=== PATIENT | male | born 1930 | race Caucasian/White ===

== ENCOUNTER 2016-03-31 08:23 | Day surgery (SDC) | payer MEDICARE ==
[2016-03-29 11:30] VITALS: BMI 28.2
[~2016-03-31 08:23] MED LIST: ACETAMINOPHEN TAB 500 MG TAB PO ONE; DEXAMETHASONE SOD PHOSPHATE 4 MG/ML 1 ML VIAL IV ONE; FAMOTIDINE 20 MG/2 ML VIAL IV ONE; HYDROmorphone 1 MG/ML 1 ML SYRINGE IVP PRN; LACTATED RINGERS 1,000 ML IV SCH; LIDOCAINE 1% 20 ML VIAL (10MG/ML) FOR IV START INTRADERMA PRN; ONDANSETRON 4 MG/2 ML VIAL IVP ONE; ONDANSETRON 4 MG/2 ML VIAL IVP PRN; ceFAZolin 2 GM in SODIUM CHLORIDE 0.9% 100 ML IVPB ONE; metroNIDAZOLE-NS PMX 500 MG in SALINE 1 100ML.BAG IVPB ONE
[2016-03-31 09:50] VITALS: RESP 16; TEMP 97.8
[2016-03-31] MEDS ORDERED: DEXAMETHASONE SOD PHOS (MDV) 100 MG/10 ML VIAL IV ONE (10:01)
[2016-03-31] MEDS ORDERED: diphenhydrAMINE 50 MG/ML 1 ML VIAL ONE (10:53)
[2016-03-31] MEDS ORDERED: fentaNYL (PF) 50 MCG/ML 2 ML AMP ONE (10:53)
[2016-03-31] MEDS ORDERED: MIDAZOLAM 2 MG/2 ML VIAL ONE (10:53)
[2016-03-31] MEDS ORDERED: DEXAMETHASONE SOD PHOS (MDV) 100 MG/10 ML VIAL ONE (10:53)
[2016-03-31] MEDS ORDERED: LIDOCAINE 1%-EPI 1:100,000 20 ML VIAL SQ ONE ×2 (11:27)
--- NOTE | 2016-03-31 12:47 | P.OP ---
Date of Procedure: 03/31/16 Preoperative Diagnosis: Right vocal cord paralysis Postoperative Diagnosis: Same Procedure(s) Performed: Flexible laryngoscopy with a right medialization thyroplasty with a #11 Hickman implant Anesthesia: ANJEL Surgeon: Kvng Calabrese Estimated Blood Loss (ml): 5 Pathology: none sent Condition: stable Disposition: PACU Indications for Procedure: This patient suffers from severe hoarseness and has a right vocal cord paralysis. His voice has not progressed and he would like to proceed forward with rehabilitative surgery with medialization of the paralyzed vocal cord. All risks, benefits, and alternative therapies were discussed in detail. Consent was obtained and all questions were answered. Operative Findings: Patient had a right vocal cord paralysis patient has significant calcification of the laryngeal framework Description of Procedure: This patient was taken to the operative room and placed in the supine position. IV sedation was administered to the patient through a functioning IV line and monitored throughout the entire case by the department of anesthesia. A direct microscopic laryngoscopy was performed with use of a Zeiss microscope. Direct visualization was performed. We found a-RIGHT VOCAL CORD PARALYSIS IN THE PARAMEDIAN POSITION. The neck was sterilely prepped and draped in usual fashion and the incision was marked. With use of lidocaine 1% with epinephrine 12 1000, the skin and deeper strap muscles were anesthetized. An incision was made over the lower portion of the thyroid cartilage horizontally in the neck. Hemostasis was obtained with use of electrocoagulation realizing a #12 setting without the flow of oxygen to prevent any fire risk. We dissected through the platysmas muscle to the strap muscles. We the strap muscles in the midline. We then exposed the thyroid cartilage the appropriate side of surgery. We then made a window into the lower portion of the thyroid cartilage in the usual fashion for Hickman implant to be inserted. We then used with the sizer several different implants resistant to the voice and checked for stridor utilizing implants from #7-12. WE UTILIZED A #11 MALE HICKMAN IMPLANT ON THE RIGHT SIDE. This was secured into position in the usual fashion. We then irrigated and then closed the strap muscles with 4-0 Vicryl in an interrupted type fashion. The close the platysmas layer of 4-0 Vicryl in an interrupted type fashion. We then closed the deep subcutaneous tissue with 4 -0 Monocryl in an interrupted type fashion. We then closed the skin with a 5-0 Prolene in a running nonlocking fashion. Bacitracin ointment and Telfa were applied along with a Medpor tape. The patient tolerated this well and the patient is to follow up with me in the office in 1 week. One week voice rest restrictions were given that her absolute area and no heavy lifting or bending. She was also advised that if any stridor should occur she should come to the emergency room. They have been given my cell phone number and contact information.
[2016-03-31 14:01] VITALS: BP 136/74; PULSE 89
== END 2016-03-31 14:14 | disposition home or self-care (01) ==
LOC: OR 08:23
PROVIDERS: ATTEND Otolaryngology
DX: J38.01 Paralysis of vocal cords and larynx, unilateral (principal); I25.10 Atherosclerotic heart disease of native coronary artery without angina pectoris; I10 Essential (primary) hypertension; E78.5 Hyperlipidemia, unspecified; J44.9 Chronic obstructive pulmonary disease, unspecified; J45.909 Unspecified asthma, uncomplicated; K21.9 Gastro-esophageal reflux disease without esophagitis; Z87.891 Personal history of nicotine dependence; Z95.5 Presence of coronary angioplasty implant and graft; Z79.82 Long term (current) use of aspirin; Z79.899 Other long term (current) drug therapy
CPT/HCPCS: 31591; L8509; J2250; J1200; J0690; J2405; J3010; J1100; 99152; 99153

== ENCOUNTER 2016-04-10 16:07 | Inpatient (IN) | payer MEDICARE ==
[2016-04-10] MEDS ORDERED: ONDANSETRON 4 MG/2 ML VIAL IVP STA (16:28)
[2016-04-10] MEDS ORDERED: SODIUM CHLORIDE 0.9% 500 ML IV STA (16:28)
--- NOTE | 2016-04-10 16:39 | ED ---
Abdominal Pain HPI <KieranYoav - Last Filed: 04/10/16 18:19> - General Source: patient, EMS, RN notes reviewed Mode of arrival: EMS Limitations: no limitations <Nura Harrison - Last Filed: 04/10/16 18:25> - General Chief Complaint: Abdominal Pain Stated Complaint: abd pain Time Seen by Provider: 04/10/16 16:14 - History of Present Illness Initial Comments: 85-year-old male presents emergency Department with chief complaint of abdominal pain. Patient comes from [facility] on the leg. Patient states that he was given laxatives, enemas over the last few days for possible constipation. Patient states that he did have large bowel movement on Monday and Monday morning but states he has not had anything since. Patient went of increased abdominal pain primarily on the left with abdominal bloating. Patient had a prior bleeding ulcer, hernia repair by Dr. tilley. Patient states he had recent surgery on his vocal cords by Dr. Calabrese. Patient denies any increased shortness breath or any chest pain. Patient states his vocal cords are doing much better at this time. Patient states she does feel very weak and he is at [facility] for rehab. Patient denies fever, chills. Patient offers no complaints. (Nura Harrison) - Related Data Home Medications Medication Instructions Recorded Confirmed Finasteride 5 mg PO DAILY 07/13/13 04/10/16 Lisinopril [Zestril] 10 mg PO DAILY 07/13/13 04/10/16 DULoxetine HCL [Cymbalta] 60 mg PO HS 05/16/14 04/10/16 ALPRAZolam [Xanax] 1 mg PO Q8H PRN 09/09/15 04/10/16 Allopurinol 100 mg PO DAILY 09/09/15 04/10/16 Docusate [Colace] 100 mg PO BID 03/03/16 04/10/16 Famotidine [Pepcid] 20 mg PO BID 03/03/16 04/10/16 QUEtiapine FUMARATE [SEROquel] 25 mg PO HS 03/03/16 04/10/16 Aspirin [Adult Low Dose Aspirin EC] 81 mg PO DAILY 03/29/16 04/10/16 Atorvastatin [Lipitor] 20 mg PO HS 03/29/16 04/10/16 Ipratropium-Albuterol Nebulize 3 ml INHALATION RT-QID 03/29/16 04/10/16 [Duoneb 0.5 mg-3 mg/3 ml Soln] Acetaminophen-Codeine 300-30mg 1 tab PO Q6H PRN 04/10/16 04/10/16 [Tylenol #3] Acetaminophen-Codeine 300-30mg 2 tab PO Q6H PRN 04/10/16 04/10/16 [Tylenol #3] Amoxicillin/Potassium Clav 1 tab PO Q12HR 04/10/16 04/10/16 [Augmentin 875-125 Tablet] Ferrous Sulfate Oral Elixir 330 mg PO DAILY 04/10/16 04/10/16 [Feosol Liquid] Magnesium Hydroxide [Milk of 2,400 mg PO DAILY PRN 04/10/16 04/10/16 Magnesia] Metoprolol Tartrate [Lopressor] 50 mg PO HS 04/10/16 04/10/16 amLODIPine [Norvasc] 10 mg PO HS 04/10/16 04/10/16 Previous Rx's Medication Instructions Recorded Budesonide [Pulmicort] 0.5 mg INHALATION RT-BID PRN #60 02/19/16 nebu Allergies Allergy/AdvReac Type Severity Reaction Status Date / Time No Known Allergies Allergy Verified 04/10/16 17:03 Review of Systems ROS Other: All systems not noted in ROS Statement are negative. <Yoav Alcaraz - Last Filed: 04/10/16 18:19> ROS Other: All systems not noted in ROS Statement are negative. <Nura Harrison - Last Filed: 04/10/16 18:25> ROS Statement: Those systems with pertinent positive or pertinent negative responses have been documented in the HPI. Past Medical History Past Medical History: COPD, GERD/Reflux, Hyperlipidemia, Hypertension, Osteoarthritis (OA) Additional Past Medical History / Comment(s): MACULAR DEGENERATION History of Any Multi-Drug Resistant Organisms: None Reported Past Surgical History: Heart Catheterization With Stent, Joint Replacement, Orthopedic Surgery Additional Past Surgical History / Comment(s): carpal tunnel release, ulcer surgery, RIGHT TOTAL KNEEX2 Past Anesthesia/Blood Transfusion Reactions: No Reported Reaction Date of Last Stent Placement:: 2010 Past Psychological History: Anxiety, Depression Smoking Status: Former smoker Past Alcohol Use History: None Reported Additional Past Alcohol Use History / Comment(s): STARTED SMOKING AT AGE 19, QUIT FEB 2016 SMOKED 1/2PPD Past Drug Use History: None Reported - Past Family History Mother Family Medical History: Cancer Additional Family Medical History / Comment(s): COLON CANCER <HunterNura Willis - Last Filed: 04/10/16 18:25> General Exam Limitations: no limitations General appearance: alert, in no apparent distress Head exam: Present: atraumatic, normocephalic, normal inspection Neck exam: Present: full ROM, other (Anterior incision covered noted). Absent: normal inspection, tenderness, meningismus, lymphadenopathy Respiratory exam: Present: normal lung sounds bilaterally. Absent: respiratory distress, wheezes, rales, rhonchi, stridor Cardiovascular Exam: Present: normal rhythm, tachycardia, normal heart sounds. Absent: systolic murmur, diastolic murmur, rubs, gallop, clicks GI/Abdominal exam: Present: soft, distended, tenderness (Moderate tenderness of the left), normal bowel sounds. Absent: guarding, rebound, rigid Back exam: Absent: CVA tenderness (R), CVA tenderness (L) Skin exam: Present: warm, dry, intact, normal color. Absent: rash <HunterNura Alba - Last Filed: 04/10/16 18:25> Medical Decision Making - Lab Data Result diagrams: 04/10/16 16:34 04/10/16 16:34 <Yoav Alcaraz - Last Filed: 04/10/16 18:19> - Lab Data Result diagrams: 04/10/16 16:34 04/10/16 16:34 <Nura Harrison - Last Filed: 04/10/16 18:25> - Medical Decision Making Medical decision-making. The patient had stomach surgery 2 years ago for ulcer disease. Subsequent to that he reportedly had ventral hernia repair. 10 days ago he had vocal cord surgery . Not currently taking any pain medications. 2 days ago the patient had 2 loose stools but no bowel movement since yesterday morning. Today he was given an enema with no results. He presents today with a bloated abdomen, very tympanitic. X-ray of the abdomen shows what appears to be gastric outlet obstruction. CAT scan performed suggests gastroparesis versus gastric obstruction. The examination finds tympanitic abdomen, tenderness to palpation. Hypoactive bowel sounds. The case discussed with . Dr. Collazo on-call for Dr. Bryant. He suggests NG tube. This will be done, he will be placed on low Gomco suction. He wants the patient admitted to Dr. Peters service with consultation from the patient's medical doctor, Dr. Cheng who is covering for Dr. Castillo. Dr. Alcaraz (Yoav Alcaraz) - Lab Data Lab Results 04/10/16 04/10/16 04/10/16 Range/Units 16:34 16:34 16:34 WBC 16.0 H (3.8-10.6) k/uL RBC 4.46 (4.30-5.90) m/uL Hgb 13.7 (13.0-17.5) gm/dL Hct 43.2 (39.0-53.0) % MCV 96.9 (80.0-100.0) fL MCH 30.7 (25.0-35.0) pg MCHC 31.6 (31.0-37.0) g/dL RDW 14.0 (11.5-15.5) % Plt Count 294 (150-450) k/uL Neutrophils % 82 % Lymphocytes % 5 % Monocytes % 10 % Eosinophils % 2 % Basophils % 0 % Neutrophils # 13.1 H (1.3-7.7) k/uL Lymphocytes # 0.8 L (1.0-4.8) k/uL Monocytes # 1.5 H (0-1.0) k/uL Eosinophils # 0.3 (0-0.7) k/uL Basophils # 0.0 (0-0.2) k/uL PT (9.0-12.0) sec INR (<1.1) APTT (22.0-30.0) sec Sodium 138 (137-145) mmol/L Potassium 4.4 (3.5-5.1) mmol/L Chloride 102 (98-107) mmol/L Carbon Dioxide 28 (22-30) mmol/L Anion Gap 8 mmol/L BUN 19 (9-20) mg/dL Creatinine 0.70 (0.66-1.25) mg/dL Est GFR (MDRD) Af Amer >60 (>60 ml/min/1.73 sqM) Est GFR (MDRD) Non-Af >60 (>60 ml/min/1.73 sqM) Glucose 111 H (74-99) mg/dL Plasma Lactic Acid Murtaza 1.1 (0.7-2.0) mmol/L Calcium 9.0 (8.4-10.2) mg/dL Total Bilirubin 0.8 (0.2-1.3) mg/dL AST 18 (17-59) U/L ALT 25 (21-72) U/L Alkaline Phosphatase 51 (38-126) U/L Total Protein 5.6 L (6.3-8.2) g/dL Albumin 3.3 L (3.5-5.0) g/dL Amylase <30 L (30-110) U/L Lipase 123 (23-300) U/L 04/10/16 Range/Units 16:34 WBC (3.8-10.6) k/uL RBC (4.30-5.90) m/uL Hgb (13.0-17.5) gm/dL Hct (39.0-53.0) % MCV (80.0-100.0) fL MCH (25.0-35.0) pg MCHC (31.0-37.0) g/dL RDW (11.5-15.5) % Plt Count (150-450) k/uL Neutrophils % % Lymphocytes % % Monocytes % % Eosinophils % % Basophils % % Neutrophils # (1.3-7.7) k/uL Lymphocytes # (1.0-4.8) k/uL Monocytes # (0-1.0) k/uL Eosinophils # (0-0.7) k/uL Basophils # (0-0.2) k/uL PT 11.2 (9.0-12.0) sec INR 1.1 (<1.1) APTT 26.7 (22.0-30.0) sec Sodium (137-145) mmol/L Potassium (3.5-5.1) mmol/L Chloride (98-107) mmol/L Carbon Dioxide (22-30) mmol/L Anion Gap mmol/L BUN (9-20) mg/dL Creatinine (0.66-1.25) mg/dL Est GFR (MDRD) Af Amer (>60 ml/min/1.73 sqM) Est GFR (MDRD) Non-Af (>60 ml/min/1.73 sqM) Glucose (74-99) mg/dL Plasma Lactic Acid Murtaza (0.7-2.0) mmol/L Calcium (8.4-10.2) mg/dL Total Bilirubin (0.2-1.3) mg/dL AST (17-59) U/L ALT (21-72) U/L Alkaline Phosphatase (38-126) U/L Total Protein (6.3-8.2) g/dL Albumin (3.5-5.0) g/dL Amylase (30-110) U/L Lipase (23-300) U/L Disposition <Yoav Alcaraz - Last Filed: 04/10/16 18:19> Time of Disposition: 18:25 <Nura Harrison - Last Filed: 04/10/16 18:25> Clinical Impression: Gastric outlet obstruction, Abdominal pain Disposition: ADMITTED IP TO THIS HOSP Condition: Stable
[2016-04-10 17:01] LABS: ALT 25 U/L (21-72); AST 18 U/L (17-59); Alkaline Phosphatase 51 U/L (38-126); Amylase <30 U/L (30-110); Anion Gap 8 mmol/L; Blood Urea Nitrogen 19 mg/dL (9-20); Carbon Dioxide 28 mmol/L (22-30); Chloride 102 mmol/L (98-107); Glucose 111 mg/dL (74-99); Non-African American GFR(MDRD) >60 (>60 ml/min/1.73 sqM); Potassium 4.4 mmol/L (3.5-5.1); Sodium 138 mmol/L (137-145); Total Bilirubin 0.8 mg/dL (0.2-1.3); Total Protein 5.6 g/dL (6.3-8.2)
--- NOTE | 2016-04-10 17:02 | XR ---
EXAMINATION TYPE: XR KUB DATE OF EXAM: 04/10/2016 4:52 PM COMPARISON: 09/02/2015 HISTORY: Abdominal pain TECHNIQUE: 2 views FINDINGS: There is no sign of intestinal obstruction or pneumoperitoneum. Fecal pattern is normal. Th ere is a large fluid-filled stomach. There are no pathologic calcifications definitely seen in the ki dneys. There is probably some diaphragmatic pleural calcification at the right lung base. IMPRESSION: Large air and fluid filled stomach. This could relate to gastroparesis. No free air. This appears new compared to old exam.
[2016-04-10 17:06] LABS: Basophils % (A) 0 %; CH 31.3; CHCM 32.4; Eosinophils # (A) 0.3 k/uL (0-0.7); Eosinophils % (A) 2 %; HCT 43.2 % (39.0-53.0); HDW 2.21; HGB 13.7 gm/dL (13.0-17.5); Luc # (Auto) 0.25; Luc % (Auto) 2; Lymphocytes # (A) 0.8 k/uL (1.0-4.8); Lymphocytes % (A) 5 %; MCH 30.7 pg (25.0-35.0); MCHC 31.6 g/dL (31.0-37.0); MCV 96.9 fL (80.0-100.0); Mean Platelet Volume 7.3; Monocytes # (A) 1.5 k/uL (0-1.0); Monocytes % (A) 10 %; Neutrophils # (A) 13.1 k/uL (1.3-7.7); Neutrophils % (A) 82 %; RBC 4.46 m/uL (4.30-5.90); WBC (Perox) 15.78
[2016-04-10] MEDS ORDERED: RX INFO: IV CONTRAST WAS GIVEN 1 EACH MISC MISCELLANE PRN (17:11)
[2016-04-10] MEDS ORDERED: METOCLOPRAMIDE 5 MG/ML 2 ML VIAL IVP STA (17:11)
[2016-04-10 17:21] LABS: INR 1.1 (<1.1); Partial Thromboplastin Time 26.7 sec (22.0-30.0); Prothrombin Time 11.2 sec (9.0-12.0)
--- NOTE | 2016-04-10 18:06 | CT ---
EXAMINATION TYPE: CT abdomen pelvis w con DATE OF EXAM: 04/10/2016 5:49 PM COMPARISON: 01/24/2013 HISTORY: Patient complains of generalized abdominal pain and constipation. CT DLP: 936.3 mGycm Automated exposure control for dose reduction was used. TECHNIQUE: Helical acquisition of images was performed from the lung bases through the pelvis. CONTRAST: Performed without Oral Contrast and with IV Contrast, patient injected with 100 mL of Omnipaque 300. FINDINGS: Lung bases are clear of consolidation. There is bilateral calcified pleural plaque at the lung bases. There is no pleural effusion. The liver and spleen appear normal. Bile ducts are not dilated. There is no pancreatic mass. Gallblad sj appears normal. There is no adrenal mass. Kidneys show satisfactory contrast opacification. There is no hydronephrosis. There is no retroperitoneal adenopathy. Abdominal aorta is atheromatous. I see no intestinal wall thickening. There are no dilated loops. There is a large stomach with fluid. Ther e is no ascites. Bladder distends smoothly. There is no sign of a pelvic mass. There is prostatic aayush cification. There are spondylotic changes throughout the lumbar spine. There is multilevel laminectom y defect noted. There is variable mild lumbar spinal stenosis. There is extensive anterior osteophyte formation. IMPRESSION: EXTENSIVE BILATERAL BASILAR CALCIFIED PLEURAL PLAQUE HAS PROGRESSED COMPARED TO OLD EXAM. THERE IS A DILATED AIR AND FLUID-FILLED STOMACH THAT IS NEW COMPARED TO OLD EXAM AND COULD RELATE TO GASTRIC OUT LET OBSTRUCTION OR GASTROPARESIS. EXTENSIVE ATHEROSCLEROTIC VASCULAR DISEASE. 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
[2016-04-10] MEDS ORDERED: NALOXONE 0.4 MG/ML 1 ML VIAL IV PRN (18:19)
[2016-04-10] MEDS ORDERED: METOCLOPRAMIDE 5 MG/ML 2 ML VIAL IVP PRN (18:22)
[2016-04-10 18:57] LABS: Appearance,Urine Clear (Clear); Bilirubin,Urine Negative (Negative); Glucose,Urine (UA) Negative (Negative); Ketones,Urine 2+ (Negative); Leukocyte Esterase,Urine Negative (Negative); Nitrite,Urine Negative (Negative); PH, Urine 6.5 (5.0-8.0); Protein,Urine Trace (Negative); UA Billing (MACRO vs. MICRO) CHEM
[2016-04-10] MEDS ORDERED: ACETAMINOPHEN IV (For NPO) 1,000 MG in EMPTY BAG 1 BAG IVPB STA (19:01)
[2016-04-10] MEDS: SODIUM CHLORIDE 0.9% 1,000 ML IV SCH (19:03)
[2016-04-10] MEDS ORDERED: ACETAMINOPHEN SUPPOSITORY 650 MG SUPP RECTAL PRN (20:26)
[2016-04-10] MEDS ORDERED: BUDESONIDE 0.5 MG/2 ML NEBU INHALATION PRN (20:27)
[2016-04-10] MEDS: metroNIDAZOLE-NS PMX 500 MG in SALINE 1 100ML.BAG IVPB SCH (23:17)
[2016-04-11] MEDS: IPRATROPIUM-ALBUTEROL 3 ML NEB INHALATION SCH ×4 (07:19→20:20)
[2016-04-11] MEDS: PANTOPRAZOLE 40 MG/10 ML VIAL IVP SCH (09:09)
[2016-04-11] MEDS: SODIUM CHLORIDE 0.9% 1,000 ML IV SCH ×3 (09:09→23:32)
[2016-04-11] MEDS: metroNIDAZOLE-NS PMX 500 MG in SALINE 1 100ML.BAG IVPB SCH ×3 (09:09→23:32)
[2016-04-11 10:15] VITALS: BMI 28.0
--- NOTE | 2016-04-11 20:30 | P.GSCN ---
History of Present Illness Consult date: 04/11/16 Reason for Consult: Abdominal pain History of present illness: Patient came to the hospital with complaints of abdominal pain. He describes increased abdominal bloating. He describes recent constipation. He had a recent ENT surgical procedure performed. Denies vomiting. Some nausea. The patient had a CAT scan performed showing significant gastric distention and has had over 3 L of gastric evacuation with a nasogastric tube. His white blood cell count was elevated on arrival. Repeat as ordered for tomorrow. He has a history of previous ulcer disease and had a repair bleeding ulcer 3-4 years ago. He is currently staying at [facility] for rehab after his recent surgery. Review of Systems The patient denies any acute changes in his vision or hearing, no dysphagia or odynophagia, no chest pain or shortness of breath, no dysuria or hematuria, no headache, no runny nose, no rectal bleeding or melena, no unexplained weight loss Past Medical History Past Medical History: COPD, GERD/Reflux, Hyperlipidemia, Hypertension, Osteoarthritis (OA) Additional Past Medical History / Comment(s): MACULAR DEGENERATION History of Any Multi-Drug Resistant Organisms: None Reported Past Surgical History: Heart Catheterization With Stent, Joint Replacement, Orthopedic Surgery Additional Past Surgical History / Comment(s): carpal tunnel release, ulcer surgery, RIGHT TOTAL KNEEX2, left rotater cuff Past Anesthesia/Blood Transfusion Reactions: No Reported Reaction Date of Last Stent Placement:: 2010 Past Psychological History: Anxiety, Depression Smoking Status: Former smoker Past Alcohol Use History: None Reported Additional Past Alcohol Use History / Comment(s): STARTED SMOKING AT AGE 19, QUIT FEB 2016 SMOKED 1/2PPD Past Drug Use History: None Reported - Past Family History Mother Family Medical History: Cancer Additional Family Medical History / Comment(s): COLON CANCER Medications and Allergies Home Medications Medication Instructions Recorded Confirmed Type Finasteride 5 mg PO DAILY 07/13/13 04/10/16 History Lisinopril [Zestril] 10 mg PO DAILY 07/13/13 04/10/16 History DULoxetine HCL [Cymbalta] 60 mg PO HS 05/16/14 04/10/16 History ALPRAZolam [Xanax] 1 mg PO Q8H PRN 09/09/15 04/10/16 History Allopurinol 100 mg PO DAILY 09/09/15 04/10/16 History Docusate [Colace] 100 mg PO BID 03/03/16 04/10/16 History Famotidine [Pepcid] 20 mg PO BID 03/03/16 04/10/16 History QUEtiapine FUMARATE [SEROquel] 25 mg PO HS 03/03/16 04/10/16 History Aspirin [Adult Low Dose Aspirin EC] 81 mg PO DAILY 03/29/16 04/10/16 History Atorvastatin [Lipitor] 20 mg PO HS 03/29/16 04/10/16 History Ipratropium-Albuterol Nebulize 3 ml INHALATION RT-QID 03/29/16 04/10/16 History [Duoneb 0.5 mg-3 mg/3 ml Soln] Acetaminophen-Codeine 300-30mg 1 tab PO Q6H PRN 04/10/16 04/10/16 History [Tylenol #3] Acetaminophen-Codeine 300-30mg 2 tab PO Q6H PRN 04/10/16 04/10/16 History [Tylenol #3] Amoxicillin/Potassium Clav 1 tab PO Q12HR 04/10/16 04/10/16 History [Augmentin 875-125 Tablet] Ferrous Sulfate Oral Elixir 330 mg PO DAILY 04/10/16 04/10/16 History [Feosol Liquid] Magnesium Hydroxide [Milk of 2,400 mg PO DAILY PRN 04/10/16 04/10/16 History Magnesia] Metoprolol Tartrate [Lopressor] 50 mg PO HS 04/10/16 04/10/16 History amLODIPine [Norvasc] 10 mg PO HS 04/10/16 04/10/16 History Allergies Allergy/AdvReac Type Severity Reaction Status Date / Time No Known Allergies Allergy Verified 04/10/16 17:03 Surgical - Exam Vital Signs Temp Pulse Resp BP Pulse Ox 99.8 F H 104 H 20 134/75 96 04/10/16 16:09 04/10/16 16:09 04/10/16 16:09 04/10/16 16:09 04/10/16 16:09 Physical exam: General: Well-developed, well-nourished HEENT: Normocephalic, sclerae nonicteric Abdomen: Nontender, nondistended, previous scars noted, NG tube in place with bilious output Extremities: No edema Neuro: Alert and oriented Results - Labs 04/10/16 16:34 04/10/16 16:34 Assessment and Plan (1) Gastric outlet obstruction Narrative/Plan: Patient's CAT scan does suggest significant gastric distention however the patient's gastric effluent appears bilious. Obstruction would be beyond the pylorus in that case. Will order upper GI to be performed tomorrow. We'll follow closely with you. Status: Acute
[2016-04-11] MEDS: LORazepam 2 MG/ML SYRINGE IV PRN (23:31)
[2016-04-11] MEDS ORDERED: ENALAPRILAT 1.25 MG/ML 1 ML VIAL IVP PRN (23:40)
--- NOTE | 2016-04-11 23:40 | P.HPIM ---
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, was recently hospitalized at [facility] for acute exacerbation of COPD and he was then transferred to [facility] on the for physical therapy and underwent recently right vocal cord paralysis surgery ,he was seen by myself at [facility] on Monday and he was complaining of increased abdominal pain and distention at that time he was given milk of magnesia with prune juice twice with good results however he developed to have increased abdominal pain and distention with increased nausea and vomiting on Monday so he was transferred to [facility] for evaluation and was found to have a possible gastric outlet obstruction and he was admitted under our service with on consult,after placing NGT he had a good bliary output and he was seen by who recommended repeating the AXR in 24 hours. Review of Systems Constitutional: Reports anorexia, Reports chronic pain, Reports fatigue, Reports weakness, Reports weight loss Eyes: denies blurred vision, denies bulging eye, denies decreased vision Ears: bilateral: decreased hearing Ears, nose, mouth and throat: Reports sore throat, Reports voice changes, Denies dysphagia Cardiovascular: Reports decreased exercise tolerance, Reports dyspnea on exertion, Reports shortness of breath, Denies chest pain, Denies leg edema, Denies rapid heart beat, Denies syncope Respiratory: Reports cough, Reports cough with sputum, Reports dyspnea, Reports home oxygen, Reports wheezing, Denies congestion, Denies sleep apnea, Denies snoring Gastrointestinal: Reports abdominal pain, Reports bloating, Reports change in bowel habits, Reports excessive gas, Reports indigestion, Reports loss of appetite, Reports nausea, Reports vomiting, Denies diarrhea, Denies dyspepsia Genitourinary: Reports nocturia, Denies dysuria Musculoskeletal: Reports atrophy, Reports gait dysfunction, Reports low back pain Musculoskeletal: absent: ankle pain, ankle stiffness, ankle swelling, elbow pain , elbow stiffness, elbow swelling, foot pain, foot stiffness, foot swelling, hand pain, hand stiffness, hand swelling, hip pain, hip stiffness, hip swelling , knee pain, knee stiffness, knee swelling, shoulder pain, shoulder stiffness, shoulder swelling, wrist pain, wrist stiffness, wrist swelling Neurological: Reports balance difficulties, Reports hearing difficulties Psychiatric: Reports anxiety, Reports insomnia Endocrine: Denies fatigue, Denies weight change Past Medical History Past Medical History: Coronary Artery Disease (CAD), COPD, CVA/TIA, GERD/Reflux , Hyperlipidemia, Hypertension, Osteoarthritis (OA), Prostate Disorder Additional Past Medical History / Comment(s): MACULAR DEGENERATION History of Any Multi-Drug Resistant Organisms: None Reported Past Surgical History: Heart Catheterization With Stent, Joint Replacement, Orthopedic Surgery Additional Past Surgical History / Comment(s): carpal tunnel release, ulcer surgery, RIGHT TOTAL KNEEX2, left rotater cuff Past Anesthesia/Blood Transfusion Reactions: No Reported Reaction Date of Last Stent Placement:: 2010 Past Psychological History: Anxiety, Depression Smoking Status: Former smoker Past Alcohol Use History: None Reported Additional Past Alcohol Use History / Comment(s): STARTED SMOKING AT AGE 19, QUIT FEB 2016 SMOKED 1/2PPD Past Drug Use History: None Reported - Past Family History Mother Family Medical History: Cancer Additional Family Medical History / Comment(s): COLON CANCER Medications and Allergies Home Medications Medication Instructions Recorded Confirmed Type Finasteride 5 mg PO DAILY 07/13/13 04/10/16 History Lisinopril [Zestril] 10 mg PO DAILY 07/13/13 04/10/16 History DULoxetine HCL [Cymbalta] 60 mg PO HS 05/16/14 04/10/16 History ALPRAZolam [Xanax] 1 mg PO Q8H PRN 09/09/15 04/10/16 History Allopurinol 100 mg PO DAILY 09/09/15 04/10/16 History Docusate [Colace] 100 mg PO BID 03/03/16 04/10/16 History Famotidine [Pepcid] 20 mg PO BID 03/03/16 04/10/16 History QUEtiapine FUMARATE [SEROquel] 25 mg PO HS 03/03/16 04/10/16 History Aspirin [Adult Low Dose Aspirin EC] 81 mg PO DAILY 03/29/16 04/10/16 History Atorvastatin [Lipitor] 20 mg PO HS 03/29/16 04/10/16 History Ipratropium-Albuterol Nebulize 3 ml INHALATION RT-QID 03/29/16 04/10/16 History [Duoneb 0.5 mg-3 mg/3 ml Soln] Acetaminophen-Codeine 300-30mg 1 tab PO Q6H PRN 04/10/16 04/10/16 History [Tylenol #3] Acetaminophen-Codeine 300-30mg 2 tab PO Q6H PRN 04/10/16 04/10/16 History [Tylenol #3] Amoxicillin/Potassium Clav 1 tab PO Q12HR 04/10/16 04/10/16 History [Augmentin 875-125 Tablet] Ferrous Sulfate Oral Elixir 330 mg PO DAILY 04/10/16 04/10/16 History [Feosol Liquid] Magnesium Hydroxide [Milk of 2,400 mg PO DAILY PRN 04/10/16 04/10/16 History Magnesia] Metoprolol Tartrate [Lopressor] 50 mg PO HS 04/10/16 04/10/16 History amLODIPine [Norvasc] 10 mg PO HS 04/10/16 04/10/16 History Allergies Allergy/AdvReac Type Severity Reaction Status Date / Time No Known Allergies Allergy Verified 04/10/16 17:03 Physical Exam Vitals: Vital Signs Temp Pulse Pulse Resp BP Pulse Ox 04/11/16 15:38 18 04/11/16 15:00 97.6 F 111 H 18 122/68 95 04/11/16 07:30 105 H 04/11/16 07:20 105 H 96 04/11/16 07:00 97.2 F L 106 H 18 125/66 95 04/10/16 23:00 98.5 F 110 H 18 128/67 94 L Intake and Output 04/11/16 04/11/16 04/11/16 06:59 14:59 22:59 Intake Total 1200 2200 Output Total 2200 1150 650 Balance -1000 -1150 1550 Intake: Intake, IV Titration 1200 2200 Amount Sodium Chloride 0.9% 1, 1100 1200 000 ml @ 100 mls/hr IV . Q10H SHASHANK Rx#:[id number] metroNIDAZOLE-NS PMX 383 239 1584 mg In Saline 1 100ml.bag @ 100 mls/hr IVPB Q8HR SHASHANK Rx#:[id number] Output: Gastric Drainage 1900 950 650 Urine 300 200 Other: # Voids 1 1 Weight 86.183 kg Patient Weight 04/12/16 06:59 Weight 86.183 kg - Constitutional General appearance: average body habitus, mild distress - EENT Eyes: anicteric sclerae, PERRLA, no ptosis, no scleral icterus, normal appearance ENT: hard of hearing, normal oropharynx, no thrush, no tonsillar exudates Ears: bilateral: normal - Neck Neck: no lymphadenopathy, normal ROM, no rigidity, no stridor, no thyromegaly Carotids: bilateral: upstroke delayed Thyroid: bilateral: normal size - Respiratory Respiratory: bilateral: diminished, rhonchi, wheezing, prolonged expiration, negative: rales - Cardiovascular Rhythm: regular Heart sounds: normal: S1, S2 Abnormal Heart Sounds: systolic murmur, no rub, no click - Gastrointestinal General gastrointestinal: decreased bowel sounds, distended, soft, no splenomegaly, no tenderness, no umbilical hernia, ventral hernia - Integumentary Integumentary: normal, normal turgor - Neurologic Neurologic: CNII-XII intact - Musculoskeletal Musculoskeletal: gait normal, generalized weakness - Psychiatric Psychiatric: A&O x's 3, appropriate affect, intact judgment & insight Results CBC & Chem 7: 04/10/16 16:34 04/10/16 16:34 Thrombosis Risk Factor Assmnt - DVT/VTE Prophylaxis DVT/VTE Prophylaxis: Pharmacologic Prophylaxis ordered, Mechanical Prophylaxis ordered - Choose All That Apply Each Risk Factor Represents 3 Points: Age 75 years or older Thrombosis Risk Factor Assessment Total Risk Factor Score: 3 Thrombosis Risk Factor Assessment Level: Moderate Risk Assessment and Plan Plan: Assessment and plan: 1. Abdominal pain with possible Gastric outlet obstruction. NGT placed will continue with IV fluid and NPO ,will continue with zofran 4 mg ivp q 6 h prn and surgical consult from and will continue with IV ABX . 2. 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 3 . Hypertension and hypertensive cardiovascular disease.hold off oral meds and will start vasotec 1.25 mg ivp q 6 h as needed for SBP >160. 4 . Hyperlipidemia. hold off statins. 5 . Depression. hold off Cymbalta. 6. BPH. stable. 7. COPD: Remain on updraft treatment along with Pulmicort. 8. Gout . hold off allopurinol. 9.CAD/arrhythmia. stable. 10. GI prophylaxis. will start Protonix 40 mg IVp daily. 11. DVT prophylaxis.Patient will be started on heparin 5000 units subcutaneous twice a day. 12. Chronic pleural plaques bilateral lung field possibly secondary to asbestos exposure. 13. Ventral hernia, with herniation of the stomach currently asymptomatic 14. 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 15. Full code.
[2016-04-12] MEDS: IPRATROPIUM-ALBUTEROL 3 ML NEB INHALATION SCH ×4 (07:07→19:00)
--- NOTE | 2016-04-12 07:25 | XR ---
Technique: AP upright portable abdomen was obtained. HISTORY: NG tube placement. COMPARISON: CT abdomen pelvis dated 04/10/2016 Enteric tube lies cephalad to the gastroesophageal junction with its fenestrated portion at the lower thoracic vertebral level approximately 10 cm from the gastroesophageal junction and should be advanc ed approximately this distance. Gastrectasis is noted in a partially air-filled stomach. Calcified pleural plaques are present along the right hemidiaphragm. Lungs are incompletely visualize d. Degenerative changes are appreciated of the osseous structures and there is atherosclerosis of the abdominal aorta and its branches. Calcified staghorn calculi are seen within the left kidney. Few no nspecific air-fluid levels are noted within the right lower quadrant and right mid abdomen. Overall l arge and small bowel are nondilated. IMPRESSION: 1. Cephalad placement of an enteric tube which should be advanced approximately 10 cm for its fenestr ated portion to reach the gastroesophageal junction. 2. Left staghorn renal calculi. 3. Calcified right pleural plaques, correlate for asbestos exposure. 4. Nonspecific right lower quadrant air-fluid levels in nondilated bowel.
[2016-04-12] MEDS: metroNIDAZOLE-NS PMX 500 MG in SALINE 1 100ML.BAG IVPB SCH ×3 (08:23→23:55)
[2016-04-12] MEDS: PANTOPRAZOLE 40 MG/10 ML VIAL IVP SCH (08:23)
[2016-04-12] MEDS: HEPARIN SODIUM,PORCINE 5,000 UNIT/ML 1 ML VIAL SQ SCH ×2 (08:23→21:32)
--- NOTE | 2016-04-12 10:07 | FL ---
EXAMINATION TYPE: FL UGI DATE OF EXAM: 04/12/2016 9:38 AM COMPARISON: NONE HISTORY: Gastric distention TECHNIQUE: A single contrast UGI study is performed. FINDINGS: [employer] image of the abdomen shows nonspecific gas pattern, hypertrophic and degenerative ch anges spine, previous surgery and an NG tube. Chronic rib deformities are seen.. Contrast was instilled through the pre-existing NG tube therefore sestamibi esophagus could not be pe rformed. The stomach distends normally. There is no evidence of obstruction or extravasation. Contrast is seen to extend into the duodenum. The duodenal bulb, sweep, and proximal small bowel loops are highly prominent in size. Correlate clin ically. IMPRESSION: 1. No evidence of gastric obstruction.
[2016-04-12 10:14] LABS: Basophils % (A) 0 %; CHCM 31.1; Eosinophils # (A) 0.2 k/uL (0-0.7); Eosinophils % (A) 1 %; HCT 43.5 % (39.0-53.0); HDW 2.21; HGB 13.4 gm/dL (13.0-17.5); Hypochromasia Slight; Luc # (Auto) 0.24; Luc % (Auto) 2; Lymphocytes # (A) 0.8 k/uL (1.0-4.8); Lymphocytes % (A) 6 %; MCH 30.8 pg (25.0-35.0); MCHC 30.8 g/dL (31.0-37.0); Macrocytosis Slight; Mean Platelet Volume 7.1; Monocytes % (A) 7 %; Neutrophils # (A) 12.1 k/uL (1.3-7.7); Neutrophils % (A) 84 %; RBC 4.35 m/uL (4.30-5.90); RDW 13.7 % (11.5-15.5); WBC 14.4 k/uL (3.8-10.6); WBC (Perox) 15.19
[2016-04-12 10:21] LABS: ALT 33 U/L (21-72); AST 20 U/L (17-59); Alkaline Phosphatase 54 U/L (38-126); Anion Gap 13 mmol/L; Blood Urea Nitrogen 23 mg/dL (9-20); Calcium 8.8 mg/dL (8.4-10.2); Carbon Dioxide 32 mmol/L (22-30); Chloride 101 mmol/L (98-107); Glucose 123 mg/dL (74-99); Non-African American GFR(MDRD) >60 (>60 ml/min/1.73 sqM); Potassium 3.5 mmol/L (3.5-5.1); Sodium 146 mmol/L (137-145); Total Bilirubin 0.8 mg/dL (0.2-1.3); Total Protein 5.7 g/dL (6.3-8.2)
[2016-04-12] MEDS: SODIUM CHLORIDE 0.9% 1,000 ML IV SCH ×2 (11:53→21:46)
--- NOTE | 2016-04-12 14:03 | P.PN ---
Subjective Principal diagnosis: Intractable vomiting Patient says he feels about the same. Denies abdominal pain. Upper GI today shows no obstruction. Objective - Vital Signs Vital signs: Vital Signs Temp 97.8 F 04/12/16 07:00 Pulse 103 H 04/12/16 08:00 Resp 18 04/12/16 08:00 BP 122/61 04/12/16 07:00 Pulse Ox 96 04/12/16 07:00 Intake & Output 04/11/16 04/12/16 04/12/16 18:59 06:59 18:59 Intake Total 2200 Output Total 1800 701 Balance 400 -701 Weight 86.183 kg Intake: Intake, IV Titration 2200 Amount Sodium Chloride 0.9% 1, 1200 000 ml @ 100 mls/hr IV . Q10H SHASHANK Rx#:[id number] metroNIDAZOLE-NS PMX 500 1000 mg In Saline 1 100ml.bag @ 100 mls/hr IVPB Q8HR SHASHANK Rx#:[id number] Output: Gastric Drainage 1600 700 Urine 200 1 Other: Voiding Method Incontinent Incontinent # Voids 1 - Exam Abdomen: Soft, nontender, nondistended - Labs CBC & Chem 7: 04/12/16 09:47 04/12/16 09:47 Labs: Abnormal Lab Results - Last 24 Hours (Table) 04/12/16 04/12/16 Range/Units 09:47 09:47 WBC 14.4 H (3.8-10.6) k/uL MCHC 30.8 L (31.0-37.0) g/dL Neutrophils # 12.1 H (1.3-7.7) k/uL Lymphocytes # 0.8 L (1.0-4.8) k/uL Sodium 146 H (137-145) mmol/L Carbon Dioxide 32 H (22-30) mmol/L BUN 23 H (9-20) mg/dL Glucose 123 H (74-99) mg/dL Total Protein 5.7 L (6.3-8.2) g/dL Albumin 3.3 L (3.5-5.0) g/dL Assessment and Plan (1) Gastric outlet obstruction Narrative/Plan: Continue gastric decompression and nothing by mouth. We'll plan upper endoscopy tomorrow. Status: Acute
--- NOTE | 2016-04-12 14:55 | P.PN ---
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 on the [facility] for physical therapy and underwent recently right vocal cord paralysis surgery ,he was seen by myself at [facility] on Monday and he was complaining of increased abdominal pain and distention at that time he was given milk of magnesia with prune juice twice with good results however he developed to have increased abdominal pain and distention with increased nausea and vomiting on Monday so he was transferred to [facility] for evaluation and was found to have a possible gastric outlet obstruction and he was admitted under our service with on consult,after placing NGT he had a good bliary output and he was seen by who recommended repeating the AXR in 24 hours. 04/12:patient underwent upper GI that showed no obstruction. Patient denies abdominal pain.he has continued with NG tube and nothing by mouth status. Dr. Bryant is planning endoscopy for tomorrow. Objective - Vital Signs Vital signs: Vital Signs Temp 97.8 F 04/12/16 07:00 Pulse 103 H 04/12/16 07:00 Resp 18 04/12/16 07:00 BP 122/61 04/12/16 07:00 Pulse Ox 96 04/12/16 07:00 Intake & Output 04/11/16 04/12/16 04/12/16 18:59 06:59 18:59 Intake Total 2200 Output Total 1800 701 Balance 400 -701 Weight 86.183 kg Intake: Intake, IV Titration 2200 Amount Sodium Chloride 0.9% 1, 1200 000 ml @ 100 mls/hr IV . Q10H SHASHANK Rx#:[id number] metroNIDAZOLE-NS PMX 500 1000 mg In Saline 1 100ml.bag @ 100 mls/hr IVPB Q8HR SHASHANK Rx#:[id number] Output: Gastric Drainage 1600 700 Urine 200 1 Other: Voiding Method Incontinent # Voids 1 - Exam General appearance: average body habitus, mild distress - EENT Eyes: anicteric sclerae, PERRLA, no ptosis, no scleral icterus, normal appearance ENT: hard of hearing, normal oropharynx, no thrush, no tonsillar exudates Ears: bilateral: normal - Neck Neck: no lymphadenopathy, normal ROM, no rigidity, no stridor, no thyromegaly Carotids: bilateral: upstroke delayed Thyroid: bilateral: normal size - Respiratory Respiratory: bilateral: diminished, rhonchi, wheezing, prolonged expiration, negative: rales - Cardiovascular Rhythm: regular Heart sounds: normal: S1, S2 Abnormal Heart Sounds: systolic murmur, no rub, no click - Gastrointestinal General gastrointestinal: decreased bowel sounds, distended, soft, no splenomegaly, no tenderness, no umbilical hernia, ventral hernia - Integumentary Integumentary: normal, normal turgor - Neurologic Neurologic: CNII-XII intact - Musculoskeletal Musculoskeletal: gait normal, generalized weakness - Psychiatric Psychiatric: A&O x's 3, appropriate affect, intact judgment & insight - Labs CBC & Chem 7: 04/12/16 09:47 04/12/16 09:47 Labs: Abnormal Lab Results - Last 24 Hours (Table) 04/12/16 04/12/16 Range/Units 09:47 09:47 WBC 14.4 H (3.8-10.6) k/uL MCHC 30.8 L (31.0-37.0) g/dL Neutrophils # 12.1 H (1.3-7.7) k/uL Lymphocytes # 0.8 L (1.0-4.8) k/uL Sodium 146 H (137-145) mmol/L Carbon Dioxide 32 H (22-30) mmol/L BUN 23 H (9-20) mg/dL Glucose 123 H (74-99) mg/dL Total Protein 5.7 L (6.3-8.2) g/dL Albumin 3.3 L (3.5-5.0) g/dL Assessment and Plan Plan: 1. Abdominal pain with possible Gastric outlet obstruction. NGT placed will continue with IV fluid and NPO ,will continue with zofran 4 mg ivp q 6 h prn and surgical consult from and will continue with IV ABX. Endoscopy for tomorrow. 2. 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 3 . Hypertension and hypertensive cardiovascular disease.hold off oral meds and will start vasotec 1.25 mg ivp q 6 h as needed for SBP >160. 4 . Hyperlipidemia. hold off statins. 5 . Depression. hold off Cymbalta. 6. BPH. stable. 7. COPD: Remain on updraft treatment along with Pulmicort. 8. Gout . hold off allopurinol. 9.CAD/arrhythmia. stable. 10. GI prophylaxis. will start Protonix 40 mg IVp daily. 11. DVT prophylaxis.Patient will be started on heparin 5000 units subcutaneous twice a day. 12. Chronic pleural plaques bilateral lung field possibly secondary to asbestos exposure. 13. Ventral hernia, with herniation of the stomach currently asymptomatic 14. 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 15. Full code. Discharge plan:return to [facility] Impression and plan of care have been directed as dictated by the signing physician. Patricia Padilla nurse practitioner acting as scribe for signing physician. Time with Patient: Greater than 30
[2016-04-12] MEDS ORDERED: HYDROmorphone 1 MG/ML 1 ML SYRINGE IVP PRN (15:14)
[2016-04-12] MEDS: LORazepam 2 MG/ML SYRINGE IV PRN (23:54)
[2016-04-13] MEDS: SODIUM CHLORIDE 0.9% 1,000 ML IV SCH ×2 (05:35→12:42)
[2016-04-13] MEDS: metroNIDAZOLE-NS PMX 500 MG in SALINE 1 100ML.BAG IVPB SCH ×3 (08:49→23:47)
[2016-04-13] MEDS: HEPARIN SODIUM,PORCINE 5,000 UNIT/ML 1 ML VIAL SQ SCH ×2 (08:49→20:17)
[2016-04-13] MEDS: PANTOPRAZOLE 40 MG/10 ML VIAL IVP SCH (08:50)
[2016-04-13] MEDS: IPRATROPIUM-ALBUTEROL 3 ML NEB INHALATION SCH ×4 (08:54→19:37)
[2016-04-13] MEDS ORDERED: PROPOFOL 10 MG/ML 20 ML VIAL IV ONE (10:48)
[2016-04-13] MEDS ORDERED: LIDOCAINE 1% INJ 10MG/ML (20 ML MDV) ONE (10:48)
[2016-04-13] MEDS ORDERED: IV FLUID CONTINUATION 1,000 ML IV ONE (10:51)
--- NOTE | 2016-04-13 11:15 | P.PCN ---
Date of Procedure: 04/13/16 Procedure(s) Performed: Preoperative Dx: Gastric outlet obstruction Postoperative Dx: Erosive gastritis, small hiatal hernia, distal esophagitis Procedure: EGD with Bx Anesthesia: Sedation Endoscopist: Dr. Bryant Specimens: Antrum Endoscopic Procedure: The patient was on the endoscopy table in the left decubitus position. The Olympus gastroscope was inserted into the oropharynx and passed under direct visualization to the distal stomach. The patient had evidence of prior food and also small amount of blood clots within the stomach. Sutures were visualized that were thought to be related to the previous oversewing of the ulcer region. There was some bright red blood present in the prepyloric region. There was erosive gastritis present involving much of the antrum. Several biopsies took place. Despite irrigation I was not able to visualize an exact site of bleeding. The patient's hemoglobin has been stable and GI bleed was not part of our initial concern. I suspect some of this bleeding was related to trauma from the nasogastric tube that we removed just prior to our endoscopy. The pyloric region was distorted from the previous pyloroplasty but I was able to advance into the duodenum without significant difficulty. The second and third portion of the duodenum appeared normal. I could not visualize beyond the mid third portion. Retroflexion in the stomach revealed a small hiatal hernia. The esophagus revealed esophagitis. The patient was then taken to the recovery room in stable condition per anesthesia guidelines. Recommendations: Continue Protonix and will add Carafate. Gradually advance diet. No evidence of gastric outlet obstruction. His symptoms may have been exacerbated by the peptic ulcer disease. Follow hemoglobin closely.
[2016-04-13] MEDS: SUCRALFATE 1 GM TAB PO SCH ×2 (12:30→17:26)
[2016-04-13] MEDS ORDERED: ACETAMINOPHEN TAB 325 MG TAB PO PRN (16:50)
--- NOTE | 2016-04-13 17:30 | P.PN ---
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, was recently hospitalized at [facility] for acute exacerbation of COPD and he was then transferred to [facility] on the [facility] for physical therapy and underwent recently right vocal cord paralysis surgery ,he was seen by myself at [facility] on Monday and he was complaining of increased abdominal pain and distention at that time he was given milk of magnesia with prune juice twice with good results however he developed to have increased abdominal pain and distention with increased nausea and vomiting on Monday so he was transferred to [facility] for evaluation and was found to have a possible gastric outlet obstruction and he was admitted under our service with on consult,after placing NGT he had a good bliary output and he was seen by who recommended repeating the AXR in 24 hours. 04/12:patient underwent upper GI that showed no obstruction. Patient denies abdominal pain.he has continued with NG tube and nothing by mouth status. Dr. Bryant is planning endoscopy for tomorrow. 04/13: Patient underwent EGD with biopsy this morning with Dr. Bryant finding erosive gastritis, small hiatal hernia and distal esophagitis with recommendations to continue Protonix and Carafate added. Gradually advance diet. Currently on clear liquids. Home medications will be resumed. IV fluids to saline lock. Sodium 146. Objective - Vital Signs Vital signs: Vital Signs Temp 97.8 F 04/13/16 11:40 Pulse 108 H 04/13/16 11:40 Resp 18 04/13/16 11:40 BP 123/71 04/13/16 11:40 Pulse Ox 94 L 04/13/16 11:40 Intake & Output 04/12/16 04/13/16 04/13/16 18:59 06:59 18:59 Intake Total 100 350 Output Total 900 150 Balance -800 200 Weight 86.183 kg Intake: IV 100 350 metroNIDAZOLE-NS PMX 500 100 100 mg In Saline 1 100ml.bag @ 100 mls/hr IVPB Q8HR SHASHANK Rx#:[id number] Oral 0 Output: Gastric Drainage 800 150 Urine 100 Other: Voiding Method Incontinent Urinal Diaper # Voids 1 1 # Bowel Movements 1 - Exam General appearance: average body habitus, mild distress - EENT Eyes: anicteric sclerae, PERRLA, no ptosis, no scleral icterus, normal appearance ENT: hard of hearing, normal oropharynx, no thrush, no tonsillar exudates Ears: bilateral: normal - Neck Neck: no lymphadenopathy, normal ROM, no rigidity, no stridor, no thyromegaly Carotids: bilateral: upstroke delayed Thyroid: bilateral: normal size - Respiratory Respiratory: bilateral: diminished, rhonchi, wheezing, prolonged expiration, negative: rales - Cardiovascular Rhythm: regular Heart sounds: normal: S1, S2 Abnormal Heart Sounds: systolic murmur, no rub, no click - Gastrointestinal General gastrointestinal: decreased bowel sounds, distended, soft, no splenomegaly, no tenderness, no umbilical hernia, ventral hernia - Integumentary Integumentary: normal, normal turgor - Neurologic Neurologic: CNII-XII intact - Musculoskeletal Musculoskeletal: gait normal, generalized weakness - Psychiatric Psychiatric: A&O x's 3, appropriate affect, intact judgment & insight - Labs CBC & Chem 7: 04/12/16 09:47 04/12/16 09:47 Assessment and Plan Plan: 1. Abdominal pain due to erosive gastritis. Continue zofran 4 mg ivp q 6 h prn and surgical consult from and will continue with IV ABX. Status post EGD and biopsy with Dr. Bryant. Continue Protonix and Carafate added. Currently clear liquid diet for lunch. 2. 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 3 . Hypertension and hypertensive cardiovascular disease.hold off oral meds and will start vasotec 1.25 mg ivp q 6 h as needed for SBP >160. 4 . Hyperlipidemia. hold off statins. 5 . Depression. hold off Cymbalta. 6. BPH. stable. 7. COPD: Remain on updraft treatment along with Pulmicort. 8. Gout . hold off allopurinol. 9.CAD/arrhythmia. stable. 10. GI prophylaxis. will start Protonix 40 mg IVp daily. 11. DVT prophylaxis.Patient will be started on heparin 5000 units subcutaneous twice a day. 12. Chronic pleural plaques bilateral lung field possibly secondary to asbestos exposure. 13. Ventral hernia, with herniation of the stomach currently asymptomatic 14. 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 15. Full code. Discharge plan:return to [facility] Impression and plan of care have been directed as dictated by the signing physician. Patricia Padilla nurse practitioner acting as scribe for signing physician. Time with Patient: Greater than 30
[2016-04-13] MEDS: DULoxetine HCL 60 MG CAPSULE.DR PO SCH (20:17)
[2016-04-13] MEDS: METOPROLOL TARTRATE 50 MG TAB PO SCH (20:17)
[2016-04-13] MEDS: QUEtiapine 25 MG TAB PO SCH (20:17)
[2016-04-13] MEDS: amLODIPine 10 MG TAB PO SCH (20:17)
[2016-04-13] MEDS: ATORVASTATIN 20 MG TAB PO SCH (20:17)
[2016-04-13] MEDS: ALPRAZolam 0.5 MG TAB PO PRN (20:26)
[2016-04-14] MEDS: HEPARIN SODIUM,PORCINE 5,000 UNIT/ML 1 ML VIAL SQ SCH ×2 (08:37→22:32)
[2016-04-14] MEDS: PANTOPRAZOLE 40 MG/10 ML VIAL IVP SCH (08:37)
[2016-04-14] MEDS: metroNIDAZOLE-NS PMX 500 MG in SALINE 1 100ML.BAG IVPB SCH ×2 (08:37→16:10)
[2016-04-14] MEDS: FINASTERIDE 5 MG TAB PO SCH (08:38)
[2016-04-14] MEDS: ALLOPURINOL 100 MG TAB PO SCH (08:38)
[2016-04-14] MEDS: LISINOPRIL 10 MG TAB PO SCH (08:38)
[2016-04-14] MEDS: ASPIRIN 81 MG CHEW PO SCH (08:38)
[2016-04-14] MEDS: SUCRALFATE 1 GM TAB PO SCH ×3 (08:38→16:10)
[2016-04-14 10:13] LABS: CH 30.9; HCT 34.2 % (39.0-53.0); HDW 2.31; HGB 10.7 gm/dL (13.0-17.5); Hypochromasia Slight; MCH 31.2 pg (25.0-35.0); MCHC 31.2 g/dL (31.0-37.0); MCV 100.1 fL (80.0-100.0); Mean Platelet Volume 7.6; RBC 3.42 m/uL (4.30-5.90); RDW 13.7 % (11.5-15.5); WBC 10.5 k/uL (3.8-10.6)
[2016-04-14 10:44] LABS: ALT 25 U/L (21-72); AST 20 U/L (17-59); Alkaline Phosphatase 44 U/L (38-126); Anion Gap 10 mmol/L; Blood Urea Nitrogen 11 mg/dL (9-20); Calcium 8.1 mg/dL (8.4-10.2); Carbon Dioxide 29 mmol/L (22-30); Chloride 101 mmol/L (98-107); Glucose 147 mg/dL (74-99); Non-African American GFR(MDRD) >60 (>60 ml/min/1.73 sqM); Potassium 3.1 mmol/L (3.5-5.1); Sodium 140 mmol/L (137-145); Total Bilirubin 0.3 mg/dL (0.2-1.3); Total Protein 4.5 g/dL (6.3-8.2)
[2016-04-14] MEDS: IPRATROPIUM-ALBUTEROL 3 ML NEB INHALATION SCH ×4 (12:00→19:53)
[2016-04-14] MEDS: FERROUS SULFATE ORAL ELIXIR 300 MG/5 ML CUP PO SCH (12:21)
[2016-04-14] MEDS: POTASSIUM CHLORIDE ER 20 MEQ TAB.ER PO SCH ×2 (14:33→16:10)
--- NOTE | 2016-04-14 14:48 | P.PN ---
Subjective Principal diagnosis: Intractable vomiting Patient without new complaints. He is tolerating his liquid diet. He is asking for more to eat. No CBC from today. Admits to some dark stools but says that did not appear black. No vomiting. No nausea. Objective - Vital Signs Vital signs: Vital Signs Temp 97.3 F L 04/14/16 07:00 Pulse 88 04/14/16 08:00 Resp 24 04/14/16 08:00 BP 128/61 04/14/16 07:00 Pulse Ox 99 04/14/16 08:15 Intake & Output 04/13/16 04/14/16 04/14/16 18:59 06:59 18:59 Intake Total 590 240 Output Total 250 Balance 340 240 Weight 86.183 kg Intake: IV 350 metroNIDAZOLE-NS PMX 500 100 mg In Saline 1 100ml.bag @ 100 mls/hr IVPB Q8HR [facility] Rx#:[id number] Oral 240 240 Output: Gastric Drainage 150 Urine 100 Other: Voiding Method Urinal Urinal Urinal Diaper Diaper Diaper # Voids 1 1 # Bowel Movements 0 - Exam Abdomen: Soft, nondistended, nontender - Labs CBC & Chem 7: 04/14/16 09:08 04/14/16 09:08 Labs: Abnormal Lab Results - Last 24 Hours (Table) 04/14/16 04/14/16 Range/Units 09:08 09:08 RBC 3.42 L (4.30-5.90) m/uL Hgb 10.7 L (13.0-17.5) gm/dL Hct 34.2 L (39.0-53.0) % MCV 100.1 H (80.0-100.0) fL Potassium 3.1 L (3.5-5.1) mmol/L Glucose 147 H (74-99) mg/dL Calcium 8.1 L (8.4-10.2) mg/dL Total Protein 4.5 L (6.3-8.2) g/dL Albumin 2.5 L (3.5-5.0) g/dL Assessment and Plan (1) Gastric outlet obstruction Narrative/Plan: Advance diet slowly. Continue antacid therapy. Recheck CBC in a.m. Status: Acute
[2016-04-14] MEDS ORDERED: FUROSEMIDE 10 MG/ML 2 ML VIAL IV ONE (16:41)
[2016-04-14] MEDS: Acetaminophen-Codeine 300-30mg TAB PO PRN (19:51)
[2016-04-14] MEDS: ATORVASTATIN 20 MG TAB PO SCH (22:12)
[2016-04-14] MEDS: amLODIPine 10 MG TAB PO SCH (22:12)
[2016-04-14] MEDS: DULoxetine HCL 60 MG CAPSULE.DR PO SCH (22:13)
[2016-04-14] MEDS: QUEtiapine 25 MG TAB PO SCH (22:13)
[2016-04-14] MEDS: METOPROLOL TARTRATE 50 MG TAB PO SCH (22:13)
[2016-04-14] MEDS: metroNIDAZOLE 500 MG TAB PO SCH (22:33)
[2016-04-14] MEDS: ALPRAZolam 0.5 MG TAB PO PRN (22:36)
[2016-04-15] MEDS: IPRATROPIUM-ALBUTEROL 3 ML NEB INHALATION SCH ×3 (07:46→15:09)
[2016-04-15 08:07] VITALS: BP 115/59; TEMP 96.5
[2016-04-15 08:43] LABS: CH 31.1; CHCM 31.6; HCT 37.1 % (39.0-53.0); HDW 2.33; HGB 11.7 gm/dL (13.0-17.5); MCH 31.3 pg (25.0-35.0); MCHC 31.7 g/dL (31.0-37.0); MCV 98.8 fL (80.0-100.0); Mean Platelet Volume 7.3; RBC 3.75 m/uL (4.30-5.90); RDW 13.8 % (11.5-15.5)
[2016-04-15 08:58] LABS: ALT 27 U/L (21-72); AST 19 U/L (17-59); Alkaline Phosphatase 51 U/L (38-126); Anion Gap 8 mmol/L; Blood Urea Nitrogen 8 mg/dL (9-20); Calcium 8.8 mg/dL (8.4-10.2); Carbon Dioxide 30 mmol/L (22-30); Chloride 103 mmol/L (98-107); Glucose 105 mg/dL (74-99); Non-African American GFR(MDRD) >60 (>60 ml/min/1.73 sqM); Potassium 4.1 mmol/L (3.5-5.1); Sodium 141 mmol/L (137-145); Total Bilirubin 0.5 mg/dL (0.2-1.3); Total Protein 5.2 g/dL (6.3-8.2)
[2016-04-15] MEDS: metroNIDAZOLE 500 MG TAB PO SCH ×2 (09:16→16:37)
[2016-04-15] MEDS: SUCRALFATE 1 GM TAB PO SCH ×2 (09:17→12:24)
[2016-04-15] MEDS: LISINOPRIL 10 MG TAB PO SCH (09:17)
[2016-04-15] MEDS: ASPIRIN 81 MG CHEW PO SCH (09:17)
[2016-04-15] MEDS: HEPARIN SODIUM,PORCINE 5,000 UNIT/ML 1 ML VIAL SQ SCH (09:17)
[2016-04-15] MEDS: PANTOPRAZOLE 40 MG/10 ML VIAL IVP SCH (09:17)
[2016-04-15] MEDS: FINASTERIDE 5 MG TAB PO SCH (09:18)
[2016-04-15] MEDS: ALLOPURINOL 100 MG TAB PO SCH (09:18)
[2016-04-15] MEDS: Acetaminophen-Codeine 300-30mg TAB PO PRN (09:21)
--- NOTE | 2016-04-15 10:53 | US ---
EXAMINATION TYPE: US venous doppler duplex LE LT DATE OF EXAM: 04/15/2016 10:36 AM COMPARISON: NONE CLINICAL HISTORY: r/o DVT, calf pain . SIDE PERFORMED: Left VESSELS IMAGED: External Iliac Vein (EIV) Common Femoral Vein Deep Femoral Vein Greater Saphenous Vein * Femoral Vein Popliteal Vein Small Saphenous Vein * Proximal Calf Veins (* superficial vessels) Patient severely short of breath. IMPRESSION: Left Leg: Negative for DVT
--- NOTE | 2016-04-15 11:14 | P.PN ---
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, was recently hospitalized at [facility] for acute exacerbation of COPD and he was then transferred to [facility] on the [facility] for physical therapy and underwent recently right vocal cord paralysis surgery ,he was seen by myself at [facility] on Monday and he was complaining of increased abdominal pain and distention at that time he was given milk of magnesia with prune juice twice with good results however he developed to have increased abdominal pain and distention with increased nausea and vomiting on Monday so he was transferred to [facility] for evaluation and was found to have a possible gastric outlet obstruction and he was admitted under our service with on consult,after placing NGT he had a good bliary output and he was seen by who recommended repeating the AXR in 24 hours. 04/12:patient underwent upper GI that showed no obstruction. Patient denies abdominal pain.he has continued with NG tube and nothing by mouth status. Dr. Bryant is planning endoscopy for tomorrow. 04/13: Patient underwent EGD with biopsy this morning with Dr. Bryant finding erosive gastritis, small hiatal hernia and distal esophagitis with recommendations to continue Protonix and Carafate added. Gradually advance diet. Currently on clear liquids. Home medications will be resumed. IV fluids to saline lock. Sodium 146. 2/2: IV fluids will be discontinued and Lasix 1 dose given. Flagyl has been changed over to oral. Potassium 3.1 and will be replaced. Patient is on Protonix and Carafate. He is currently on a clear liquid diet. Anticipate discharge back to [facility] tomorrow. Objective - Vital Signs Vital signs: Vital Signs Temp 97.3 F L 04/14/16 07:00 Pulse 88 04/14/16 08:00 Resp 24 04/14/16 08:00 BP 128/61 04/14/16 07:00 Pulse Ox 99 04/14/16 08:15 Intake & Output 04/13/16 04/14/16 04/14/16 18:59 06:59 18:59 Intake Total 590 240 Output Total 250 Balance 340 240 Weight 86.183 kg Intake: IV 350 metroNIDAZOLE-NS PMX 500 100 mg In Saline 1 100ml.bag @ 100 mls/hr IVPB Q8HR [facility] Rx#:[id number] Oral 240 240 Output: Gastric Drainage 150 Urine 100 Other: Voiding Method Urinal Urinal Urinal Diaper Diaper Diaper # Voids 1 1 # Bowel Movements 0 - Exam General appearance: average body habitus, mild distress - EENT Eyes: anicteric sclerae, PERRLA, no ptosis, no scleral icterus, normal appearance ENT: hard of hearing, normal oropharynx, no thrush, no tonsillar exudates Ears: bilateral: normal - Neck Neck: no lymphadenopathy, normal ROM, no rigidity, no stridor, no thyromegaly Carotids: bilateral: upstroke delayed Thyroid: bilateral: normal size - Respiratory Respiratory: bilateral: diminished, rhonchi, wheezing, prolonged expiration, negative: rales - Cardiovascular Rhythm: regular Heart sounds: normal: S1, S2 Abnormal Heart Sounds: systolic murmur, no rub, no click - Gastrointestinal General gastrointestinal: decreased bowel sounds, distended, soft, no splenomegaly, no tenderness, no umbilical hernia, ventral hernia - Integumentary Integumentary: normal, normal turgor - Neurologic Neurologic: CNII-XII intact - Musculoskeletal Musculoskeletal: gait normal, generalized weakness - Psychiatric Psychiatric: A&O x's 3, appropriate affect, intact judgment & insight - Labs CBC & Chem 7: 04/15/16 08:05 04/15/16 08:05 Labs: Abnormal Lab Results - Last 24 Hours (Table) 04/14/16 04/14/16 Range/Units 09:08 09:08 RBC 3.42 L (4.30-5.90) m/uL Hgb 10.7 L (13.0-17.5) gm/dL Hct 34.2 L (39.0-53.0) % MCV 100.1 H (80.0-100.0) fL Potassium 3.1 L (3.5-5.1) mmol/L Glucose 147 H (74-99) mg/dL Calcium 8.1 L (8.4-10.2) mg/dL Total Protein 4.5 L (6.3-8.2) g/dL Albumin 2.5 L (3.5-5.0) g/dL Assessment and Plan Plan: 1. Abdominal pain due to erosive gastritis. Continue zofran 4 mg ivp q 6 h prn and surgical consult from and will continue with IV ABX. Status post EGD and biopsy with Dr. Bryant. Continue Protonix and Carafate added. Currently clear liquid diet for lunch. 2. 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 3 . Hypertension and hypertensive cardiovascular disease.hold off oral meds and will start vasotec 1.25 mg ivp q 6 h as needed for SBP >160. 4 . Hyperlipidemia. hold off statins. 5 . Depression. hold off Cymbalta. 6. BPH. stable. 7. COPD: Remain on updraft treatment along with Pulmicort. 8. Gout . hold off allopurinol. 9.CAD/arrhythmia. stable. 10. GI prophylaxis. will start Protonix 40 mg IVp daily. 11. DVT prophylaxis.Patient will be started on heparin 5000 units subcutaneous twice a day. 12. Chronic pleural plaques bilateral lung field possibly secondary to asbestos exposure. 13. Ventral hernia, with herniation of the stomach currently asymptomatic 14. 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 15. Full code. Discharge plan:return to [facility] Impression and plan of care have been directed as dictated by the signing physician. Patricia Padilla nurse practitioner acting as scribe for signing physician. Time with Patient: Greater than 30
--- NOTE | 2016-04-15 11:16 | P.DS ---
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 on the for physical therapy and underwent recently right vocal cord paralysis surgery ,he was seen by myself at [facility] on Monday and he was complaining of increased abdominal pain and distention at that time he was given milk of magnesia with prune juice twice with good results however he developed to have increased abdominal pain and distention with increased nausea and vomiting on Monday so he was transferred to [facility] for evaluation and was found to have a possible gastric outlet obstruction and he was admitted under our service with on consult,after placing NGT he had a good bliary output and he was seen by who recommended repeating the AXR in 24 hours. 04/12:patient underwent upper GI that showed no obstruction. Patient denies abdominal pain.he has continued with NG tube and nothing by mouth status. Dr. Bryant is planning endoscopy for tomorrow. 04/13: Patient underwent EGD with biopsy this morning with Dr. Bryant finding erosive gastritis, small hiatal hernia and distal esophagitis with recommendations to continue Protonix and Carafate added. Gradually advance diet. Currently on clear liquids. Home medications will be resumed. IV fluids to saline lock. Sodium 146. 2/2: IV fluids will be discontinued and Lasix 1 dose given. Flagyl has been changed over to oral. Potassium 3.1 and will be replaced. Patient is on Protonix and Carafate. He is currently on a clear liquid diet. Anticipate discharge back to [facility] tomorrow. 04/15: Stomach biopsy report is stating mild chronic gastritis. Negative for H. pylori. Patient complaining of shortness of breath and left calf pain this morning. Ultrasound venous Doppler duplex reveals negative for DVT. Patient will be discharged to [facility] in stable condition. Discharge diagnoses: 1. Abdominal pain due to erosive gastritis status post EGD and biopsy with Dr. Bryant. 2. 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 3 . Hypertension and hypertensive cardiovascular disease. 4 . Hyperlipidemia. 5 . Depression recurrent 6. BPH. 7. COPD stable without exacerbation 8. Gout unspecified 9.CAD/arrhythmia. 10. Chronic pleural plaques bilateral lung field possibly secondary to asbestos exposure. 11. Ventral hernia, with herniation of the stomach currently asymptomatic 12. 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 Discharge plan:return to [facility] Impression and plan of care have been directed as dictated by the signing physician. Patricia Padilla nurse practitioner acting as scribe for signing physician. Patient Condition at Discharge: Good Plan - Discharge Summary New Discharge Prescriptions: ALPRAZolam [Xanax] 1 mg PO Q8H PRN #90 tablet PRN Reason: Anxiety Acetaminophen-Codeine 300-30mg [Tylenol w/codeine #3] 2 tab PO Q6H PRN #100 tab PRN Reason: Severe Pain Pantoprazole Sodium [Protonix] 40 mg PO DAILY #30 tablet.dr Discharge Medication List Finasteride 5 mg PO DAILY 07/13/13 [History] Lisinopril [Zestril] 10 mg PO DAILY 07/13/13 [History] DULoxetine HCL [Cymbalta] 60 mg PO HS 05/16/14 [History] Allopurinol 100 mg PO DAILY 09/09/15 [History] Budesonide [Pulmicort] 0.5 mg INHALATION RT-BID PRN #60 nebu 02/19/16 [Rx] Docusate [Colace] 100 mg PO BID 03/03/16 [History] QUEtiapine FUMARATE [SEROquel] 25 mg PO HS 03/03/16 [History] Aspirin [Adult Low Dose Aspirin EC] 81 mg PO DAILY 03/29/16 [History] Atorvastatin [Lipitor] 20 mg PO HS 03/29/16 [History] Ipratropium-Albuterol Nebulize [Duoneb 0.5 mg-3 mg/3 ml Soln] 3 ml INHALATION RT -QID 03/29/16 [History] Ferrous Sulfate Oral Elixir [Feosol Liquid] 330 mg PO DAILY 04/10/16 [History] Magnesium Hydroxide [Milk of Magnesia] 2,400 mg PO DAILY PRN 04/10/16 [History] Metoprolol Tartrate [Lopressor] 50 mg PO HS 04/10/16 [History] amLODIPine [Norvasc] 10 mg PO HS 04/10/16 [History] ALPRAZolam [Xanax] 1 mg PO Q8H PRN #90 tablet 04/15/16 [Rx] Acetaminophen-Codeine 300-30mg [Tylenol w/codeine #3] 2 tab PO Q6H PRN #100 tab 04/15/16 [Rx] Pantoprazole Sodium [Protonix] 40 mg PO DAILY #30 tablet. 04/15/16 [Rx] Sucralfate [Carafate] 1 gm PO AC-TID tab 04/15/16 [Rx] metroNIDAZOLE [Flagyl] 500 mg PO TID #15 tab 04/15/16 [Rx] Follow up Appointment(s)/Referral(s): Alfonzo Gilliland MD [Primary Care Provider] - 1 Week (At [facility]) Ambulatory/Diagnostic Orders: Complete Blood Count w/diff [LAB.AMB] Location: Determined By Patient Comprehensive Metabolic Panel [LAB.AMB] Location: Determined By Patient Patient Instructions/Handouts: Hiatal Hernia (DC), Gastritis (DC) Activity/Diet/Wound Care/Special Instructions: [facility] Cardiac diet--soft,bland, advance as tolerated. Discharge Disposition: TRANSFER TO SNF/ECF
[2016-04-15] MEDS: FERROUS SULFATE ORAL ELIXIR 300 MG/5 ML CUP PO SCH (12:24)
[2016-04-15 13:55] VITALS: PULSE 78; RESP 18
--- NOTE | 2016-04-15 17:31 | P.PN ---
Subjective Principal diagnosis: Intractable vomiting Patient doing well today. Denies abdominal pain. Tolerating diet. No nausea or vomiting. Plans are for the patient be discharged today. Objective - Vital Signs Vital signs: Vital Signs Temp 96.5 F L 04/15/16 07:00 Pulse 78 04/15/16 13:53 Resp 18 04/15/16 15:18 BP 115/59 04/15/16 07:00 Pulse Ox 93 L 04/15/16 13:53 Intake & Output 04/14/16 04/15/16 04/15/16 18:59 06:59 18:59 Intake Total 240 500 300 Balance 240 500 300 Intake: Oral 240 500 300 Other: Voiding Method Urinal Toilet Toilet Diaper Urinal Urinal Diaper Diaper # Voids 1 2 # Bowel Movements 1 - Exam Abdomen: Soft, nondistended, nontender - Labs CBC & Chem 7: 04/15/16 08:05 04/15/16 08:05 Labs: Abnormal Lab Results - Last 24 Hours (Table) 04/15/16 04/15/16 Range/Units 08:05 08:05 RBC 3.75 L (4.30-5.90) m/uL Hgb 11.7 L (13.0-17.5) gm/dL Hct 37.1 L (39.0-53.0) % BUN 8 L (9-20) mg/dL Creatinine 0.64 L (0.66-1.25) mg/dL Glucose 105 H (74-99) mg/dL Total Protein 5.2 L (6.3-8.2) g/dL Albumin 2.9 L (3.5-5.0) g/dL Assessment and Plan (1) Gastric outlet obstruction Narrative/Plan: Continue diet as tolerated. Continue antiacid therapy. Follow-up in the office in 2-3 weeks. Status: Acute
== END 2016-04-15 16:56 | DRG 378 ==
LOC: EC 16:07 → 4MS4W 18:20
PROVIDERS: ADMIT Internal Medicine Geriatric Medicine; ATTEND Internal Medicine Geriatric Medicine
PROC: 0D9670Z Drainage of Stomach with Drainage Device, Via Natural or Artificial Opening (ICD-10-PCS; principal; 2016-04-10)
PROC: 0DB68ZX Excision of Stomach, Via Natural or Artificial Opening Endoscopic, Diagnostic (ICD-10-PCS; 2016-04-13)
DX: K29.01 Acute gastritis with bleeding (principal); I69.354 Hemiplegia and hemiparesis following cerebral infarction affecting left non-dominant side; I11.9 Hypertensive heart disease without heart failure; J38.01 Paralysis of vocal cords and larynx, unilateral; J44.9 Chronic obstructive pulmonary disease, unspecified; E78.5 Hyperlipidemia, unspecified; I25.10 Atherosclerotic heart disease of native coronary artery without angina pectoris; N40.0 Benign prostatic hyperplasia without lower urinary tract symptoms; M19.90 Unspecified osteoarthritis, unspecified site; H35.30 Unspecified macular degeneration; F41.9 Anxiety disorder, unspecified; F32.9 Major depressive disorder, single episode, unspecified; M10.9 Gout, unspecified; K43.9 Ventral hernia without obstruction or gangrene; K44.9 Diaphragmatic hernia without obstruction or gangrene; K21.0 Gastro-esophageal reflux disease with esophagitis; J92.0 Pleural plaque with presence of asbestos; Z87.891 Personal history of nicotine dependence; Z77.090 Contact with and (suspected) exposure to asbestos; Z95.5 Presence of coronary angioplasty implant and graft; Z79.82 Long term (current) use of aspirin; Z79.51 Long term (current) use of inhaled steroids; Z79.899 Other long term (current) drug therapy; Z80.0 Family history of malignant neoplasm of digestive organs
CPT/HCPCS: 36415; 43239; 74000; 74177; 74240; 80053; 81003; 82150; 82271; 83605; 83690; 83735; 85025; 85027; 85610; 85730; 88305; 88342; 94640; 94760; 96374; 96375; 99153; 99285

== ENCOUNTER → 2016-05-20 | Outpatient (CLI) | payer MEDICARE ==
--- NOTE | 2016-05-20 16:43 | XR ---
EXAMINATION TYPE: 2 views left hip. 3 views left ankle. DATE OF EXAM: 05/20/2016 4:08 PM COMPARISON: 05/16/2014 HISTORY: 85-year-old male with generalized left hip pain. Recent falls. FINDINGS: Left hip: Is prominent marginal spurring of the left hip with mild joint space narrowing and subchondral sclero sis. There is osteopenia without displaced fracture seen. 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 Left ankle: Corticated bone fragments measuring up to 7 mm below the medial malleolus suggests follow-up of prior avulsion fractures. Ankle mortise remains congruent with preservation of the distal tibiofibular ove rlap. Talar dome is intact. Small delineation to the Achilles tendon. Moderate plantar calcaneal spur . Vascular calcifications suggest underlying diabetes and her chronic kidney disease. No acute fractu re or dislocation identified. IMPRESSION: 1. Left hip: Moderate left hip osteoarthrosis. Osteopenia without displaced fracture. Prominent enthe sopathic changes which can be seen in the setting of DISH. 2. Left ankle: Moderate sized plantar calcaneal spur and chronic ununited fracture fragments below th e medial malleolus relating to remote injuries. No acute osseous abnormality seen.
== END | disposition home or self-care (01) ==
LOC: RADXRMAIN 15:42
PROVIDERS: ATTEND Family Medicine
DX: M77.32 Calcaneal spur, left foot (principal); S82.52XK Displaced fracture of medial malleolus of left tibia, subsequent encounter for closed fracture with nonunion; M17.12 Unilateral primary osteoarthritis, left knee; M85.852 Other specified disorders of bone density and structure, left thigh
CPT/HCPCS: 73502

== ENCOUNTER → 2016-05-31 | Outpatient (CLI) | payer MEDICARE ==
--- NOTE | 2016-05-31 22:42 | BD ---
EXAMINATION TYPE: MG DEXA axial skeleton. DATE OF EXAM: 05/31/2016 3:43 PM COMPARISON: NONE CLINICAL HISTORY: 85-year-old male osteoarthritis Height: 66.5 IN Weight: 186 LBS FRAX RISK QUESTIONS: Alcohol (3 or more units per day): N Family History (Parent hip fracture): N Glucocorticoids (More than 3mos): N (Ex: prednisone, prednisolone, methylprednisolone, dexamethasone, and hydrocortisone). History of Fracture in Adulthood: Y Secondary Osteoporosis: 1. Type 1 Diabetes: NO 2. Hyperthyroidism: NO 3. Menopause before 45: N/A 4. Malnutrition: YES 5. Chronic liver disease: NO Rheumatoid Arthritis: NO Current Tobacco Use: NO RISK FACTORS HISTORY OF: Other Fractures since Age 52: YES When: CERVICAL SPINE AGE 82 Active: NOT VERY Lost more than 2 inches in height since high school: YES 3" Frequent falls: YES BALANCE ISSUES Poor Health: YES MEDICATIONS: Additional Medications: MULTI VIT, GOUT MED, CHOLESTEROL MED, HIGH BLOOD PRESSURE MED, CYMBALTA, XANA X, SERAQUIL EXAM MEASUREMENTS: Bone mineral densitometry was performed using the [employer] System. Bone mineral density as measured about the Lumbar spine is: ----- L1-L4(G/cm2): 2.062 T Score Values are as follows: ----- L2: 5.7 ----- L3: 5.8 ----- L4: 9.8 ----- L1-L4: 7.3 Bone mineral density BASELINE Increased measurements in the lumbar spine likely in part due to sclerosis from underlying degenerati ve change. Bone mineral density about the R hip (g/cm2): 0.993 Bone mineral density about the L hip (g/cm2): 1.027 T Score values are as follows: -----R Neck: -0.3 -----L Neck: -0.1 -----R Intertrochanter: 2.2 -----L Intertrochanter: 1.5 Bone mineral density BASELINE IMPRESSION: Normal bone mineral density as measured in the lumbar spine and both hips. NOTE: T-SCORE=SD OF THE YOUNG ADULT MEAN.
== END ==
LOC: RADBDWWP 15:05
PROVIDERS: ATTEND Family Medicine
DX: M19.90 Unspecified osteoarthritis, unspecified site (principal)
CPT/HCPCS: 77080

== ENCOUNTER → 2016-06-06 | Outpatient (CLI) | payer MEDICARE ==
[2016-06-06 10:03] LABS: Blood Urea Nitrogen 10 mg/dL (9-20); Non-African American GFR(MDRD) >60 (>60 ml/min/1.73 sqM)
--- NOTE | 2016-06-06 12:09 | MR ---
EXAMINATION TYPE: MR lumbar spine wo/w con DATE OF EXAM: 06/06/2016 10:51 AM COMPARISON: CT abdomen pelvis 10 April 2016 HISTORY: Lumbar radiculopathy TECHNIQUE: Multiplanar, multisequence images of the lumbar spine were acquired utilizing 16 mL intravenous Multi Hema gadolinium contrast. L1-L2: Posterior extension of endplate disc complex causes mild anterior mass effect on the thecal sa c, extension circumferentially causes bilateral foraminal encroachment left greater than right. L2-L3: No significant central stenosis. Circumferential extension of endplate disc complex results in bilateral foraminal encroachment. Posterior extension of endplate disc complex contacts the anterior thecal sac. L3-L4: Circumferential extension of endplate disc complex results in bilateral foraminal encroachment . Hypertrophic change of the facets causes some mass effect laterally, no significant central stenosi s. Posterior extension endplate disc complex causes mild anterior mass effect on the thecal sac. L4-L5: The anterolisthesis results in bilateral foraminal encroachment left greater than right, circu mferential posterior disc bulge causes mild anterior mass effect on the thecal sac. Facet arthropathy is present, there may be synovial cysts posteriorly, there is moderate central canal stenosis. L5-S1: Normal disc appearance without desiccation. No herniation, protrusion or disc bulging. No ca nal stenosis is present. Foramina are patent bilaterally. Lumbar segments are intact. L5 may be sacralized or there may be 4 lumbar segments No paraspinal mass es are identified. Conus medullaris has a normal appearance at T12-L1. There is multilevel hypertrop hic change, loss of disc height and signal present at the intervertebral levels with associated vacuu m phenomenon, endplate marrow signal change, Schmorl's node formation. Anterolisthesis grade 1 L4-5, retrolisthesis grade 1 L3-4, L2-3. Multilevel laminectomies are present. There is a slight spinal cur vature. Enhancement is present posterior to the thecal sac likely due to patient's granulation tissue following surgery extending into the posterior aspect of the spinal canal. IMPRESSION: Extensive postoperative changes, degenerative disc disease, multilevel foraminal encroachment facet a rthropathy. Possible synovial cyst present at L4-5 causing some spinal stenosis. Correlate with addit ional imaging prior to any intervention, 4 nonrib-bearing lumbar segments are suspected, possible sac ralization L5. Additional findings above.
== END | disposition home or self-care (01) ==
LOC: RADMRIMAIN 08:45
PROVIDERS: ATTEND Family Medicine
DX: M51.16 Intervertebral disc disorders with radiculopathy, lumbar region (principal); Z98.890 Other specified postprocedural states
CPT/HCPCS: 82565; 84520; 72158; A9577

== ENCOUNTER 2016-06-08 13:22 | Emergency (ER) | payer MEDICARE ==
[2016-06-08 14:23] LABS: Basophils % (A) 1 %; CH 28.8; Eosinophils # (A) 0.3 k/uL (0-0.7); Eosinophils % (A) 4 %; HCT 38.9 % (39.0-53.0); HDW 2.53; HGB 11.9 gm/dL (13.0-17.5); Hypochromasia Marked; Luc # (Auto) 0.26; Luc % (Auto) 3; Lymphocytes % (A) 13 %; MCH 29.4 pg (25.0-35.0); MCHC 30.6 g/dL (31.0-37.0); MCV 96.3 fL (80.0-100.0); Monocytes # (A) 0.7 k/uL (0-1.0); Monocytes % (A) 8 %; Neutrophils # (A) 5.8 k/uL (1.3-7.7); Neutrophils % (A) 72 %; RBC 4.04 m/uL (4.30-5.90); RDW 13.8 % (11.5-15.5); WBC 8.1 k/uL (3.8-10.6); WBC (Perox) 8.68
[2016-06-08 14:32] LABS: ALT 23 U/L (21-72); AST 27 U/L (17-59); Alkaline Phosphatase 63 U/L (38-126); Anion Gap 11 mmol/L; Blood Urea Nitrogen 9 mg/dL (9-20); Calcium 9.3 mg/dL (8.4-10.2); Carbon Dioxide 30 mmol/L (22-30); Chloride 99 mmol/L (98-107); Glucose 91 mg/dL (74-99); Magnesium 2.1 mg/dL (1.6-2.3); Non-African American GFR(MDRD) >60 (>60 ml/min/1.73 sqM); Sodium 140 mmol/L (137-145); Total Bilirubin 0.5 mg/dL (0.2-1.3); Total Protein 6.5 g/dL (6.3-8.2)
--- NOTE | 2016-06-08 14:54 | ED ---
ENT HPI - General Chief complaint: ENT Stated complaint: Swolling difficulties Time Seen by Provider: 06/08/16 13:40 Source: patient, family, RN notes reviewed Mode of arrival: wheelchair Limitations: no limitations - History of Present Illness Initial comments: This 85-year-old male was brought in for evaluation of difficulty swallowing. Apparently going on for about 5 weeks who is here for a barium swallow which she 's failed today. The concern was for aspiration. He also has had decreased oral intake. He does complain some weakness he has of a history of vocal cord paralysis and does normally have difficulty with speech. He denies any chest pain fevers chills or sweats at this time. - Related Data Home Medications Medication Instructions Recorded Confirmed Finasteride 5 mg PO DAILY 07/13/13 06/08/16 Lisinopril [Zestril] 10 mg PO DAILY 07/13/13 06/08/16 DULoxetine HCL [Cymbalta] 60 mg PO HS 05/16/14 06/08/16 Allopurinol 100 mg PO DAILY 09/09/15 06/08/16 Docusate [Colace] 100 mg PO BID 03/03/16 06/08/16 QUEtiapine FUMARATE [SEROquel] 25 mg PO HS 03/03/16 06/08/16 Aspirin [Adult Low Dose Aspirin EC] 81 mg PO DAILY 03/29/16 06/08/16 Atorvastatin [Lipitor] 20 mg PO HS 03/29/16 06/08/16 Ipratropium-Albuterol Nebulize 3 ml INHALATION RT-QID 03/29/16 06/08/16 [Duoneb 0.5 mg-3 mg/3 ml Soln] Ferrous Sulfate Oral Elixir 330 mg PO DAILY 04/10/16 06/08/16 [Feosol Liquid] Magnesium Hydroxide [Milk of 2,400 mg PO DAILY PRN 04/10/16 06/08/16 Magnesia] Metoprolol Tartrate [Lopressor] 50 mg PO HS 04/10/16 06/08/16 amLODIPine [Norvasc] 10 mg PO HS 04/10/16 06/08/16 Previous Rx's Medication Instructions Recorded Budesonide [Pulmicort] 0.5 mg INHALATION RT-BID PRN #60 02/19/16 nebu ALPRAZolam [Xanax] 1 mg PO Q8H PRN #90 tablet 04/15/16 Acetaminophen-Codeine 300-30mg 2 tab PO Q6H PRN #100 tab 04/15/16 [Tylenol w/codeine #3] Pantoprazole Sodium [Protonix] 40 mg PO DAILY #30 tablet. 04/15/16 Sucralfate [Carafate] 1 gm PO AC-TID tab 04/15/16 Allergies Allergy/AdvReac Type Severity Reaction Status Date / Time No Known Allergies Allergy Verified 06/08/16 14:28 Review of Systems ROS Statement: Those systems with pertinent positive or pertinent negative responses have been documented in the HPI. ROS Other: All systems not noted in ROS Statement are negative. Past Medical History Past Medical History: Coronary Artery Disease (CAD), COPD, CVA/TIA, GERD/Reflux , Hyperlipidemia, Hypertension, Osteoarthritis (OA), Prostate Disorder Additional Past Medical History / Comment(s): MACULAR DEGENERATION History of Any Multi-Drug Resistant Organisms: None Reported Past Surgical History: Heart Catheterization With Stent, Joint Replacement, Orthopedic Surgery Additional Past Surgical History / Comment(s): carpal tunnel release, ulcer surgery, RIGHT TOTAL KNEEX2, left rotater cuff Past Anesthesia/Blood Transfusion Reactions: No Reported Reaction Date of Last Stent Placement:: 2010 Past Psychological History: Anxiety, Depression Smoking Status: Former smoker Past Alcohol Use History: None Reported Additional Past Alcohol Use History / Comment(s): STARTED SMOKING AT AGE 19, QUIT FEB 2016 SMOKED 1/2PPD Past Drug Use History: None Reported - Past Family History Mother Family Medical History: Cancer Additional Family Medical History / Comment(s): COLON CANCER General Exam - General Exam Comments Initial Comments: This is a well-developed well-nourished awake alert oriented x 3 male Limitations: no limitations General appearance: alert, in no apparent distress Head exam: Present: atraumatic, normocephalic, normal inspection Eye exam: Present: normal appearance, PERRL, EOMI. Absent: scleral icterus, conjunctival injection, periorbital swelling ENT exam: Present: mucous membranes dry Neck exam: Present: normal inspection. Absent: tenderness, meningismus, lymphadenopathy Respiratory exam: Present: normal lung sounds bilaterally. Absent: respiratory distress, wheezes, rales, rhonchi, stridor Cardiovascular Exam: Present: regular rate, normal rhythm, normal heart sounds. Absent: systolic murmur, diastolic murmur, rubs, gallop, clicks GI/Abdominal exam: Present: soft, normal bowel sounds. Absent: distended, tenderness, guarding, rebound, rigid Extremities exam: Present: normal inspection, full ROM, normal capillary refill. Absent: tenderness, pedal edema, joint swelling, calf tenderness Back exam: Present: normal inspection Neurological exam: Present: alert, oriented X3, CN II-XII intact Psychiatric exam: Present: normal affect, normal mood Skin exam: Present: warm, dry, intact, normal color. Absent: rash Course Vital Signs 06/08/16 13:28 Temperature 98.1 F Pulse Rate 72 Respiratory 20 Rate Blood Pressure 163/73 O2 Sat by Pulse 99 Oximetry Medical Decision Making - Lab Data Result diagrams: 06/08/16 14:02 06/08/16 14:02 Lab Results 06/08/16 06/08/16 Range/Units 14:02 14:02 WBC 8.1 (3.8-10.6) k/uL RBC 4.04 L (4.30-5.90) m/uL Hgb 11.9 L (13.0-17.5) gm/dL Hct 38.9 L (39.0-53.0) % MCV 96.3 (80.0-100.0) fL MCH 29.4 (25.0-35.0) pg MCHC 30.6 L (31.0-37.0) g/dL RDW 13.8 (11.5-15.5) % Plt Count 332 (150-450) k/uL Neutrophils % 72 % Lymphocytes % 13 % Monocytes % 8 % Eosinophils % 4 % Basophils % 1 % Neutrophils # 5.8 (1.3-7.7) k/uL Lymphocytes # 1.0 (1.0-4.8) k/uL Monocytes # 0.7 (0-1.0) k/uL Eosinophils # 0.3 (0-0.7) k/uL Basophils # 0.0 (0-0.2) k/uL Hypochromasia Marked Sodium 140 (137-145) mmol/L Potassium 4.0 (3.5-5.1) mmol/L Chloride 99 (98-107) mmol/L Carbon Dioxide 30 (22-30) mmol/L Anion Gap 11 mmol/L BUN 9 (9-20) mg/dL Creatinine 0.61 L (0.66-1.25) mg/dL Est GFR (MDRD) Af Amer >60 (>60 ml/min/1.73 sqM) Est GFR (MDRD) Non-Af >60 (>60 ml/min/1.73 sqM) Glucose 91 (74-99) mg/dL Calcium 9.3 (8.4-10.2) mg/dL Magnesium 2.1 (1.6-2.3) mg/dL Total Bilirubin 0.5 (0.2-1.3) mg/dL AST 27 (17-59) U/L ALT 23 (21-72) U/L Alkaline Phosphatase 63 (38-126) U/L Total Protein 6.5 (6.3-8.2) g/dL Albumin 3.7 (3.5-5.0) g/dL - EKG Data -: EKG Interpreted by Hi EKG shows normal: sinus rhythm (Sinus rhythm with a rate 73 UT interval 138 QRS duration 80 QT/QTC of 392/431 old inferior changes no acute ST-T wave changes.) - Radiology Data Radiology results: report reviewed (I did review the imaging and reports a did discuss the findings with Dr. Alexander per radiology there was some minimal evidence of aspiration with the barium swallow x-rays are negative patient will be discharged with follow-up with ENT and return when necessary patient is agreeable with this), image reviewed Disposition Clinical Impression: Dysphasia Disposition: HOME SELF-CARE Condition: Good Instructions: Barium Swallow (ED) Referrals: Yoav Castillo DO [Primary Care Provider] - 1-2 days Kvng Calabrese DO [Doctor of Osteopathic Medicine] - 1-2 days
--- NOTE | 2016-06-08 15:45 | XR ---
EXAMINATION TYPE: XR chest 2V DATE OF EXAM: 06/08/2016 3:27 PM COMPARISON: Prior chest x-ray 15 February 2016 HISTORY: Aspiration TECHNIQUE: Frontal and lateral views of the chest are obtained. FINDINGS: Calcified pleural plaques again noted, prominent lung volumes suggest underlying COPD. Car diac mediastinal silhouette, pulmonary vascularity and dinorah not significantly changed. No evident pne umothorax or pleural effusion. Postop change noted to the left shoulder. Aspirated volume of barium n ot seen definitively. IMPRESSION: No acute cardiopulmonary process.
[2016-06-08 17:17] VITALS: BP 169/88; PULSE 102; RESP 22; TEMP 97.7
--- NOTE | 2016-06-08 17:22 | ED ---
Medical Decision Making - Lab Data Result diagrams: 06/08/16 14:02 06/08/16 14:02 Lab Results 06/08/16 06/08/16 Range/Units 14:02 14:02 WBC 8.1 (3.8-10.6) k/uL RBC 4.04 L (4.30-5.90) m/uL Hgb 11.9 L (13.0-17.5) gm/dL Hct 38.9 L (39.0-53.0) % MCV 96.3 (80.0-100.0) fL MCH 29.4 (25.0-35.0) pg MCHC 30.6 L (31.0-37.0) g/dL RDW 13.8 (11.5-15.5) % Plt Count 332 (150-450) k/uL Neutrophils % 72 % Lymphocytes % 13 % Monocytes % 8 % Eosinophils % 4 % Basophils % 1 % Neutrophils # 5.8 (1.3-7.7) k/uL Lymphocytes # 1.0 (1.0-4.8) k/uL Monocytes # 0.7 (0-1.0) k/uL Eosinophils # 0.3 (0-0.7) k/uL Basophils # 0.0 (0-0.2) k/uL Hypochromasia Marked Sodium 140 (137-145) mmol/L Potassium 4.0 (3.5-5.1) mmol/L Chloride 99 (98-107) mmol/L Carbon Dioxide 30 (22-30) mmol/L Anion Gap 11 mmol/L BUN 9 (9-20) mg/dL Creatinine 0.61 L (0.66-1.25) mg/dL Est GFR (MDRD) Af Amer >60 (>60 ml/min/1.73 sqM) Est GFR (MDRD) Non-Af >60 (>60 ml/min/1.73 sqM) Glucose 91 (74-99) mg/dL Calcium 9.3 (8.4-10.2) mg/dL Magnesium 2.1 (1.6-2.3) mg/dL Total Bilirubin 0.5 (0.2-1.3) mg/dL AST 27 (17-59) U/L ALT 23 (21-72) U/L Alkaline Phosphatase 63 (38-126) U/L Total Protein 6.5 (6.3-8.2) g/dL Albumin 3.7 (3.5-5.0) g/dL Disposition Clinical Impression: Dysphasia Disposition: HOME SELF-CARE Condition: Good Instructions: Barium Swallow (ED) Additional Instructions: Pured diet Referrals: Kvng Calabrese DO [Doctor of Osteopathic Medicine] - 1-2 days Yoav Castillo DO [Primary Care Provider] - 1-2 days
== END 2016-06-08 17:53 | disposition home or self-care (01) ==
LOC: EC 13:22
DX: R13.10 Dysphagia, unspecified (principal); I10 Essential (primary) hypertension; E78.5 Hyperlipidemia, unspecified; I25.10 Atherosclerotic heart disease of native coronary artery without angina pectoris; J44.9 Chronic obstructive pulmonary disease, unspecified; N42.9 Disorder of prostate, unspecified; F32.9 Major depressive disorder, single episode, unspecified; F41.9 Anxiety disorder, unspecified; M19.90 Unspecified osteoarthritis, unspecified site; Z79.82 Long term (current) use of aspirin; Z79.51 Long term (current) use of inhaled steroids; Z95.5 Presence of coronary angioplasty implant and graft; Z87.891 Personal history of nicotine dependence; Z79.899 Other long term (current) drug therapy
CPT/HCPCS: 36415; 71020; 74230; 80053; 83735; 85025; 93005; 99284

== ENCOUNTER → 2016-06-08 | Outpatient (CLI) | payer MEDICARE ==
--- NOTE | 2016-06-09 07:13 | FL ---
Modified barium swallow HISTORY: Dysphasia, aspiration, vocal cord paralysis Patient was given barium mixed with solids and liquids and evaluated in real-time fluoroscopy in the lateral projection. 3 minutes 50 seconds fluoroscopy time. 311 fluoroscopic images. Aspiration was noted honey thick liquids, nectar thick liquids. There is delay of normal initiation o f swallow. Residuals are noted in the vallecula. Postop changes noted to the cervical spine. IMPRESSION: Aspiration as described, see dictated report speech pathology.
== END | disposition home or self-care (01) ==
LOC: RADFLMAIN 11:34
PROVIDERS: ATTEND Otolaryngology
DX: J38.01 Paralysis of vocal cords and larynx, unilateral (principal); R13.10 Dysphagia, unspecified
CPT/HCPCS: 74230

== ENCOUNTER 2016-07-21 17:54 | Emergency (ER) | payer MEDICARE ==
[2016-07-21] MEDS ORDERED: SODIUM CHLORIDE 0.9% 1,000 ML IV STA ×2 (19:25→19:40)
--- NOTE | 2016-07-21 19:29 | ED ---
General Adult HPI - General Chief complaint: Weakness Stated complaint: Hypotension Time Seen by Provider: 07/21/16 19:00 Source: patient, EMS, RN notes reviewed Mode of arrival: EMS Limitations: no limitations - History of Present Illness Initial comments: Patient is a pleasant 85-year-old male presenting to the emergency department for generalized weakness. Onset was several days ago. Patient has had multiple falls. Patient has had bruises however denies significant injury. No confusion. No isolated area of weakness. Patient did have fluid build up in his stomach and had a tube placed to remove it. This does sound like an NG tube that was placed. This was earlier in the year. Patient also had vocal cord surgery. Patient states he did have a swallow eval and does have difficulty with swallowing. Patient denies any history of lung cancer. - Related Data Home Medications Medication Instructions Recorded Confirmed Finasteride 5 mg PO HS 07/13/13 07/21/16 Lisinopril [Zestril] 10 mg PO DAILY 07/13/13 07/21/16 DULoxetine HCL [Cymbalta] 60 mg PO HS 05/16/14 07/21/16 Allopurinol 100 mg PO DAILY 09/09/15 07/21/16 Docusate [Colace] 100 mg PO BID 03/03/16 07/21/16 QUEtiapine FUMARATE [SEROquel] 25 mg PO HS 03/03/16 07/21/16 Aspirin [Adult Low Dose Aspirin EC] 81 mg PO DAILY 03/29/16 07/21/16 Atorvastatin [Lipitor] 20 mg PO HS 03/29/16 07/21/16 Ipratropium-Albuterol Nebulize 3 ml INHALATION RT-QID 03/29/16 07/21/16 [Duoneb 0.5 mg-3 mg/3 ml Soln] Ferrous Sulfate Oral Elixir 330 mg PO DAILY 04/10/16 07/21/16 [Feosol Liquid] Magnesium Hydroxide [Milk of 2,400 mg PO DAILY PRN 04/10/16 07/21/16 Magnesia] Metoprolol Tartrate [Lopressor] 50 mg PO HS 04/10/16 07/21/16 amLODIPine [Norvasc] 10 mg PO HS 04/10/16 07/21/16 Budesonide [Pulmicort] 0.5 mg INHALATION RT-BID PRN 07/21/16 07/21/16 Omeprazole [PriLOSEC] 20 mg PO AC-BRKFST 07/21/16 07/21/16 Previous Rx's Medication Instructions Recorded ALPRAZolam [Xanax] 1 mg PO Q8H PRN #90 tablet 04/15/16 Acetaminophen-Codeine 300-30mg 2 tab PO Q6H PRN #100 tab 04/15/16 [Tylenol w/codeine #3] Sucralfate [Carafate] 1 gm PO AC-TID tab 04/15/16 Allergies Allergy/AdvReac Type Severity Reaction Status Date / Time No Known Allergies Allergy Verified 07/21/16 18:36 Review of Systems ROS Statement: Those systems with pertinent positive or pertinent negative responses have been documented in the HPI. ROS Other: All systems not noted in ROS Statement are negative. Constitutional: Denies: fever, chills Eyes: Denies: eye pain ENT: Denies: ear pain Respiratory: Reports: cough. Denies: dyspnea Cardiovascular: Denies: chest pain Endocrine: Reports: fatigue Gastrointestinal: Denies: abdominal pain Genitourinary: Denies: dysuria Musculoskeletal: Denies: back pain Skin: Denies: rash Neurological: Reports: weakness (Generalized). Denies: confusion Past Medical History Past Medical History: Coronary Artery Disease (CAD), Cancer, COPD, CVA/TIA, GERD /Reflux, Hyperlipidemia, Hypertension, Osteoarthritis (OA), Prostate Disorder Additional Past Medical History / Comment(s): MACULAR DEGENERATION History of Any Multi-Drug Resistant Organisms: None Reported Past Surgical History: Heart Catheterization With Stent, Joint Replacement, Orthopedic Surgery Additional Past Surgical History / Comment(s): carpal tunnel release, ulcer surgery, RIGHT TOTAL KNEEX2, left rotater cuff Past Anesthesia/Blood Transfusion Reactions: No Reported Reaction Date of Last Stent Placement:: 2010 Past Psychological History: Anxiety, Depression Smoking Status: Former smoker Past Alcohol Use History: None Reported Additional Past Alcohol Use History / Comment(s): STARTED SMOKING AT AGE 19, QUIT FEB 2016 SMOKED 1/2PPD Past Drug Use History: None Reported - Past Family History Mother Family Medical History: Cancer Additional Family Medical History / Comment(s): COLON CANCER General Exam Limitations: no limitations General appearance: alert, in no apparent distress Head exam: Present: atraumatic Eye exam: Present: normal appearance, PERRL, EOMI. Absent: nystagmus ENT exam: Present: normal oropharynx Neck exam: Present: normal inspection. Absent: tenderness Respiratory exam: Present: wheezes Cardiovascular Exam: Present: regular rate, normal rhythm GI/Abdominal exam: Present: soft. Absent: distended, tenderness, pulsatile mass Extremities exam: Present: normal inspection, full ROM. Absent: tenderness, pedal edema, calf tenderness Neurological exam: Present: alert, oriented X3, CN II-XII intact. Absent: motor sensory deficit Expanded Patient oriented to: Present: person, place, time Speech: Present: fluid speech Motor strength exam: RUE: 5, LUE: 5, RLE: 5, LLE: 5 Eye Response: (4) open spontaneously Motor Response: (6) obeys commands Verbal Response: (5) oriented Psychiatric exam: Present: normal affect, normal mood Skin exam: Absent: rash Course Vital Signs 07/21/16 07/21/16 07/21/16 17:57 18:05 18:15 Temperature 96.9 F L Pulse Rate 84 78 78 Respiratory 18 16 18 Rate Blood Pressure 80/49 85/53 82/53 O2 Sat by Pulse 95 98 99 Oximetry 07/21/16 07/21/16 07/21/16 18:30 18:45 20:30 Temperature Pulse Rate 75 77 83 Respiratory 18 18 20 Rate Blood Pressure 105/57 108/55 103/51 O2 Sat by Pulse 99 99 99 Oximetry 07/21/16 21:10 Temperature Pulse Rate 84 Respiratory 20 Rate Blood Pressure 104/55 O2 Sat by Pulse 98 Oximetry EKG Findings - EKG Comments: EKG Findings:: Normal sinus rhythm at 82. FL 138. QRS 70. QT 380. QTC 443. Normal axis. Normal QRS. Normal ST-T. Medical Decision Making - Medical Decision Making Patient reevaluated and resting comfortably in bed. Patient requests discharge. Case was discussed in detail with Dr. Cheng who is familiar with this patient. He feels symptoms are chronic. He states if we are unable to find source of hypotension patient can be discharged. - Lab Data Result diagrams: 07/21/16 18:00 07/21/16 18:00 Lab Results 07/21/16 07/21/16 07/21/16 Range/Units 18:00 18:00 18:00 WBC 6.1 (3.8-10.6) k/uL RBC 3.62 L (4.30-5.90) m/uL Hgb 10.1 L (13.0-17.5) gm/dL Hct 32.9 L (39.0-53.0) % MCV 91.0 D (80.0-100.0) fL MCH 28.0 (25.0-35.0) pg MCHC 30.8 L (31.0-37.0) g/dL RDW 14.4 (11.5-15.5) % Plt Count 263 (150-450) k/uL Neutrophils % 60 % Lymphocytes % 18 % Monocytes % 11 % Eosinophils % 7 % Basophils % 1 % Neutrophils # 3.7 (1.3-7.7) k/uL Lymphocytes # 1.1 (1.0-4.8) k/uL Monocytes # 0.6 (0-1.0) k/uL Eosinophils # 0.4 (0-0.7) k/uL Basophils # 0.1 (0-0.2) k/uL Hypochromasia Slight PT (9.0-12.0) sec INR (<1.1) APTT (22.0-30.0) sec Sodium 140 (137-145) mmol/L Potassium 4.2 (3.5-5.1) mmol/L Chloride 102 (98-107) mmol/L Carbon Dioxide 30 (22-30) mmol/L Anion Gap 8 mmol/L BUN 12 (9-20) mg/dL Creatinine 0.80 (0.66-1.25) mg/dL Est GFR (MDRD) Af Amer >60 (>60 ml/min/1.73 sqM) Est GFR (MDRD) Non-Af >60 (>60 ml/min/1.73 sqM) Glucose 96 (74-99) mg/dL Calcium 8.6 (8.4-10.2) mg/dL Phosphorus 3.5 (2.5-4.5) mg/dL Magnesium 1.9 (1.6-2.3) mg/dL Total Bilirubin 0.4 (0.2-1.3) mg/dL AST 18 (17-59) U/L ALT 25 (21-72) U/L Alkaline Phosphatase 66 (38-126) U/L Total Creatine Kinase 40 L (55-170) U/L CK-MB (CK-2) 0.9 (0.0-2.4) ng/mL CK-MB (CK-2) Rel Index 2.3 Troponin I <0.012 (0.000-0.034) ng/mL NT-Pro-B Natriuret Pep pg/mL Total Protein 5.4 L (6.3-8.2) g/dL Albumin 3.0 L (3.5-5.0) g/dL TSH 1.140 (0.465-4.680) mIU/L Free T4 0.84 (0.78-2.19) ng/dL Free T3 pg/mL 3.8 (2.8-5.3) pg/ml Urine Color Urine Appearance (Clear) Urine pH (5.0-8.0) Ur Specific [place] (1.001-1.035) Urine Protein (Negative) Urine Glucose (UA) (Negative) Urine Ketones (Negative) Urine Blood (Negative) Urine Nitrite (Negative) Urine Bilirubin (Negative) Urine Urobilinogen (<2.0) mg/dL Ur Leukocyte Esterase (Negative) 07/21/16 07/21/16 07/21/16 Range/Units 18:00 18:00 20:30 WBC (3.8-10.6) k/uL RBC (4.30-5.90) m/uL Hgb (13.0-17.5) gm/dL Hct (39.0-53.0) % MCV (80.0-100.0) fL MCH (25.0-35.0) pg MCHC (31.0-37.0) g/dL RDW (11.5-15.5) % Plt Count (150-450) k/uL Neutrophils % % Lymphocytes % % Monocytes % % Eosinophils % % Basophils % % Neutrophils # (1.3-7.7) k/uL Lymphocytes # (1.0-4.8) k/uL Monocytes # (0-1.0) k/uL Eosinophils # (0-0.7) k/uL Basophils # (0-0.2) k/uL Hypochromasia PT 11.6 (9.0-12.0) sec INR 1.2 (<1.1) APTT 26.6 (22.0-30.0) sec Sodium (137-145) mmol/L Potassium (3.5-5.1) mmol/L Chloride (98-107) mmol/L Carbon Dioxide (22-30) mmol/L Anion Gap mmol/L BUN (9-20) mg/dL Creatinine (0.66-1.25) mg/dL Est GFR (MDRD) Af Amer (>60 ml/min/1.73 sqM) Est GFR (MDRD) Non-Af (>60 ml/min/1.73 sqM) Glucose (74-99) mg/dL Calcium (8.4-10.2) mg/dL Phosphorus (2.5-4.5) mg/dL Magnesium (1.6-2.3) mg/dL Total Bilirubin (0.2-1.3) mg/dL AST (17-59) U/L ALT (21-72) U/L Alkaline Phosphatase (38-126) U/L Total Creatine Kinase (55-170) U/L CK-MB (CK-2) (0.0-2.4) ng/mL CK-MB (CK-2) Rel Index Troponin I (0.000-0.034) ng/mL NT-Pro-B Natriuret Pep 265 pg/mL Total Protein (6.3-8.2) g/dL Albumin (3.5-5.0) g/dL TSH (0.465-4.680) mIU/L Free T4 (0.78-2.19) ng/dL Free T3 pg/mL (2.8-5.3) pg/ml Urine Color Yellow Urine Appearance Clear (Clear) Urine pH 6.5 (5.0-8.0) Ur Specific [place] 1.014 (1.001-1.035) Urine Protein Trace H (Negative) Urine Glucose (UA) Negative (Negative) Urine Ketones Negative (Negative) Urine Blood Negative (Negative) Urine Nitrite Negative (Negative) Urine Bilirubin Negative (Negative) Urine Urobilinogen <2.0 (<2.0) mg/dL Ur Leukocyte Esterase Negative (Negative) - Radiology Data Radiology results: report reviewed (Computed tomography scan of the brain shows atrophy and mild normal pressure hydrocephalus. No change from previous.), image reviewed (Two-view chest x-ray shows bilateral outside pleural plaques. No change from previous.) Disposition Clinical Impression: Hypotensive episode Disposition: HOME SELF-CARE Condition: Stable Instructions: Hypotension (ED) Additional Instructions: Please follow-up with primary care physician tomorrow. Hold Norvasc until further advice. Return for decreased blood pressure, weakness or falling, worsening symptoms or other concerns. Referrals: Yoav Castillo DO [Primary Care Provider] - 1-2 days
[2016-07-21 19:39] LABS: Basophils # (A) 0.1 k/uL (0-0.2); Basophils % (A) 1 %; CH 27.9; CHCM 30.8; Eosinophils # (A) 0.4 k/uL (0-0.7); Eosinophils % (A) 7 %; HCT 32.9 % (39.0-53.0); HDW 2.37; HGB 10.1 gm/dL (13.0-17.5); Hypochromasia Slight; Luc # (Auto) 0.23; Luc % (Auto) 4; Lymphocytes # (A) 1.1 k/uL (1.0-4.8); Lymphocytes % (A) 18 %; MCHC 30.8 g/dL (31.0-37.0); Mean Platelet Volume 7.5; Monocytes # (A) 0.6 k/uL (0-1.0); Monocytes % (A) 11 %; Neutrophils # (A) 3.7 k/uL (1.3-7.7); Neutrophils % (A) 60 %; RBC 3.62 m/uL (4.30-5.90); RDW 14.4 % (11.5-15.5); WBC 6.1 k/uL (3.8-10.6); WBC (Perox) 6.01
[2016-07-21 19:49] LABS: INR 1.2 (<1.1); Partial Thromboplastin Time 26.6 sec (22.0-30.0); Prothrombin Time 11.6 sec (9.0-12.0)
[2016-07-21 19:55] LABS: ALT 25 U/L (21-72); AST 18 U/L (17-59); Alkaline Phosphatase 66 U/L (38-126); Anion Gap 8 mmol/L; Blood Urea Nitrogen 12 mg/dL (9-20); Calcium 8.6 mg/dL (8.4-10.2); Carbon Dioxide 30 mmol/L (22-30); Chloride 102 mmol/L (98-107); Glucose 96 mg/dL (74-99); Magnesium 1.9 mg/dL (1.6-2.3); Non-African American GFR(MDRD) >60 (>60 ml/min/1.73 sqM); Phosphorous 3.5 mg/dL (2.5-4.5); Potassium 4.2 mmol/L (3.5-5.1); Sodium 140 mmol/L (137-145); Total Bilirubin 0.4 mg/dL (0.2-1.3); Total Protein 5.4 g/dL (6.3-8.2)
[2016-07-21 19:58] LABS: Creatine Kinase 40 U/L (55-170)
[2016-07-21 20:11] LABS: Creatine Kinase MB 0.9 ng/mL (0.0-2.4); Troponin I <0.012 ng/mL (0.000-0.034)
--- NOTE | 2016-07-21 20:12 | CT ---
EXAMINATION TYPE: CT brain wo con DATE OF EXAM: 07/21/2016 7:57 PM COMPARISON: 09/09/2015 HISTORY: Pt states of hypotension today. CT DLP: 961.0 mGycm Automated exposure control for dose reduction was used. FINDINGS: There is metal artifact at the skull base from the fusion surgery. There is cerebral cortical atrophy . There is no mass effect nor midline shift. There is no sign of intracranial hemorrhage. Calvarium a ppears intact. IMPRESSION: Cerebral atrophy and mild normal pressure type hydrocephalus. No change compared to old exam.
--- NOTE | 2016-07-21 20:20 | XR ---
EXAMINATION TYPE: XR chest 2V DATE OF EXAM: 07/21/2016 8:11 PM COMPARISON: 06/08/2016 HISTORY: Weakness TECHNIQUE: Frontal and lateral views of the chest are obtained. FINDINGS: There is coarsening of interstitial markings. There is calcified pleural plaque On the left and right side. There is no heart failure. Thoracic aorta is atheromatous. There is diaph ragmatic pleural plaque on the right side. There are no hilar masses. There are chest leads. There is spurring in the thoracic spine. IMPRESSION: Moderate bilateral calcified pleural plaque without change compared to old exam. No hear t failure. Mild pulmonary fibrotic changes.
[2016-07-21 20:57] LABS: Appearance,Urine Clear (Clear); Bilirubin,Urine Negative (Negative); Glucose,Urine (UA) Negative (Negative); Ketones,Urine Negative (Negative); Leukocyte Esterase,Urine Negative (Negative); Nitrite,Urine Negative (Negative); PH, Urine 6.5 (5.0-8.0); Protein,Urine Trace (Negative); Specific Gravity,Urine 1.014 (1.001-1.035); UA Billing (MACRO vs. MICRO) CHEM; Urobilinogen,Urine <2.0 mg/dL (<2.0)
[2016-07-21 22:27] VITALS: BP 123/65; PULSE 85; RESP 18; TEMP 97.9
== END 2016-07-21 22:13 | disposition home or self-care (01) ==
LOC: EC 17:54
DX: I95.9 Hypotension, unspecified (principal); G91.2 (Idiopathic) normal pressure hydrocephalus; G31.9 Degenerative disease of nervous system, unspecified; R91.8 Other nonspecific abnormal finding of lung field; E78.5 Hyperlipidemia, unspecified; I25.10 Atherosclerotic heart disease of native coronary artery without angina pectoris; I10 Essential (primary) hypertension; J44.9 Chronic obstructive pulmonary disease, unspecified; K21.9 Gastro-esophageal reflux disease without esophagitis; M19.90 Unspecified osteoarthritis, unspecified site; N42.9 Disorder of prostate, unspecified; F32.9 Major depressive disorder, single episode, unspecified; F41.9 Anxiety disorder, unspecified; Z87.891 Personal history of nicotine dependence; Z79.82 Long term (current) use of aspirin; Z79.899 Other long term (current) drug therapy; Z85.9 Personal history of malignant neoplasm, unspecified
CPT/HCPCS: 36415; 70450; 71020; 80053; 81003; 82550; 82553; 83735; 83880; 84100; 84439; 84443; 84481; 84484; 85025; 85610; 85730; 93005; 96360; 96361; 99285

== ENCOUNTER 2016-08-29 11:49 | Emergency (ER) | payer MEDICARE ==
[2016-08-29] MEDS ORDERED: SODIUM CHLORIDE 0.9% 1,000 ML IV STA (11:59)
[2016-08-29] MEDS ORDERED: SODIUM CHLORIDE 0.9% 500 ML IV STA (11:59)
[2016-08-29 12:23] LABS: Basophils % (A) 1 %; CH 26.8; CHCM 30.6; Eosinophils # (A) 0.5 k/uL (0-0.7); Eosinophils % (A) 8 %; HCT 33.3 % (39.0-53.0); HDW 2.61; HGB 10.2 gm/dL (13.0-17.5); Hypochromasia Moderate; Luc # (Auto) 0.16; Luc % (Auto) 3; Lymphocytes # (A) 0.8 k/uL (1.0-4.8); Lymphocytes % (A) 15 %; MCH 26.9 pg (25.0-35.0); MCHC 30.5 g/dL (31.0-37.0); MCV 88.2 fL (80.0-100.0); Mean Platelet Volume 7.2; Monocytes # (A) 0.5 k/uL (0-1.0); Monocytes % (A) 10 %; Neutrophils # (A) 3.6 k/uL (1.3-7.7); Neutrophils % (A) 64 %; RBC 3.77 m/uL (4.30-5.90); RDW 15.5 % (11.5-15.5); WBC 5.6 k/uL (3.8-10.6); WBC (Perox) 5.69
[2016-08-29 12:29] LABS: ALT 13 U/L (21-72); AST 26 U/L (17-59); Alkaline Phosphatase 67 U/L (38-126); Anion Gap 8 mmol/L; Blood Urea Nitrogen 10 mg/dL (9-20); Calcium 8.5 mg/dL (8.4-10.2); Carbon Dioxide 27 mmol/L (22-30); Chloride 106 mmol/L (98-107); Glucose 104 mg/dL (74-99); Magnesium 1.8 mg/dL (1.6-2.3); Non-African American GFR(MDRD) >60 (>60 ml/min/1.73 sqM); Sodium 141 mmol/L (137-145); Total Bilirubin 0.8 mg/dL (0.2-1.3); Total Protein 5.6 g/dL (6.3-8.2)
[2016-08-29 12:35] LABS: Potassium 3.8 mmol/L (3.5-5.1)
[2016-08-29 12:41] LABS: INR 1.1 (<1.1); Partial Thromboplastin Time 25.2 sec (22.0-30.0); Prothrombin Time 11.4 sec (9.0-12.0)
--- NOTE | 2016-08-29 12:46 | ED ---
Fall HPI - General Chief Complaint: Fall Stated Complaint: Fall Time Seen by Provider: 08/29/16 11:49 Source: patient, EMS, RN notes reviewed Mode of arrival: EMS - History of Present Illness Initial Comments: This is an 86-year-old male who states he fell yesterday was left leg gave out when he was walking. He states he fell backwards is had on the ground. He states she's not sure if he passed out from the injury or. Has or pertinent ground he was not sure exactly how he ended up on the ground. When he woke up on the ground. He was brought into the emergency department yesterday but states she did not want to wait because it was a long wait. He is back today. Is brought in by EMS. He was found to have initial blood pressure of 91/29. He was given fluid which did improve it. He states he has difficulty swallowing his he does aspirate has to be careful. He has any fevers chills nausea vomiting sweats he denies any loss of function to his upper or lower extremities he does complain some head neck pain. He was told he has a 1 inch laceration of the back of his scalp. This apparently kept bleeding. The patient does also state he has chronic decreased sensation to her lower extremities. MD Complaint: fall - Related Data Home Medications Medication Instructions Recorded Confirmed Finasteride 5 mg PO HS 07/13/13 08/29/16 Lisinopril [Zestril] 10 mg PO DAILY 07/13/13 08/29/16 DULoxetine HCL [Cymbalta] 120 mg PO QAM 05/16/14 08/29/16 Allopurinol 100 mg PO DAILY 09/09/15 08/29/16 QUEtiapine FUMARATE [SEROquel] 25 mg PO HS 03/03/16 08/29/16 Aspirin [Adult Low Dose Aspirin EC] 81 mg PO DAILY 03/29/16 08/29/16 Omeprazole [PriLOSEC] 20 mg PO AC-BRKFST 07/21/16 08/29/16 ALPRAZolam [Xanax] 1 mg PO TID PRN 08/29/16 08/29/16 Atorvastatin [Lipitor] 40 mg PO HS 08/29/16 08/29/16 Isosorbide Mononitrate ER [Imdur] 30 mg PO DAILY 08/29/16 08/29/16 Loratadine [Claritin] 10 mg PO DAILY 08/29/16 08/29/16 Metoprolol Tartrate [Lopressor] 25 mg PO HS 08/29/16 08/29/16 Sucralfate [Carafate] 1 gm PO AC-BID 08/29/16 08/29/16 Vit C/E/Zn/Coppr/Lutein/Zeaxan 1 cap PO BID 08/29/16 08/29/16 [Preservision Areds 2 Softgel] guaiFENesin [Mucinex] 1,200 mg PO BID 08/29/16 08/29/16 Allergies Allergy/AdvReac Type Severity Reaction Status Date / Time No Known Allergies Allergy Verified 08/29/16 12:09 Review of Systems ROS Statement: Those systems with pertinent positive or pertinent negative responses have been documented in the HPI. ROS Other: All systems not noted in ROS Statement are negative. Past Medical History Past Medical History: Coronary Artery Disease (CAD), Cancer, COPD, CVA/TIA, GERD /Reflux, Hyperlipidemia, Hypertension, Osteoarthritis (OA), Prostate Disorder Additional Past Medical History / Comment(s): MACULAR DEGENERATION History of Any Multi-Drug Resistant Organisms: None Reported Past Surgical History: Heart Catheterization With Stent, Joint Replacement, Orthopedic Surgery Additional Past Surgical History / Comment(s): carpal tunnel release, ulcer surgery, RIGHT TOTAL KNEEX2, left rotater cuff Past Anesthesia/Blood Transfusion Reactions: No Reported Reaction Date of Last Stent Placement:: 2010 Past Psychological History: Anxiety, Depression Smoking Status: Former smoker Past Alcohol Use History: None Reported Past Drug Use History: None Reported - Past Family History Mother Family Medical History: Cancer Additional Family Medical History / Comment(s): COLON CANCER General Exam - General Exam Comments Initial Comments: This is a well-developed well-nourished awake alert oriented 3 male he does demonstrate a [place] Coma Scale of 15 Limitations: physical limitation General appearance: alert, in no apparent distress Head exam: Present: normocephalic, other (2.5 cm laceration of the occipital scalp no active bleeding at this time. Tenderness over this region of the scalp no step-off or crepitation a dressing was in place.) Eye exam: Present: normal appearance, PERRL, EOMI. Absent: scleral icterus, conjunctival injection, periorbital swelling ENT exam: Present: mucous membranes dry Neck exam: Present: normal inspection, tenderness (Mild paraspinous tenderness palpation no step-off or crepitation no bony prominence tenderness.) Respiratory exam: Present: normal lung sounds bilaterally. Absent: respiratory distress, wheezes, rales, rhonchi, stridor Cardiovascular Exam: Present: regular rate, normal rhythm, normal heart sounds. Absent: systolic murmur, diastolic murmur, rubs, gallop, clicks GI/Abdominal exam: Present: soft, normal bowel sounds. Absent: distended, tenderness, guarding, rebound, rigid Rectal exam: Present: deferred Extremities exam: Present: normal inspection, full ROM, tenderness (Tenderness palpation over the right shoulder no step-off or crepitation patient is orally left hip to palpation no shortening or rotation no open wounds.), normal capillary refill. Absent: pedal edema, joint swelling, calf tenderness Back exam: Present: normal inspection Neurological exam: Present: alert, oriented X3, CN II-XII intact Psychiatric exam: Present: normal affect, normal mood Skin exam: Present: warm, dry, intact, normal color. Absent: rash Course Vital Signs 08/29/16 08/29/16 08/29/16 11:50 12:42 13:18 Temperature 97.3 F L Pulse Rate 80 77 81 Respiratory 16 14 15 Rate Blood Pressure 125/57 137/70 140/67 O2 Sat by Pulse 95 99 98 Oximetry 08/29/16 14:17 Temperature 97.3 F L Pulse Rate 67 Respiratory 14 Rate Blood Pressure 166/79 O2 Sat by Pulse 99 Oximetry - Reevaluation(s) Reevaluation #1: 08/29/16 13:40 I did remove the patient's cervical collar the CAT scan of the head neck are negative for acute findings. Procedures - Laceration Laceration #1 Time Out Performed: Yes Indication: laceration Site: scalp Size (cm): 3 Description: linear, clean Depth: simple, single layer Anesthetic Used: lidocaine 1%, without epi Anesthesia Technique: local infiltration Pre-repair: wound explored, deep structures intact Type of Sutures: other Size of Sutures: other (Surgical dalia) Number of Sutures: 5 Technique: simple, interrupted Patient Tolerated Procedure: well, no complications Medical Decision Making - Medical Decision Making I did reevaluate the patient on multiple occasions the patient filled much improved after IV hydration and x-rays are negative for acute findings. He states she's had problems for over a year. He is now be admitted he wants to go home he is able ably without difficulty. He will be discharged with follow- up with his doctor and return when necessary - Lab Data Result diagrams: 08/29/16 12:05 08/29/16 12:05 Lab Results 08/29/16 08/29/16 08/29/16 Range/Units 12:05 12:05 12:05 WBC 5.6 (3.8-10.6) k/uL RBC 3.77 L (4.30-5.90) m/uL Hgb 10.2 L (13.0-17.5) gm/dL Hct 33.3 L (39.0-53.0) % MCV 88.2 (80.0-100.0) fL MCH 26.9 (25.0-35.0) pg MCHC 30.5 L (31.0-37.0) g/dL RDW 15.5 (11.5-15.5) % Plt Count 272 (150-450) k/uL Neutrophils % 64 % Lymphocytes % 15 % Monocytes % 10 % Eosinophils % 8 % Basophils % 1 % Neutrophils # 3.6 (1.3-7.7) k/uL Lymphocytes # 0.8 L (1.0-4.8) k/uL Monocytes # 0.5 (0-1.0) k/uL Eosinophils # 0.5 (0-0.7) k/uL Basophils # 0.0 (0-0.2) k/uL Hypochromasia Moderate PT (9.0-12.0) sec INR (<1.1) APTT (22.0-30.0) sec Sodium 141 (137-145) mmol/L Potassium 3.8 (3.5-5.1) mmol/L Chloride 106 (98-107) mmol/L Carbon Dioxide 27 (22-30) mmol/L Anion Gap 8 mmol/L BUN 10 (9-20) mg/dL Creatinine 0.64 L (0.66-1.25) mg/dL Est GFR (MDRD) Af Amer >60 (>60 ml/min/1.73 sqM) Est GFR (MDRD) Non-Af >60 (>60 ml/min/1.73 sqM) Glucose 104 H (74-99) mg/dL Calcium 8.5 (8.4-10.2) mg/dL Magnesium 1.8 (1.6-2.3) mg/dL Total Bilirubin 0.8 (0.2-1.3) mg/dL AST 26 (17-59) U/L ALT 13 L (21-72) U/L Alkaline Phosphatase 67 (38-126) U/L Total Creatine Kinase 80 (55-170) U/L CK-MB (CK-2) 1.3 (0.0-2.4) ng/mL CK-MB (CK-2) Rel Index 1.6 Troponin I <0.012 (0.000-0.034) ng/mL Total Protein 5.6 L (6.3-8.2) g/dL Albumin 3.1 L (3.5-5.0) g/dL Urine Color Urine Appearance (Clear) Urine pH (5.0-8.0) Ur Specific [place] (1.001-1.035) Urine Protein (Negative) Urine Glucose (UA) (Negative) Urine Ketones (Negative) Urine Blood (Negative) Urine Nitrite (Negative) Urine Bilirubin (Negative) Urine Urobilinogen (<2.0) mg/dL Ur Leukocyte Esterase (Negative) 08/29/16 08/29/16 Range/Units 12:05 13:48 WBC (3.8-10.6) k/uL RBC (4.30-5.90) m/uL Hgb (13.0-17.5) gm/dL Hct (39.0-53.0) % MCV (80.0-100.0) fL MCH (25.0-35.0) pg MCHC (31.0-37.0) g/dL RDW (11.5-15.5) % Plt Count (150-450) k/uL Neutrophils % % Lymphocytes % % Monocytes % % Eosinophils % % Basophils % % Neutrophils # (1.3-7.7) k/uL Lymphocytes # (1.0-4.8) k/uL Monocytes # (0-1.0) k/uL Eosinophils # (0-0.7) k/uL Basophils # (0-0.2) k/uL Hypochromasia PT 11.4 (9.0-12.0) sec INR 1.1 (<1.1) APTT 25.2 (22.0-30.0) sec Sodium (137-145) mmol/L Potassium (3.5-5.1) mmol/L Chloride (98-107) mmol/L Carbon Dioxide (22-30) mmol/L Anion Gap mmol/L BUN (9-20) mg/dL Creatinine (0.66-1.25) mg/dL Est GFR (MDRD) Af Amer (>60 ml/min/1.73 sqM) Est GFR (MDRD) Non-Af (>60 ml/min/1.73 sqM) Glucose (74-99) mg/dL Calcium (8.4-10.2) mg/dL Magnesium (1.6-2.3) mg/dL Total Bilirubin (0.2-1.3) mg/dL AST (17-59) U/L ALT (21-72) U/L Alkaline Phosphatase (38-126) U/L Total Creatine Kinase (55-170) U/L CK-MB (CK-2) (0.0-2.4) ng/mL CK-MB (CK-2) Rel Index Troponin I (0.000-0.034) ng/mL Total Protein (6.3-8.2) g/dL Albumin (3.5-5.0) g/dL Urine Color Yellow Urine Appearance Clear (Clear) Urine pH 7.5 (5.0-8.0) Ur Specific [place] 1.008 (1.001-1.035) Urine Protein Negative (Negative) Urine Glucose (UA) Negative (Negative) Urine Ketones Negative (Negative) Urine Blood Negative (Negative) Urine Nitrite Negative (Negative) Urine Bilirubin Negative (Negative) Urine Urobilinogen <2.0 (<2.0) mg/dL Ur Leukocyte Esterase Negative (Negative) - EKG Data -: EKG Interpreted by Me EKG shows normal: sinus rhythm (Sinus rhythm with rate 77 NE interval 146 QRS duration 84 QT/QTC of 3-4/434 evidence of sinus arrhythmia no acute ST-T wave changes.) - Radiology Data Radiology results: report reviewed (I did review the imaging of the CAT scan head neck negative for acute fractures or dislocations.), image reviewed Disposition Clinical Impression: Fall, Scalp laceration, Hypotensive episode, Dehydration Disposition: HOME SELF-CARE Condition: Good Instructions: Fall Prevention for Older Adults (ED), Hypotension (ED), Dehydration (ED), Laceration (ED) Additional Instructions: Stable removal in 1 week Referrals: Yoav Castillo DO [Primary Care Provider] - 1-2 days
[2016-08-29 12:51] LABS: Creatine Kinase 80 U/L (55-170)
[2016-08-29 13:03] LABS: Creatine Kinase MB 1.3 ng/mL (0.0-2.4); Troponin I <0.012 ng/mL (0.000-0.034)
--- NOTE | 2016-08-29 13:32 | CT ---
EXAMINATION TYPE: CT brain gabriela nguyễn con DATE OF EXAM: 08/29/2016 COMPARISON: NONE HISTORY: fall and hit back of head CT DLP: brain 1047.1 and cervical 390.7 mGycm Automated exposure control for dose reduction was used. TECHNIQUE: CT scan of the head and cervical spine are performed without contrast. FINDINGS: There is moderate generalized degenerative change of the greater central component. Corre late for normal pressure hydrocephalus. Periventricular low attenuation is nonspecific. The globes ar e intact and the visualized sinuses are clear. Postsurgical change involving the occiput. Metal artif act results in limitation of the posterior fossa. This region is nondiagnostic due to artifact from t he surgical change. Extensive postsurgical change. Multilevel large hypertrophic osteophytes are seen as well as multilev el significant degenerative disc disease and foraminal encroachment. Scoliotic curvature noted. Carotid artery calcifications are seen. IMPRESSION: 1. There is no acute fracture or dislocation evident in the cervical spine. 2. No acute intracranial hemorrhage, mass effect, or midline shift is seen. Limited assessment of pos terior fossa due to postsurgical artifact.
[2016-08-29 13:59] LABS: Appearance,Urine Clear (Clear); Bilirubin,Urine Negative (Negative); Glucose,Urine (UA) Negative (Negative); Ketones,Urine Negative (Negative); Leukocyte Esterase,Urine Negative (Negative); Nitrite,Urine Negative (Negative); PH, Urine 7.5 (5.0-8.0); Protein,Urine Negative (Negative); Specific Gravity,Urine 1.008 (1.001-1.035); UA Billing (MACRO vs. MICRO) CHEM; Urobilinogen,Urine <2.0 mg/dL (<2.0)
[2016-08-29] MEDS ORDERED: KETOROLAC 30 MG/ML 1 ML VIAL IVP STA (14:01)
--- NOTE | 2016-08-29 14:16 | XR ---
EXAMINATION TYPE: XR shoulder complete RT DATE OF EXAM: 08/29/2016 COMPARISON: NONE HISTORY: Pain TECHNIQUE: Three views are submitted. FINDINGS: There is marked arthropathy of the AC joint and of the glenohumeral joint. Pleural-based calcificatio n is suggested on the right. No acute fracture. IMPRESSION: 1. Severe shoulder arthropathy correlate for rotator cuff injury. 2. Pleural calcification correlate for history of asbestos exposure.
--- NOTE | 2016-08-29 14:19 | XR ---
EXAMINATION TYPE: XR Hip LT and AP Pelvis DATE OF EXAM: 08/29/2016 COMPARISON: Left hip x-ray May 20, 2016. HISTORY: Fall injury with pelvic and left hip pain. TECHNIQUE: A single AP view of the pelvis is obtained. Two views of the left hip are obtained. FINDINGS: There is no acute fracture/dislocation evident in the pelvis. The sacroiliac joints appea r symmetric and unremarkable. There is prominent spurring and disc space narrowing in the visualized lumbar spine. Surgical clips overlie the right iliac crest are noted. There is vascular calcification in the pelvis. There is bridging osteophyte superior aspect of pubic symphysis. There is acetabular spurring in both hip joints. Two views of left hip show no acute fracture or dislocation. Mild joint space loss with osteopenia an d marginal spurring is redemonstrated. Vascular calcification left groin region is present. IMPRESSION: There is no acute fracture or dislocation in the pelvis or left hip.
[2016-08-29 14:56] VITALS: BP 144/65; PULSE 68; RESP 20; TEMP 97.2
== END 2016-08-29 15:11 | disposition home or self-care (01) ==
LOC: EC 11:49
DX: S01.01XA Laceration without foreign body of scalp, initial encounter (principal); I95.9 Hypotension, unspecified; E86.0 Dehydration; I25.10 Atherosclerotic heart disease of native coronary artery without angina pectoris; K21.9 Gastro-esophageal reflux disease without esophagitis; E78.5 Hyperlipidemia, unspecified; I10 Essential (primary) hypertension; M19.90 Unspecified osteoarthritis, unspecified site; F41.9 Anxiety disorder, unspecified; F32.9 Major depressive disorder, single episode, unspecified; Z86.73 Personal history of transient ischemic attack (TIA), and cerebral infarction without residual deficits; Z87.891 Personal history of nicotine dependence; Z96.651 Presence of right artificial knee joint; Z79.82 Long term (current) use of aspirin; Z79.899 Other long term (current) drug therapy; W01.198A Fall on same level from slipping, tripping and stumbling with subsequent striking against other object, initial encounter; Y92.009 Unspecified place in unspecified non-institutional (private) residence as the place of occurrence of the external cause; Y93.01 Activity, walking, marching and hiking
CPT/HCPCS: 99285; 12002; 96374; 96361 ×3; 36415; 93005; 80053; 82550; 82553; 83735; 84484; 85025; 85610; 85730; 81003; 73502; 73030; 72125; 70450; J1885

== ENCOUNTER 2016-09-09 10:35 | Inpatient (IN) | payer MEDICARE ==
[2016-09-09] MEDS ORDERED: SODIUM CHLORIDE 0.9% 1,000 ML IV STA (10:47)
--- NOTE | 2016-09-09 10:49 | ED ---
General Adult HPI - General Chief complaint: Weakness Stated complaint: Weakness Time Seen by Provider: 09/09/16 10:40 Source: patient, EMS, RN notes reviewed Mode of arrival: EMS Limitations: no limitations - History of Present Illness Initial comments: This is a 86-year-old male who presents emergency department today stating he is too weak to walk. Patient states he's been having left leg weakness ever since they did surgery on his back about 6 months ago. Patient states today he was in the garage and he was unable to stand 3 separate back down but and called 911. Patient states his been an ongoing problem he has had multiple falls the latest fall occurred yesterday and he did hit his head and needs some Steri-Strips to close the wound at home. Patient denies any loss of consciousness from hitting his head patient denies any headache today. Patient denies any numbness or focal weakness aside from the left leg which is been chronic. Patient denies any recent fever chills or cough. Patient denies any chest pain or palpitations. Patient denies difficulty breathing shortest breath. Patient denies any abdominal pain patient denies nausea vomiting diarrhea. Patient denies any injury today from sitting down when he was too weak to stand. - Related Data Home Medications Medication Instructions Recorded Confirmed Finasteride 5 mg PO HS 07/13/13 09/09/16 Lisinopril [Zestril] 10 mg PO DAILY 07/13/13 09/09/16 DULoxetine HCL [Cymbalta] 120 mg PO QAM 05/16/14 09/09/16 Allopurinol 100 mg PO DAILY 09/09/15 09/09/16 QUEtiapine FUMARATE [SEROquel] 25 mg PO HS 03/03/16 09/09/16 Aspirin [Adult Low Dose Aspirin EC] 81 mg PO DAILY 03/29/16 09/09/16 Omeprazole [PriLOSEC] 20 mg PO AC-BRKFST 07/21/16 09/09/16 ALPRAZolam [Xanax] 1 mg PO DAILY PRN 08/29/16 09/09/16 Atorvastatin [Lipitor] 40 mg PO HS 08/29/16 09/09/16 Isosorbide Mononitrate ER [Imdur] 30 mg PO DAILY 08/29/16 09/09/16 Loratadine [Claritin] 10 mg PO DAILY 08/29/16 09/09/16 Metoprolol Tartrate [Lopressor] 25 mg PO HS 08/29/16 09/09/16 Sucralfate [Carafate] 1 gm PO AC-BID 08/29/16 09/09/16 Vit C/E/Zn/Coppr/Lutein/Zeaxan 1 cap PO BID 08/29/16 09/09/16 [Preservision Areds 2 Softgel] guaiFENesin [Mucinex] 1,200 mg PO BID 08/29/16 09/09/16 Allergies Allergy/AdvReac Type Severity Reaction Status Date / Time No Known Allergies Allergy Verified 09/09/16 11:09 Review of Systems ROS Statement: Those systems with pertinent positive or pertinent negative responses have been documented in the HPI. ROS Other: All systems not noted in ROS Statement are negative. Past Medical History Past Medical History: Coronary Artery Disease (CAD), Cancer, COPD, CVA/TIA, GERD /Reflux, Hyperlipidemia, Hypertension, Osteoarthritis (OA), Prostate Disorder Additional Past Medical History / Comment(s): MACULAR DEGENERATION History of Any Multi-Drug Resistant Organisms: None Reported Past Surgical History: Heart Catheterization With Stent, Joint Replacement, Orthopedic Surgery Additional Past Surgical History / Comment(s): carpal tunnel release, ulcer surgery, RIGHT TOTAL KNEEX2, left rotater cuff Past Anesthesia/Blood Transfusion Reactions: No Reported Reaction Date of Last Stent Placement:: 2010 Past Psychological History: Anxiety, Depression Smoking Status: Former smoker Past Alcohol Use History: None Reported Past Drug Use History: None Reported - Past Family History Mother Family Medical History: Cancer Additional Family Medical History / Comment(s): COLON CANCER General Exam - General Exam Comments Initial Comments: GENERAL: Patient is well-developed and well-nourished. Patient is nontoxic and well- hydrated and is in no acute distress. ENT: Neck is soft and supple. No significant lymphadenopathy is noted. Oropharynx is clear. Dry mucous membranes. Neck has full range of motion without eliciting any pain. EYES: The sclera were anicteric and conjunctiva were pink and moist. Extraocular movements were intact and pupils were equal round and reactive to light. Eyelids were unremarkable. PULMONARY: Unlabored respirations. Good breath sounds bilaterally. No audible rales rhonchi or wheezing was noted. CARDIOVASCULAR: There is a regular rate and rhythm without any murmurs gallops or rubs. ABDOMEN: Soft and nontender with normal bowel sounds. No palpable organomegaly was noted. There is no palpable pulsatile mass. SKIN: There is a small healing wound on the left parietal region of the scalp which is held together with Steri-Strips no signs of infection are noted NEUROLOGIC: Patient is alert and oriented x3. Cranial nerves II through XII are grossly intact. Patient's left leg is weaker upon lifting or bending at the knee when compared to the right. Patient states this is chronic condition. Normal speech , volume and content. Symmetrical smile. MUSCULOSKELETAL: Normal extremities with adequate strength and full range of motion. No lower extremity swelling or edema. No calf tenderness. LYMPHATICS: No significant lymphadenopathy is noted PSYCHIATRIC: Normal psychiatric evaluation. Limitations: no limitations Course Vital Signs 09/09/16 09/09/16 10:37 13:00 Temperature 97.9 F Pulse Rate 77 75 Respiratory 18 20 Rate Blood Pressure 150/67 189/81 O2 Sat by Pulse 96 97 Oximetry Medical Decision Making - Medical Decision Making EKG shows normal sinus rhythm at 72 bpm PA interval is 140 QRS 70 QT interval 390 QTC is 427. EKG shows no ST segment elevation or depression or T-wave abdomen is noted Chest x-ray shows no acute abnormality. Patient was having difficulty supporting his own weights at this point time I decided to admit the patient I Dr. Gilliland he agreed with admission I admitted the patient. - Lab Data Result diagrams: 09/09/16 10:52 09/09/16 10:52 Lab Results 09/09/16 09/09/16 09/09/16 Range/Units 10:52 10:52 10:52 WBC 5.5 (3.8-10.6) k/uL RBC 3.92 L (4.30-5.90) m/uL Hgb 10.8 L (13.0-17.5) gm/dL Hct 34.1 L (39.0-53.0) % MCV 86.8 (80.0-100.0) fL MCH 27.5 (25.0-35.0) pg MCHC 31.7 (31.0-37.0) g/dL RDW 15.9 H (11.5-15.5) % Plt Count 318 (150-450) k/uL Neutrophils % 58 % Lymphocytes % 16 % Monocytes % 11 % Eosinophils % 10 % Basophils % 1 % Neutrophils # 3.2 (1.3-7.7) k/uL Lymphocytes # 0.9 L (1.0-4.8) k/uL Monocytes # 0.6 (0-1.0) k/uL Eosinophils # 0.5 (0-0.7) k/uL Basophils # 0.0 (0-0.2) k/uL Hypochromasia Slight PT (9.0-12.0) sec INR (<1.1) APTT (22.0-30.0) sec Sodium 141 (137-145) mmol/L Potassium 4.4 (3.5-5.1) mmol/L Chloride 104 (98-107) mmol/L Carbon Dioxide 29 (22-30) mmol/L Anion Gap 8 mmol/L BUN 14 (9-20) mg/dL Creatinine 0.70 (0.66-1.25) mg/dL Est GFR (MDRD) Af Amer >60 (>60 ml/min/1.73 sqM) Est GFR (MDRD) Non-Af >60 (>60 ml/min/1.73 sqM) Glucose 91 (74-99) mg/dL Calcium 9.1 (8.4-10.2) mg/dL Magnesium 2.0 (1.6-2.3) mg/dL Total Bilirubin 0.6 (0.2-1.3) mg/dL AST 19 (17-59) U/L ALT 25 (21-72) U/L Alkaline Phosphatase 92 (38-126) U/L Total Creatine Kinase 69 (55-170) U/L CK-MB (CK-2) 1.3 (0.0-2.4) ng/mL CK-MB (CK-2) Rel Index 1.9 Troponin I <0.012 (0.000-0.034) ng/mL Total Protein 5.8 L (6.3-8.2) g/dL Albumin 3.4 L (3.5-5.0) g/dL Urine Color Urine Appearance (Clear) Urine pH (5.0-8.0) Ur Specific [place] (1.001-1.035) Urine Protein (Negative) Urine Glucose (UA) (Negative) Urine Ketones (Negative) Urine Blood (Negative) Urine Nitrite (Negative) Urine Bilirubin (Negative) Urine Urobilinogen (<2.0) mg/dL Ur Leukocyte Esterase (Negative) 09/09/16 09/09/16 Range/Units 10:52 12:05 WBC (3.8-10.6) k/uL RBC (4.30-5.90) m/uL Hgb (13.0-17.5) gm/dL Hct (39.0-53.0) % MCV (80.0-100.0) fL MCH (25.0-35.0) pg MCHC (31.0-37.0) g/dL RDW (11.5-15.5) % Plt Count (150-450) k/uL Neutrophils % % Lymphocytes % % Monocytes % % Eosinophils % % Basophils % % Neutrophils # (1.3-7.7) k/uL Lymphocytes # (1.0-4.8) k/uL Monocytes # (0-1.0) k/uL Eosinophils # (0-0.7) k/uL Basophils # (0-0.2) k/uL Hypochromasia PT 11.0 (9.0-12.0) sec INR 1.1 (<1.1) APTT 25.8 (22.0-30.0) sec Sodium (137-145) mmol/L Potassium (3.5-5.1) mmol/L Chloride (98-107) mmol/L Carbon Dioxide (22-30) mmol/L Anion Gap mmol/L BUN (9-20) mg/dL Creatinine (0.66-1.25) mg/dL Est GFR (MDRD) Af Amer (>60 ml/min/1.73 sqM) Est GFR (MDRD) Non-Af (>60 ml/min/1.73 sqM) Glucose (74-99) mg/dL Calcium (8.4-10.2) mg/dL Magnesium (1.6-2.3) mg/dL Total Bilirubin (0.2-1.3) mg/dL AST (17-59) U/L ALT (21-72) U/L Alkaline Phosphatase (38-126) U/L Total Creatine Kinase (55-170) U/L CK-MB (CK-2) (0.0-2.4) ng/mL CK-MB (CK-2) Rel Index Troponin I (0.000-0.034) ng/mL Total Protein (6.3-8.2) g/dL Albumin (3.5-5.0) g/dL Urine Color Light Yellow Urine Appearance Clear (Clear) Urine pH 7.0 (5.0-8.0) Ur Specific [place] 1.009 (1.001-1.035) Urine Protein Negative (Negative) Urine Glucose (UA) Negative (Negative) Urine Ketones Negative (Negative) Urine Blood Negative (Negative) Urine Nitrite Negative (Negative) Urine Bilirubin Negative (Negative) Urine Urobilinogen <2.0 (<2.0) mg/dL Ur Leukocyte Esterase Negative (Negative) Disposition Clinical Impression: Generalized weakness, Multiple falls Disposition: ADMITTED IP TO THIS HOSP Referrals: Yoav Castillo DO [Primary Care Provider] - 1-2 days Time of Disposition: 13:11
[2016-09-09] MEDS ORDERED: SODIUM CHLORIDE 0.9% 500 ML IV STA (10:56)
[2016-09-09] MEDS ORDERED: DILTIAZEM 125 MG in SODIUM CHLORIDE 0.9% 100 ML IV ONE (10:57)
[2016-09-09] MEDS ORDERED: HEPARIN SODIUM,PORCINE 5,000 UNIT/ML 1 ML VIAL IV ONE (10:57)
[2016-09-09] MEDS ORDERED: HEPARIN SODIUM,PORCINE/D5W PMX 25,000 UNIT in DEXTROSE/WATER 1 500ML.BAG IV SCH (11:00)
[2016-09-09 11:16] LABS: Basophils % (A) 1 %; CH 27.1; CHCM 31.3; Eosinophils # (A) 0.5 k/uL (0-0.7); Eosinophils % (A) 10 %; HCT 34.1 % (39.0-53.0); HDW 2.68; HGB 10.8 gm/dL (13.0-17.5); Hypochromasia Slight; Luc # (Auto) 0.24; Luc % (Auto) 4; Lymphocytes # (A) 0.9 k/uL (1.0-4.8); Lymphocytes % (A) 16 %; MCH 27.5 pg (25.0-35.0); MCHC 31.7 g/dL (31.0-37.0); MCV 86.8 fL (80.0-100.0); Monocytes # (A) 0.6 k/uL (0-1.0); Monocytes % (A) 11 %; Neutrophils # (A) 3.2 k/uL (1.3-7.7); Neutrophils % (A) 58 %; RBC 3.92 m/uL (4.30-5.90); RDW 15.9 % (11.5-15.5); WBC 5.5 k/uL (3.8-10.6); WBC (Perox) 5.68
[2016-09-09 11:19] LABS: INR 1.1 (<1.1); Partial Thromboplastin Time 25.8 sec (22.0-30.0)
[2016-09-09 11:27] LABS: ALT 25 U/L (21-72); AST 19 U/L (17-59); Alkaline Phosphatase 92 U/L (38-126); Anion Gap 8 mmol/L; Blood Urea Nitrogen 14 mg/dL (9-20); Calcium 9.1 mg/dL (8.4-10.2); Carbon Dioxide 29 mmol/L (22-30); Chloride 104 mmol/L (98-107); Glucose 91 mg/dL (74-99); Non-African American GFR(MDRD) >60 (>60 ml/min/1.73 sqM); Potassium 4.4 mmol/L (3.5-5.1); Sodium 141 mmol/L (137-145); Total Bilirubin 0.6 mg/dL (0.2-1.3); Total Protein 5.8 g/dL (6.3-8.2)
[2016-09-09 11:44] LABS: Creatine Kinase 69 U/L (55-170)
--- NOTE | 2016-09-09 11:52 | XR ---
EXAMINATION TYPE: XR chest 2V DATE OF EXAM: 09/09/2016 COMPARISON: 07/21/2016 HISTORY: Shortness of breath TECHNIQUE: Frontal and lateral views of the chest are obtained. FINDINGS: Scattered senescent parenchymal changes noted. Hyperinflation compatible with COPD. Calcified pleural plaques are again noted. No evidence for infiltrate. No evidence for atelectasis. Heart size is stable. Mediastinal structures are stable and grossly unremarkable. No evidence for hilar prominence. Degenerative changes dorsal spine. IMPRESSION: 1. No evidence for acute pulmonary disease.
--- NOTE | 2016-09-09 11:54 | CT ---
EXAMINATION TYPE: CT brain wo con DATE OF EXAM: 09/09/2016 COMPARISON: 08/29/2016 HISTORY: Weakness CT DLP: [address] of the brain was performed. The ventricles, basal cisterns and sulci overlying the cerebral convexities demonstrate moderate enla rgement. There is no evidence for intracranial hemorrhage or sulcal effacement. There is decreased attenuation about the periventricular white matter and deep white matter of both c erebral hemispheres, compatible with chronic small vessel ischemia. Differential diagnosis does inclu de demyelination. No mass effects are seen.No midline shift. Osseous calvarium is intact. Left posterior parietal scalp hematomas in size If symptoms persist consider MRI. IMPRESSION: 1. Age related atrophic and chronic small vessel ischemic change without acute intracranial process s een at this time.
[2016-09-09 11:56] LABS: Creatine Kinase MB 1.3 ng/mL (0.0-2.4); Troponin I <0.012 ng/mL (0.000-0.034)
[2016-09-09 12:22] LABS: Appearance,Urine Clear (Clear); Bilirubin,Urine Negative (Negative); Glucose,Urine (UA) Negative (Negative); Ketones,Urine Negative (Negative); Leukocyte Esterase,Urine Negative (Negative); Nitrite,Urine Negative (Negative); Protein,Urine Negative (Negative); Specific Gravity,Urine 1.009 (1.001-1.035); UA Billing (MACRO vs. MICRO) CHEM; Urobilinogen,Urine <2.0 mg/dL (<2.0)
[2016-09-09] MEDS ORDERED: ACETAMINOPHEN TAB 500 MG TAB PO STA (13:07)
[2016-09-09] MEDS ORDERED: SODIUM CHLORIDE 0.9% 1,000 ML IV ONE (13:12)
[2016-09-09] MEDS ORDERED: ENALAPRILAT 1.25 MG/ML 1 ML VIAL IVP PRN (13:17)
[2016-09-09] MEDS: LISINOPRIL 10 MG TAB PO SCH (13:52)
[2016-09-09] MEDS: ISOSORBIDE MONONITRATE ER 30 MG TAB.ER.24H PO SCH (13:52)
--- NOTE | 2016-09-09 14:23 | P.HPIM ---
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, was recently hospitalized at [facility] for acute exacerbation of COPD and he was then transferred to [facility] on the [facility] for physical therapy and underwent recently right vocal cord paralysis surgery ,he was seen by me at [facility] and he was complaining of increased abdominal pain and distention at that time he was given milk of magnesia with prune juice twice with good results however he developed to have increased abdominal pain and distention with increased nausea and vomiting on Monday so he was transferred to [facility] for evaluation and was found to have a possible gastric outlet obstruction and he was admitted under our service with on consult,after placing NGT he had a good bliary output and he was seen by and ended up going for an EGD that showed significant gastritis without evidence of any gastric outlet obstruction, subsequently the patient was sent for physical therapy and at that time patient was released to go home. Patient has been declining over the last few months he has been having recurrent falls with generalized weakness and inability to template without the use of the walker he has significant weakness in the left lower extremity and he is not able to help himself he is an almost 24 hour care this point in time, last week patient had fallen and hit the side of the head he ended up having 2 dalia he went and saw Dr. Castillo for that and there was a conversation with the and the daughter regarding hospice care for him however he was not along with his primary care physician interested in the hospice care at this point in time he went back home and patient continues to have generalized weakness and gait dysfunction with inability to admitted to properly he ended up falling yesterday and the one was done in the basement and a fire department and EMS came down after he pushed on the ADT Lifeline, and his was complaining of significant shortness breath she ended up coming to the hospital and he was kept at home and the patient had gone to the garage her on today in the morning and to try to get it orange juice and the patient had fallen down and ADT was called and the patient was transported to the emergency department at [facility] for evaluation patient could not sit up by himself he could not ambulate subsequent he was admitted to the hospital for social services assistant consultation as well as physical therapy evaluation for extended care facility placement Review of Systems Constitutional: Reports chronic headaches, Reports chronic pain, Reports fatigue , Reports malaise, Reports poor appetite, Reports weakness Eyes: bilateral blurred vision, denies bulging eye, denies decreased vision, denies diplopia Ears: bilateral: decreased hearing Ears, nose, mouth and throat: Reports hoarseness, Denies dysphagia, Denies neck lump, Denies sore throat Cardiovascular: Reports decreased exercise tolerance, Reports dyspnea on exertion, Reports high blood pressure, Reports shortness of breath, Denies chest pain, Denies paroxysmal nocturnal dyspnea, Denies rapid heart beat, Denies syncope Respiratory: Reports congestion, Reports cough, Reports cough with sputum, Reports home oxygen, Reports wheezing, Denies sleep apnea, Denies snoring Gastrointestinal: Denies abdominal pain, Denies bloating, Denies BRBPR, Denies early satiety, Denies heartburn, Denies melena, Denies nausea, Denies vomiting Genitourinary: Reports nocturia, Denies dysuria, Denies polyuria Musculoskeletal: Reports frequent falls, Reports gait dysfunction, Reports low back pain, Reports shooting arm pain Musculoskeletal: bilateral: shoulder pain, shoulder stiffness, shoulder swelling , absent: ankle pain, ankle stiffness, ankle swelling, elbow pain, elbow stiffness, elbow swelling, foot pain, foot stiffness, foot swelling, hand pain, hand stiffness, hand swelling, hip pain, hip stiffness, hip swelling, knee pain , knee stiffness, knee swelling, wrist pain, wrist stiffness, wrist swelling Integumentary: Denies pruritus, Denies rash Neurological: Denies numbness, Denies weakness Psychiatric: Reports anxiety, Reports depression, Reports sleep disturbances Endocrine: Denies fatigue, Denies weight change Past Medical History Past Medical History: Coronary Artery Disease (CAD), Cancer, COPD, CVA/TIA, GERD /Reflux, Hyperlipidemia, Hypertension, Osteoarthritis (OA), Prostate Disorder Additional Past Medical History / Comment(s): MACULAR DEGENERATION History of Any Multi-Drug Resistant Organisms: None Reported Past Surgical History: Heart Catheterization With Stent, Joint Replacement, Orthopedic Surgery Additional Past Surgical History / Comment(s): carpal tunnel release bilat, ulcer surgery, RIGHT TOTAL KNEEX2, left rotater cuff Past Anesthesia/Blood Transfusion Reactions: No Reported Reaction Date of Last Stent Placement:: 2010 Past Psychological History: Anxiety, Depression Smoking Status: Former smoker Past Alcohol Use History: None Reported Additional Past Alcohol Use History / Comment(s): Patient is a smoker of a half a pack per day for more than 20 years. He denies any medical marijuana, marijuana or street drug use. He denies any alcohol use. Past Drug Use History: None Reported - Past Family History Mother Family Medical History: Cancer Additional Family Medical History / Comment(s): Mother at age 43 from colon cancer. Father Additional Family Medical History / Comment(s): Father at age 98 from old age with no major medical problems. Patient does not have any brothers or sisters. Daughter(s) Additional Family Medical History / Comment(s): Patient has 2 daughters with mental health issues. No medical problems. Medications and Allergies Home Medications Medication Instructions Recorded Confirmed Type Finasteride 5 mg PO HS 07/13/13 09/09/16 History Lisinopril [Zestril] 10 mg PO DAILY 07/13/13 09/09/16 History DULoxetine HCL [Cymbalta] 120 mg PO QAM 05/16/14 09/09/16 History Allopurinol 100 mg PO DAILY 09/09/15 09/09/16 History QUEtiapine FUMARATE [SEROquel] 25 mg PO HS 03/03/16 09/09/16 History Aspirin [Adult Low Dose Aspirin EC] 81 mg PO DAILY 03/29/16 09/09/16 History Omeprazole [PriLOSEC] 20 mg PO AC-BRKFST 07/21/16 09/09/16 History ALPRAZolam [Xanax] 1 mg PO DAILY PRN 08/29/16 09/09/16 History Atorvastatin [Lipitor] 40 mg PO HS 08/29/16 09/09/16 History Isosorbide Mononitrate ER [Imdur] 30 mg PO DAILY 08/29/16 09/09/16 History Loratadine [Claritin] 10 mg PO DAILY 08/29/16 09/09/16 History Metoprolol Tartrate [Lopressor] 25 mg PO HS 08/29/16 09/09/16 History Sucralfate [Carafate] 1 gm PO AC-BID 08/29/16 09/09/16 History Vit C/E/Zn/Coppr/Lutein/Zeaxan 1 cap PO BID 08/29/16 09/09/16 History [Preservision Areds 2 Softgel] guaiFENesin [Mucinex] 1,200 mg PO BID 08/29/16 09/09/16 History Allergies Allergy/AdvReac Type Severity Reaction Status Date / Time No Known Allergies Allergy Verified 09/09/16 11:09 Physical Exam Vitals: Vital Signs Temp Pulse Resp BP Pulse Ox 09/09/16 13:00 75 20 189/81 97 09/09/16 10:37 97.9 F 77 18 150/67 96 Intake and Output 09/08/16 09/09/16 09/09/16 22:59 06:59 14:59 Other: Weight 83.007 kg Patient Weight 09/10/16 06:59 Weight 83.007 kg - Constitutional General appearance: average body habitus, mild distress - EENT Eyes: anicteric sclerae, EOMI, PERRLA, no ptosis, no scleral icterus, normal appearance ENT: hard of hearing, NA/AT, normal oropharynx, no thrush, no tonsillar exudates , no tonsillar swelling Ears: bilateral: normal - Neck Neck: no lymphadenopathy, normal ROM, no rigidity, no stridor, no thyromegaly Carotids: bilateral: upstroke delayed Thyroid: bilateral: normal size - Respiratory Respiratory: bilateral: diminished, prolonged expiration, negative: dullness, rales, rhonchi, wheezing - Cardiovascular Rhythm: regular Heart sounds: normal: S1, S2 Abnormal Heart Sounds: systolic murmur, no S3 Gallop, no S4 Gallop, no click - Gastrointestinal General gastrointestinal: normal bowel sounds, soft, no splenomegaly, no tenderness, no umbilical hernia, no ventral hernia - Integumentary Integumentary: normal, normal turgor - Neurologic Neurologic: CNII-XII intact, focal deficits (Left lower extremity weakness) - Musculoskeletal Musculoskeletal: no gait normal, left sided weakness - Psychiatric Psychiatric: A&O x's 3, appropriate affect, intact judgment & insight Results CBC & Chem 7: 09/09/16 10:52 09/09/16 10:52 Labs: Abnormal Lab Results - Last 24 Hours (Table) 09/09/16 09/09/16 Range/Units 10:52 10:52 RBC 3.92 L (4.30-5.90) m/uL Hgb 10.8 L (13.0-17.5) gm/dL Hct 34.1 L (39.0-53.0) % RDW 15.9 H (11.5-15.5) % Lymphocytes # 0.9 L (1.0-4.8) k/uL Total Protein 5.8 L (6.3-8.2) g/dL Albumin 3.4 L (3.5-5.0) g/dL Thrombosis Risk Factor Assmnt - DVT/VTE Prophylaxis DVT/VTE Prophylaxis: Pharmacologic Prophylaxis ordered, Mechanical Prophylaxis ordered Assessment and Plan Plan: Assessment and plan: 1. Recurrent falls with the closed head injury and left-sided lower extremity weakness. Admit patient to hospital, patient will be seen and evaluated by physical therapy and occupational therapy, he would be seen by social services assistant, patient will need to have a 24-hour Holter this point in time he would need to be admitted to the extended care facility because of safety issue, and not able to take his medication on his own. 2. 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 3 . Hypertension and hypertensive cardiovascular disease. Continue lisinopril 10 mg orally once every day, metoprolol 25 mg orally bedtime. 4 . Hyperlipidemia. 5 . Depression. Continue Cymbalta 120 mg orally once every day. 6. BPH. Continue finasteride 5 mg orally once every day. 7. COPD: Remain on updraft treatment along with Pulmicort. 8. Gout . Continue allopurinol 100 mg orally once every day. 9.CAD/arrhythmia. Continue metoprolol 25 mg at bedtime, Imdur 30 mg orally once every day, Lipitor 20 mg orally once every day, aspirin 81 mg orally once every day. 10. GI prophylaxis. will start omeprazole 20 mg orally once every day, Carafate 1 g orally 4 times every day. 11. DVT prophylaxis.Patient will be started on heparin 5000 units subcutaneous twice a day. 12. Chronic pleural plaques bilateral lung field possibly secondary to asbestos exposure. 13. Ventral hernia, with herniation of the stomach currently asymptomatic 14. 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 15. Full code. 16. Admit to inpatient. Estimate a length of stay 2 midnights. 17. athletic turf worker consultation for ECF planning.
[2016-09-09] MEDS: VIT A,C & E-LUTEIN-MINERALS 1 EACH TAB PO SCH (16:31)
[2016-09-09] MEDS: SUCRALFATE 1 GM TAB PO SCH (16:32)
[2016-09-09] MEDS: HEPARIN SODIUM,PORCINE 5,000 UNIT/ML 1 ML VIAL SQ SCH ×2 (16:32→23:42)
[2016-09-09] MEDS: FINASTERIDE 5 MG TAB PO SCH (20:04)
[2016-09-09] MEDS: guaiFENesin 600 MG TABLET.ER PO SCH (20:04)
[2016-09-09] MEDS: ATORVASTATIN 40 MG TAB PO SCH (20:04)
[2016-09-09] MEDS: QUEtiapine 25 MG TAB PO SCH (20:05)
[2016-09-09] MEDS: METOPROLOL TARTRATE 25 MG TAB PO SCH (20:05)
[2016-09-09] MEDS: ALPRAZolam 0.5 MG TAB PO PRN (23:42)
[2016-09-10] MEDS: ASPIRIN 81 MG CHEW PO SCH (07:57)
[2016-09-10] MEDS: PANTOPRAZOLE 40 MG TABLET PO SCH (07:57)
[2016-09-10] MEDS: SUCRALFATE 1 GM TAB PO SCH ×2 (07:57→17:49)
[2016-09-10] MEDS: DULoxetine HCL 60 MG CAPSULE.DR PO SCH (07:58)
[2016-09-10] MEDS: ALLOPURINOL 100 MG TAB PO SCH (07:58)
[2016-09-10] MEDS: guaiFENesin 600 MG TABLET.ER PO SCH ×2 (07:58→20:38)
[2016-09-10] MEDS: LORATADINE 10 MG TAB PO SCH (07:59)
[2016-09-10] MEDS: HEPARIN SODIUM,PORCINE 5,000 UNIT/ML 1 ML VIAL SQ SCH ×2 (08:00→16:50)
[2016-09-10 08:03] LABS: CH 26.7; CHCM 30.6; HCT 29.1 % (39.0-53.0); HDW 2.62; Hypochromasia Moderate; MCH 27.2 pg (25.0-35.0); MCHC 31.1 g/dL (31.0-37.0); MCV 87.6 fL (80.0-100.0); Mean Platelet Volume 7.7; RBC 3.32 m/uL (4.30-5.90); RDW 15.9 % (11.5-15.5); WBC 6.4 k/uL (3.8-10.6)
[2016-09-10 08:21] LABS: Anion Gap 8 mmol/L; Blood Urea Nitrogen 11 mg/dL (9-20); Calcium 8.6 mg/dL (8.4-10.2); Carbon Dioxide 30 mmol/L (22-30); Chloride 104 mmol/L (98-107); Glucose 105 mg/dL (74-99); Non-African American GFR(MDRD) >60 (>60 ml/min/1.73 sqM); Sodium 142 mmol/L (137-145)
[2016-09-10] MEDS ORDERED: LISINOPRIL 10 MG TAB PO SCH (09:00)
[2016-09-10] MEDS ORDERED: ISOSORBIDE MONONITRATE ER 30 MG TAB.ER.24H PO SCH (09:00)
[2016-09-10] MEDS ORDERED: IPRATROPIUM-ALBUTEROL 3 ML NEB INHALATION PRN ×2 (09:37)
[2016-09-10 10:46] VITALS: BMI 27.0
--- NOTE | 2016-09-10 10:48 | XR ---
EXAMINATION TYPE: XR chest 2V DATE OF EXAM: 09/10/2016 COMPARISON: NONE INDICATION: Aspiration, COPD TECHNIQUE: Frontal and lateral views of the chest are obtained. FINDINGS: The heart size is normal. The pulmonary vasculature is normal. The lungs are clear. Left and right pleural plaquing appears to be present. Some calcifications on t he right diaphragm. Correlate for prior asbestos exposure. There is erosion and chronic rotator cuff tear of the left shoulder. IMPRESSION: 1. No acute pulmonary process. 2. Chronic changes stable from prior
[2016-09-10] MEDS: LISINOPRIL 10 MG TAB PO SCH (12:30)
[2016-09-10] MEDS: AMPICILLIN-SULBACTAM 3 GM in SODIUM CHLORIDE 0.9% 100 ML IVPB SCH ×2 (12:30→16:50)
[2016-09-10] MEDS: methylPREDNISolone SOD SUCCI 125 MG/2 ML VIAL IV SCH ×2 (12:31→16:51)
[2016-09-10] MEDS: ISOSORBIDE MONONITRATE ER 30 MG TAB.ER.24H PO SCH (12:31)
[2016-09-10] MEDS: VIT A,C & E-LUTEIN-MINERALS 1 EACH TAB PO SCH ×2 (12:32→17:55)
[2016-09-10] MEDS: INSULIN LISPRO (humaLOG) 300 UNIT/3 ML VIAL SQ SCH ×3 (12:32→20:39)
[2016-09-10] MEDS: IPRATROPIUM-ALBUTEROL 3 ML NEB INHALATION SCH ×2 (12:36→19:15)
[2016-09-10 12:42] LABS: Glucose,Whole Blood 91 mg/dL (75-99)
--- NOTE | 2016-09-10 13:57 | P.PN ---
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 on the [facility] for physical therapy and underwent recently right vocal cord paralysis surgery ,he was seen by me at [facility] and he was complaining of increased abdominal pain and distention at that time he was given milk of magnesia with prune juice twice with good results however he developed to have increased abdominal pain and distention with increased nausea and vomiting on Monday so he was transferred to [facility] for evaluation and was found to have a possible gastric outlet obstruction and he was admitted under our service with on consult,after placing NGT he had a good bliary output and he was seen by and ended up going for an EGD that showed significant gastritis without evidence of any gastric outlet obstruction, subsequently the patient was sent for physical therapy and at that time patient was released to go home. Patient has been declining over the last few months he has been having recurrent falls with generalized weakness and inability to template without the use of the walker he has significant weakness in the left lower extremity and he is not able to help himself he is an almost 24 hour care this point in time, last week patient had fallen and hit the side of the head he ended up having 2 dalia he went and saw Dr. Castillo for that and there was a conversation with the and the daughter regarding hospice care for him however he was not along with his primary care physician interested in the hospice care at this point in time he went back home and patient continues to have generalized weakness and gait dysfunction with inability to admitted to properly he ended up falling yesterday and the one was done in the basement and a fire department and EMS came down after he pushed on the ADT Lifeline, and his was complaining of significant shortness breath she ended up coming to the hospital and he was kept at home and the patient had gone to the garage her on today in the morning and to try to get it orange juice and the patient had fallen down and ADT was called and the patient was transported to the emergency department at [facility] for evaluation patient could not sit up by himself he could not ambulate subsequent he was admitted to the hospital for aids social worker consultation as well as physical therapy evaluation for extended care facility placement 09/10: Patient is having increased shortness of breath and wheezing today. He has been afebrile. Chest x-ray will be ordered and patient started on DuoNeb treatments scheduled and as needed as well as antibiotics with Unasyn and Solu- Medrol 60 mg IV every 8 hours, DuoNeb treatments and Pulmicort and Humalog scale. Patient denies any other new complaints. Objective - Vital Signs Vital signs: Vital Signs Temp 98 F 09/10/16 07:00 Pulse 97 09/10/16 07:00 Resp 20 09/10/16 07:00 BP 120/60 09/10/16 07:00 Pulse Ox 97 09/10/16 07:00 Intake & Output 09/09/16 09/10/16 09/10/16 18:59 06:59 18:59 Intake Total 1000 225 Balance 1000 225 Weight 83.007 kg Intake: Amount of Fluid Infused ( 1000 ml) Intake, IV Titration 225 Amount Sodium Chloride 0.9% 1, 225 000 ml @ 75 mls/hr IV . [id number] Rx#:[id number] Other: # Voids 2 - Exam General appearance: average body habitus, mild distress - EENT Eyes: anicteric sclerae, EOMI, PERRLA, no ptosis, no scleral icterus, normal appearance ENT: hard of hearing, NA/AT, normal oropharynx, no thrush, no tonsillar exudates , no tonsillar swelling Ears: bilateral: normal - Neck Neck: no lymphadenopathy, normal ROM, no rigidity, no stridor, no thyromegaly Carotids: bilateral: upstroke delayed Thyroid: bilateral: normal size - Respiratory Respiratory: bilateral: diminished, prolonged expiration, negative: dullness, rales, rhonchi, wheezing - Cardiovascular Rhythm: regular Heart sounds: normal: S1, S2 Abnormal Heart Sounds: systolic murmur, no S3 Gallop, no S4 Gallop, no click - Gastrointestinal General gastrointestinal: normal bowel sounds, soft, no splenomegaly, no tenderness, no umbilical hernia, no ventral hernia - Integumentary Integumentary: normal, normal turgor - Neurologic Neurologic: CNII-XII intact, focal deficits (Left lower extremity weakness) - Musculoskeletal Musculoskeletal: no gait normal, left sided weakness - Psychiatric Psychiatric: A&O x's 3, appropriate affect, intact judgment & insight - Labs CBC & Chem 7: 09/10/16 07:13 09/10/16 07:13 Labs: Abnormal Lab Results - Last 24 Hours (Table) 09/09/16 09/09/16 09/10/16 Range/Units 10:52 10:52 07:13 RBC 3.92 L 3.32 L (4.30-5.90) m/uL Hgb 10.8 L 9.0 L D (13.0-17.5) gm/dL Hct 34.1 L 29.1 L (39.0-53.0) % RDW 15.9 H 15.9 H (11.5-15.5) % Lymphocytes # 0.9 L (1.0-4.8) k/uL Glucose (74-99) mg/dL Total Protein 5.8 L (6.3-8.2) g/dL Albumin 3.4 L (3.5-5.0) g/dL 09/10/16 Range/Units 07:13 RBC (4.30-5.90) m/uL Hgb (13.0-17.5) gm/dL Hct (39.0-53.0) % RDW (11.5-15.5) % Lymphocytes # (1.0-4.8) k/uL Glucose 105 H (74-99) mg/dL Total Protein (6.3-8.2) g/dL Albumin (3.5-5.0) g/dL Microbiology - Last 24 Hours (Table) 09/09/16 12:05 Urine Culture - Preliminary Urine,Voided Assessment and Plan Plan: 1. Recurrent falls with the closed head injury and left-sided lower extremity weakness. Admit patient to hospital, patient will be seen and evaluated by physical therapy and occupational therapy, he would be seen by aids social worker, patient will need to have a 24-hour Holter this point in time he would need to be admitted to the extended care facility because of safety issue, and not able to take his medication on his own. 2. 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 3. Acute exacerbation of COPD in a patient with long-standing history of smoking. Patient started on DuoNeb treatment 3 times daily and every 2 hours as needed, Pulmicort 0.5 mg twice daily, Unasyn 3 g every 8 hours, Mucinex 1200 mg twice daily, Solu-Medrol 60 mg IV every 8 hours. Humalog scale added to cover for steroid use. 4. Hypertension and hypertensive cardiovascular disease. Continue lisinopril 10 mg orally once every day, metoprolol 25 mg orally bedtime. 5 . Hyperlipidemia. 6 . Depression. Continue Cymbalta 120 mg orally once every day. 7. BPH. Continue finasteride 5 mg orally once every day. 8. Gout . Continue allopurinol 100 mg orally once every day. 9.CAD/arrhythmia. Continue metoprolol 25 mg at bedtime, Imdur 30 mg orally once every day, Lipitor 20 mg orally once every day, aspirin 81 mg orally once every day. 10. GI prophylaxis. will start omeprazole 20 mg orally once every day, Carafate 1 g orally 4 times every day. 11. DVT prophylaxis.Patient will be started on heparin 5000 units subcutaneous twice a day. 12. Chronic pleural plaques bilateral lung field possibly secondary to asbestos exposure. 13. Ventral hernia, with herniation of the stomach currently asymptomatic 14. 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 15. No code. 16. Admit to inpatient. Estimate a length of stay 2 midnights. Discharge plan: To be determined. Impression and plan of care have been directed as dictated by the signing physician. Patricia Padilla nurse practitioner acting as scribe for signing physician.
[2016-09-10 17:31] LABS: Glucose,Whole Blood 143 mg/dL (75-99)
[2016-09-10] MEDS: traMADol 50 MG TAB PO PRN (17:50)
[2016-09-10] MEDS: BUDESONIDE 0.5 MG/2 ML NEBU INHALATION SCH (19:15)
[2016-09-10 20:22] LABS: Glucose,Whole Blood 163 mg/dL (75-99)
[2016-09-10] MEDS: METOPROLOL TARTRATE 25 MG TAB PO SCH (20:38)
[2016-09-10] MEDS: FINASTERIDE 5 MG TAB PO SCH (20:38)
[2016-09-10] MEDS: ATORVASTATIN 40 MG TAB PO SCH (20:38)
[2016-09-11] MEDS: QUEtiapine 25 MG TAB PO SCH ×2 (00:01→20:50)
[2016-09-11] MEDS: ALPRAZolam 0.5 MG TAB PO PRN ×2 (00:01→23:40)
[2016-09-11] MEDS: HEPARIN SODIUM,PORCINE 5,000 UNIT/ML 1 ML VIAL SQ SCH ×4 (00:02→23:43)
[2016-09-11] MEDS: AMPICILLIN-SULBACTAM 3 GM in SODIUM CHLORIDE 0.9% 100 ML IVPB SCH ×3 (00:02→17:15)
[2016-09-11] MEDS: methylPREDNISolone SOD SUCCI 125 MG/2 ML VIAL IV SCH ×4 (00:02→23:42)
[2016-09-11 07:29] LABS: Glucose,Whole Blood 133 mg/dL (75-99)
[2016-09-11] MEDS: IPRATROPIUM-ALBUTEROL 3 ML NEB INHALATION SCH ×3 (08:30→19:43)
[2016-09-11] MEDS: BUDESONIDE 0.5 MG/2 ML NEBU INHALATION SCH ×2 (08:33→19:43)
[2016-09-11] MEDS: INSULIN LISPRO (humaLOG) 300 UNIT/3 ML VIAL SQ SCH ×4 (08:41→23:48)
[2016-09-11] MEDS: VIT A,C & E-LUTEIN-MINERALS 1 EACH TAB PO SCH ×2 (08:42→17:22)
[2016-09-11] MEDS: LORATADINE 10 MG TAB PO SCH (08:42)
[2016-09-11] MEDS: ASPIRIN 81 MG CHEW PO SCH (08:42)
[2016-09-11] MEDS: PANTOPRAZOLE 40 MG TABLET PO SCH (08:42)
[2016-09-11] MEDS: guaiFENesin 600 MG TABLET.ER PO SCH ×2 (08:42→20:51)
[2016-09-11] MEDS: LISINOPRIL 10 MG TAB PO SCH (08:43)
[2016-09-11] MEDS: ALLOPURINOL 100 MG TAB PO SCH (08:43)
[2016-09-11] MEDS: ISOSORBIDE MONONITRATE ER 30 MG TAB.ER.24H PO SCH (08:43)
[2016-09-11] MEDS: SUCRALFATE 1 GM TAB PO SCH ×2 (08:44→17:15)
[2016-09-11] MEDS: DULoxetine HCL 60 MG CAPSULE.DR PO SCH (08:45)
[2016-09-11] MEDS: traMADol 50 MG TAB PO PRN (08:58)
--- NOTE | 2016-09-11 11:11 | P.PN ---
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 for physical therapy and underwent recently right vocal cord paralysis surgery ,he was seen by me at [facility] and he was complaining of increased abdominal pain and distention at that time he was given milk of magnesia with prune juice twice with good results however he developed to have increased abdominal pain and distention with increased nausea and vomiting on Monday so he was transferred to [facility] for evaluation and was found to have a possible gastric outlet obstruction and he was admitted under our service with on consult,after placing NGT he had a good bliary output and he was seen by and ended up going for an EGD that showed significant gastritis without evidence of any gastric outlet obstruction, subsequently the patient was sent for physical therapy and at that time patient was released to go home. Patient has been declining over the last few months he has been having recurrent falls with generalized weakness and inability to template without the use of the walker he has significant weakness in the left lower extremity and he is not able to help himself he is an almost 24 hour care this point in time, last week patient had fallen and hit the side of the head he ended up having 2 dalia he went and saw Dr. Castillo for that and there was a conversation with the and the daughter regarding hospice care for him however he was not along with his primary care physician interested in the hospice care at this point in time he went back home and patient continues to have generalized weakness and gait dysfunction with inability to admitted to properly he ended up falling yesterday and the one was done in the basement and a fire department and EMS came down after he pushed on the ADT Lifeline, and his was complaining of significant shortness breath she ended up coming to the hospital and he was kept at home and the patient had gone to the garage her on today in the morning and to try to get it orange juice and the patient had fallen down and ADT was called and the patient was transported to the emergency department at [facility] for evaluation patient could not sit up by himself he could not ambulate subsequent he was admitted to the hospital for social media coordinator consultation as well as physical therapy evaluation for extended care facility placement 09/10: Patient is having increased shortness of breath and wheezing today. He has been afebrile. Chest x-ray will be ordered and patient started on DuoNeb treatments scheduled and as needed as well as antibiotics with Unasyn and Solu- Medrol 60 mg IV every 8 hours, DuoNeb treatments and Pulmicort and Humalog scale. Patient denies any other new complaints. 09/11: Patient continues to have cough with readily respirations. He states he slept well last night. Patient will be continued on the Solu-Medrol at 60 every 8 hours for now. Objective - Vital Signs Vital signs: Vital Signs Temp 97.4 F L 09/11/16 07:00 Pulse 84 09/11/16 08:46 Resp 16 09/11/16 07:00 BP 126/76 09/11/16 07:00 Pulse Ox 95 09/11/16 08:32 Intake & Output 09/10/16 09/11/16 09/11/16 18:59 06:59 18:59 Intake Total 100 285 Balance 100 285 Weight 83.007 kg Intake: IV 100 100 Ampicillin-Sulbactam 3 gm 100 100 In Sodium Chloride 0.9% 100 ml @ 100 mls/hr IVPB Q8HR [facility] Rx#:[id number] Intake, IV Titration 60 Amount Sodium Chloride 0.9% 1, 60 000 ml @ 75 mls/hr IV . [id number] Rx#:[id number] Oral 125 Other: Voiding Method Diaper Diaper Incontinent Incontinent # Voids 1 - Exam General appearance: average body habitus, mild distress - EENT Eyes: anicteric sclerae, EOMI, PERRLA, no ptosis, no scleral icterus, normal appearance ENT: hard of hearing, NA/AT, normal oropharynx, no thrush, no tonsillar exudates , no tonsillar swelling Ears: bilateral: normal - Neck Neck: no lymphadenopathy, normal ROM, no rigidity, no stridor, no thyromegaly Carotids: bilateral: upstroke delayed Thyroid: bilateral: normal size - Respiratory Respiratory: bilateral: diminished, prolonged expiration, expiratory wheezing negative: dullness, rales, rhonchi - Cardiovascular Rhythm: regular Heart sounds: normal: S1, S2 Abnormal Heart Sounds: systolic murmur, no S3 Gallop, no S4 Gallop, no click - Gastrointestinal General gastrointestinal: normal bowel sounds, soft, no splenomegaly, no tenderness, no umbilical hernia, no ventral hernia - Integumentary Integumentary: normal, normal turgor - Neurologic Neurologic: CNII-XII intact, focal deficits (Left lower extremity weakness) - Musculoskeletal Musculoskeletal: no gait normal, left sided weakness - Psychiatric Psychiatric: A&O x's 3, appropriate affect, intact judgment & insight - Labs CBC & Chem 7: 09/10/16 07:13 09/10/16 07:13 Labs: Abnormal Lab Results - Last 24 Hours (Table) 09/10/16 09/10/16 09/11/16 Range/Units 17:28 20:20 07:26 POC Glucose (mg/dL) 143 H 163 H 133 H (75-99) mg/dL Microbiology - Last 24 Hours (Table) 09/09/16 12:05 Urine Culture - Final Urine,Voided Assessment and Plan Plan: 1. Recurrent falls with the closed head injury and left-sided lower extremity weakness. Admit patient to hospital, patient will be seen and evaluated by physical therapy and occupational therapy, he would be seen by social media coordinator, patient will need to have a 24-hour Holter this point in time he would need to be admitted to the extended care facility because of safety issue, and not able to take his medication on his own. 2. 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 3. Acute exacerbation of COPD in a patient with long-standing history of smoking. Patient started on DuoNeb treatment 3 times daily and every 2 hours as needed, Pulmicort 0.5 mg twice daily, Unasyn 3 g every 8 hours, Mucinex 1200 mg twice daily, Solu-Medrol 60 mg IV every 8 hours. Humalog scale added to cover for steroid use. 4. Hypertension and hypertensive cardiovascular disease. Continue lisinopril 10 mg orally once every day, metoprolol 25 mg orally bedtime. 5 . Hyperlipidemia. 6 . Depression. Continue Cymbalta 120 mg orally once every day. 7. BPH. Continue finasteride 5 mg orally once every day. 8. Gout . Continue allopurinol 100 mg orally once every day. 9.CAD/arrhythmia. Continue metoprolol 25 mg at bedtime, Imdur 30 mg orally once every day, Lipitor 20 mg orally once every day, aspirin 81 mg orally once every day. 10. GI prophylaxis. will start omeprazole 20 mg orally once every day, Carafate 1 g orally 4 times every day. 11. DVT prophylaxis.Patient will be started on heparin 5000 units subcutaneous twice a day. 12. Chronic pleural plaques bilateral lung field possibly secondary to asbestos exposure. 13. Ventral hernia, with herniation of the stomach currently asymptomatic 14. 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 15. No code. 16. Admit to inpatient. Estimate a length of stay 2 midnights. Discharge plan: To be determined. Impression and plan of care have been directed as dictated by the signing physician. Patricia Padilla nurse practitioner acting as scribe for signing physician.
[2016-09-11 11:32] LABS: Glucose,Whole Blood 154 mg/dL (75-99)
[2016-09-11 17:22] LABS: Glucose,Whole Blood 156 mg/dL (75-99)
[2016-09-11 20:08] LABS: Glucose,Whole Blood 125 mg/dL (75-99)
[2016-09-11] MEDS: FINASTERIDE 5 MG TAB PO SCH (20:51)
[2016-09-11] MEDS: METOPROLOL TARTRATE 25 MG TAB PO SCH (20:51)
[2016-09-11] MEDS: ATORVASTATIN 40 MG TAB PO SCH (20:51)
[2016-09-12] MEDS: AMPICILLIN-SULBACTAM 3 GM in SODIUM CHLORIDE 0.9% 100 ML IVPB SCH ×4 (00:08→23:36)
[2016-09-12 07:21] LABS: Anisocytosis Slight; CH 26.7; CHCM 30.8; HCT 29.5 % (39.0-53.0); HDW 2.71; HGB 9.2 gm/dL (13.0-17.5); Hypochromasia Moderate; MCH 27.3 pg (25.0-35.0); MCHC 31.3 g/dL (31.0-37.0); MCV 87.1 fL (80.0-100.0); RBC 3.38 m/uL (4.30-5.90); RDW 16.2 % (11.5-15.5); WBC 11.7 k/uL (3.8-10.6)
[2016-09-12 07:35] LABS: Anion Gap 8 mmol/L; Blood Urea Nitrogen 18 mg/dL (9-20); Calcium 8.5 mg/dL (8.4-10.2); Carbon Dioxide 27 mmol/L (22-30); Chloride 103 mmol/L (98-107); Glucose 129 mg/dL (74-99); Non-African American GFR(MDRD) >60 (>60 ml/min/1.73 sqM); Potassium 4.1 mmol/L (3.5-5.1); Sodium 138 mmol/L (137-145)
[2016-09-12 07:50] LABS: Glucose,Whole Blood 137 mg/dL (75-99)
[2016-09-12] MEDS: INSULIN LISPRO (humaLOG) 300 UNIT/3 ML VIAL SQ SCH ×4 (08:36→21:20)
[2016-09-12] MEDS: PANTOPRAZOLE 40 MG TABLET PO SCH (08:37)
[2016-09-12] MEDS: ISOSORBIDE MONONITRATE ER 30 MG TAB.ER.24H PO SCH (08:37)
[2016-09-12] MEDS: ALLOPURINOL 100 MG TAB PO SCH (08:37)
[2016-09-12] MEDS: guaiFENesin 600 MG TABLET.ER PO SCH ×2 (08:37→21:19)
[2016-09-12] MEDS: HEPARIN SODIUM,PORCINE 5,000 UNIT/ML 1 ML VIAL SQ SCH ×3 (08:37→23:36)
[2016-09-12] MEDS: ASPIRIN 81 MG CHEW PO SCH (08:38)
[2016-09-12] MEDS: VIT A,C & E-LUTEIN-MINERALS 1 EACH TAB PO SCH ×2 (08:38→17:22)
[2016-09-12] MEDS: methylPREDNISolone SOD SUCCI 125 MG/2 ML VIAL IV SCH (08:38)
[2016-09-12] MEDS: DULoxetine HCL 60 MG CAPSULE.DR PO SCH (08:39)
[2016-09-12] MEDS: SUCRALFATE 1 GM TAB PO SCH ×2 (08:39→17:22)
[2016-09-12] MEDS: LISINOPRIL 10 MG TAB PO SCH (08:39)
[2016-09-12] MEDS: LORATADINE 10 MG TAB PO SCH (08:39)
[2016-09-12] MEDS: BUDESONIDE 0.5 MG/2 ML NEBU INHALATION SCH ×2 (09:00→20:00)
[2016-09-12] MEDS: IPRATROPIUM-ALBUTEROL 3 ML NEB INHALATION SCH ×4 (09:00→20:00)
[2016-09-12 11:40] LABS: Glucose,Whole Blood 143 mg/dL (75-99)
--- NOTE | 2016-09-12 12:01 | P.PN ---
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, was recently hospitalized at [facility] for acute exacerbation of COPD and he was then transferred to [facility] on the [facility] for physical therapy and underwent recently right vocal cord paralysis surgery ,he was seen by me at [facility] and he was complaining of increased abdominal pain and distention at that time he was given milk of magnesia with prune juice twice with good results however he developed to have increased abdominal pain and distention with increased nausea and vomiting on Monday so he was transferred to [facility] for evaluation and was found to have a possible gastric outlet obstruction and he was admitted under our service with on consult,after placing NGT he had a good bliary output and he was seen by and ended up going for an EGD that showed significant gastritis without evidence of any gastric outlet obstruction, subsequently the patient was sent for physical therapy and at that time patient was released to go home. Patient has been declining over the last few months he has been having recurrent falls with generalized weakness and inability to template without the use of the walker he has significant weakness in the left lower extremity and he is not able to help himself he is an almost 24 hour care this point in time, last week patient had fallen and hit the side of the head he ended up having 2 dalia he went and saw Dr. Castillo for that and there was a conversation with the and the daughter regarding hospice care for him however he was not along with his primary care physician interested in the hospice care at this point in time he went back home and patient continues to have generalized weakness and gait dysfunction with inability to admitted to properly he ended up falling yesterday and the one was done in the basement and a fire department and EMS came down after he pushed on the ADT Lifeline, and his was complaining of significant shortness breath she ended up coming to the hospital and he was kept at home and the patient had gone to the garage her on today in the morning and to try to get it orange juice and the patient had fallen down and ADT was called and the patient was transported to the emergency department at [facility] for evaluation patient could not sit up by himself he could not ambulate subsequent he was admitted to the hospital for psych social worker consultation as well as physical therapy evaluation for extended care facility placement 09/10: Patient is having increased shortness of breath and wheezing today. He has been afebrile. Chest x-ray will be ordered and patient started on DuoNeb treatments scheduled and as needed as well as antibiotics with Unasyn and Solu- Medrol 60 mg IV every 8 hours, DuoNeb treatments and Pulmicort and Humalog scale. Patient denies any other new complaints. 09/11: Patient continues to have cough with readily respirations. He states he slept well last night. Patient will be continued on the Solu-Medrol at 60 every 8 hours for now. 09/12: Patient has more cough today but lungs are improving. We will decrease Solu-Medrol to 40 mg every 8 hours. Mucinex started. Objective - Vital Signs Vital signs: Vital Signs Temp 97 F L 09/12/16 07:00 Pulse 88 09/12/16 09:18 Resp 16 09/12/16 07:00 BP 116/71 09/12/16 07:00 Pulse Ox 99 09/12/16 09:00 Intake & Output 09/11/16 09/12/16 09/12/16 18:59 06:59 18:59 Intake Total 100 Balance 100 Weight 83.007 kg Intake: IV 100 Ampicillin-Sulbactam 3 gm 100 In Sodium Chloride 0.9% 100 ml @ 100 mls/hr IVPB Q8HR [facility] Rx#:[id number] Other: Voiding Method Diaper Diaper Diaper Incontinent Incontinent Incontinent # Voids 3 - Exam General appearance: average body habitus, mild distress - EENT Eyes: anicteric sclerae, EOMI, PERRLA, no ptosis, no scleral icterus, normal appearance ENT: hard of hearing, NA/AT, normal oropharynx, no thrush, no tonsillar exudates , no tonsillar swelling Ears: bilateral: normal - Neck Neck: no lymphadenopathy, normal ROM, no rigidity, no stridor, no thyromegaly Carotids: bilateral: upstroke delayed Thyroid: bilateral: normal size - Respiratory Respiratory: bilateral: diminished, prolonged expiration, expiratory wheezing negative: dullness, rales, rhonchi - Cardiovascular Rhythm: regular Heart sounds: normal: S1, S2 Abnormal Heart Sounds: systolic murmur, no S3 Gallop, no S4 Gallop, no click - Gastrointestinal General gastrointestinal: normal bowel sounds, soft, no splenomegaly, no tenderness, no umbilical hernia, no ventral hernia - Integumentary Integumentary: normal, normal turgor - Neurologic Neurologic: CNII-XII intact, focal deficits (Left lower extremity weakness) - Musculoskeletal Musculoskeletal: no gait normal, left sided weakness - Psychiatric Psychiatric: A&O x's 3, appropriate affect, intact judgment & insight - Labs CBC & Chem 7: 09/12/16 06:47 09/12/16 06:47 Labs: Abnormal Lab Results - Last 24 Hours (Table) 09/11/16 09/11/16 09/12/16 Range/Units 17:17 20:06 06:47 WBC 11.7 H (3.8-10.6) k/uL RBC 3.38 L (4.30-5.90) m/uL Hgb 9.2 L (13.0-17.5) gm/dL Hct 29.5 L (39.0-53.0) % RDW 16.2 H (11.5-15.5) % Creatinine (0.66-1.25) mg/dL Glucose (74-99) mg/dL POC Glucose (mg/dL) 156 H 125 H (75-99) mg/dL 09/12/16 09/12/16 09/12/16 Range/Units 06:47 07:46 11:38 WBC (3.8-10.6) k/uL RBC (4.30-5.90) m/uL Hgb (13.0-17.5) gm/dL Hct (39.0-53.0) % RDW (11.5-15.5) % Creatinine 0.61 L (0.66-1.25) mg/dL Glucose 129 H (74-99) mg/dL POC Glucose (mg/dL) 137 H 143 H (75-99) mg/dL Assessment and Plan Plan: 1. Recurrent falls with the closed head injury and left-sided lower extremity weakness. Admit patient to hospital, patient will be seen and evaluated by physical therapy and occupational therapy, he would be seen by psych social worker, patient will need to have a 24-hour Holter this point in time he would need to be admitted to the extended care facility because of safety issue, and not able to take his medication on his own. 2. 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 3. Acute exacerbation of COPD in a patient with long-standing history of smoking. Patient started on DuoNeb treatment 3 times daily and every 2 hours as needed, Pulmicort 0.5 mg twice daily, Unasyn 3 g every 8 hours, Mucinex 1200 mg twice daily, Solu-Medrol 40 mg IV every 8 hours. Humalog scale added to cover for steroid use. 4. Hypertension and hypertensive cardiovascular disease. Continue lisinopril 10 mg orally once every day, metoprolol 25 mg orally bedtime. 5 . Hyperlipidemia. 6 . Depression. Continue Cymbalta 120 mg orally once every day. 7. BPH. Continue finasteride 5 mg orally once every day. 8. Gout . Continue allopurinol 100 mg orally once every day. 9.CAD/arrhythmia. Continue metoprolol 25 mg at bedtime, Imdur 30 mg orally once every day, Lipitor 20 mg orally once every day, aspirin 81 mg orally once every day. 10. GI prophylaxis. will start omeprazole 20 mg orally once every day, Carafate 1 g orally 4 times every day. 11. DVT prophylaxis.Patient will be started on heparin 5000 units subcutaneous twice a day. 12. Chronic pleural plaques bilateral lung field possibly secondary to asbestos exposure. 13. Ventral hernia, with herniation of the stomach currently asymptomatic 14. 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 15. No code. 16. Admit to inpatient. Estimate a length of stay 2 midnights. Discharge plan: To be determined. Impression and plan of care have been directed as dictated by the signing physician. Patricia Padilla nurse practitioner acting as scribe for signing physician.
[2016-09-12] MEDS ORDERED: methylPREDNISolone SOD SUCCI 40 MG/ML 1 ML VIAL IV SCH (16:00)
[2016-09-12 17:44] LABS: Glucose,Whole Blood 109 mg/dL (75-99)
[2016-09-12 20:54] LABS: Glucose,Whole Blood 179 mg/dL (75-99)
[2016-09-12] MEDS: FINASTERIDE 5 MG TAB PO SCH (21:19)
[2016-09-12] MEDS: ATORVASTATIN 40 MG TAB PO SCH (21:19)
[2016-09-12] MEDS: METOPROLOL TARTRATE 25 MG TAB PO SCH (21:20)
[2016-09-12] MEDS: ALPRAZolam 0.5 MG TAB PO PRN (23:36)
[2016-09-12] MEDS: QUEtiapine 25 MG TAB PO SCH (23:36)
[2016-09-13 06:56] LABS: Anisocytosis Slight; CH 26.6; CHCM 30.9; HCT 28.7 % (39.0-53.0); HDW 2.69; HGB 9.3 gm/dL (13.0-17.5); Hypochromasia Moderate; MCH 28.1 pg (25.0-35.0); MCHC 32.4 g/dL (31.0-37.0); MCV 86.7 fL (80.0-100.0); Mean Platelet Volume 7.8; RBC 3.31 m/uL (4.30-5.90); RDW 16.1 % (11.5-15.5); WBC 12.1 k/uL (3.8-10.6)
[2016-09-13] MEDS: IPRATROPIUM-ALBUTEROL 3 ML NEB INHALATION SCH ×3 (07:12→20:10)
[2016-09-13] MEDS: BUDESONIDE 0.5 MG/2 ML NEBU INHALATION SCH ×2 (07:12→20:10)
[2016-09-13 07:17] LABS: Anion Gap 7 mmol/L; Blood Urea Nitrogen 22 mg/dL (9-20); Calcium 8.3 mg/dL (8.4-10.2); Carbon Dioxide 28 mmol/L (22-30); Chloride 104 mmol/L (98-107); Glucose 114 mg/dL (74-99); Non-African American GFR(MDRD) >60 (>60 ml/min/1.73 sqM); Potassium 3.7 mmol/L (3.5-5.1); Sodium 139 mmol/L (137-145)
[2016-09-13 07:21] LABS: Glucose,Whole Blood 118 mg/dL (75-99)
[2016-09-13] MEDS: INSULIN LISPRO (humaLOG) 300 UNIT/3 ML VIAL SQ SCH ×5 (08:51→20:36)
[2016-09-13] MEDS: VIT A,C & E-LUTEIN-MINERALS 1 EACH TAB PO SCH ×2 (08:51→17:00)
[2016-09-13] MEDS: LORATADINE 10 MG TAB PO SCH (08:51)
[2016-09-13] MEDS: LISINOPRIL 10 MG TAB PO SCH (08:51)
[2016-09-13] MEDS: ASPIRIN 81 MG CHEW PO SCH (08:52)
[2016-09-13] MEDS: HEPARIN SODIUM,PORCINE 5,000 UNIT/ML 1 ML VIAL SQ SCH ×3 (08:52→23:47)
[2016-09-13] MEDS: ALLOPURINOL 100 MG TAB PO SCH (08:52)
[2016-09-13] MEDS: SUCRALFATE 1 GM TAB PO SCH ×2 (08:52→17:00)
[2016-09-13] MEDS: PANTOPRAZOLE 40 MG TABLET PO SCH (08:52)
[2016-09-13] MEDS: guaiFENesin 600 MG TABLET.ER PO SCH ×2 (08:53→20:37)
[2016-09-13] MEDS: ISOSORBIDE MONONITRATE ER 30 MG TAB.ER.24H PO SCH (08:53)
[2016-09-13] MEDS: DULoxetine HCL 60 MG CAPSULE.DR PO SCH (08:53)
[2016-09-13] MEDS: predniSONE 20 MG TAB PO SCH (08:53)
[2016-09-13] MEDS: AMPICILLIN-SULBACTAM 3 GM in SODIUM CHLORIDE 0.9% 100 ML IVPB SCH (08:59)
--- NOTE | 2016-09-13 11:18 | P.PN ---
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, was recently hospitalized at [facility] for acute exacerbation of COPD and he was then transferred to [facility] on the [facility] for physical therapy and underwent recently right vocal cord paralysis surgery ,he was seen by me at [facility] and he was complaining of increased abdominal pain and distention at that time he was given milk of magnesia with prune juice twice with good results however he developed to have increased abdominal pain and distention with increased nausea and vomiting on Monday so he was transferred to [facility] for evaluation and was found to have a possible gastric outlet obstruction and he was admitted under our service with on consult,after placing NGT he had a good bliary output and he was seen by and ended up going for an EGD that showed significant gastritis without evidence of any gastric outlet obstruction, subsequently the patient was sent for physical therapy and at that time patient was released to go home. Patient has been declining over the last few months he has been having recurrent falls with generalized weakness and inability to template without the use of the walker he has significant weakness in the left lower extremity and he is not able to help himself he is an almost 24 hour care this point in time, last week patient had fallen and hit the side of the head he ended up having 2 dalia he went and saw Dr. Castillo for that and there was a conversation with the and the daughter regarding hospice care for him however he was not along with his primary care physician interested in the hospice care at this point in time he went back home and patient continues to have generalized weakness and gait dysfunction with inability to admitted to properly he ended up falling yesterday and the one was done in the basement and a fire department and EMS came down after he pushed on the ADT Lifeline, and his was complaining of significant shortness breath she ended up coming to the hospital and he was kept at home and the patient had gone to the garage her on today in the morning and to try to get it orange juice and the patient had fallen down and ADT was called and the patient was transported to the emergency department at [facility] for evaluation patient could not sit up by himself he could not ambulate subsequent he was admitted to the hospital for social media intern consultation as well as physical therapy evaluation for extended care facility placement 09/10: Patient is having increased shortness of breath and wheezing today. He has been afebrile. Chest x-ray will be ordered and patient started on DuoNeb treatments scheduled and as needed as well as antibiotics with Unasyn and Solu- Medrol 60 mg IV every 8 hours, DuoNeb treatments and Pulmicort and Humalog scale. Patient denies any other new complaints. 09/11: Patient continues to have cough with readily respirations. He states he slept well last night. Patient will be continued on the Solu-Medrol at 60 every 8 hours for now. 09/12: Patient has more cough today but lungs are improving. We will decrease Solu-Medrol to 40 mg every 8 hours. Mucinex started. 09/13: Patient denies any new complaints. His breathing status continues to improve. PT is recommended subacute rehab. IV fluids changed to saline lock. We will plan to ask social work to discuss discharge planning with him. He will be ready for discharge tomorrow. He is currently on oral prednisone Objective - Vital Signs Vital signs: Vital Signs Temp 97.1 F L 09/13/16 07:00 Pulse 80 09/13/16 07:20 Resp 20 09/13/16 07:00 BP 118/69 09/13/16 07:00 Pulse Ox 96 09/13/16 07:00 Intake & Output 09/12/16 09/13/16 09/13/16 18:59 06:59 18:59 Intake Total 240 1390 Balance 240 1390 Intake: IV 100 800 Ampicillin-Sulbactam 3 gm 100 800 In Sodium Chloride 0.9% 100 ml @ 100 mls/hr IVPB Q8HR [facility] Rx#:[id number] Intake, IV Titration 140 Amount Ampicillin-Sulbactam 3 gm 140 In Sodium Chloride 0.9% 100 ml @ 100 mls/hr IVPB Q8HR [facility] Rx#:[id number] Oral 590 Other: Voiding Method Diaper Diaper Incontinent Incontinent # Voids 2 - Exam General appearance: average body habitus, mild distress - EENT Eyes: anicteric sclerae, EOMI, PERRLA, no ptosis, no scleral icterus, normal appearance ENT: hard of hearing, NA/AT, normal oropharynx, no thrush, no tonsillar exudates , no tonsillar swelling Ears: bilateral: normal - Neck Neck: no lymphadenopathy, normal ROM, no rigidity, no stridor, no thyromegaly Carotids: bilateral: upstroke delayed Thyroid: bilateral: normal size - Respiratory Respiratory: bilateral: diminished, prolonged expiration, expiratory wheezing negative: dullness, rales, rhonchi - Cardiovascular Rhythm: regular Heart sounds: normal: S1, S2 Abnormal Heart Sounds: systolic murmur, no S3 Gallop, no S4 Gallop, no click - Gastrointestinal General gastrointestinal: normal bowel sounds, soft, no splenomegaly, no tenderness, no umbilical hernia, no ventral hernia - Integumentary Integumentary: normal, normal turgor - Neurologic Neurologic: CNII-XII intact, focal deficits (Left lower extremity weakness) - Musculoskeletal Musculoskeletal: no gait normal, left sided weakness - Psychiatric Psychiatric: A&O x's 3, appropriate affect, intact judgment & insight - Labs CBC & Chem 7: 09/13/16 06:39 09/13/16 06:39 Labs: Abnormal Lab Results - Last 24 Hours (Table) 09/12/16 09/12/16 09/12/16 Range/Units 11:38 17:40 20:53 WBC (3.8-10.6) k/uL RBC (4.30-5.90) m/uL Hgb (13.0-17.5) gm/dL Hct (39.0-53.0) % RDW (11.5-15.5) % BUN (9-20) mg/dL Glucose (74-99) mg/dL POC Glucose (mg/dL) 143 H 109 H 179 H (75-99) mg/dL Calcium (8.4-10.2) mg/dL 09/13/16 09/13/16 09/13/16 Range/Units 06:39 06:39 07:19 WBC 12.1 H (3.8-10.6) k/uL RBC 3.31 L (4.30-5.90) m/uL Hgb 9.3 L (13.0-17.5) gm/dL Hct 28.7 L (39.0-53.0) % RDW 16.1 H (11.5-15.5) % BUN 22 H (9-20) mg/dL Glucose 114 H (74-99) mg/dL POC Glucose (mg/dL) 118 H (75-99) mg/dL Calcium 8.3 L (8.4-10.2) mg/dL Assessment and Plan Plan: 1. Recurrent falls with the closed head injury and left-sided lower extremity weakness. Admit patient to hospital, patient will be seen and evaluated by physical therapy and occupational therapy, he would be seen by social media intern, patient will need to have a 24-hour Holter this point in time he would need to be admitted to the extended care facility because of safety issue, and not able to take his medication on his own. 2. 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 3. Acute exacerbation of COPD in a patient with long-standing history of smoking. Patient started on DuoNeb treatment 3 times daily and every 2 hours as needed, Pulmicort 0.5 mg twice daily, Unasyn 3 g every 8 hours, Mucinex 1200 mg twice daily, Solu-Medrol to prednisone. Humalog scale added to cover for steroid use. 4. Hypertension and hypertensive cardiovascular disease. Continue lisinopril 10 mg orally once every day, metoprolol 25 mg orally bedtime. 5 . Hyperlipidemia. 6 . Depression. Continue Cymbalta 120 mg orally once every day. 7. BPH. Continue finasteride 5 mg orally once every day. 8. Gout . Continue allopurinol 100 mg orally once every day. 9.CAD/arrhythmia. Continue metoprolol 25 mg at bedtime, Imdur 30 mg orally once every day, Lipitor 20 mg orally once every day, aspirin 81 mg orally once every day. 10. GI prophylaxis. will start omeprazole 20 mg orally once every day, Carafate 1 g orally 4 times every day. 11. DVT prophylaxis.Patient will be started on heparin 5000 units subcutaneous twice a day. 12. Chronic pleural plaques bilateral lung field possibly secondary to asbestos exposure. 13. Ventral hernia, with herniation of the stomach currently asymptomatic 14. 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 15. No code. Discharge plan: [facility] tomorrow. Social work to follow-up. Impression and plan of care have been directed as dictated by the signing physician. Patricia Padilla nurse practitioner acting as scribe for signing physician.
[2016-09-13 12:27] LABS: Glucose,Whole Blood 121 mg/dL (75-99)
[2016-09-13 17:30] LABS: Glucose,Whole Blood 144 mg/dL (75-99)
[2016-09-13 20:22] LABS: Glucose,Whole Blood 127 mg/dL (75-99)
[2016-09-13] MEDS: AMOXIC-POT CLAV 875-125MG 1 EACH TAB PO SCH (20:37)
[2016-09-13] MEDS: METOPROLOL TARTRATE 25 MG TAB PO SCH (20:37)
[2016-09-13] MEDS: FINASTERIDE 5 MG TAB PO SCH (20:37)
[2016-09-13] MEDS: ATORVASTATIN 40 MG TAB PO SCH (20:37)
[2016-09-13] MEDS: ALPRAZolam 0.5 MG TAB PO PRN (23:37)
[2016-09-13] MEDS: QUEtiapine 25 MG TAB PO SCH (23:37)
[2016-09-14 07:20] LABS: Glucose,Whole Blood 100 mg/dL (75-99)
[2016-09-14] MEDS: IPRATROPIUM-ALBUTEROL 3 ML NEB INHALATION SCH ×2 (07:39→13:44)
[2016-09-14] MEDS: BUDESONIDE 0.5 MG/2 ML NEBU INHALATION SCH (07:39)
[2016-09-14] MEDS: INSULIN LISPRO (humaLOG) 300 UNIT/3 ML VIAL SQ SCH ×2 (07:40→12:13)
[2016-09-14 07:46] VITALS: RESP 16
[2016-09-14] MEDS: HEPARIN SODIUM,PORCINE 5,000 UNIT/ML 1 ML VIAL SQ SCH ×2 (07:46→15:00)
[2016-09-14] MEDS: SUCRALFATE 1 GM TAB PO SCH ×2 (07:46→15:01)
[2016-09-14] MEDS: PANTOPRAZOLE 40 MG TABLET PO SCH (07:46)
[2016-09-14] MEDS: guaiFENesin 600 MG TABLET.ER PO SCH (07:47)
[2016-09-14] MEDS: ALLOPURINOL 100 MG TAB PO SCH (07:47)
[2016-09-14] MEDS: AMOXIC-POT CLAV 875-125MG 1 EACH TAB PO SCH (07:47)
[2016-09-14] MEDS: DULoxetine HCL 60 MG CAPSULE.DR PO SCH (07:47)
[2016-09-14] MEDS: ASPIRIN 81 MG CHEW PO SCH (07:47)
[2016-09-14] MEDS: LORATADINE 10 MG TAB PO SCH (07:48)
[2016-09-14] MEDS: predniSONE 20 MG TAB PO SCH (07:48)
[2016-09-14] MEDS: LISINOPRIL 10 MG TAB PO SCH (07:51)
[2016-09-14] MEDS: ISOSORBIDE MONONITRATE ER 30 MG TAB.ER.24H PO SCH (07:51)
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
[2016-09-14 11:55] LABS: Glucose,Whole Blood 120 mg/dL (75-99)
[2016-09-14] MEDS: VIT A,C & E-LUTEIN-MINERALS 1 EACH TAB PO SCH (12:13)
[2016-09-14 15:05] VITALS: BP 122/60; PULSE 90; TEMP 98.7
== END 2016-09-14 17:06 | DRG 191 ==
LOC: EC 10:35 → 5MS5E 13:12 → OBSVTOIN 09-11 09:13
PROVIDERS: ADMIT Internal Medicine; ATTEND Internal Medicine
DX: J44.1 Chronic obstructive pulmonary disease with (acute) exacerbation (principal); I69.354 Hemiplegia and hemiparesis following cerebral infarction affecting left non-dominant side; I11.9 Hypertensive heart disease without heart failure; F32.9 Major depressive disorder, single episode, unspecified; E78.5 Hyperlipidemia, unspecified; F41.9 Anxiety disorder, unspecified; H35.30 Unspecified macular degeneration; I25.10 Atherosclerotic heart disease of native coronary artery without angina pectoris; K21.9 Gastro-esophageal reflux disease without esophagitis; K43.9 Ventral hernia without obstruction or gangrene; M10.9 Gout, unspecified; N40.0 Benign prostatic hyperplasia without lower urinary tract symptoms; R29.6 Repeated falls; M19.90 Unspecified osteoarthritis, unspecified site; S09.90XA Unspecified injury of head, initial encounter; R32 Unspecified urinary incontinence; R26.9 Unspecified abnormalities of gait and mobility; H91.90 Unspecified hearing loss, unspecified ear; Z79.82 Long term (current) use of aspirin; Z79.899 Other long term (current) drug therapy; Z87.891 Personal history of nicotine dependence; Z95.5 Presence of coronary angioplasty implant and graft; Z96.651 Presence of right artificial knee joint
CPT/HCPCS: 36415; 70450; 71020; 80048; 80053; 81003; 82550; 82553; 83735; 84484; 85025; 85027; 85610; 85730; 87086; 93005; 94640; 94760

== ENCOUNTER 2016-11-16 15:26 | Inpatient (IN) | payer MEDICARE ==
[2016-11-16] MEDS ORDERED: SODIUM CHLORIDE 0.9% 500 ML IV STA (15:31)
[2016-11-16] MEDS ORDERED: SODIUM CHLORIDE 0.9% 1,000 ML IV STA (15:31)
[2016-11-16] MEDS ORDERED: RX INFO: IV CONTRAST WAS GIVEN 1 EACH MISC MISCELLANE PRN ×2 (15:34→16:18)
--- NOTE | 2016-11-16 15:34 | ED ---
General Adult HPI - General Stated complaint: UNRESPONSIVE Time Seen by Provider: 11/16/16 15:31 Source: RN notes reviewed, old records reviewed - History of Present Illness Initial comments: This is a 86-year-old male ER for evaluation. Patient did believe history secondary to clinical condition. Patient's vital by family members for unresponsiveness. Patient unable to follow directions and able to answer questions history obtained by family who is at bedside as well as EMS, patient was found obtunded and unresponsive about 10 minutes after being seen normal. - Related Data Home Medications Medication Instructions Recorded Confirmed Finasteride 5 mg PO HS 07/13/13 11/16/16 DULoxetine HCL [Cymbalta] 120 mg PO QAM 05/16/14 11/16/16 Allopurinol 100 mg PO DAILY 09/09/15 11/16/16 QUEtiapine FUMARATE [SEROquel] 25 mg PO HS 03/03/16 11/16/16 Aspirin [Adult Low Dose Aspirin EC] 81 mg PO DAILY 03/29/16 11/16/16 Omeprazole [PriLOSEC] 20 mg PO DAILY 07/21/16 11/16/16 Atorvastatin [Lipitor] 40 mg PO HS 08/29/16 11/16/16 Isosorbide Mononitrate ER [Imdur] 30 mg PO DAILY 08/29/16 11/16/16 Loratadine [Claritin] 10 mg PO DAILY 08/29/16 11/16/16 Metoprolol Tartrate [Lopressor] 25 mg PO HS 08/29/16 11/16/16 Sucralfate [Carafate] 1 gm PO AC-BID 08/29/16 11/16/16 Vit C/E/Zn/Coppr/Lutein/Zeaxan 1 cap PO BID 08/29/16 11/16/16 [Preservision Areds 2 Softgel] guaiFENesin [Mucinex] 1,200 mg PO BID 08/29/16 11/16/16 Lisinopril [Zestril] 5 mg PO DAILY 11/16/16 11/16/16 Senexon-S 8.6mg-50mg 2 tab PO HS 11/16/16 11/16/16 Tamsulosin [Flomax] 0.4 mg PO HS 11/16/16 11/16/16 Previous Rx's Medication Instructions Recorded ALPRAZolam [Xanax] 1 mg PO DAILY PRN #30 09/14/16 Budesonide [Pulmicort] 0.5 mg INHALATION RT-BID neb 09/14/16 Ipratropium-Albuterol Nebulize 3 ml INHALATION RT-TID neb 09/14/16 [Duoneb 0.5 mg-3 mg/3 ml Soln] traMADol HCl [Ultram] 50 mg PO TID PRN #90 tab 09/14/16 Allergies Allergy/AdvReac Type Severity Reaction Status Date / Time No Known Allergies Allergy Verified 11/16/16 16:22 Review of Systems ROS Statement: Those systems with pertinent positive or pertinent negative responses have been documented in the HPI. ROS Other: All systems not noted in ROS Statement are negative. Past Medical History Past Medical History: Coronary Artery Disease (CAD), Cancer, COPD, CVA/TIA, GERD /Reflux, Hyperlipidemia, Hypertension, Osteoarthritis (OA), Prostate Disorder Additional Past Medical History / Comment(s): MACULAR DEGENERATION History of Any Multi-Drug Resistant Organisms: None Reported Past Surgical History: Heart Catheterization With Stent, Joint Replacement, Orthopedic Surgery Additional Past Surgical History / Comment(s): carpal tunnel release bilat, ulcer surgery, RIGHT TOTAL KNEEX2, left rotater cuff Past Anesthesia/Blood Transfusion Reactions: No Reported Reaction Additional Past Anesthesia/Blood Transfusion Reaction / Comment(s): Pt received blood in 2007 without reaction. Date of Last Stent Placement:: 2010 Past Psychological History: Anxiety, Depression Smoking Status: Former smoker Past Alcohol Use History: None Reported Additional Past Alcohol Use History / Comment(s): Patient is a smoker of a half a pack per day for more than 20 years. He denies any medical marijuana, marijuana or street drug use. He denies any alcohol use. Past Drug Use History: None Reported - Past Family History Mother Family Medical History: Cancer Additional Family Medical History / Comment(s): Mother at age 43 from colon cancer. Father Additional Family Medical History / Comment(s): Father at age 98 from old age with no major medical problems. Patient does not have any brothers or sisters. Daughter(s) Additional Family Medical History / Comment(s): Patient has 2 daughters with mental health issues. No medical problems. General Exam Limitations: altered mental status General appearance: alert, obtunded, in distress, obese Head exam: Present: atraumatic, normocephalic, normal inspection Eye exam: Present: normal appearance, PERRL, EOMI. Absent: scleral icterus, conjunctival injection, periorbital swelling ENT exam: Present: normal exam, mucous membranes moist Neck exam: Present: normal inspection. Absent: tenderness, meningismus, lymphadenopathy Respiratory exam: Present: normal lung sounds bilaterally, accessory muscle use , decreased breath sounds, prolonged expiratory. Absent: respiratory distress, wheezes, rales, rhonchi, stridor Cardiovascular Exam: Present: regular rate, normal rhythm, normal heart sounds. Absent: systolic murmur, diastolic murmur, rubs, gallop, clicks GI/Abdominal exam: Present: soft, normal bowel sounds. Absent: distended, tenderness, guarding, rebound, rigid Extremities exam: Present: normal inspection, full ROM, normal capillary refill. Absent: tenderness, pedal edema, joint swelling, calf tenderness Back exam: Present: normal inspection Neurological exam: Present: alert, oriented X3, CN II-XII intact Psychiatric exam: Present: normal affect, normal mood Skin exam: Present: warm, dry, intact, normal color. Absent: rash Course Vital Signs 11/16/16 11/16/16 11/16/16 15:30 15:45 16:00 Temperature 97.5 F L Pulse Rate 73 66 71 Respiratory 10 L 12 12 Rate Blood Pressure 138/75 119/64 120/67 O2 Sat by Pulse 100 100 100 Oximetry 11/16/16 16:13 Temperature Pulse Rate 68 Respiratory 12 Rate Blood Pressure 119/61 O2 Sat by Pulse 100 Oximetry - Reevaluation(s) Reevaluation #1: 11/16/16 16:33 More family is content to bedside at this time, states they were there when patient became unresponsive prior to becoming unresponsive patient was acting completely normal talking having conversation making jokes Reevaluation #2: 11/16/16 16:33 Patient is reevaluated at this time history transient CAT scan, patient is completely back to normal mental status. Patient describes the story that all of a sudden the room kind of went out on him he did hear people asking questions but he had no ability to move any of his body or respond to the questions that were being asked Reevaluation #3: 11/16/16 16:33 Spoke with patient again regarding findings, family is updated, questions are answered Reevaluation #4: 11/16/16 16:34 Dr. Milton was aware of patient, admit for telemetry neuro and cardiology evaluation EKG Findings - EKG Comments: EKG Findings:: EKG shows normal sinus rhythm rate of 68, NV 1:30, QRS 86, QTc 455 Medical Decision Making - Medical Decision Making They formality EL with episode of unresponsiveness, questionable underlying arrhythmia versus cause of syncope. Initial episode of hypotension. At this point patient is returned to baseline, will be admitted for cardiology and neurology evaluation, cardiopulmonary resuscitation and monitor - Lab Data Result diagrams: 11/16/16 15:33 11/16/16 15:33 Lab Results 11/16/16 11/16/16 11/16/16 Range/Units 15:33 15:33 15:33 WBC 6.7 (3.8-10.6) k/uL RBC 3.82 L (4.30-5.90) m/uL Hgb 9.7 L D (13.0-17.5) gm/dL Hct 31.5 L (39.0-53.0) % MCV 82.6 D (80.0-100.0) fL MCH 25.5 (25.0-35.0) pg MCHC 30.9 L (31.0-37.0) g/dL RDW 15.8 H (11.5-15.5) % Plt Count 283 (150-450) k/uL PT (9.0-12.0) sec INR (<1.2) APTT (22.0-30.0) sec D-Dimer (<0.60) mg/L FEU VBG pH (7.31-7.41) VBG pCO2 (37-51) mmHg VBG HCO3 (24-28) mmol/L Sodium 137 (137-145) mmol/L Potassium 3.8 (3.5-5.1) mmol/L Chloride 102 (98-107) mmol/L Carbon Dioxide 27 (22-30) mmol/L Anion Gap 8 mmol/L BUN 7 L (9-20) mg/dL Creatinine 0.70 (0.66-1.25) mg/dL Est GFR (MDRD) Af Amer >60 (>60 ml/min/1.73 sqM) Est GFR (MDRD) Non-Af >60 (>60 ml/min/1.73 sqM) Glucose 129 H (74-99) mg/dL POC Glucose (mg/dL) (75-99) mg/dL POC Glu Lens Fabricating Machine Tender ID Plasma Lactic Acid [place] (0.7-2.0) mmol/L Calcium 8.6 (8.4-10.2) mg/dL Phosphorus 3.2 (2.5-4.5) mg/dL Magnesium 1.8 (1.6-2.3) mg/dL Total Bilirubin 0.3 (0.2-1.3) mg/dL AST 21 (17-59) U/L ALT 25 (21-72) U/L Alkaline Phosphatase 81 (38-126) U/L Total Creatine Kinase 97 (55-170) U/L CK-MB (CK-2) 1.9 (0.0-2.4) ng/mL CK-MB (CK-2) Rel Index 2.0 Troponin I <0.012 (0.000-0.034) ng/mL Total Protein 5.6 L (6.3-8.2) g/dL Albumin 3.2 L (3.5-5.0) g/dL Urine Color Urine Appearance (Clear) Urine pH (5.0-8.0) Ur Specific [place] (1.001-1.035) Urine Protein (Negative) Urine Glucose (UA) (Negative) Urine Ketones (Negative) Urine Blood (Negative) Urine Nitrite (Negative) Urine Bilirubin (Negative) Urine Urobilinogen (<2.0) mg/dL Ur Leukocyte Esterase (Negative) 11/16/16 11/16/16 11/16/16 Range/Units 15:33 15:33 15:33 WBC (3.8-10.6) k/uL RBC (4.30-5.90) m/uL Hgb (13.0-17.5) gm/dL Hct (39.0-53.0) % MCV (80.0-100.0) fL MCH (25.0-35.0) pg MCHC (31.0-37.0) g/dL RDW (11.5-15.5) % Plt Count (150-450) k/uL PT 11.5 (9.0-12.0) sec INR 1.2 H (<1.2) APTT 24.0 (22.0-30.0) sec D-Dimer 0.87 H (<0.60) mg/L FEU VBG pH (7.31-7.41) VBG pCO2 (37-51) mmHg VBG HCO3 (24-28) mmol/L Sodium (137-145) mmol/L Potassium (3.5-5.1) mmol/L Chloride (98-107) mmol/L Carbon Dioxide (22-30) mmol/L Anion Gap mmol/L BUN (9-20) mg/dL Creatinine (0.66-1.25) mg/dL Est GFR (MDRD) Af Amer (>60 ml/min/1.73 sqM) Est GFR (MDRD) Non-Af (>60 ml/min/1.73 sqM) Glucose (74-99) mg/dL POC Glucose (mg/dL) 120 H (75-99) mg/dL POC Glu Lens Fabricating Machine Tender ID Donavon Lundberg Plasma Lactic Acid [place] 1.7 (0.7-2.0) mmol/L Calcium (8.4-10.2) mg/dL Phosphorus (2.5-4.5) mg/dL Magnesium (1.6-2.3) mg/dL Total Bilirubin (0.2-1.3) mg/dL AST (17-59) U/L ALT (21-72) U/L Alkaline Phosphatase (38-126) U/L Total Creatine Kinase (55-170) U/L CK-MB (CK-2) (0.0-2.4) ng/mL CK-MB (CK-2) Rel Index Troponin I (0.000-0.034) ng/mL Total Protein (6.3-8.2) g/dL Albumin (3.5-5.0) g/dL Urine Color Urine Appearance (Clear) Urine pH (5.0-8.0) Ur Specific [place] (1.001-1.035) Urine Protein (Negative) Urine Glucose (UA) (Negative) Urine Ketones (Negative) Urine Blood (Negative) Urine Nitrite (Negative) Urine Bilirubin (Negative) Urine Urobilinogen (<2.0) mg/dL Ur Leukocyte Esterase (Negative) 09/06/17 09/06/17 Range/Units 16:07 16:12 WBC (3.8-10.6) k/uL RBC (4.30-5.90) m/uL Hgb (13.0-17.5) gm/dL Hct (39.0-53.0) % MCV (80.0-100.0) fL MCH (25.0-35.0) pg MCHC (31.0-37.0) g/dL RDW (11.5-15.5) % Plt Count (150-450) k/uL PT (9.0-12.0) sec INR (<1.2) APTT (22.0-30.0) sec D-Dimer (<0.60) mg/L FEU VBG pH 7.47 H (7.31-7.41) VBG pCO2 37 (37-51) mmHg VBG HCO3 27 (24-28) mmol/L Sodium (137-145) mmol/L Potassium (3.5-5.1) mmol/L Chloride (98-107) mmol/L Carbon Dioxide (22-30) mmol/L Anion Gap mmol/L BUN (9-20) mg/dL Creatinine (0.66-1.25) mg/dL Est GFR (MDRD) Af Amer (>60 ml/min/1.73 sqM) Est GFR (MDRD) Non-Af (>60 ml/min/1.73 sqM) Glucose (74-99) mg/dL POC Glucose (mg/dL) (75-99) mg/dL POC Glu Lens Fabricating Machine Tender ID Plasma Lactic Acid [place] (0.7-2.0) mmol/L Calcium (8.4-10.2) mg/dL Phosphorus (2.5-4.5) mg/dL Magnesium (1.6-2.3) mg/dL Total Bilirubin (0.2-1.3) mg/dL AST (17-59) U/L ALT (21-72) U/L Alkaline Phosphatase (38-126) U/L Total Creatine Kinase (55-170) U/L CK-MB (CK-2) (0.0-2.4) ng/mL CK-MB (CK-2) Rel Index Troponin I (0.000-0.034) ng/mL Total Protein (6.3-8.2) g/dL Albumin (3.5-5.0) g/dL Urine Color Yellow Urine Appearance Clear (Clear) Urine pH 6.5 (5.0-8.0) Ur Specific [place] 1.013 (1.001-1.035) Urine Protein Trace H (Negative) Urine Glucose (UA) Negative (Negative) Urine Ketones Negative (Negative) Urine Blood Negative (Negative) Urine Nitrite Negative (Negative) Urine Bilirubin Negative (Negative) Urine Urobilinogen <2.0 (<2.0) mg/dL Ur Leukocyte Esterase Negative (Negative) - Radiology Data Radiology results: report reviewed (CT CT brain is negative for acute disease, chest x-ray negative for acute disease), image reviewed Critical Care Time Critical Care Time: Yes Total Critical Care Time: 31 Disposition Clinical Impression: Altered mental status, Syncope, Arrhythmia Disposition: ADMITTED IP TO THIS [facility] Condition: Serious Referrals: Yoav Castillo DO [Primary Care Provider] - 1-2 days
[2016-11-16 15:44] LABS: Glucose,Whole Blood 120 mg/dL (75-99)
--- NOTE | 2016-11-16 15:49 | XR ---
EXAMINATION TYPE: XR chest 1V portable DATE OF EXAM: 11/16/2016 COMPARISON: 09/10/2016 INDICATION: Short of breath TECHNIQUE: Single frontal view of the chest is obtained. FINDINGS: The heart size is normal. The pulmonary vasculature is normal. Appears be some pleural calcification along the right chest margin. Some lateral left chest wall pleu ral calcification is also likely present. Some calcification along the right diaphragm is present. Co rrelate for prior asbestos exposure. IMPRESSION: 1. Pleural calcifications in right diaphragm calcifications likely related to prior asbestos exposure . 2. No acute pulmonary process not radiographically apparent.
[2016-11-16 16:05] LABS: Aty Lym Flag Slight; CH 25.9; CHCM 31.4; HCT 31.5 % (39.0-53.0); HDW 2.87; Hypochromasia Moderate; INR 1.2 (<1.2); MCH 25.5 pg (25.0-35.0); MCHC 30.9 g/dL (31.0-37.0); Mean Platelet Volume 7.9; Prothrombin Time 11.5 sec (9.0-12.0); RBC 3.82 m/uL (4.30-5.90); RDW 15.8 % (11.5-15.5); WBC 6.7 k/uL (3.8-10.6); WBC (Perox) 6.63
[2016-11-16 16:09] LABS: Creatine Kinase 97 U/L (55-170)
[2016-11-16 16:10] LABS: ALT 25 U/L (21-72); AST 21 U/L (17-59); Alkaline Phosphatase 81 U/L (38-126); Anion Gap 8 mmol/L; Blood Urea Nitrogen 7 mg/dL (9-20); Calcium 8.6 mg/dL (8.4-10.2); Carbon Dioxide 27 mmol/L (22-30); Chloride 102 mmol/L (98-107); Glucose 129 mg/dL (74-99); HGB 9.7 gm/dL (13.0-17.5); MCV 82.6 fL (80.0-100.0); Magnesium 1.8 mg/dL (1.6-2.3); Non-African American GFR(MDRD) >60 (>60 ml/min/1.73 sqM); Phosphorous 3.2 mg/dL (2.5-4.5); Potassium 3.8 mmol/L (3.5-5.1); Sodium 137 mmol/L (137-145); Total Bilirubin 0.3 mg/dL (0.2-1.3); Total Protein 5.6 g/dL (6.3-8.2)
[2016-11-16 16:18] LABS: Appearance,Urine Clear (Clear); Bilirubin,Urine Negative (Negative); Glucose,Urine (UA) Negative (Negative); Ketones,Urine Negative (Negative); Leukocyte Esterase,Urine Negative (Negative); Nitrite,Urine Negative (Negative); PH, Urine 6.5 (5.0-8.0); Protein,Urine Trace (Negative); Specific Gravity,Urine 1.013 (1.001-1.035); UA Billing (MACRO vs. MICRO) CHEM; Urobilinogen,Urine <2.0 mg/dL (<2.0)
[2016-11-16 16:21] LABS: Creatine Kinase MB 1.9 ng/mL (0.0-2.4); Troponin I <0.012 ng/mL (0.000-0.034)
[2016-11-16 16:21] LABS: VBG PH 7.47 (7.31-7.41)
[2016-11-16] MEDS ORDERED: NITROGLYCERIN SL TABS 0.4 MG TAB SUBLINGUAL PRN (16:26)
[2016-11-16 16:41] LABS: Add Differential Manual Differential
[2016-11-16 16:44] LABS: Manual Review Performed; Nucleated Red Blood Cells 0 /100 WBC (0-0); Total Cells Counted 100
--- NOTE | 2016-11-16 16:44 | CT ---
EXAMINATION TYPE: CT angio head neck DATE OF EXAM: 11/16/2016 HISTORY: Right sided facial droop and slurred speech COMPARISON: NONE CT DLP: 536 mGycm. Automated Exposure Control for Dose Reduction was Utilized. TECHNIQUE: CTA scan of the neck is performed with IV Contrast, patient injected with 65 mL of Omnipa que 350, axial images are obtained, coronal and sagittal reformatted images are reviewed. Three-D rec onstructed images are created on an independent workstation and reviewed. FINDINGS: Ascending aorta measures approximately 3.9 cm. Carotid/Vascular Structures: Patent carotid arteries. Atheromatous changes are present at the carotid bulbs. Vertebral arteries are codominant and patent. Three-vessel arch is present. Proximal subclavi an arteries are patent., there is no embolus evident. Atheromatous changes are present. Mild stenosis of the proximal internal carotid artery is suspected. [place] of [place] is patent. Other: Lung apices are remarkable for calcified pleural plaque, I question some minimal emphysematous changes. Postop changes are noted to the cervical spine. IMPRESSION: Correlate for specimens related disease. Cerebral vascular disease as described.
[2016-11-16] MEDS: SODIUM CHLORIDE 0.9% 1,000 ML IV SCH (16:56)
[2016-11-16] MEDS ORDERED: traMADol 50 MG TAB PO PRN (18:33)
--- NOTE | 2016-11-16 18:39 | P.HPIM ---
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 He was sent in the emergency room as the patient was noted to be unresponsive, the son that lives with him step out for about 10 minutes, when he came back patient was noted to be unresponsive, EMS was called, blood pressure was 40 systolic, patient denies any post ictal events, there is no witnesses to the syncope, and they have lowered down the patient to the floor and started to have some return of mentation. There is no neurologic deficits including focal motor deficits upon arousal, she denies any headache no shortness of breath patient is lightheaded with dimming sensation prior to this event, patient does not have any loss of bowel or bladder control.. Downtime is unknown. Patient complains of muscle twitching the lower extremity for several months now especially when he goes to bed at night Past Medical History Past Medical History: Coronary Artery Disease (CAD), Cancer, COPD, CVA/TIA, GERD /Reflux, Hyperlipidemia, Hypertension, Osteoarthritis (OA), Prostate Disorder Additional Past Medical History / Comment(s): MACULAR DEGENERATION History of Any Multi-Drug Resistant Organisms: None Reported Past Surgical History: Heart Catheterization With Stent, Joint Replacement, Orthopedic Surgery Additional Past Surgical History / Comment(s): carpal tunnel release bilat, ulcer surgery, RIGHT TOTAL KNEEX2, left rotater cuff Past Anesthesia/Blood Transfusion Reactions: No Reported Reaction Additional Past Anesthesia/Blood Transfusion Reaction / Comment(s): Pt received blood in 2007 without reaction. Date of Last Stent Placement:: 2010 Past Psychological History: Anxiety, Depression Smoking Status: Former smoker Past Alcohol Use History: None Reported Additional Past Alcohol Use History / Comment(s): Patient is a smoker of a half a pack per day for more than 20 years. He denies any medical marijuana, marijuana or street drug use. He denies any alcohol use. Past Drug Use History: None Reported - Past Family History Mother Family Medical History: Cancer Additional Family Medical History / Comment(s): Mother at age 43 from colon cancer. Father Additional Family Medical History / Comment(s): Father at age 98 from old age with no major medical problems. Patient does not have any brothers or sisters. Daughter(s) Additional Family Medical History / Comment(s): Patient has 2 daughters with mental health issues. No medical problems. Medications and Allergies Home Medications Medication Instructions Recorded Confirmed Type Finasteride 5 mg PO HS 07/13/13 11/16/16 History DULoxetine HCL [Cymbalta] 120 mg PO QA 05/16/14 11/16/16 History Allopurinol 100 mg PO DAILY 09/09/15 11/16/16 History QUEtiapine FUMARATE [SEROquel] 25 mg PO HS 03/03/16 11/16/16 History Aspirin [Adult Low Dose Aspirin EC] 81 mg PO DAILY 03/29/16 11/16/16 History Omeprazole [PriLOSEC] 20 mg PO DAILY 07/21/16 11/16/16 History Atorvastatin [Lipitor] 40 mg PO HS 08/29/16 11/16/16 History Isosorbide Mononitrate ER [Imdur] 30 mg PO DAILY 08/29/16 11/16/16 History Loratadine [Claritin] 10 mg PO DAILY 08/29/16 11/16/16 History Metoprolol Tartrate [Lopressor] 25 mg PO HS 08/29/16 11/16/16 History Sucralfate [Carafate] 1 gm PO AC-BID 08/29/16 11/16/16 History Vit C/E/Zn/Coppr/Lutein/Zeaxan 1 cap PO BID 08/29/16 11/16/16 History [Preservision Areds 2 Softgel] guaiFENesin [Mucinex] 1,200 mg PO BID 08/29/16 11/16/16 History ALPRAZolam [Xanax] 1 mg PO DAILY PRN #30 09/14/16 11/16/16 Rx Budesonide [Pulmicort] 0.5 mg INHALATION RT-BID neb 09/14/16 11/16/16 Rx Ipratropium-Albuterol Nebulize 3 ml INHALATION RT-TID neb 09/14/16 11/16/16 Rx [Duoneb 0.5 mg-3 mg/3 ml Soln] traMADol HCl [Ultram] 50 mg PO TID PRN #90 tab 09/14/16 11/16/16 Rx Lisinopril [Zestril] 5 mg PO DAILY 11/16/16 11/16/16 History Senexon-S 8.6mg-50mg 2 tab PO HS 11/16/16 11/16/16 History Tamsulosin [Flomax] 0.4 mg PO HS 11/16/16 11/16/16 History Allergies Allergy/AdvReac Type Severity Reaction Status Date / Time No Known Allergies Allergy Verified 11/16/16 16:22 Physical Exam Vitals: Vital Signs Temp Pulse Pulse Resp BP BP Pulse Ox 11/16/16 17:58 97.1 F L 72 16 121/68 100 11/16/16 17:11 98 F 11/16/16 16:57 66 14 121/68 98 11/16/16 16:13 68 12 119/61 100 11/16/16 16:00 71 12 120/67 100 11/16/16 15:45 66 12 119/64 100 11/16/16 15:30 97.5 F L 73 10 L 138/75 100 Intake and Output 11/16/16 11/16/16 11/16/16 06:59 14:59 22:59 Other: Weight 87.77 kg Patient Weight 11/17/16 06:59 Weight 87.77 kg - Constitutional General appearance: cooperative, no acute distress - EENT Eyes: anicteric sclerae, EOMI, PERRLA, dentition normal, normal appearance ENT: hard of hearing, NA/AT, normal oropharynx - Neck Neck: no lymphadenopathy, normal ROM, no other, no rigidity, no stridor, no thyromegaly - Respiratory Respiratory: bilateral: CTA, negative: diminished, dullness, rales, rhonchi - Cardiovascular Rhythm: regular Heart sounds: normal: S1 Abnormal Heart Sounds: systolic murmur - Gastrointestinal General gastrointestinal: normal bowel sounds, soft - Integumentary Integumentary: normal, normal turgor - Neurologic Neurologic: CNII-XII intact - Musculoskeletal Musculoskeletal: generalized weakness (Monoclonus) - Psychiatric Psychiatric: A&O x's 3, appropriate affect, intact judgment & insight Results CBC & Chem 7: 11/16/16 15:33 11/16/16 15:33 Labs: Abnormal Lab Results - Last 24 Hours (Table) 11/16/16 11/16/16 11/16/16 Range/Units 15:33 15:33 15:33 RBC 3.82 L (4.30-5.90) m/uL Hgb 9.7 L D (13.0-17.5) gm/dL Hct 31.5 L (39.0-53.0) % MCHC 30.9 L (31.0-37.0) g/dL RDW 15.8 H (11.5-15.5) % INR 1.2 H (<1.2) D-Dimer 0.87 H (<0.60) mg/L FEU VBG pH (7.31-7.41) BUN 7 L (9-20) mg/dL Glucose 129 H (74-99) mg/dL POC Glucose (mg/dL) (75-99) mg/dL Total Protein 5.6 L (6.3-8.2) g/dL Albumin 3.2 L (3.5-5.0) g/dL Urine Protein (Negative) 11/16/16 11/16/16 11/16/16 Range/Units 15:33 16:07 16:12 RBC (4.30-5.90) m/uL Hgb (13.0-17.5) gm/dL Hct (39.0-53.0) % MCHC (31.0-37.0) g/dL RDW (11.5-15.5) % INR (<1.2) D-Dimer (<0.60) mg/L FEU VBG pH 7.47 H (7.31-7.41) BUN (9-20) mg/dL Glucose (74-99) mg/dL POC Glucose (mg/dL) 120 H (75-99) mg/dL Total Protein (6.3-8.2) g/dL Albumin (3.5-5.0) g/dL Urine Protein Trace H (Negative) Assessment and Plan Plan: 1. 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 Urinalysis is negative for any infection, patient currently is on telemetry monitoring. Lactic acid is normal.Neurology is also going to see the patient, EEG of the brain will be obtained. CTA of the neck also to evaluate for vertebral basilar circulation as well as carotid 2. 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 3 . Hypertension and hypertensive cardiovascular disease. Hold lisinopril 5 mg orally once every day, metoprolol 25 mg orally bedtime. Hold Imdur 4 . Hyperlipidemia. On Lipitor 40 5. Myoclonic suspect restless leg syndrome, he would start the patient on ropinirole 0.5 mg at bedtime 6. BPH. discContinue finasteride 5 mg orally once every day secondary to hypotension, hold Flomax and most likely will restart Flomax once stable avoid worsening orthostasis. And discontinue finasteride indefinitely 7. COPD: Remain on updraft treatment along with Pulmicort. 8. Gout . Continue allopurinol 100 mg orally once every day. 9.CAD/arrhythmia. see phrase 1. home med are: metoprolol 25 mg at bedtime, Imdur 30 mg orally once every day, Lipitor 20 mg orally once every day, aspirin 81 mg orally once every day. 10. GI prophylaxis. will start omeprazole 20 mg orally once every day, Carafate 1 g orally 4 times every day. 11. DVT prophylaxis.Patient will be started on heparin 5000 units subcutaneous twice a day. 12. Chronic pleural plaques bilateral lung field possibly secondary to asbestos exposure. 13. Ventral hernia, with herniation of the stomach currently asymptomatic 14. 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 15 . Depression. Continue Cymbalta 120 mg orally once every day. 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 Admit to inpatient. Estimate a length of stay 2 midnights. 17. steamtable worker consultation for ECF planning. 18. Full code.
[2016-11-16] MEDS: QUEtiapine 25 MG TAB PO SCH (20:04)
[2016-11-16] MEDS: ATORVASTATIN 40 MG TAB PO SCH (20:04)
[2016-11-16] MEDS: SENNOSIDES-DOCUSATE SODIUM 1 EACH TAB PO SCH (20:07)
[2016-11-16] MEDS: VIT A,C & E-LUTEIN-MINERALS 1 EACH TAB PO SCH (20:07)
[2016-11-16] MEDS: BUDESONIDE 0.5 MG/2 ML NEBU INHALATION SCH (20:58)
[2016-11-16] MEDS: IPRATROPIUM-ALBUTEROL 3 ML NEB INHALATION SCH (20:58)
[2016-11-16 22:17] LABS: Creatine Kinase 98 U/L (55-170)
[2016-11-16 22:30] LABS: Troponin I <0.012 ng/mL (0.000-0.034)
[2016-11-17] MEDS: ALPRAZolam 0.5 MG TAB PO PRN ×2 (01:35→23:29)
[2016-11-17] MEDS: SODIUM CHLORIDE 0.9% 1,000 ML IV SCH ×2 (01:36→11:05)
[2016-11-17 03:58] LABS: Cholesterol 85 mg/dL (<200); HDL Cholesterol 40 mg/dL (40-60)
[2016-11-17 04:23] LABS: Creatine Kinase 92 U/L (55-170)
[2016-11-17 04:36] LABS: Creatine Kinase MB 1.6 ng/mL (0.0-2.4); Troponin I <0.012 ng/mL (0.000-0.034)
[2016-11-17] MEDS: PANTOPRAZOLE 40 MG TABLET PO SCH (06:38)
[2016-11-17] MEDS: SUCRALFATE 1 GM TAB PO SCH ×2 (06:38→15:44)
[2016-11-17] MEDS: VIT A,C & E-LUTEIN-MINERALS 1 EACH TAB PO SCH ×2 (09:18→20:27)
[2016-11-17] MEDS: ALLOPURINOL 100 MG TAB PO SCH (09:18)
[2016-11-17] MEDS: DULoxetine HCL 60 MG CAPSULE.DR PO SCH (09:18)
[2016-11-17] MEDS: ASPIRIN 81 MG CHEW PO SCH (09:18)
[2016-11-17] MEDS: BUDESONIDE 0.5 MG/2 ML NEBU INHALATION SCH ×2 (09:21→19:17)
[2016-11-17] MEDS: IPRATROPIUM-ALBUTEROL 3 ML NEB INHALATION SCH ×3 (09:21→19:17)
--- NOTE | 2016-11-17 09:58 | P.CRDCN ---
History of Present Illness Consult date: 11/17/16 Consult reason: sycope History of present illness: 86-year-old gentleman comes to Hospital with sudden onset loss of consciousness and some weakness. He is admitted with a diagnosis of syncope and TIA. At the time of my evaluation this morning he is comfortable at rest denies chest pain difficulty in breathing palpitations or dizziness. Syncope was sudden onset came on at rest he apparently passed out for several minutes. There is no history of bladder bowel incontinence. He had some right- sided facial weakness. At the time of my evaluation the focal neurological deficit has resolved. I'm going to obtain a 2-D echo to evaluate LV function a carotid duplex study to rule out carotid stenosis and watch him on the telemetry to evaluate for tachycardia or bradycardia arrhythmias. He follows with one of my associates in the office and I'm going to review the records Review of Systems Constitutional: Denies chills. Denies fever. Eyes: Denies blurred vision. Denies pain. Ears, nose, mouth and throat: Denies headache. Denies sore throat. Cardiovascular: Denies chest pain. Denies shortness of breath. Had syncope Respiratory: Denies cough. Gastrointestinal: Denies abdominal pain. Denies diarrhea. Denies nausea. Denies vomiting. Musculoskeletal: Denies myalgias. Integumentary: Denies pruritus. Denies rash. Neurological: Denies numbness. focal weakness. Psychiatric: Denies anxiety. Denies depression. Endocrine: Denies fatigue. Denies weight change. Genitourinary: Denies burning, hematuria, frequency of urination. Hematological: No anemia or excess bleeding. Past Medical History Past Medical History: Coronary Artery Disease (CAD), Chest Pain / Angina, COPD, CVA/TIA, GERD/Reflux, Hyperlipidemia, Hypertension, Osteoarthritis (OA), Prostate Disorder Additional Past Medical History / Comment(s): MACULAR DEGENERATION, gout, home 02 2 liters n/c at hs, constipation lately-started drinking prune juice, falls. (past fall in 2013 -he broke vertebre in neck and had sx) History of Any Multi-Drug Resistant Organisms: None Reported Past Surgical History: Heart Catheterization With Stent, Joint Replacement, Orthopedic Surgery Additional Past Surgical History / Comment(s): carpal tunnel release bilat, ulcer surgery, RIGHT TOTAL KNEEX2, left rotater cuff, neck sx has plate/screws Past Anesthesia/Blood Transfusion Reactions: No Reported Reaction Additional Past Anesthesia/Blood Transfusion Reaction / Comment(s): Pt received blood in 2007 without reaction. Date of Last Stent Placement:: 2010 Smoking Status: Former smoker - Past Family History Mother Family Medical History: Cancer Additional Family Medical History / Comment(s): Mother at age 43 from colon cancer. Father Additional Family Medical History / Comment(s): Father at age 98 from old age with no major medical problems. Patient does not have any brothers or sisters. Daughter(s) Additional Family Medical History / Comment(s): Patient has 2 daughters with mental health issues. No medical problems. Medications and Allergies Home Medications Medication Instructions Recorded Confirmed Type Finasteride 5 mg PO HS 07/13/13 11/16/16 History DULoxetine HCL [Cymbalta] 120 mg PO QAM 05/16/14 11/16/16 History Allopurinol 100 mg PO DAILY 09/09/15 11/16/16 History QUEtiapine FUMARATE [SEROquel] 25 mg PO HS 03/03/16 11/16/16 History Aspirin [Adult Low Dose Aspirin EC] 81 mg PO DAILY 03/29/16 11/16/16 History Omeprazole [PriLOSEC] 20 mg PO DAILY 07/21/16 11/16/16 History Atorvastatin [Lipitor] 40 mg PO HS 08/29/16 11/16/16 History Isosorbide Mononitrate ER [Imdur] 30 mg PO DAILY 08/29/16 11/16/16 History Loratadine [Claritin] 10 mg PO DAILY 08/29/16 11/16/16 History Metoprolol Tartrate [Lopressor] 25 mg PO HS 08/29/16 11/16/16 History Sucralfate [Carafate] 1 gm PO AC-BID 08/29/16 11/16/16 History Vit C/E/Zn/Coppr/Lutein/Zeaxan 1 cap PO BID 08/29/16 11/16/16 History [Preservision Areds 2 Softgel] guaiFENesin [Mucinex] 1,200 mg PO BID 08/29/16 11/16/16 History ALPRAZolam [Xanax] 1 mg PO DAILY PRN #30 09/14/16 11/16/16 Rx Budesonide [Pulmicort] 0.5 mg INHALATION RT-BID neb 09/14/16 11/16/16 Rx Ipratropium-Albuterol Nebulize 3 ml INHALATION RT-TID [facility] 09/14/16 11/16/16 Rx [Duoneb 0.5 mg-3 mg/3 ml Soln] traMADol HCl [Ultram] 50 mg PO TID PRN #90 tab 09/14/16 11/16/16 Rx Lisinopril [Zestril] 5 mg PO DAILY 11/16/16 11/16/16 History Senexon-S 8.6mg-50mg 2 tab PO HS 11/16/16 11/16/16 History Tamsulosin [Flomax] 0.4 mg PO 11/16/16 11/16/16 History Allergies Allergy/AdvReac Type Severity Reaction Status Date / Time No Known Allergies Allergy Verified 11/16/16 16:22 Physical Exam Vitals: Vital Signs Temp Pulse Pulse Resp BP BP Pulse Ox 11/17/16 09:39 70 11/17/16 09:22 66 16 11/17/16 08:00 16 97 11/17/16 04:00 82 18 126/66 98 11/17/16 00:00 76 16 95/51 96 11/16/16 20:00 97.7 F 75 18 122/68 100 11/16/16 17:58 97.1 F L 72 16 121/68 100 11/16/16 17:11 98 F 11/16/16 16:57 66 14 121/68 98 11/16/16 16:13 68 12 119/61 100 11/16/16 16:00 71 12 120/67 100 11/16/16 15:45 66 12 119/64 100 11/16/16 15:30 97.5 F L 73 10 L 138/75 100 Intake and Output 11/16/16 11/17/16 11/17/16 22:59 06:59 14:59 Intake Total 550 180 Output Total 1550 Balance -1000 180 Intake: Intake, IV Titration 550 Amount Sodium Chloride 0.9% 1, 550 000 ml @ 100 mls/hr IV . Q10H [facility] Rx#:[id number] Oral 180 Output: Urine 1550 Other: Voiding Method Indwelling Catheter Indwelling Catheter # Voids 2 Weight 87.77 kg 88.5 kg General: The patient is awake and alert, in no distress, and does not appear acutely ill. Skin: Skin is warm and dry and no rashes or lesions are noted. Eye: Pupils are equal, round and reactive to light, extra-ocular movements are intact; there is normal conjunctiva bilaterally. Ears, nose, mouth and throat: There are moist mucous membranes and no oral lesions. Neck: The neck is supple, there is no tenderness or JVD. Cardiovascular: There is a regular rate and rhythm. Ejection systolic murmur in the aortic area murmur, rub or gallop is appreciated. Respiratory: Lungs are clear to auscultation, respirations are non-labored, breath sounds are equal. Gastrointestinal: Soft, non-distended, non-tender abdomen without masses or organomegaly noted. There is no rebound or guarding present. Bowel sounds are unremarkable. Back: There is no tenderness to palpation in the midline. There is no obvious deformity. Musculoskeletal: Normal ROM, no tenderness, There is no pedal edema. There is no calf tenderness or swelling. Extremities: No edema. Vascular: Femoral pulse is normal. Posterior tibial pulses are normal .Dorsalis pedis is palpable. Neurological: CN II-XII intact. There are no obvious motor or sensory deficits. Speech is normal. Psychiatric: Cooperative, appropriate mood & affect, normal judgment. Results 11/16/16 15:33 11/16/16 15:33 Cardiac Enzymes 11/16/16 11/16/16 11/16/16 Range/Units 15:33 15:33 21:37 AST 21 (17-59) U/L CK-MB (CK-2) 1.9 2.0 (0.0-2.4) ng/mL Troponin I <0.012 <0.012 (0.000-0.034) ng/mL 11/17/16 Range/Units 03:20 AST (17-59) U/L CK-MB (CK-2) 1.6 (0.0-2.4) ng/mL Troponin I <0.012 (0.000-0.034) ng/mL Coagulation 11/16/16 Range/Units 15:33 PT 11.5 (9.0-12.0) sec APTT 24.0 (22.0-30.0) sec Lipids 11/17/16 Range/Units 03:20 Triglycerides 77 (<150) mg/dL Cholesterol 85 (<200) mg/dL HDL Cholesterol 40 (40-60) mg/dL CBC 11/16/16 Range/Units 15:33 WBC 6.7 (3.8-10.6) k/uL RBC 3.82 L (4.30-5.90) m/uL Hgb 9.7 L D (13.0-17.5) gm/dL Hct 31.5 L (39.0-53.0) % Plt Count 283 (150-450) k/uL Comprehensive Metabolic Panel 11/16/16 Range/Units 15:33 Sodium 137 (137-145) mmol/L Potassium 3.8 (3.5-5.1) mmol/L Chloride 102 (98-107) mmol/L Carbon Dioxide 27 (22-30) mmol/L BUN 7 L (9-20) mg/dL Creatinine 0.70 (0.66-1.25) mg/dL Glucose 129 H (74-99) mg/dL Calcium 8.6 (8.4-10.2) mg/dL AST 21 (17-59) U/L ALT 25 (21-72) U/L Alkaline Phosphatase 81 (38-126) U/L Total Protein 5.6 L (6.3-8.2) g/dL Albumin 3.2 L (3.5-5.0) g/dL Current Medications Generic Name Dose Route Start Last Admin Trade Name Freq PRN Reason Stop Dose Admin Albuterol/Ipratropium 3 ml 11/16/16 20:00 11/17/16 09:21 Duoneb 0.5 Mg-3 Mg/3 Ml Soln INHALATION 3 ml RT-TID SHASHANK Administration Allopurinol 100 mg 11/17/16 09:00 11/17/16 09:18 Zyloprim PO 100 mg DAILY SHASHANK Administration Alprazolam 1 mg 11/16/16 18:33 11/17/16 01:35 Xanax PO 1 mg HS PRN Administration Anxiety Aspirin 81 mg 11/17/16 09:00 11/17/16 09:18 Aspirin PO 81 mg DAILY SHASHANK Administration Atorvastatin Calcium 40 mg 11/16/16 21:00 11/16/16 20:04 Lipitor PO 40 mg HS SHASHANK Administration Budesonide 0.5 mg 11/16/16 20:00 11/17/16 09:21 Pulmicort INHALATION 0.5 mg RT-BID SHASHANK Administration Duloxetine HCl 120 mg 11/17/16 09:00 11/17/16 09:18 Cymbalta PO 120 mg QAM SHASHANK Administration Sodium Chloride 1,000 mls @ 100 mls/hr 11/16/16 16:30 11/17/16 01:36 Saline 0.9% IV 100 mls/hr .Q10H SHASHANK Administration Miscellaneous Information 1 each 11/16/16 15:34 Rx Info: Iv Contrast Was Given MISCELLANE 11/18/16 15:34 DAILY PRN Per Protocol Miscellaneous Information 1 each 11/16/16 16:18 Rx Info: Iv Contrast Was Given MISCELLANE 11/18/16 16:18 DAILY PRN Per Protocol Multivitamins/Minerals 1 each 11/16/16 21:00 11/17/16 09:18 Ivite PO 1 each BID SHASHANK Administration Nitroglycerin 0.4 mg 11/16/16 16:26 Nitrostat SUBLINGUAL Q5M PRN Chest Pain Pantoprazole Sodium 40 mg 11/17/16 07:30 11/17/16 06:38 Protonix PO 40 mg AC-BRKFST SHASHANK Administration Quetiapine Fumarate 25 mg 11/16/16 21:00 11/16/16 20:04 Seroquel PO 25 mg HS SHASHANK Administration Ropinirole HCl 0.5 mg 11/16/16 21:00 11/16/16 20:05 Requip PO 0.5 mg HS SHASHANK Administration Senna/Docusate Sodium 2 each 11/16/16 21:00 11/16/16 20:07 Senokot-S PO 2 each HS SHASHANK Administration Sucralfate 1 gm 11/17/16 07:30 11/17/16 06:38 Carafate PO 1 gm AC-BID SHASHANK Administration Tramadol HCl 50 mg 11/16/16 18:33 Ultram PO TID PRN Pain Intake and Output 11/16/16 11/17/16 11/17/16 22:59 06:59 14:59 Intake Total 550 180 Output Total 1550 Balance -1000 180 Intake: Intake, IV Titration 550 Amount Sodium Chloride 0.9% 1, 550 000 ml @ 100 mls/hr IV . Q10H [facility] Rx#:[id number] Oral 180 Output: Urine 1550 Other: Voiding Method Indwelling Catheter Indwelling Catheter # Voids 2 Weight 87.77 kg 88.5 kg 11/16/16 15:33 11/16/16 15:33 EKG Interpretations (text) Normal sinus rhythm Assessment and Plan Plan: Syncope rule out cardiac causes Coronary artery disease Hypertension I will obtain a 2-D echo and carotid duplex review outpatient records watch him on telemetry check orthostatics and decide on further course of action based on this initial workup If necessary we will consider a transesophageal echo and tilt table test and loop recorder which can all be done in the outpatient setting
--- NOTE | 2016-11-17 10:23 | ECHOF ---
Referral Reason:Syncope MEASUREMENTS -------- HEIGHT: 182.9 cm WEIGHT: 88.5 kg BP: 126/66 IVSd: 1.3 cm (0.6 - 1.1) LVIDd: 4.1 cm (3.9 - 5.3) LVPWd: 1.2 cm (0.6 - 1.1) IVSs: 1.5 cm LVIDs: 3.8 cm LVPWs: 1.2 cm LAESV Index (A-L): 28.54 ml/m Ao Diam: 3.5 cm (2.0 - 3.7) LA Diam: 4.2 cm (2.7 - 3.8) MV EXCURSION: 21.475 mm (> 18.000) MV EF SLOPE: 59 mm/s (70 - 150) EPSS: 0.9 cm MV E Georges: 0.66 m/s MV DecT: 328 ms MV A Georges: 1.07 m/s MV E/A Ratio: 0.62 RAP: 5.00 mmHg RVSP: 24.13 mmHg FINDINGS -------- Undetermined rhythm. This was a technically adequate study. The left ventricular size is normal. There is mild concentric left ventricular hypertrophy. Overall left ventricular systolic function is normal with, an EF between 55 - 60 %. The right ventricle is normal in size. Normal LA size by volume 22+/-6 ml/m2. The right atrial size is normal. There is mild aortic valve sclerosis. There is no evidence of aortic regurgitation. Mild mitral annular calcification present. Mild mitral regurgitation is present. Mild tricuspid regurgitation present. There is no evidence of pulmonary hypertension. The right ventricular systolic pressure, as measured by Doppler, is 24.13mmHg. There is no pulmonic regurgitation present. The aortic root size is normal. There is no pericardial effusion. CONCLUSIONS -------- 1. The left ventricular size is normal. 2. The right ventricular systolic pressure, as measured by Doppler, is 24.13mmHg. 3. There is no pulmonic regurgitation present. 4. The aortic root size is normal. 5. There is no pericardial effusion. 6. There is mild concentric left ventricular hypertrophy. 7. Overall left ventricular systolic function is normal with, an EF between 55 - 60 %. 8. Normal LA size by volume 22+/-6 ml/m2. 9. There is mild aortic valve sclerosis. 10. Mild mitral annular calcification present. 11. Mild mitral regurgitation is present. 12. Mild tricuspid regurgitation present. 13. There is no evidence of pulmonary hypertension. ROOF BOLTER HELPER: Kristina Costa RDCS
--- NOTE | 2016-11-17 11:17 | CONS ---
CONSULTATION DATE OF CONSULTATION: 11/16/2016 CHIEF COMPLAINT: Syncope. HISTORY OF PRESENT ILLNESS: Mr. Jain is a pleasant 86-year-old, male, who was being evaluated by the neurology service per the request of Dr. Mckeon for a syncopal spell. The patient was brought into [facility] Emergency Room after his son found him unresponsive at home. His son had seen him approximately 10 to 15 minutes prior and left the house temporarily and when he came back several minutes later, he found him unresponsive. EMS was called. And according to the chart, he was found to have severe hypotension with a systolic blood pressure in the 40s and a diastolic blood pressure in the 20s. In the emergency room, the patient did return to baseline. The patient states that he has been having episodes of hypotension. He does have previous history of hypertension and is on multiple medications at home for this. A CT angiogram of the neck was done which showed no evidence of any stenosis. His CBC showed anemia with a hemoglobin of 9.7 and hematocrit of 31%. His comprehensive metabolic profile and urinalysis were normal. The patient was admitted for further workup and management and Cardiology has been consulted. At the time of my evaluation, he is lying in his bed and appears to be in no acute distress. His daughter is at bedside and she states that he has been at his baseline since she has been at the hospital with him. PAST MEDICAL HISTORY: Hypertension, coronary artery disease, chronic obstructive pulmonary disease, transient ischemic attack, gastroesophageal reflux disease, dyslipidemia, osteoarthritis, macular degeneration, coronary artery stent placement, hip replacement surgery, orthopedic surgeries, carpal tunnel release surgery, knee replacement surgery, history of depression and anxiety disorder, history of cancer. SOCIAL HISTORY: The patient is a former smoker. He denies any alcohol or drug use. FAMILY HISTORY: Positive for cancer. HOME MEDICATIONS: Reviewed in the chart. ALLERGIES: No known drug allergies. REVIEW OF SYSTEMS: As mentioned above and otherwise negative. PHYSICAL EXAM: Vital signs show a temperature of 97.1, pulse 72, respirations 16, blood pressure 121/68. GENERAL APPEARANCE: The patient is a well-developed, elderly male, who appears to be in no acute distress. HEENT: Normocephalic, atraumatic, no facial asymmetry is seen. NECK: Supple with no masses felt. CARDIOVASCULAR: Regular rate and rhythm. ABDOMEN: Nontender nondistended. Extremities showed no edema or clubbing. NEUROLOGICAL EXAM: The patient is awake, alert, and oriented x3. Speech and language are normal. Strength is full in all 4 extremities. Sensory exam showed diminished light touch sensation on the left lower extremity compared to the right, but this is chronic according to the patient. No pronator drift is seen. No tremors or seizure like activity is noticed. No facial asymmetry is seen on cranial nerve testing. Speech and language are normal. IMPRESSION: 1. Syncopal spell. 2. Hypotension, resolved. RECOMMENDATION: The patient's loss of consciousness was due to his severe hypotension at that time. I do recommend a cardiovascular workup and possible adjustments to his medications. No seizure-like activity was described and I doubt any epileptic etiology. No further inpatient neurological workup is needed at this time. I will sign off. Thank you, Dr. Mckeon, for allowing me to participate in the care of your patient. If you have any questions, please feel free to contact me. MMMIRYAM / LANEYN: [id number] /
--- NOTE | 2016-11-17 14:13 | P.PN ---
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 He was sent in the emergency room as the patient was noted to be unresponsive, the son that lives with him step out for about 10 minutes, when he came back patient was noted to be unresponsive, EMS was called, blood pressure was 40 systolic, patient denies any post ictal events, there is no witnesses to the syncope, and they have lowered down the patient to the floor and started to have some return of mentation. There is no neurologic deficits including focal motor deficits upon arousal, she denies any headache no shortness of breath patient is lightheaded with dimming sensation prior to this event, patient does not have any loss of bowel or bladder control.. Downtime is unknown. Patient complains of muscle twitching the lower extremity for several months now especially when he goes to bed at night 11/17: Troponins are negative on 3 draws. Triglycerides 77, cholesterol 85, LDL 30, HDL 40. Echocardiogram reveals EF of 55-60%, mild concentric left ventricular hypertrophy, mild aortic valve sclerosis, mild mitral regurgitation , mild tricuspid regurgitation, no pulmonary hypertension. Cardiology has evaluated with saturation for possible GUALBERTO and tilt table test and lipid recorder.. Dr. Charles has evaluated the patient and feels the patient's loss of consciousness was due to severe hypotension. EEG pending. Patient states that he did not sleep well last night. Orthostatics were negative. Blood pressure is higher this morning for which lisinopril will be resumed. IV fluids changed to saline lock. These management is following for plan of discharge to [facility] for subacute rehab. Objective - Vital Signs Vital signs: Vital Signs Temp 97.7 F 11/16/16 20:00 Pulse 82 11/17/16 04:00 Resp 18 11/17/16 04:00 BP 126/66 11/17/16 04:00 Pulse Ox 98 11/17/16 04:00 Intake & Output 11/16/16 11/17/16 11/17/16 18:59 06:59 18:59 Intake Total 550 180 Output Total 1550 Balance -1000 180 Weight 87.77 kg 88.5 kg Intake: Intake, IV Titration 550 Amount Sodium Chloride 0.9% 1, 550 000 ml @ 100 mls/hr IV . Q10H SHASHANK Rx#:[id number] Oral 180 Output: Urine 1550 Other: Voiding Method Indwelling Catheter # Voids 2 - Labs CBC & Chem 7: 11/16/16 15:33 11/16/16 15:33 Labs: Abnormal Lab Results - Last 24 Hours (Table) 11/16/16 11/16/16 11/16/16 Range/Units 15:33 15:33 15:33 RBC 3.82 L (4.30-5.90) m/uL Hgb 9.7 L D (13.0-17.5) gm/dL Hct 31.5 L (39.0-53.0) % MCHC 30.9 L (31.0-37.0) g/dL RDW 15.8 H (11.5-15.5) % INR 1.2 H (<1.2) D-Dimer 0.87 H (<0.60) mg/L FEU VBG pH (7.31-7.41) BUN 7 L (9-20) mg/dL Glucose 129 H (74-99) mg/dL POC Glucose (mg/dL) (75-99) mg/dL Total Protein 5.6 L (6.3-8.2) g/dL Albumin 3.2 L (3.5-5.0) g/dL Urine Protein (Negative) 11/16/16 11/16/16 11/16/16 Range/Units 15:33 16:07 16:12 RBC (4.30-5.90) m/uL Hgb (13.0-17.5) gm/dL Hct (39.0-53.0) % MCHC (31.0-37.0) g/dL RDW (11.5-15.5) % INR (<1.2) D-Dimer (<0.60) mg/L FEU VBG pH 7.47 H (7.31-7.41) BUN (9-20) mg/dL Glucose (74-99) mg/dL POC Glucose (mg/dL) 120 H (75-99) mg/dL Total Protein (6.3-8.2) g/dL Albumin (3.5-5.0) g/dL Urine Protein Trace H (Negative) Microbiology - Last 24 Hours (Table) 11/16/16 16:07 Urine Culture - Preliminary Urine,Catheterized Assessment and Plan Plan: 1. 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 Urinalysis is negative for any infection , patient currently is on telemetry monitoring. Lactic acid is normal. Neurology consult appreciated, EEG of the brain will be obtained. CTA of the neck as above. 2. 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 3 . Hypertension and hypertensive cardiovascular disease. Hold metoprolol 25 mg orally bedtime. Hold Imdur. Restart lisinopril 5 mg orally once every day, 4 . Hyperlipidemia. On Lipitor 40 5. Myoclonic suspect restless leg syndrome, he would start the patient on ropinirole 0.5 mg at bedtime 6. BPH. discContinue finasteride 5 mg orally once every day secondary to hypotension, hold Flomax and most likely will restart Flomax once stable avoid worsening orthostasis. And discontinue finasteride indefinitely 7. COPD: Remain on updraft treatment along with Pulmicort. 8. Gout unspecified . Continue allopurinol 100 mg orally once every day. 9. CAD/arrhythmia. home med are: metoprolol 25 mg at bedtime, Imdur 30 mg orally once every day, Lipitor 20 mg orally once every day, aspirin 81 mg orally once every day. 10. GI prophylaxis. will start omeprazole 20 mg orally once every day, Carafate 1 g orally 4 times every day. 11. DVT prophylaxis.Patient will be started on heparin 5000 units subcutaneous twice a day. 12. Chronic pleural plaques bilateral lung field possibly secondary to asbestos exposure. 13. Ventral hernia, with herniation of the stomach currently asymptomatic 14. 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 15 . Depression, recurrent. Continue Cymbalta 120 mg orally once every day. 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 Admit to inpatient. Estimate a length of stay 2 midnights. 17. Full code. Discharge plan: Sveta in the next 48 hours Impression and plan of care have been directed as dictated by the signing physician. Patricia Padilla nurse practitioner acting as scribe for signing physician.
[2016-11-17] MEDS: LISINOPRIL 5 MG TAB PO SCH (15:44)
[2016-11-17] MEDS: QUEtiapine 25 MG TAB PO SCH (20:26)
[2016-11-17] MEDS: ATORVASTATIN 40 MG TAB PO SCH (20:26)
[2016-11-17] MEDS: SENNOSIDES-DOCUSATE SODIUM 1 EACH TAB PO SCH (20:27)
[2016-11-17] MEDS ORDERED: ACETAMINOPHEN TAB 500 MG TAB PO PRN (21:02)
[2016-11-17 21:58] LABS: Appearance,Urine Clear (Clear); Bilirubin,Urine Negative (Negative); Glucose,Urine (UA) Negative (Negative); Ketones,Urine Negative (Negative); Leukocyte Esterase,Urine Large (Negative); Mucus,Urine Rare /hpf; Nitrite,Urine Negative (Negative); Particle Count 2134; Protein,Urine Trace (Negative); RBC,Urine >182 /hpf (0-5); Specific Gravity,Urine 1.012 (1.001-1.035); Squamous Epithelial Cell,Urine <1 /hpf (0-4); UA Billing (MACRO vs. MICRO) MICRO; Urobilinogen,Urine <2.0 mg/dL (<2.0); WBC,Urine 81 /hpf (0-5)
[2016-11-18] MEDS: PANTOPRAZOLE 40 MG TABLET PO SCH (06:24)
[2016-11-18] MEDS: SUCRALFATE 1 GM TAB PO SCH ×2 (06:24→17:40)
[2016-11-18 06:32] LABS: CH 24.5; CHCM 29.7; HCT 30.6 % (39.0-53.0); HDW 2.84; HGB 9.4 gm/dL (13.0-17.5); Hypochromasia Marked; MCH 25.4 pg (25.0-35.0); MCHC 30.6 g/dL (31.0-37.0); MCV 82.9 fL (80.0-100.0); Mean Platelet Volume 7.6; RBC 3.69 m/uL (4.30-5.90); RDW 15.1 % (11.5-15.5); WBC 7.6 k/uL (3.8-10.6)
[2016-11-18 06:43] LABS: Anion Gap 6 mmol/L; Blood Urea Nitrogen 7 mg/dL (9-20); Calcium 8.7 mg/dL (8.4-10.2); Carbon Dioxide 29 mmol/L (22-30); Chloride 106 mmol/L (98-107); Glucose 91 mg/dL (74-99); Non-African American GFR(MDRD) >60 (>60 ml/min/1.73 sqM); Potassium 3.6 mmol/L (3.5-5.1); Sodium 141 mmol/L (137-145)
--- NOTE | 2016-11-18 07:33 | EEG ---
ELECTROENCEPHALOGRAM REPORT DATE OF SERVICE: 11/17/2016. REASON FOR TESTING: Syncope. DESCRIPTION OF THE PROCEDURE: This EEG was performed using a 21 channel digital electroencephalograph, following international 10-20 system. DESCRIPTION OF THE RECORDING: From the beginning of the tracing, and with patient's eyes closed, the background rhythm was mostly consisting of 8 Hz alpha frequency in the posterior occipital leads. No obvious asymmetry is seen. Photic stimulation was performed with a minimal driving response seen. No pathological waves were elicited. Hyperventilation was not performed. Occasional movement artifacts are seen. The patient remains awake throughout the tracing. No epileptiform discharges were seen. His EKG lead showed a regular rate and rhythm. INTERPRETATION: This awake EEG can be considered within normal limits. There was no asymmetry seen. No epileptiform discharges were noticed. The absence of epileptiform discharges does not rule out the diagnosis of epilepsy, therefore clinical correlation is recommended. MMNANETTEL / ROMEL: [id number] /
[2016-11-18] MEDS: DULoxetine HCL 60 MG CAPSULE.DR PO SCH (08:50)
[2016-11-18] MEDS: ASPIRIN 81 MG CHEW PO SCH (08:50)
[2016-11-18] MEDS: LISINOPRIL 5 MG TAB PO SCH (08:50)
[2016-11-18] MEDS: ALLOPURINOL 100 MG TAB PO SCH (08:51)
[2016-11-18] MEDS: VIT A,C & E-LUTEIN-MINERALS 1 EACH TAB PO SCH ×2 (08:51→21:42)
[2016-11-18] MEDS: IPRATROPIUM-ALBUTEROL 3 ML NEB INHALATION SCH ×4 (09:35→19:40)
[2016-11-18] MEDS: BUDESONIDE 0.5 MG/2 ML NEBU INHALATION SCH ×2 (09:35→19:40)
--- NOTE | 2016-11-18 17:09 | P.PN ---
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 He was sent in the emergency room as the patient was noted to be unresponsive, the son that lives with him step out for about 10 minutes, when he came back patient was noted to be unresponsive, EMS was called, blood pressure was 40 systolic, patient denies any post ictal events, there is no witnesses to the syncope, and they have lowered down the patient to the floor and started to have some return of mentation. There is no neurologic deficits including focal motor deficits upon arousal, she denies any headache no shortness of breath patient is lightheaded with dimming sensation prior to this event, patient does not have any loss of bowel or bladder control.. Downtime is unknown. Patient complains of muscle twitching the lower extremity for several months now especially when he goes to bed at night 11/17: Troponins are negative on 3 draws. Triglycerides 77, cholesterol 85, LDL 30, HDL 40. Echocardiogram reveals EF of 55-60%, mild concentric left ventricular hypertrophy, mild aortic valve sclerosis, mild mitral regurgitation , mild tricuspid regurgitation, no pulmonary hypertension. Cardiology has evaluated with saturation for possible GUALBERTO and tilt table test and lipid recorder.. Dr. Charles has evaluated the patient and feels the patient's loss of consciousness was due to severe hypotension. EEG pending. Patient states that he did not sleep well last night. Orthostatics were negative. Blood pressure is higher this morning for which lisinopril will be resumed. IV fluids changed to saline lock. These management is following for plan of discharge to [facility] for subacute rehab. 11/18: Patient's doing well with the muscle twitching, patient had no hypotension no syncope however he had a temperature last night transient T-max of 100, repeat urinalysis was performed however this seemed to be more traumatic with RBC of 182 [id number] urine cultures sent . no antibiotic started yet. Patient has slight cough, chest x-ray started no new aspiration. Rausch catheter will be discontinued today Objective - Vital Signs Vital signs: Vital Signs Temp 97.4 F L 11/18/16 15:00 Pulse 74 11/18/16 16:04 Resp 16 11/18/16 15:00 BP 149/63 11/18/16 15:00 Pulse Ox 97 11/18/16 15:00 Intake & Output 11/17/16 11/18/16 11/18/16 18:59 06:59 18:59 Intake Total 1230 600 240 Output Total 700 1000 800 Balance 530 -400 -560 Weight 84.5 kg Intake: IV 800 0 Sodium Chloride 0.9% 1, 800 0 000 ml @ 100 mls/hr IV . Q10H SHASHANK Rx#:[id number] Oral 430 600 240 Output: Urine 700 1000 800 Other: Voiding Method Indwelling Catheter Indwelling Catheter Indwelling Catheter # Voids 2 - Constitutional General appearance: Present: cooperative, no acute distress - EENT Eyes: Present: anicteric sclerae, EOMI, PERRLA, dentition normal, normal appearance ENT: Present: NA/AT, normal oropharynx - Neck Neck: Present: normal ROM - Respiratory Respiratory: bilateral: CTA, negative: diminished, dullness - Cardiovascular Rhythm: regular Abnormal Heart Sounds: Absent: systolic murmur, diastolic murmur, rub, S3 Gallop , S4 Gallop, click, other - Gastrointestinal General gastrointestinal: Present: normal bowel sounds, soft - Integumentary Integumentary: Present: normal, normal turgor - Musculoskeletal Musculoskeletal: Present: generalized weakness, strength equal bilaterally - Psychiatric Psychiatric: Present: A&O x's 3, appropriate affect, intact judgment & insight - Labs CBC & Chem 7: 11/18/16 05:37 11/18/16 05:36 Labs: Abnormal Lab Results - Last 24 Hours (Table) 11/17/16 11/18/16 11/18/16 Range/Units 21:28 05:36 05:37 RBC 3.69 L (4.30-5.90) m/uL Hgb 9.4 L (13.0-17.5) gm/dL Hct 30.6 L (39.0-53.0) % MCHC 30.6 L (31.0-37.0) g/dL BUN 7 L (9-20) mg/dL Urine Protein Trace H (Negative) Urine Blood Moderate H (Negative) Ur Leukocyte Esterase Large H (Negative) Urine RBC >182 H (0-5) /hpf Urine WBC 81 H (0-5) /hpf Urine Mucus Rare H (None) /hpf Microbiology - Last 24 Hours (Table) 11/16/16 16:07 Urine Culture - Final Urine,Catheterized Assessment and Plan Plan: 1. 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 Urinalysis is negative for any infection , patient currently is on telemetry monitoring. Lactic acid is normal. Neurology consult appreciated, EEG of the brain will be obtained. CTA of the neck as above. Shows no significant carotid stenosis except for mild stenosis proximal internal carotid, vertebral arteries are patent 2. 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 3 . Hypertension and hypertensive cardiovascular disease. Hold metoprolol 25 mg orally bedtime. Hold Imdur. Restart lisinopril 5 mg orally once every day, 4 . Hyperlipidemia. On Lipitor 40 5. Myoclonic suspect restless leg syndrome, he would start the patient on ropinirole 0.5 mg at bedtime 6. BPH. discContinue finasteride 5 mg orally once every day secondary to hypotension, hold Flomax and most likely will restart Flomax once stable avoid worsening orthostasis. And discontinue finasteride indefinitely 7. COPD: Remain on updraft treatment along with Pulmicort. 8. Gout unspecified . Continue allopurinol 100 mg orally once every day. 9. CAD/arrhythmia. home med are: metoprolol 25 mg at bedtime, Imdur 30 mg orally once every day, Lipitor 20 mg orally once every day, aspirin 81 mg orally once every day. 10. GI prophylaxis. will start omeprazole 20 mg orally once every day, Carafate 1 g orally 4 times every day. 11. DVT prophylaxis.Patient will be started on heparin 5000 units subcutaneous twice a day. 12. Chronic pleural plaques bilateral lung field possibly secondary to asbestos exposure. 13. Ventral hernia, with herniation of the stomach currently asymptomatic 14. 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 15 . Depression, recurrent. Continue Cymbalta 120 mg orally once every day. Continue on Seroquel 25 mg at bedtime secondary to treatment resistant depression 1 mg Xanax daily at bedtime 16 Febrile illness, source unknown, followed catheter most likely shows some traumatic change initial UA was negative, no signs of aspiration, patient has minimal cough, no antibiotic needed, continue to monitor, chest x-ray requested for cough 17. Admit to inpatient. Estimate a length of stay 2 midnights. 18. Full code. Recurrent debility, PT OT is following patient, possible subacute rehab to [facility]
--- NOTE | 2016-11-18 18:43 | XR ---
EXAMINATION TYPE: XR chest 2V DATE OF EXAM: 11/18/2016 COMPARISON: 11/16/2016 HISTORY: Short of breath TECHNIQUE: Frontal and lateral views of the chest are obtained. FINDINGS: There is some calcified pleural plaque on the bilateral chest wall. There is no heart failure. There is slight blunting of left costophrenic angle. There is calcified pleural plaque at the right lung ba se. Thoracic aorta is atheromatous. There are chest leads. CONCLUSION: Calcified pleural plaque. No gross heart failure. No significant change compared to last exam.
[2016-11-18] MEDS: ALPRAZolam 0.5 MG TAB PO PRN (21:42)
[2016-11-18] MEDS: SENNOSIDES-DOCUSATE SODIUM 1 EACH TAB PO SCH (21:42)
[2016-11-18] MEDS: QUEtiapine 25 MG TAB PO SCH (21:42)
[2016-11-18] MEDS: ATORVASTATIN 40 MG TAB PO SCH (21:43)
[2016-11-19 07:33] LABS: Basophils % (A) 1 %; CH 24.5; CHCM 29.7; Eosinophils # (A) 0.6 k/uL (0-0.7); Eosinophils % (A) 9 %; HCT 30.2 % (39.0-53.0); HDW 2.81; HGB 9.2 gm/dL (13.0-17.5); Hypochromasia Marked; Luc # (Auto) 0.25; Luc % (Auto) 4; Lymphocytes # (A) 0.9 k/uL (1.0-4.8); Lymphocytes % (A) 13 %; MCH 25.3 pg (25.0-35.0); MCHC 30.5 g/dL (31.0-37.0); MCV 82.8 fL (80.0-100.0); Monocytes # (A) 0.8 k/uL (0-1.0); Monocytes % (A) 12 %; Neutrophils # (A) 4.3 k/uL (1.3-7.7); Neutrophils % (A) 62 %; RBC 3.64 m/uL (4.30-5.90); WBC 6.9 k/uL (3.8-10.6); WBC (Perox) 7.01
[2016-11-19] MEDS: SUCRALFATE 1 GM TAB PO SCH ×2 (08:00→17:45)
[2016-11-19] MEDS: PANTOPRAZOLE 40 MG TABLET PO SCH (08:00)
[2016-11-19 08:08] LABS: ALT 26 U/L (21-72); AST 18 U/L (17-59); Alkaline Phosphatase 65 U/L (38-126); Anion Gap 6 mmol/L; Blood Urea Nitrogen 9 mg/dL (9-20); Calcium 8.6 mg/dL (8.4-10.2); Carbon Dioxide 29 mmol/L (22-30); Chloride 104 mmol/L (98-107); Glucose 98 mg/dL (74-99); Non-African American GFR(MDRD) >60 (>60 ml/min/1.73 sqM); Potassium 3.4 mmol/L (3.5-5.1); Sodium 139 mmol/L (137-145); Total Bilirubin 0.4 mg/dL (0.2-1.3); Total Protein 5.4 g/dL (6.3-8.2)
[2016-11-19] MEDS: BUDESONIDE 0.5 MG/2 ML NEBU INHALATION SCH ×2 (08:35→19:13)
[2016-11-19] MEDS: IPRATROPIUM-ALBUTEROL 3 ML NEB INHALATION SCH ×3 (08:35→19:13)
[2016-11-19] MEDS: ASPIRIN 81 MG CHEW PO SCH (09:30)
[2016-11-19] MEDS: DULoxetine HCL 60 MG CAPSULE.DR PO SCH (09:30)
[2016-11-19] MEDS: LISINOPRIL 5 MG TAB PO SCH (09:31)
[2016-11-19] MEDS: VIT A,C & E-LUTEIN-MINERALS 1 EACH TAB PO SCH ×2 (09:31→20:37)
[2016-11-19] MEDS: ALLOPURINOL 100 MG TAB PO SCH (09:31)
[2016-11-19] MEDS ORDERED: POTASSIUM CHLORIDE ER 20 MEQ TAB.ER PO STA (12:57)
[2016-11-19] MEDS: SULFAMETHOX-TMP 800-160MG 1 EACH TAB PO SCH ×2 (14:19→20:37)
[2016-11-19 14:26] LABS: Appearance,Urine Clear (Clear); Bilirubin,Urine Negative (Negative); Glucose,Urine (UA) Negative (Negative); Ketones,Urine Negative (Negative); Leukocyte Esterase,Urine Small (Negative); Mucus,Urine Rare /hpf; Nitrite,Urine Negative (Negative); Particle Count 2273; Protein,Urine Trace (Negative); RBC,Urine 73 /hpf (0-5); Specific Gravity,Urine 1.011 (1.001-1.035); Squamous Epithelial Cell,Urine <1 /hpf (0-4); UA Billing (MACRO vs. MICRO) MICRO; Urobilinogen,Urine <2.0 mg/dL (<2.0); WBC,Urine 16 /hpf (0-5)
--- NOTE | 2016-11-19 16:31 | P.PN ---
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 He was sent in the emergency room as the patient was noted to be unresponsive, the son that lives with him step out for about 10 minutes, when he came back patient was noted to be unresponsive, EMS was called, blood pressure was 40 systolic, patient denies any post ictal events, there is no witnesses to the syncope, and they have lowered down the patient to the floor and started to have some return of mentation. There is no neurologic deficits including focal motor deficits upon arousal, she denies any headache no shortness of breath patient is lightheaded with dimming sensation prior to this event, patient does not have any loss of bowel or bladder control.. Downtime is unknown. Patient complains of muscle twitching the lower extremity for several months now especially when he goes to bed at night 11/17: Troponins are negative on 3 draws. Triglycerides 77, cholesterol 85, LDL 30, HDL 40. Echocardiogram reveals EF of 55-60%, mild concentric left ventricular hypertrophy, mild aortic valve sclerosis, mild mitral regurgitation , mild tricuspid regurgitation, no pulmonary hypertension. Cardiology has evaluated with saturation for possible GUALBERTO and tilt table test and lipid recorder.. Dr. Charles has evaluated the patient and feels the patient's loss of consciousness was due to severe hypotension. EEG pending. Patient states that he did not sleep well last night. Orthostatics were negative. Blood pressure is higher this morning for which lisinopril will be resumed. IV fluids changed to saline lock. These management is following for plan of discharge to [facility] for subacute rehab. 11/18: Patient's doing well with the muscle twitching, patient had no hypotension no syncope however he had a temperature last night transient T-max of 100, repeat urinalysis was performed however this seemed to be more traumatic with RBC of 182 [id number] urine cultures sent . no antibiotic started yet. Patient has slight cough, chest x-ray started no new aspiration. Rausch catheter will be discontinued today 11/19: Patient continues to improve, however T-max at 99 Bactrim started for suspected early diverticulitis chest x-ray is negative patient complains of left -sided abdominal pain urine was recultured prior to start of antibiotic. Patient continues to receive physical therapy, recommendations is homecare vs subacute rehabilitation but. But physical therapy leaning towards recommending home care. to continue safety ambulation in the hallways Objective - Vital Signs Vital signs: Vital Signs Temp 97.3 F L 11/19/16 07:00 Pulse 79 11/19/16 07:00 Resp 18 11/19/16 07:00 BP 133/68 11/19/16 07:00 Pulse Ox 97 11/19/16 07:00 Intake & Output 11/18/16 11/19/16 11/19/16 18:59 06:59 18:59 Intake Total 240 290 Output Total 800 450 150 Balance -560 -450 140 Intake: IV 0 Sodium Chloride 0.9% 1, 0 000 ml @ 100 mls/hr IV . Q10H [facility] Rx#:[id number] Oral 240 290 Output: Urine 800 450 150 Other: Voiding Method Indwelling Catheter # Voids 1 # Bowel Movements 0 1 - Constitutional General appearance: Present: cooperative, no acute distress - EENT Eyes: Present: anicteric sclerae, EOMI, PERRLA, normal appearance ENT: Present: NA/AT, normal oropharynx - Neck Neck: Present: normal ROM - Respiratory Respiratory: bilateral: CTA, negative: dullness, rales, rhonchi, wheezing, prolonged expiration - Cardiovascular Rhythm: regular Heart sounds: normal: S1 Abnormal Heart Sounds: Absent: systolic murmur, diastolic murmur, rub, S3 Gallop , S4 Gallop, click, other - Gastrointestinal General gastrointestinal: Present: normal bowel sounds, soft - Integumentary Integumentary: Present: decreased turgor, normal - Musculoskeletal Musculoskeletal: Present: generalized weakness, strength equal bilaterally - Psychiatric Psychiatric: Present: A&O x's 3, appropriate affect - Labs CBC & Chem 7: 11/19/16 07:16 11/19/16 07:16 Labs: Abnormal Lab Results - Last 24 Hours (Table) 11/19/16 11/19/16 Range/Units 07:16 07:16 RBC 3.64 L (4.30-5.90) m/uL Hgb 9.2 L (13.0-17.5) gm/dL Hct 30.2 L (39.0-53.0) % MCHC 30.5 L (31.0-37.0) g/dL Lymphocytes # 0.9 L (1.0-4.8) k/uL Potassium 3.4 L (3.5-5.1) mmol/L Total Protein 5.4 L (6.3-8.2) g/dL Albumin 3.1 L (3.5-5.0) g/dL Microbiology - Last 24 Hours (Table) 11/17/16 21:08 Blood Culture - Preliminary Blood No Growth after 24 hours Assessment and Plan Plan: 1. 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 Urinalysis is negative for any infection , patient currently is on telemetry monitoring. Lactic acid is normal. Neurology consult appreciated, EEG of the brain will be obtained. CTA of the neck as above. Shows no significant carotid stenosis except for mild stenosis proximal internal carotid, vertebral arteries are patent 2. 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 3 . Hypertension and hypertensive cardiovascular disease. Hold metoprolol 25 mg orally bedtime. Hold Imdur. Restart lisinopril 5 mg orally once every day, 4 . Hyperlipidemia. On Lipitor 40 5. Myoclonic suspect restless leg syndrome, he would start the patient on ropinirole 0.5 mg at bedtime 6. BPH. discContinue finasteride 5 mg orally once every day secondary to hypotension, hold Flomax and most likely will restart Flomax once stable avoid worsening orthostasis. And discontinue finasteride indefinitely 7. COPD: Remain on updraft treatment along with Pulmicort. 8. Gout unspecified . Continue allopurinol 100 mg orally once every day. 9. CAD/arrhythmia. home med are: metoprolol 25 mg at bedtime, Imdur 30 mg orally once every day, Lipitor 20 mg orally once every day, aspirin 81 mg orally once every day. 10. GI prophylaxis. will start omeprazole 20 mg orally once every day, Carafate 1 g orally 4 times every day. 11. DVT prophylaxis.Patient will be started on heparin 5000 units subcutaneous twice a day. 12. Chronic pleural plaques bilateral lung field possibly secondary to asbestos exposure. 13. Ventral hernia, with herniation of the stomach currently asymptomatic 14. 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 15 . Depression, recurrent. Continue Cymbalta 120 mg orally once every day. Continue on Seroquel 25 mg at bedtime secondary to treatment resistant depression 1 mg Xanax daily at bedtime 16 Febrile illness, source unknown, followed catheter most likely shows some traumatic change initial UA was negative, no signs of aspiration, patient has minimal cough, no antibiotic needed, continue to monitor, chest x-ray requested for cough 17. Admit to inpatient. Estimate a length of stay 2 midnights. 18. Full code. Recurrent debility, PT OT is following patient, possible subacute rehab to [facility]
[2016-11-19] MEDS: SENNOSIDES-DOCUSATE SODIUM 1 EACH TAB PO SCH (20:36)
[2016-11-19] MEDS: ATORVASTATIN 40 MG TAB PO SCH (20:36)
[2016-11-19] MEDS: QUEtiapine 25 MG TAB PO SCH (20:36)
[2016-11-19] MEDS: ALPRAZolam 0.5 MG TAB PO PRN (22:37)
[2016-11-20] MEDS: IPRATROPIUM-ALBUTEROL 3 ML NEB INHALATION SCH ×2 (07:08→11:28)
[2016-11-20] MEDS: BUDESONIDE 0.5 MG/2 ML NEBU INHALATION SCH (07:08)
[2016-11-20 07:30] LABS: Basophils % (A) 1 %; CH 24.4; CHCM 29.5; Eosinophils # (A) 0.7 k/uL (0-0.7); Eosinophils % (A) 10 %; HCT 30.1 % (39.0-53.0); HDW 2.78; HGB 9.2 gm/dL (13.0-17.5); Hypochromasia Marked; Luc # (Auto) 0.25; Luc % (Auto) 4; Lymphocytes # (A) 1.3 k/uL (1.0-4.8); Lymphocytes % (A) 19 %; MCH 25.3 pg (25.0-35.0); MCHC 30.6 g/dL (31.0-37.0); MCV 82.9 fL (80.0-100.0); Mean Platelet Volume 7.9; Monocytes # (A) 0.7 k/uL (0-1.0); Monocytes % (A) 11 %; Neutrophils # (A) 3.7 k/uL (1.3-7.7); Neutrophils % (A) 56 %; RBC 3.64 m/uL (4.30-5.90); WBC 6.7 k/uL (3.8-10.6); WBC (Perox) 7.03
[2016-11-20 07:32] VITALS: TEMP 96.9
[2016-11-20] MEDS: SUCRALFATE 1 GM TAB PO SCH (07:42)
[2016-11-20] MEDS: ASPIRIN 81 MG CHEW PO SCH (07:42)
[2016-11-20] MEDS: ALLOPURINOL 100 MG TAB PO SCH (07:42)
[2016-11-20] MEDS: PANTOPRAZOLE 40 MG TABLET PO SCH (07:43)
[2016-11-20] MEDS: DULoxetine HCL 60 MG CAPSULE.DR PO SCH (07:43)
[2016-11-20] MEDS: LISINOPRIL 5 MG TAB PO SCH (07:43)
[2016-11-20] MEDS: VIT A,C & E-LUTEIN-MINERALS 1 EACH TAB PO SCH (07:44)
[2016-11-20] MEDS: SULFAMETHOX-TMP 800-160MG 1 EACH TAB PO SCH (07:44)
[2016-11-20 07:45] LABS: ALT 31 U/L (21-72); AST 18 U/L (17-59); Alkaline Phosphatase 66 U/L (38-126); Anion Gap 6 mmol/L; Blood Urea Nitrogen 11 mg/dL (9-20); Calcium 8.9 mg/dL (8.4-10.2); Carbon Dioxide 31 mmol/L (22-30); Chloride 103 mmol/L (98-107); Glucose 87 mg/dL (74-99); Non-African American GFR(MDRD) >60 (>60 ml/min/1.73 sqM); Sodium 140 mmol/L (137-145); Total Bilirubin 0.3 mg/dL (0.2-1.3); Total Protein 5.4 g/dL (6.3-8.2)
[2016-11-20] MEDS ORDERED: LISINOPRIL 2.5 MG TAB PO SCH (09:00)
[2016-11-20 11:31] VITALS: RESP 18
[2016-11-20 11:45] VITALS: PULSE 80
[2016-11-20 15:54] VITALS: BP 132/66
== END 2016-11-20 14:20 | disposition home health service (06) | DRG 309 ==
LOC: EC 15:26 → 6SEL 16:29 → 4MS4W 11-18 09:24
PROVIDERS: ADMIT Family Medicine; ATTEND Family Medicine
DX: I45.9 Conduction disorder, unspecified (principal); I69.354 Hemiplegia and hemiparesis following cerebral infarction affecting left non-dominant side; I11.9 Hypertensive heart disease without heart failure; D64.9 Anemia, unspecified; I08.3 Combined rheumatic disorders of mitral, aortic and tricuspid valves; F32.9 Major depressive disorder, single episode, unspecified; E78.5 Hyperlipidemia, unspecified; F41.9 Anxiety disorder, unspecified; H35.30 Unspecified macular degeneration; I25.10 Atherosclerotic heart disease of native coronary artery without angina pectoris; J38.01 Paralysis of vocal cords and larynx, unilateral; J44.9 Chronic obstructive pulmonary disease, unspecified; K21.9 Gastro-esophageal reflux disease without esophagitis; K43.9 Ventral hernia without obstruction or gangrene; M10.9 Gout, unspecified; N40.0 Benign prostatic hyperplasia without lower urinary tract symptoms; M19.90 Unspecified osteoarthritis, unspecified site; R50.9 Fever, unspecified; G25.81 Restless legs syndrome; J92.9 Pleural plaque without asbestos; Z77.090 Contact with and (suspected) exposure to asbestos; Z87.891 Personal history of nicotine dependence; Z79.82 Long term (current) use of aspirin; Z79.899 Other long term (current) drug therapy; Z80.0 Family history of malignant neoplasm of digestive organs; Z95.5 Presence of coronary angioplasty implant and graft; Z96.659 Presence of unspecified artificial knee joint; Z96.649 Presence of unspecified artificial hip joint
CPT/HCPCS: 36415; 51702; 70496; 70498; 71010; 71020; 80048; 80053; 80061; 81001; 81003; 82550; 82553; 82803; 83605; 83735; 83880; 84100; 84484; 85025; 85027; 85379; 85610; 85730; 87040; 87086; 93005; 93306; 94640; 94760; 95816; 96360; 96361; 99291

== ENCOUNTER → 2017-03-16 | Outpatient (CLI) | payer MEDICARE ==
[2017-03-16 15:20] LABS: Blood Urea Nitrogen 16 mg/dL (9-20)
--- NOTE | 2017-03-16 16:03 | CT ---
EXAMINATION TYPE: CT brain wo/w con DATE OF EXAM: 03/16/2017 COMPARISON: 09/09/2016 HISTORY: Frequent falls. CT DLP: 2216.80 mGycm, Automated exposure control for dose reduction was used. CONTRAST: Patient injected with 100 mL of Omnipaque 300. CT of the brain is performed utilizing 3 mm thick sections through the posterior fossa and 3 mm thick sections through the remaining calvarium. There is beam hardening artifact from cervical fixation t o the occiput. Study is performed within 24 hours of arrival to the hospital. No abnormal hyperdensity is present to suggest an acute intracranial hemorrhage. No mass lesion is evident. No acute infarcts are evident. Minimal periventricular white matter hypodensity is present likely ch ronic in nature. Ventricles and sulci are mildly prominent. No temporal horn dilatation to suggest hydrocephalus is ev ident. for the patient age. Paranasal sinuses and mastoid air cells within the [id number] are clear. IMPRESSIONS: 1. No acute intracranial process. Exam is stable from prior study. 2. Mild ventricular prominence without hydrocephalus. 3. No abnormal enhancement.
== END | disposition home or self-care (01) ==
LOC: RADCTMAIN 14:48
PROVIDERS: ATTEND Family Medicine
DX: S09.90XA Unspecified injury of head, initial encounter (principal); R29.6 Repeated falls
CPT/HCPCS: 82565; 84520; 70470; 36415; Q9967

== ENCOUNTER 2017-05-11 13:41 | Emergency (ER) | payer MEDICARE ==
[2017-05-11 13:57] VITALS: TEMP 97.7
[2017-05-11] MEDS ORDERED: MORPHINE SULFATE 4 MG/ML SYRINGE IVP STA (14:48)
[2017-05-11] MEDS ORDERED: SODIUM CHLORIDE 0.9% 500 ML IV STA (14:48)
--- NOTE | 2017-05-11 14:52 | ED ---
General Adult HPI - General Chief complaint: Headache Stated complaint: Bad headache/fell head injury 2 wks ago Time Seen by Provider: 05/11/17 14:00 Source: patient, RN notes reviewed Mode of arrival: wheelchair Limitations: no limitations - History of Present Illness Initial comments: This is an 86-year-old male who presents emergency Department complaining of a headache. Patient states for years she's had falling issues in about 2 weeks ago he fell. Patient states he didn't lose consciousness when he hit the floor B did hit his head on the floor. Patient states he didn't notice a headache at that time but soon thereafter he started having increase in neck pain which she has broken the past and an increase in headaches. Patient states headache is constant in the occipital region of his head but then at different times when he moves his head a certain way the pain increases any assistance extremely sharp. Denies any visual disturbance. Patient denieshistory. Patient denies any numbness or weakness is new. Patient denies any other injury at this time. Patient states the falling is not a new problem is been ongoing for many years. He typically has occurred when he is transferring from one place to another patient denies any chest pain difficulty breathing shortness of breath per patient denies any recent fever chills or cough. Patient denies any abdominal pain patient denies any nausea vomiting or diarrhea. - Related Data Home Medications Medication Instructions Recorded Confirmed DULoxetine HCL [Cymbalta] 60 mg PO BID 05/16/14 05/11/17 Allopurinol 100 mg PO BID 09/09/15 05/11/17 Aspirin [Adult Low Dose Aspirin EC] 81 mg PO DAILY 03/29/16 05/11/17 Omeprazole [PriLOSEC] 20 mg PO DAILY 07/21/16 05/11/17 Metoprolol Tartrate [Lopressor] 25 mg PO DAILY 08/29/16 05/11/17 Sucralfate [Carafate] 1 gm PO BID 08/29/16 05/11/17 Vit C/E/Zn/Coppr/Lutein/Zeaxan 1 cap PO BID 08/29/16 05/11/17 [Preservision Areds 2 Softgel] guaiFENesin [Mucinex] 1,200 mg PO BID 08/29/16 05/11/17 Tamsulosin [Flomax] 0.4 mg PO DAILY 11/16/16 05/11/17 Acetaminophen [Tylenol Extra 500 mg PO Q6HR PRN 05/11/17 05/11/17 Strength] Ferrous Sulfate [Feosol] 325 mg PO DAILY 05/11/17 05/11/17 Multivit-Min/FA/Lycopen/Lutein 1 tab PO DAILY 05/11/17 05/11/17 [Centrum Silver Men Tablet] Simvastatin [Zocor] 20 mg PO HS 05/11/17 05/11/17 rOPINIRole HCL [Requip] 0.25 mg PO HS 05/11/17 05/11/17 Previous Rx's Medication Instructions Recorded ALPRAZolam [Xanax] 1 mg PO HS PRN tab 11/20/16 Lisinopril [Zestril] 2.5 mg PO DAILY tab 11/20/16 Allergies Allergy/AdvReac Type Severity Reaction Status Date / Time No Known Allergies Allergy Verified 05/11/17 14:34 Review of Systems ROS Statement: Those systems with pertinent positive or pertinent negative responses have been documented in the HPI. ROS Other: All systems not noted in ROS Statement are negative. Past Medical History Past Medical History: Coronary Artery Disease (CAD), Cancer, COPD, CVA/TIA, GERD /Reflux, Hyperlipidemia, Hypertension, Osteoarthritis (OA), Prostate Disorder Additional Past Medical History / Comment(s): MACULAR DEGENERATION History of Any Multi-Drug Resistant Organisms: None Reported Past Surgical History: Heart Catheterization With Stent, Joint Replacement, Orthopedic Surgery Additional Past Surgical History / Comment(s): carpal tunnel release bilat, ulcer surgery, RIGHT TOTAL KNEEX2, left rotater cuff Past Anesthesia/Blood Transfusion Reactions: No Reported Reaction Additional Past Anesthesia/Blood Transfusion Reaction / Comment(s): Pt received blood in 2007 without reaction. Date of Last Stent Placement:: 2010 Past Psychological History: Anxiety, Depression Smoking Status: Current every day smoker Past Alcohol Use History: None Reported Past Drug Use History: None Reported - Past Family History Mother Family Medical History: Cancer Additional Family Medical History / Comment(s): Mother at age 43 from colon cancer. Father Additional Family Medical History / Comment(s): Father at age 98 from old age with no major medical problems. Patient does not have any brothers or sisters. Daughter(s) Additional Family Medical History / Comment(s): Patient has 2 daughters with mental health issues. No medical problems. General Exam - General Exam Comments Initial Comments: GENERAL: Patient is well-developed and well-nourished. Patient is nontoxic and well- hydrated and is in no acute distress. ENT: Neck is soft and supple. No significant lymphadenopathy is noted. Oropharynx is clear. Moist mucous membranes. States he is had a broken neck in the past about 3 years ago. Patient states it's very stiff normally to move eyes placed a collar on him and did not move his neck because of going to CAT scan. There was no spinous process tenderness EYES: The sclera were anicteric and conjunctiva were pink and moist. Extraocular movements were intact and pupils were equal round and reactive to light. Eyelids were unremarkable. PULMONARY: Unlabored respirations. Good breath sounds bilaterally. No audible rales rhonchi or wheezing was noted. CARDIOVASCULAR: Patient's heart rate is regular rate and rhythm ABDOMEN: Soft and nontender with normal bowel sounds. No palpable organomegaly was noted. There is no palpable pulsatile mass. SKIN: Skin is clear with no lesions or rashes and otherwise unremarkable. NEUROLOGIC: Patient is alert and oriented x3. Cranial nerves II through XII are grossly intact. Motor and sensory are also intact. Normal speech, volume and content. Symmetrical smile. MUSCULOSKELETAL: Normal extremities with adequate strength and full range of motion. No lower extremity swelling or edema. No calf tenderness. LYMPHATICS: No significant lymphadenopathy is noted PSYCHIATRIC: Normal psychiatric evaluation. Normal interpersonal interactions appears functionally intact in deals appropriately with others. No signs of depression. No signs of anxiety. Limitations: no limitations Course Vital Signs 05/11/17 05/11/17 05/11/17 13:52 15:16 15:20 Temperature 97.7 F Pulse Rate 74 72 71 Respiratory 18 16 16 Rate Blood Pressure 165/75 196/93 188/79 O2 Sat by Pulse 97 95 96 Oximetry 05/11/17 15:54 Temperature Pulse Rate 72 Respiratory 16 Rate Blood Pressure 179/79 O2 Sat by Pulse 97 Oximetry Medical Decision Making - Medical Decision Making EKG shows a normal sinus rhythm at 70 bpm ID interval is 150 QRS is 82 QT interval 400 QTC is 432. EKG shows no ST segment elevation or depression or T wave abnormalities are noted - Lab Data Result diagrams: 05/11/17 15:11 05/11/17 15:11 Lab Results 05/11/17 05/11/17 05/11/17 Range/Units 15:11 15:11 15:11 WBC 6.0 (3.8-10.6) k/uL RBC 5.00 (4.30-5.90) m/uL Hgb 13.5 (13.0-17.5) gm/dL Hct 44.6 (39.0-53.0) % MCV 89.2 (80.0-100.0) fL MCH 27.0 (25.0-35.0) pg MCHC 30.3 L (31.0-37.0) g/dL RDW 17.6 H (11.5-15.5) % Plt Count 273 (150-450) k/uL Neutrophils % 59 % Lymphocytes % 21 % Monocytes % 10 % Eosinophils % 7 % Basophils % 1 % Neutrophils # 3.5 (1.3-7.7) k/uL Lymphocytes # 1.2 (1.0-4.8) k/uL Monocytes # 0.6 (0-1.0) k/uL Eosinophils # 0.4 (0-0.7) k/uL Basophils # 0.0 (0-0.2) k/uL Hypochromasia Slight Anisocytosis Slight PT (9.0-12.0) sec INR (<1.2) APTT (22.0-30.0) sec Sodium 142 (137-145) mmol/L Potassium 4.2 (3.5-5.1) mmol/L Chloride 101 (98-107) mmol/L Carbon Dioxide 30 (22-30) mmol/L Anion Gap 11 mmol/L BUN 7 L (9-20) mg/dL Creatinine 0.60 L (0.66-1.25) mg/dL Est GFR (MDRD) Af Amer >60 (>60 ml/min/1.73 sqM) Est GFR (MDRD) Non-Af >60 (>60 ml/min/1.73 sqM) Glucose 93 (74-99) mg/dL Plasma Lactic Acid Murtaza (0.7-2.0) mmol/L Calcium 9.4 (8.4-10.2) mg/dL Magnesium 2.0 (1.6-2.3) mg/dL Total Bilirubin 0.5 (0.2-1.3) mg/dL AST 23 (17-59) U/L ALT 28 (21-72) U/L Alkaline Phosphatase 98 (38-126) U/L Total Creatine Kinase 87 (55-170) U/L CK-MB (CK-2) 2.3 (0.0-2.4) ng/mL CK-MB (CK-2) Rel Index 2.6 Troponin I <0.012 (0.000-0.034) ng/mL Total Protein 6.5 (6.3-8.2) g/dL Albumin 4.0 (3.5-5.0) g/dL Urine Color Urine Appearance (Clear) Urine pH (5.0-8.0) Ur Specific [place] (1.001-1.035) Urine Protein (Negative) Urine Glucose (UA) (Negative) Urine Ketones (Negative) Urine Blood (Negative) Urine Nitrite (Negative) Urine Bilirubin (Negative) Urine Urobilinogen (<2.0) mg/dL Ur Leukocyte Esterase (Negative) 05/11/17 05/11/17 05/11/17 Range/Units 15:11 15:11 15:45 WBC (3.8-10.6) k/uL RBC (4.30-5.90) m/uL Hgb (13.0-17.5) gm/dL Hct (39.0-53.0) % MCV (80.0-100.0) fL MCH (25.0-35.0) pg MCHC (31.0-37.0) g/dL RDW (11.5-15.5) % Plt Count (150-450) k/uL Neutrophils % % Lymphocytes % % Monocytes % % Eosinophils % % Basophils % % Neutrophils # (1.3-7.7) k/uL Lymphocytes # (1.0-4.8) k/uL Monocytes # (0-1.0) k/uL Eosinophils # (0-0.7) k/uL Basophils # (0-0.2) k/uL Hypochromasia Anisocytosis PT 11.2 (9.0-12.0) sec INR 1.2 H (<1.2) APTT 27.4 (22.0-30.0) sec Sodium (137-145) mmol/L Potassium (3.5-5.1) mmol/L Chloride (98-107) mmol/L Carbon Dioxide (22-30) mmol/L Anion Gap mmol/L BUN (9-20) mg/dL Creatinine (0.66-1.25) mg/dL Est GFR (MDRD) Af Amer (>60 ml/min/1.73 sqM) Est GFR (MDRD) Non-Af (>60 ml/min/1.73 sqM) Glucose (74-99) mg/dL Plasma Lactic Acid Murtaza 1.1 (0.7-2.0) mmol/L Calcium (8.4-10.2) mg/dL Magnesium (1.6-2.3) mg/dL Total Bilirubin (0.2-1.3) mg/dL AST (17-59) U/L ALT (21-72) U/L Alkaline Phosphatase (38-126) U/L Total Creatine Kinase (55-170) U/L CK-MB (CK-2) (0.0-2.4) ng/mL CK-MB (CK-2) Rel Index Troponin I (0.000-0.034) ng/mL Total Protein (6.3-8.2) g/dL Albumin (3.5-5.0) g/dL Urine Color Light Yellow Urine Appearance Clear (Clear) Urine pH 6.5 (5.0-8.0) Ur Specific [place] 1.003 (1.001-1.035) Urine Protein Negative (Negative) Urine Glucose (UA) Negative (Negative) Urine Ketones Negative (Negative) Urine Blood Negative (Negative) Urine Nitrite Negative (Negative) Urine Bilirubin Negative (Negative) Urine Urobilinogen <2.0 (<2.0) mg/dL Ur Leukocyte Esterase Negative (Negative) Disposition Clinical Impression: Headache Disposition: HOME SELF-CARE Condition: Good Instructions: Acute Headache (ED) Referrals: Yoav Castillo DO [Primary Care Provider] - 1-2 days Time of Disposition: 16:34
[2017-05-11 15:20] VITALS: RESP 16
[2017-05-11 15:40] LABS: ALT 28 U/L (21-72); AST 23 U/L (17-59); Alkaline Phosphatase 98 U/L (38-126); Anion Gap 11 mmol/L; Blood Urea Nitrogen 7 mg/dL (9-20); Calcium 9.4 mg/dL (8.4-10.2); Carbon Dioxide 30 mmol/L (22-30); Chloride 101 mmol/L (98-107); Glucose 93 mg/dL (74-99); Potassium 4.2 mmol/L (3.5-5.1); Sodium 142 mmol/L (137-145); Total Bilirubin 0.5 mg/dL (0.2-1.3); Total Protein 6.5 g/dL (6.3-8.2)
[2017-05-11 15:41] LABS: Anisocytosis Slight; Basophils % (A) 1 %; Eosinophils # (A) 0.4 k/uL (0-0.7); Eosinophils % (A) 7 %; HCT 44.6 % (39.0-53.0); HGB 13.5 gm/dL (13.0-17.5); Hypochromasia Slight; Lymphocytes # (A) 1.2 k/uL (1.0-4.8); Lymphocytes % (A) 21 %; MCHC 30.3 g/dL (31.0-37.0); MCV 89.2 fL (80.0-100.0); Mean Platelet Volume 7.7; Monocytes # (A) 0.6 k/uL (0-1.0); Monocytes % (A) 10 %; Neutrophils # (A) 3.5 k/uL (1.3-7.7); Neutrophils % (A) 59 %; Platelet Count 273 k/uL (150-450); RDW 17.6 % (11.5-15.5)
[2017-05-11 15:42] LABS: INR 1.2 (<1.2); Partial Thromboplastin Time 27.4 sec (22.0-30.0); Prothrombin Time 11.2 sec (9.0-12.0)
--- NOTE | 2017-05-11 15:46 | CT ---
EXAMINATION TYPE: CT brain gabriela lim DATE OF EXAM: 05/11/2017 COMPARISON: March 16, 2017 HISTORY: Multiple fall injuries CT DLP: 1426.[address] of the brain was performed. The ventricles, basal cisterns and sulci overlying the cerebral convexities demonstrate moderate enl argement stable from prior examination.. There is no evidence for intracranial hemorrhage or sulcal effacement. There is decreased attenuatio n about the periventricular white matter and deep white matter of both cerebral hemispheres, compatib le with chronic small vessel ischemia. No mass effects are seen. If symptoms persist consider MRI. Osseous calvarium is intact. IMPRESSION: 1. Age related atrophic and chronic small vessel ischemic change without acute intracranial process seen at this time. CT Cervical Spine: Unenhanced CT of the cervical spine was performed with bone and soft tissue window settings submitted . Coronal and sagittal reconstruction is obtained. There is normal alignment and prevertebral soft tissues. No evidence for acute cervical fracture . Se teagan degenerative disc space narrowing and large anterior osteophytes. 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 Stabilizing rods posterior occipital cervical region. IMPRESSION: 1. No evidence for acute fracture or subluxation of the cervical spine.
[2017-05-11 15:52] LABS: Creatine Kinase 87 U/L (55-170)
[2017-05-11 15:57] LABS: Appearance,Urine Clear (Clear); Bilirubin,Urine Negative (Negative); Blood,Urine Negative (Negative); Color,Urine Light Yellow; Glucose,Urine (UA) Negative (Negative); Ketones,Urine Negative (Negative); Leukocyte Esterase,Urine Negative (Negative); PH, Urine 6.5 (5.0-8.0); Protein,Urine Negative (Negative); Specific Gravity,Urine 1.003 (1.001-1.035); Urobilinogen,Urine <2.0 mg/dL (<2.0)
[2017-05-11 16:05] LABS: Creatine Kinase MB 2.3 ng/mL (0.0-2.4); Troponin I <0.012 ng/mL (0.000-0.034)
--- NOTE | 2017-05-11 16:11 | XR ---
EXAMINATION TYPE: XR chest 2V DATE OF EXAM: 05/11/2017 COMPARISON: 11/18/2016 HISTORY: Shortness of breath TECHNIQUE: Frontal and lateral views of the chest are obtained. FINDINGS: Scattered senescent parenchymal changes noted. Hyperinflation compatible with COPD. Calcified pleural plaques seen bilaterally. No evidence for infiltrate. No evidence for atelectasis. Heart size is stable. Mediastinal structures are stable and grossly unremarkable. No evidence for hilar prominence. Degenerative changes dorsal spine. IMPRESSION: 1. No evidence for acute pulmonary disease.
[2017-05-11 16:48] VITALS: BP 176/79; PULSE 70
== END 2017-05-11 16:42 | disposition home or self-care (01) ==
LOC: EC 13:41
DX: R51 Headache (principal); I25.10 Atherosclerotic heart disease of native coronary artery without angina pectoris; K21.9 Gastro-esophageal reflux disease without esophagitis; I10 Essential (primary) hypertension; E78.5 Hyperlipidemia, unspecified; N42.9 Disorder of prostate, unspecified; F32.9 Major depressive disorder, single episode, unspecified; F41.9 Anxiety disorder, unspecified; F17.200 Nicotine dependence, unspecified, uncomplicated; Z85.9 Personal history of malignant neoplasm, unspecified; Z79.82 Long term (current) use of aspirin; Z79.899 Other long term (current) drug therapy; Z53.20 Procedure and treatment not carried out because of patient's decision for unspecified reasons
CPT/HCPCS: 36415; 70450; 71046; 72125; 80053; 81003; 82550; 82553; 83605; 83735; 84484; 85025; 85610; 85730; 93005; 96360; 99284

== ENCOUNTER 2017-05-13 01:43 | Emergency (ER) | payer MEDICARE ==
[2017-05-13 01:51] VITALS: TEMP 97.2
[2017-05-13] MEDS ORDERED: SODIUM CHLORIDE 0.9% 500 ML IV STA (01:54)
--- NOTE | 2017-05-13 01:57 | ED ---
General Adult HPI - General Chief complaint: Weakness Stated complaint: Lethargic Time Seen by Provider: 05/13/17 01:45 Source: patient, RN notes reviewed Mode of arrival: EMS Limitations: no limitations - History of Present Illness Initial comments: This is an 86-year-old male who presents emergency department because of lethargy per the family per EMS. Patient comes in states he's just weak all over and he woke up like this. Patient states he has no pain anywhere he is not having any difficulty breathing he doesn't feels heart racing. Patient states she hasn't had a recent fever chills or cough. Patient states he has taken new pain medication but he cannot remember what it is. Patient states she also took a Xanax. Patient denies any nausea vomiting or diarrhea recently. Patient states he just feels so weak that he can barely move anything but no weakness focally. Family has yet to comes we have no further history - Related Data Home Medications Medication Instructions Recorded Confirmed DULoxetine HCL [Cymbalta] 60 mg PO BID 05/16/14 05/11/17 Allopurinol 100 mg PO BID 09/09/15 05/11/17 Aspirin [Adult Low Dose Aspirin EC] 81 mg PO DAILY 03/29/16 05/11/17 Omeprazole [PriLOSEC] 20 mg PO DAILY 07/21/16 05/11/17 Metoprolol Tartrate [Lopressor] 25 mg PO DAILY 08/29/16 05/11/17 Sucralfate [Carafate] 1 gm PO BID 08/29/16 05/11/17 Vit C/E/Zn/Coppr/Lutein/Zeaxan 1 cap PO BID 08/29/16 05/11/17 [Preservision Areds 2 Softgel] guaiFENesin [Mucinex] 1,200 mg PO BID 08/29/16 05/11/17 Tamsulosin [Flomax] 0.4 mg PO DAILY 11/16/16 05/11/17 Acetaminophen [Tylenol Extra 500 mg PO Q6HR PRN 05/11/17 05/11/17 Strength] Ferrous Sulfate [Feosol] 325 mg PO DAILY 05/11/17 05/11/17 Multivit-Min/FA/Lycopen/Lutein 1 tab PO DAILY 05/11/17 05/11/17 [Centrum Silver Men Tablet] Simvastatin [Zocor] 20 mg PO HS 05/11/17 05/11/17 rOPINIRole HCL [Requip] 0.25 mg PO HS 05/11/17 05/11/17 Previous Rx's Medication Instructions Recorded ALPRAZolam [Xanax] 1 mg PO HS PRN tab 11/20/16 Lisinopril [Zestril] 2.5 mg PO DAILY tab 11/20/16 Allergies Allergy/AdvReac Type Severity Reaction Status Date / Time No Known Allergies Allergy Verified 05/13/17 01:51 Review of Systems ROS Statement: Those systems with pertinent positive or pertinent negative responses have been documented in the HPI. ROS Other: All systems not noted in ROS Statement are negative. Past Medical History Past Medical History: Coronary Artery Disease (CAD), Cancer, COPD, CVA/TIA, GERD /Reflux, Hyperlipidemia, Hypertension, Osteoarthritis (OA), Prostate Disorder Additional Past Medical History / Comment(s): MACULAR DEGENERATION History of Any Multi-Drug Resistant Organisms: None Reported Past Surgical History: Heart Catheterization With Stent, Joint Replacement, Orthopedic Surgery Additional Past Surgical History / Comment(s): carpal tunnel release bilat, ulcer surgery, RIGHT TOTAL KNEEX2, left rotater cuff Past Anesthesia/Blood Transfusion Reactions: No Reported Reaction Additional Past Anesthesia/Blood Transfusion Reaction / Comment(s): Pt received blood in 2007 without reaction. Date of Last Stent Placement:: 2010 Past Psychological History: Anxiety, Depression Smoking Status: Current every day smoker Past Alcohol Use History: None Reported Past Drug Use History: None Reported - Past Family History Mother Family Medical History: Cancer Additional Family Medical History / Comment(s): Mother at age 43 from colon cancer. Father Additional Family Medical History / Comment(s): Father at age 98 from old age with no major medical problems. Patient does not have any brothers or sisters. Daughter(s) Additional Family Medical History / Comment(s): Patient has 2 daughters with mental health issues. No medical problems. General Exam - General Exam Comments Initial Comments: GENERAL: Patient is well-developed and well-nourished. Patient is nontoxic and well- hydrated and is in no acute distress. Patient is lethargic but is able to answer all questions. ENT: Neck is soft and supple. No significant lymphadenopathy is noted. Oropharynx is clear. Moist mucous membranes. Neck has full range of motion without eliciting any pain. EYES: The sclera were anicteric and conjunctiva were pink and moist. Extraocular movements were intact and pupils were equal round and reactive to light. Eyelids were unremarkable. PULMONARY: Unlabored respirations. Good breath sounds bilaterally. No audible rales rhonchi or wheezing was noted. CARDIOVASCULAR: There is a regular rate and rhythm without any murmurs gallops or rubs. ABDOMEN: Soft and nontender with normal bowel sounds. SKIN: Skin is clear with no lesions or rashes and otherwise unremarkable. NEUROLOGIC: Patient is alert and oriented x3. Cranial nerves II through XII are grossly intact. Motor weakness generally no focal weakness and sensory are also intact. Normal speech, volume and content. Symmetrical smile. MUSCULOSKELETAL: Normal extremities with adequate strength and full range of motion. 1+ edema LYMPHATICS: No significant lymphadenopathy is noted PSYCHIATRIC: Normal psychiatric evaluation. Limitations: no limitations Course Vital Signs 05/13/17 01:45 Temperature 97.2 F L Pulse Rate 70 Respiratory 24 Rate Blood Pressure 112/56 O2 Sat by Pulse 100 Oximetry Medical Decision Making - Medical Decision Making EKG shows normal sinus rhythm at 73 bpm [place] interval is 164 QRS is 78 QT interval 400 QTC is 440. Patient stated he took a pain medication last night before bed as well as Xanax. Patient states now that his medications have worn off he feels a lot better. Patient did not want to stay in the emergency department because he is back to his baseline. Patient stated he would follow-up with his primary medical care doctor. Patient was able to ambulate without problem on his own in the emergency department. - Lab Data Result diagrams: 05/13/17 01:57 05/13/17 01:57 Lab Results 05/13/17 05/13/17 05/13/17 Range/Units 01:57 01:57 01:57 WBC 8.6 (3.8-10.6) k/uL RBC 4.77 (4.30-5.90) m/uL Hgb 12.9 L (13.0-17.5) gm/dL Hct 42.6 (39.0-53.0) % MCV 89.4 (80.0-100.0) fL MCH 27.1 (25.0-35.0) pg MCHC 30.3 L (31.0-37.0) g/dL RDW 17.7 H (11.5-15.5) % Plt Count 264 (150-450) k/uL Neutrophils % 71 % Lymphocytes % 14 % Monocytes % 9 % Eosinophils % 4 % Basophils % 0 % Neutrophils # 6.1 (1.3-7.7) k/uL Lymphocytes # 1.2 (1.0-4.8) k/uL Monocytes # 0.8 (0-1.0) k/uL Eosinophils # 0.4 (0-0.7) k/uL Basophils # 0.0 (0-0.2) k/uL Hypochromasia Slight Anisocytosis Slight PT (9.0-12.0) sec INR (<1.2) APTT (22.0-30.0) sec Sodium 142 (137-145) mmol/L Potassium 3.6 (3.5-5.1) mmol/L Chloride 101 (98-107) mmol/L Carbon Dioxide 33 H (22-30) mmol/L Anion Gap 8 mmol/L BUN 14 (9-20) mg/dL Creatinine 0.90 (0.66-1.25) mg/dL Est GFR (MDRD) Af Amer >60 (>60 ml/min/1.73 sqM) Est GFR (MDRD) Non-Af >60 (>60 ml/min/1.73 sqM) Glucose 138 H (74-99) mg/dL Plasma Lactic Acid [place] (0.7-2.0) mmol/L Calcium 9.6 (8.4-10.2) mg/dL Magnesium (1.6-2.3) mg/dL Total Bilirubin 0.6 (0.2-1.3) mg/dL AST 20 (17-59) U/L ALT 24 (21-72) U/L Alkaline Phosphatase 82 (38-126) U/L Total Creatine Kinase 75 (55-170) U/L CK-MB (CK-2) 1.5 (0.0-2.4) ng/mL CK-MB (CK-2) Rel Index 2.0 Troponin I <0.012 (0.000-0.034) ng/mL Total Protein 6.2 L (6.3-8.2) g/dL Albumin 3.8 (3.5-5.0) g/dL Urine Color Urine Appearance (Clear) Urine pH (5.0-8.0) Ur Specific [place] (1.001-1.035) Urine Protein (Negative) Urine Glucose (UA) (Negative) Urine Ketones (Negative) Urine Blood (Negative) Urine Nitrite (Negative) Urine Bilirubin (Negative) Urine Urobilinogen (<2.0) mg/dL Ur Leukocyte Esterase (Negative) 05/13/17 05/13/17 05/13/17 Range/Units 01:57 01:57 01:57 WBC (3.8-10.6) k/uL RBC (4.30-5.90) m/uL Hgb (13.0-17.5) gm/dL Hct (39.0-53.0) % MCV (80.0-100.0) fL MCH (25.0-35.0) pg MCHC (31.0-37.0) g/dL RDW (11.5-15.5) % Plt Count (150-450) k/uL Neutrophils % % Lymphocytes % % Monocytes % % Eosinophils % % Basophils % % Neutrophils # (1.3-7.7) k/uL Lymphocytes # (1.0-4.8) k/uL Monocytes # (0-1.0) k/uL Eosinophils # (0-0.7) k/uL Basophils # (0-0.2) k/uL Hypochromasia Anisocytosis PT 11.0 (9.0-12.0) sec INR 1.1 (<1.2) APTT 25.7 (22.0-30.0) sec Sodium (137-145) mmol/L Potassium (3.5-5.1) mmol/L Chloride (98-107) mmol/L Carbon Dioxide (22-30) mmol/L Anion Gap mmol/L BUN (9-20) mg/dL Creatinine (0.66-1.25) mg/dL Est GFR (MDRD) Af Amer (>60 ml/min/1.73 sqM) Est GFR (MDRD) Non-Af (>60 ml/min/1.73 sqM) Glucose (74-99) mg/dL Plasma Lactic Acid [place] 1.6 (0.7-2.0) mmol/L Calcium (8.4-10.2) mg/dL Magnesium 2.1 (1.6-2.3) mg/dL Total Bilirubin (0.2-1.3) mg/dL AST (17-59) U/L ALT (21-72) U/L Alkaline Phosphatase (38-126) U/L Total Creatine Kinase (55-170) U/L CK-MB (CK-2) (0.0-2.4) ng/mL CK-MB (CK-2) Rel Index Troponin I (0.000-0.034) ng/mL Total Protein (6.3-8.2) g/dL Albumin (3.5-5.0) g/dL Urine Color Urine Appearance (Clear) Urine pH (5.0-8.0) Ur Specific [place] (1.001-1.035) Urine Protein (Negative) Urine Glucose (UA) (Negative) Urine Ketones (Negative) Urine Blood (Negative) Urine Nitrite (Negative) Urine Bilirubin (Negative) Urine Urobilinogen (<2.0) mg/dL Ur Leukocyte Esterase (Negative) 05/13/17 Range/Units 02:15 WBC (3.8-10.6) k/uL RBC (4.30-5.90) m/uL Hgb (13.0-17.5) gm/dL Hct (39.0-53.0) % MCV (80.0-100.0) fL MCH (25.0-35.0) pg MCHC (31.0-37.0) g/dL RDW (11.5-15.5) % Plt Count (150-450) k/uL Neutrophils % % Lymphocytes % % Monocytes % % Eosinophils % % Basophils % % Neutrophils # (1.3-7.7) k/uL Lymphocytes # (1.0-4.8) k/uL Monocytes # (0-1.0) k/uL Eosinophils # (0-0.7) k/uL Basophils # (0-0.2) k/uL Hypochromasia Anisocytosis PT (9.0-12.0) sec INR (<1.2) APTT (22.0-30.0) sec Sodium (137-145) mmol/L Potassium (3.5-5.1) mmol/L Chloride (98-107) mmol/L Carbon Dioxide (22-30) mmol/L Anion Gap mmol/L BUN (9-20) mg/dL Creatinine (0.66-1.25) mg/dL Est GFR (MDRD) Af Amer (>60 ml/min/1.73 sqM) Est GFR (MDRD) Non-Af (>60 ml/min/1.73 sqM) Glucose (74-99) mg/dL Plasma Lactic Acid [place] (0.7-2.0) mmol/L Calcium (8.4-10.2) mg/dL Magnesium (1.6-2.3) mg/dL Total Bilirubin (0.2-1.3) mg/dL AST (17-59) U/L ALT (21-72) U/L Alkaline Phosphatase (38-126) U/L Total Creatine Kinase (55-170) U/L CK-MB (CK-2) (0.0-2.4) ng/mL CK-MB (CK-2) Rel Index Troponin I (0.000-0.034) ng/mL Total Protein (6.3-8.2) g/dL Albumin (3.5-5.0) g/dL Urine Color Yellow Urine Appearance Clear (Clear) Urine pH 6.0 (5.0-8.0) Ur Specific [place] 1.010 (1.001-1.035) Urine Protein Trace H (Negative) Urine Glucose (UA) Negative (Negative) Urine Ketones Negative (Negative) Urine Blood Negative (Negative) Urine Nitrite Negative (Negative) Urine Bilirubin Negative (Negative) Urine Urobilinogen <2.0 (<2.0) mg/dL Ur Leukocyte Esterase Negative (Negative) Disposition Clinical Impression: Weakness Disposition: HOME SELF-CARE Condition: Good Instructions: Weakness (ED) Referrals: Yoav Castillo DO [Primary Care Provider] - 1-2 days Time of Disposition: 04:43
[2017-05-13 02:14] LABS: Anisocytosis Slight; Basophils % (A) 0 %; Eosinophils # (A) 0.4 k/uL (0-0.7); Eosinophils % (A) 4 %; HCT 42.6 % (39.0-53.0); HGB 12.9 gm/dL (13.0-17.5); Hypochromasia Slight; Lymphocytes # (A) 1.2 k/uL (1.0-4.8); Lymphocytes % (A) 14 %; MCH 27.1 pg (25.0-35.0); MCHC 30.3 g/dL (31.0-37.0); MCV 89.4 fL (80.0-100.0); Mean Platelet Volume 7.6; Monocytes # (A) 0.8 k/uL (0-1.0); Monocytes % (A) 9 %; Neutrophils # (A) 6.1 k/uL (1.3-7.7); Neutrophils % (A) 71 %; Platelet Count 264 k/uL (150-450); RBC 4.77 m/uL (4.30-5.90); RDW 17.7 % (11.5-15.5); WBC 8.6 k/uL (3.8-10.6)
[2017-05-13 02:22] LABS: ALT 24 U/L (21-72); AST 20 U/L (17-59); Albumin 3.8 g/dL (3.5-5.0); Alkaline Phosphatase 82 U/L (38-126); Anion Gap 8 mmol/L; Blood Urea Nitrogen 14 mg/dL (9-20); Calcium 9.6 mg/dL (8.4-10.2); Carbon Dioxide 33 mmol/L (22-30); Chloride 101 mmol/L (98-107); Glucose 138 mg/dL (74-99); Potassium 3.6 mmol/L (3.5-5.1); Sodium 142 mmol/L (137-145); Total Bilirubin 0.6 mg/dL (0.2-1.3); Total Protein 6.2 g/dL (6.3-8.2)
[2017-05-13 02:28] LABS: Appearance,Urine Clear (Clear); Bilirubin,Urine Negative (Negative); Blood,Urine Negative (Negative); Color,Urine Yellow; Glucose,Urine (UA) Negative (Negative); Ketones,Urine Negative (Negative); Leukocyte Esterase,Urine Negative (Negative); Protein,Urine Trace (Negative); Urobilinogen,Urine <2.0 mg/dL (<2.0)
[2017-05-13 02:29] LABS: INR 1.1 (<1.2); Partial Thromboplastin Time 25.7 sec (22.0-30.0)
[2017-05-13 02:36] LABS: Creatine Kinase 75 U/L (55-170)
--- NOTE | 2017-05-13 02:47 | XR ---
EXAMINATION TYPE: XR chest 2V DATE OF EXAM: 05/13/2017 COMPARISON: 05/11/2017 HISTORY: Weakness TECHNIQUE: Frontal and lateral views of the chest are obtained. FINDINGS: There is no heart failure nor confluent pneumonic infiltrate. There is coarsening of inter stitial markings. There is calcified pleural plaque on the left and right chest wall and also at the right diaphragm. Thoracic aorta is atheromatous. The bony thorax appears intact. IMPRESSION: Pulmonary fibrotic changes. Calcified pleural plaque. No acute lung disease. No heart fa ilure. No change.
[2017-05-13 02:49] LABS: Creatine Kinase MB 1.5 ng/mL (0.0-2.4); Troponin I <0.012 ng/mL (0.000-0.034)
[2017-05-13] MEDS ORDERED: LEVOFLOXACIN 750MG-D5W PMX 750 MG in DEXTROSE/WATER 1 150ML.BAG IVPB STA (03:18)
[2017-05-13 04:47] VITALS: BP 116/57; PULSE 84; RESP 20
[2017-05-13] MEDS ORDERED: PIPERACILLIN-TAZOBACTAM 3.375 GM in DEXTROSE/WATER 1 50ML.BAG IVPB SCH (08:00)
[2017-05-14] MEDS ORDERED: LEVOFLOXACIN 750MG-D5W PMX 750 MG in DEXTROSE/WATER 1 150ML.BAG IVPB SCH (06:00)
== END 2017-05-13 04:50 | disposition home or self-care (01) ==
LOC: EC 01:43
DX: R53.1 Weakness (principal); I25.10 Atherosclerotic heart disease of native coronary artery without angina pectoris; K21.9 Gastro-esophageal reflux disease without esophagitis; E78.5 Hyperlipidemia, unspecified; I10 Essential (primary) hypertension; F41.9 Anxiety disorder, unspecified; F32.9 Major depressive disorder, single episode, unspecified; F17.200 Nicotine dependence, unspecified, uncomplicated; Z95.5 Presence of coronary angioplasty implant and graft; Z86.73 Personal history of transient ischemic attack (TIA), and cerebral infarction without residual deficits; Z85.9 Personal history of malignant neoplasm, unspecified; Z79.899 Other long term (current) drug therapy; Z79.82 Long term (current) use of aspirin
CPT/HCPCS: 36415; 71046; 80053; 81003; 82550; 82553; 83605; 83735; 84484; 85025; 85610; 85730; 96360; 99285

== ENCOUNTER 2018-01-30 16:26 | Inpatient (IN) | payer MEDICARE ==
--- NOTE | 2018-01-30 16:38 | ED ---
SOB HPI - General Chief Complaint: Shortness of Breath Stated Complaint: Weakness Time Seen by Provider: 01/30/18 16:35 Source: patient, EMS, RN notes reviewed, old records reviewed Mode of arrival: EMS Limitations: no limitations - History of Present Illness Initial Comments: This is an afebrile male the ER for evaluation. Patient states he presents today for evaluation of not feeling well. Patient admits to feeling feverish, patient's also told patient's earlier in the day that he felt like he had a fever. Patient admits cough and shortness of breath he has underlying history of COPD. Patient's main complaint is weakness, is not feeling well. Patient states he feels nauseous weak shortness of breath. Significant fatigue. No significant sick contacts no recent hospitalizations MD Complaint: shortness of breath, cough -: days(s) (2) Radiation: other (None) Severity: mild Severity scale (1-10): 3 Quality: aching Consistency: now resolved (Pain is resolved) Improves With: nothing Worsens With: nothing Known History Of: COPD Context: recent URI Associated Symptoms: fever Treatments Prior to Arrival: none - Related Data Home Medications Medication Instructions Recorded Confirmed DULoxetine HCL [Cymbalta] 60 mg PO BID 05/16/14 01/30/18 Allopurinol 100 mg PO BID 09/09/15 01/30/18 Omeprazole [PriLOSEC] 20 mg PO DAILY 07/21/16 01/30/18 Metoprolol Tartrate [Lopressor] 25 mg PO DAILY 08/29/16 01/30/18 Sucralfate [Carafate] 1 gm PO BID 08/29/16 01/30/18 Vit C/E/Zn/Coppr/Lutein/Zeaxan 1 cap PO BID 08/29/16 01/30/18 [Preservision Areds 2 Softgel] guaiFENesin [Mucinex] 1,200 mg PO BID 08/29/16 01/30/18 Tamsulosin [Flomax] 0.4 mg PO DAILY 11/16/16 01/30/18 Acetaminophen [Tylenol Extra 500 mg PO Q6HR PRN 05/11/17 01/30/18 Strength] Ferrous Sulfate [Feosol] 325 mg PO DAILY 05/11/17 01/30/18 Multivit-Min/FA/Lycopen/Lutein 1 tab PO DAILY 05/11/17 01/30/18 [Centrum Silver Men Tablet] Simvastatin [Zocor] 20 mg PO HS 05/11/17 01/30/18 rOPINIRole HCL [Requip] 0.25 mg PO HS 05/11/17 01/30/18 ALPRAZolam [Xanax] 1 mg PO TID PRN 06/29/17 01/30/18 Previous Rx's Medication Instructions Recorded Lisinopril [Zestril] 2.5 mg PO DAILY tab 11/20/16 Allergies Allergy/AdvReac Type Severity Reaction Status Date / Time No Known Allergies Allergy Verified 01/30/18 17:47 Review of Systems ROS Statement: Those systems with pertinent positive or pertinent negative responses have been documented in the HPI. ROS Other: All systems not noted in ROS Statement are negative. Past Medical History Past Medical History: Coronary Artery Disease (CAD), Cancer, COPD, CVA/TIA, GERD /Reflux, Hyperlipidemia, Hypertension, Osteoarthritis (OA), Prostate Disorder Additional Past Medical History / Comment(s): MACULAR DEGENERATION History of Any Multi-Drug Resistant Organisms: None Reported Past Surgical History: Heart Catheterization With Stent, Joint Replacement, Orthopedic Surgery Additional Past Surgical History / Comment(s): carpal tunnel release bilat, ulcer surgery, RIGHT TOTAL KNEEX2, left rotater cuff Past Anesthesia/Blood Transfusion Reactions: No Reported Reaction Additional Past Anesthesia/Blood Transfusion Reaction / Comment(s): Pt received blood in 2007 without reaction. Date of Last Stent Placement:: 2010 Past Psychological History: Anxiety, Depression Smoking Status: Current every day smoker Past Alcohol Use History: None Reported Past Drug Use History: None Reported - Past Family History Mother Family Medical History: Cancer Additional Family Medical History / Comment(s): Mother at age 43 from colon cancer. Father Additional Family Medical History / Comment(s): Father at age 98 from old age with no major medical problems. Patient does not have any brothers or sisters. Daughter(s) Additional Family Medical History / Comment(s): Patient has 2 daughters with mental health issues. No medical problems. General Exam Limitations: no limitations General appearance: alert, in no apparent distress, lethargic Head exam: Present: atraumatic, normocephalic, normal inspection Eye exam: Present: normal appearance, PERRL, EOMI. Absent: scleral icterus, conjunctival injection, periorbital swelling ENT exam: Present: normal exam, mucous membranes dry Neck exam: Present: normal inspection. Absent: tenderness, meningismus, lymphadenopathy Respiratory exam: Present: normal lung sounds bilaterally, wheezes, accessory muscle use, decreased breath sounds, prolonged expiratory. Absent: respiratory distress, rales, rhonchi, stridor Cardiovascular Exam: Present: regular rate, normal rhythm, normal heart sounds. Absent: systolic murmur, diastolic murmur, rubs, gallop, clicks GI/Abdominal exam: Present: soft, normal bowel sounds. Absent: distended, tenderness, guarding, rebound, rigid Extremities exam: Present: normal inspection, full ROM, normal capillary refill. Absent: tenderness, pedal edema, joint swelling, calf tenderness Back exam: Present: normal inspection Neurological exam: Present: alert, oriented X3, CN II-XII intact Psychiatric exam: Present: normal affect, normal mood Skin exam: Present: warm, dry, intact, normal color. Absent: rash Course Vital Signs 01/30/18 01/30/18 01/30/18 16:31 16:34 16:35 Temperature 99.7 F H Pulse Rate 111 H Respiratory 18 20 Rate Blood Pressure 141/65 O2 Sat by Pulse 93 L 93 L Oximetry 01/30/18 01/30/18 01/30/18 16:40 16:48 16:50 Temperature Pulse Rate 108 H 106 H 108 H Respiratory 18 16 Rate Blood Pressure 141/65 141/65 O2 Sat by Pulse 94 L 97 Oximetry 01/30/18 01/30/18 01/30/18 16:53 17:00 17:10 Temperature Pulse Rate 107 H 114 H Respiratory 18 Rate Blood Pressure 141/65 128/62 O2 Sat by Pulse 94 L Oximetry 01/30/18 01/30/18 01/30/18 17:20 17:30 17:40 Temperature Pulse Rate 111 H 112 H 112 H Respiratory 20 18 20 Rate Blood Pressure 128/62 128/62 142/77 O2 Sat by Pulse 93 L 94 L 95 Oximetry 01/30/18 01/30/18 01/30/18 17:50 18:00 18:10 Temperature Pulse Rate 111 H 109 H 113 H Respiratory 18 20 16 Rate Blood Pressure 142/77 142/77 146/71 O2 Sat by Pulse 94 L 93 L 93 L Oximetry 01/30/18 01/30/18 01/30/18 18:20 18:30 18:40 Temperature Pulse Rate 105 H 106 H 107 H Respiratory 17 16 Rate Blood Pressure 146/71 146/71 139/68 O2 Sat by Pulse 93 L 94 L 94 L Oximetry 01/30/18 01/30/18 01/30/18 18:50 19:00 19:04 Temperature Pulse Rate 105 H 101 H 98 Respiratory 16 Rate Blood Pressure 139/68 139/68 118/60 O2 Sat by Pulse 94 L 95 95 Oximetry 01/30/18 19:14 Temperature 98.1 F Pulse Rate Respiratory Rate Blood Pressure O2 Sat by Pulse Oximetry - Reevaluation(s) Reevaluation #1: 01/30/18 19:23 Medical record is reviewed Reevaluation #2: 01/30/18 19:23 Patient is improved with IV antibiotics and symptom therapy Medical Decision Making - Medical Decision Making 87 male the ER for evaluation but they presents for evaluation regards to fever , not feeling well. Patient denies headache, has increased shortness of breath cough and congestion. Will place patient on IV antibiotics and admit for continued evaluation of cardiopulmonary status - Lab Data Result diagrams: 01/30/18 16:52 01/30/18 16:52 Lab Results 01/30/18 01/30/18 01/30/18 Range/Units 16:52 16:52 16:52 WBC 20.0 H (3.8-10.6) k/uL RBC 4.51 (4.30-5.90) m/uL Hgb 14.5 (13.0-17.5) gm/dL Hct 44.4 (39.0-53.0) % MCV 98.5 (80.0-100.0) fL MCH 32.1 (25.0-35.0) pg MCHC 32.6 (31.0-37.0) g/dL RDW 14.2 (11.5-15.5) % Plt Count 209 (150-450) k/uL Neutrophils % 92 % Lymphocytes % 2 % Monocytes % 5 % Eosinophils % 1 % Basophils % 0 % Neutrophils # 18.4 H (1.3-7.7) k/uL Lymphocytes # 0.3 L (1.0-4.8) k/uL Monocytes # 1.1 H (0-1.0) k/uL Eosinophils # 0.1 (0-0.7) k/uL Basophils # 0.0 (0-0.2) k/uL PT (9.0-12.0) sec INR (<1.2) APTT (22.0-30.0) sec Sodium 137 (137-145) mmol/L Potassium 3.8 (3.5-5.1) mmol/L Chloride 99 (98-107) mmol/L Carbon Dioxide 30 (22-30) mmol/L Anion Gap 8 mmol/L BUN 21 H (9-20) mg/dL Creatinine 0.71 (0.66-1.25) mg/dL Est GFR (CKD-EPI)AfAm >90 (>60 ml/min/1.73 sqM) Est GFR (CKD-EPI)NonAf 86 (>60 ml/min/1.73 sqM) Glucose 109 H (74-99) mg/dL Plasma Lactic Acid [place] (0.7-2.0) mmol/L Calcium 9.3 (8.4-10.2) mg/dL Magnesium 1.8 (1.6-2.3) mg/dL Total Bilirubin 0.7 (0.2-1.3) mg/dL AST 26 (17-59) U/L ALT 36 (21-72) U/L Alkaline Phosphatase 65 (38-126) U/L Total Creatine Kinase 78 (55-170) U/L CK-MB (CK-2) 1.3 (0.0-2.4) ng/mL CK-MB (CK-2) Rel Index 1.7 Troponin I 0.019 (0.000-0.034) ng/mL NT-Pro-B Natriuret Pep pg/mL Total Protein 6.7 (6.3-8.2) g/dL Albumin 3.9 (3.5-5.0) g/dL Urine Color Urine Appearance (Clear) Urine pH (5.0-8.0) Ur Specific [place] (1.001-1.035) Urine Protein (Negative) Urine Glucose (UA) (Negative) Urine Ketones (Negative) Urine Blood (Negative) Urine Nitrite (Negative) Urine Bilirubin (Negative) Urine Urobilinogen (<2.0) mg/dL Ur Leukocyte Esterase (Negative) Influenza Type A RNA (Not Detectd) Influenza Type B (PCR) (Not Detectd) 01/30/18 01/30/18 01/30/18 Range/Units 16:52 16:52 16:52 WBC (3.8-10.6) k/uL RBC (4.30-5.90) m/uL Hgb (13.0-17.5) gm/dL Hct (39.0-53.0) % MCV (80.0-100.0) fL MCH (25.0-35.0) pg MCHC (31.0-37.0) g/dL RDW (11.5-15.5) % Plt Count (150-450) k/uL Neutrophils % % Lymphocytes % % Monocytes % % Eosinophils % % Basophils % % Neutrophils # (1.3-7.7) k/uL Lymphocytes # (1.0-4.8) k/uL Monocytes # (0-1.0) k/uL Eosinophils # (0-0.7) k/uL Basophils # (0-0.2) k/uL PT 10.5 (9.0-12.0) sec INR 1.1 (<1.2) APTT 24.3 (22.0-30.0) sec Sodium (137-145) mmol/L Potassium (3.5-5.1) mmol/L Chloride (98-107) mmol/L Carbon Dioxide (22-30) mmol/L Anion Gap mmol/L BUN (9-20) mg/dL Creatinine (0.66-1.25) mg/dL Est GFR (CKD-EPI)AfAm (>60 ml/min/1.73 sqM) Est GFR (CKD-EPI)NonAf (>60 ml/min/1.73 sqM) Glucose (74-99) mg/dL Plasma Lactic Acid [place] (0.7-2.0) mmol/L Calcium (8.4-10.2) mg/dL Magnesium (1.6-2.3) mg/dL Total Bilirubin (0.2-1.3) mg/dL AST (17-59) U/L ALT (21-72) U/L Alkaline Phosphatase (38-126) U/L Total Creatine Kinase (55-170) U/L CK-MB (CK-2) (0.0-2.4) ng/mL CK-MB (CK-2) Rel Index Troponin I (0.000-0.034) ng/mL NT-Pro-B Natriuret Pep 344 pg/mL Total Protein (6.3-8.2) g/dL Albumin (3.5-5.0) g/dL Urine Color Urine Appearance (Clear) Urine pH (5.0-8.0) Ur Specific [place] (1.001-1.035) Urine Protein (Negative) Urine Glucose (UA) (Negative) Urine Ketones (Negative) Urine Blood (Negative) Urine Nitrite (Negative) Urine Bilirubin (Negative) Urine Urobilinogen (<2.0) mg/dL Ur Leukocyte Esterase (Negative) Influenza Type A RNA Not Detected (Not Detectd) Influenza Type B (PCR) Not Detected (Not Detectd) 01/30/18 01/30/18 Range/Units 16:52 18:13 WBC (3.8-10.6) k/uL RBC (4.30-5.90) m/uL Hgb (13.0-17.5) gm/dL Hct (39.0-53.0) % MCV (80.0-100.0) fL MCH (25.0-35.0) pg MCHC (31.0-37.0) g/dL RDW (11.5-15.5) % Plt Count (150-450) k/uL Neutrophils % % Lymphocytes % % Monocytes % % Eosinophils % % Basophils % % Neutrophils # (1.3-7.7) k/uL Lymphocytes # (1.0-4.8) k/uL Monocytes # (0-1.0) k/uL Eosinophils # (0-0.7) k/uL Basophils # (0-0.2) k/uL PT (9.0-12.0) sec INR (<1.2) APTT (22.0-30.0) sec Sodium (137-145) mmol/L Potassium (3.5-5.1) mmol/L Chloride (98-107) mmol/L Carbon Dioxide (22-30) mmol/L Anion Gap mmol/L BUN (9-20) mg/dL Creatinine (0.66-1.25) mg/dL Est GFR (CKD-EPI)AfAm (>60 ml/min/1.73 sqM) Est GFR (CKD-EPI)NonAf (>60 ml/min/1.73 sqM) Glucose (74-99) mg/dL Plasma Lactic Acid [place] 1.8 (0.7-2.0) mmol/L Calcium (8.4-10.2) mg/dL Magnesium (1.6-2.3) mg/dL Total Bilirubin (0.2-1.3) mg/dL AST (17-59) U/L ALT (21-72) U/L Alkaline Phosphatase (38-126) U/L Total Creatine Kinase (55-170) U/L CK-MB (CK-2) (0.0-2.4) ng/mL CK-MB (CK-2) Rel Index Troponin I (0.000-0.034) ng/mL NT-Pro-B Natriuret Pep pg/mL Total Protein (6.3-8.2) g/dL Albumin (3.5-5.0) g/dL Urine Color Yellow Urine Appearance Clear (Clear) Urine pH 6.5 (5.0-8.0) Ur Specific [place] 1.013 (1.001-1.035) Urine Protein Negative (Negative) Urine Glucose (UA) Negative (Negative) Urine Ketones Negative (Negative) Urine Blood Negative (Negative) Urine Nitrite Negative (Negative) Urine Bilirubin Negative (Negative) Urine Urobilinogen <2.0 (<2.0) mg/dL Ur Leukocyte Esterase Negative (Negative) Influenza Type A RNA (Not Detectd) Influenza Type B (PCR) (Not Detectd) - EKG Data -: EKG Interpreted by Me (EKG shows sinus tachycardia at 110, TN 136, QRS 70, QTc 427) - Radiology Data Radiology results: report reviewed (Chest x-ray at this time is negative for acute disease), image reviewed Disposition Clinical Impression: COPD exacerbation, Community acquired pneumonia, Acute exacerbation of chronic obstructive airways disease, Fever Disposition: ADMITTED IP TO THIS HOSP Condition: Fair Is patient prescribed a controlled substance at d/c from ED?: No
[2018-01-30] MEDS ORDERED: IPRATROPIUM-ALBUTEROL 3 ML NEB INHALATION STA (16:39)
[2018-01-30 17:19] LABS: Basophils % (A) 0 %; Eosinophils # (A) 0.1 k/uL (0-0.7); Eosinophils % (A) 1 %; HCT 44.4 % (39.0-53.0); HGB 14.5 gm/dL (13.0-17.5); Lymphocytes # (A) 0.3 k/uL (1.0-4.8); Lymphocytes % (A) 2 %; MCH 32.1 pg (25.0-35.0); MCHC 32.6 g/dL (31.0-37.0); MCV 98.5 fL (80.0-100.0); Mean Platelet Volume 7.3; Monocytes # (A) 1.1 k/uL (0-1.0); Monocytes % (A) 5 %; Neutrophils # (A) 18.4 k/uL (1.3-7.7); Neutrophils % (A) 92 %; Platelet Count 209 k/uL (150-450); RBC 4.51 m/uL (4.30-5.90); RDW 14.2 % (11.5-15.5)
[2018-01-30 17:25] LABS: INR 1.1 (<1.2); Partial Thromboplastin Time 24.3 sec (22.0-30.0); Prothrombin Time 10.5 sec (9.0-12.0)
[2018-01-30] MEDS ORDERED: ACETAMINOPHEN IV (For NPO) 1,000 MG in EMPTY BAG 1 BAG IVPB STA (17:25)
[2018-01-30] MEDS ORDERED: IBUPROFEN IV 800 MG in SODIUM CHLORIDE 0.9% 250 ML IV ONE (17:25)
[2018-01-30] MEDS ORDERED: LEVOFLOXACIN 750MG-D5W PMX 750 MG in DEXTROSE/WATER 1 150ML.BAG IVPB STA (17:25)
[2018-01-30 17:27] LABS: ALT 36 U/L (21-72); AST 26 U/L (17-59); Albumin 3.9 g/dL (3.5-5.0); Alkaline Phosphatase 65 U/L (38-126); Anion Gap 8 mmol/L; Blood Urea Nitrogen 21 mg/dL (9-20); Calcium 9.3 mg/dL (8.4-10.2); Carbon Dioxide 30 mmol/L (22-30); Chloride 99 mmol/L (98-107); Glucose 109 mg/dL (74-99); Magnesium 1.8 mg/dL (1.6-2.3); Potassium 3.8 mmol/L (3.5-5.1); Sodium 137 mmol/L (137-145); Total Bilirubin 0.7 mg/dL (0.2-1.3); Total Protein 6.7 g/dL (6.3-8.2)
[2018-01-30 17:53] LABS: Creatine Kinase MB 1.3 ng/mL (0.0-2.4); Troponin I 0.019 ng/mL (0.000-0.034)
[2018-01-30] MEDS ORDERED: IBUPROFEN 800 MG TAB PO STA (17:55)
[2018-01-30] MEDS ORDERED: ACETAMINOPHEN TAB 500 MG TAB PO STA (17:55)
[2018-01-30 18:39] LABS: Appearance,Urine Clear (Clear); Bilirubin,Urine Negative (Negative); Blood,Urine Negative (Negative); Color,Urine Yellow; Glucose,Urine (UA) Negative (Negative); Ketones,Urine Negative (Negative); Leukocyte Esterase,Urine Negative (Negative); Nitrite,Urine Negative (Negative); PH, Urine 6.5 (5.0-8.0); Protein,Urine Negative (Negative); Specific Gravity,Urine 1.013 (1.001-1.035); Urobilinogen,Urine <2.0 mg/dL (<2.0)
[2018-01-30] MEDS ORDERED: SODIUM CHLORIDE 0.9% 500 ML 500 ML IV STA (18:51)
[2018-01-30] MEDS ORDERED: SODIUM CHLORIDE 0.9% 1,000 ML IV STA ×2 (18:51)
[2018-01-30] MEDS ORDERED: PNEUMONIA PROTOCOL UTILIZED 1 EACH MISC PO PRN (18:52)
[2018-01-30] MEDS: SODIUM CHLORIDE 0.9% 1,000 ML IV SCH (19:04)
--- NOTE | 2018-01-30 19:15 | XR ---
EXAMINATION: XR chest 3V DATE AND TIME: 01/30/2018 5:15 PM CLINICAL INDICATION: difficulty breathing TECHNIQUE: 2PA and lateral COMPARISON: 05/13/2017 FINDINGS: Scattered pleural calcifications are redemonstrated, consistent with asbestos related change. The mil d/moderate senescent pulmonary findings are redemonstrated. Given these factors above, the lungs appe ar to be clear and the pleural spaces are negative for acute findings. The cardiac silhouette is mildly enlarged, unchanged. The remainder of the mediastinal silhouette is unchanged. The skeletal structures and soft tissues are negative for acute findings. IMPRESSION: NO ACUTE PROCESS.
[2018-01-30] MEDS: IPRATROPIUM-ALBUTEROL 3 ML NEB INHALATION SCH (21:19)
[2018-01-31] MEDS: IPRATROPIUM-ALBUTEROL 3 ML NEB INHALATION SCH ×4 (08:48→20:26)
[2018-01-31] MEDS: SODIUM CHLORIDE 0.9% 1,000 ML IV SCH ×2 (09:31→18:08)
[2018-01-31] MEDS ORDERED: IPRATROPIUM-ALBUTEROL 3 ML NEB INHALATION PRN (09:58)
[2018-01-31] MEDS: ENOXAPARIN 40 MG/0.4 ML SYRINGE SQ SCH (10:09)
[2018-01-31] MEDS ORDERED: ACETAMINOPHEN TAB 500 MG TAB PO PRN (10:14)
--- NOTE | 2018-01-31 11:26 | XR ---
EXAMINATION TYPE: XR chest 2V DATE OF EXAM: 01/31/2018 COMPARISON: 01/30/2018 INDICATION: Pneumonia TECHNIQUE: Frontal and lateral views of the chest are obtained. FINDINGS: The heart size is normal. The pulmonary vasculature is normal. There is slight increased diffuse lung markings present. Some calcification may lie along the right d iaphragm suggesting prior asbestos exposure. Chronic rotator cuff tears are likely present bilaterall y. IMPRESSION: 1. Mild increased lung markings present bilaterally, greater in the peripheral right midlung. Follow- up examinations are recommended
[2018-01-31 11:28] LABS: Glucose,Whole Blood 94 mg/dL (75-99)
[2018-01-31] MEDS: guaiFENesin 600 MG TABLET.ER PO SCH ×2 (11:36→20:16)
[2018-01-31] MEDS: DULoxetine HCL 60 MG CAPSULE.DR PO SCH ×2 (11:36→20:16)
[2018-01-31] MEDS: PANTOPRAZOLE 40 MG TABLET PO SCH (11:37)
[2018-01-31] MEDS: TAMSULOSIN 0.4 MG CAP.ER.24H PO SCH (11:37)
[2018-01-31] MEDS: FERROUS SULFATE 325 MG TAB PO SCH (11:38)
[2018-01-31] MEDS: METOPROLOL TARTRATE 25 MG TAB PO SCH (11:38)
[2018-01-31] MEDS: LISINOPRIL 2.5 MG TAB PO SCH (11:38)
[2018-01-31] MEDS: ALLOPURINOL 100 MG TAB PO SCH ×2 (11:55→20:16)
[2018-01-31] MEDS: INSULIN ASPART 100 UNIT/ML 1 ML 10 ML VIAL SQ SCH ×3 (12:28→20:36)
[2018-01-31] MEDS: methylPREDNISolone SOD SUCCI 125 MG/2 ML VIAL IV SCH ×3 (12:31→23:24)
--- NOTE | 2018-01-31 16:49 | P.HPIM ---
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 Patient has a nebulizer at home however he has no medications for this, he also decreased smoking October 2017 now at 4 cigarettes per day. Patient denies any recent falls, no weight loss no syncope no aspirated events.\ In the emergency room, chest x-ray there is pleural plaques and calcifications noted, mild increased lung markings present bilaterally, greater in the right midlung peripherally, follow-up x-rays are so recommended, double basic count of 20,000, neutrophilia INR 1.1, creatinine 0.7. Once a and B-, urinalysis negative, BOBBIN PR[employer]ER proBNP 344 normal Past Medical History Past Medical History: Coronary Artery Disease (CAD), COPD, CVA/TIA, GERD/Reflux , Hyperlipidemia, Hypertension, Osteoarthritis (OA), Prostate Disorder Additional Past Medical History / Comment(s): MACULAR DEGENERATION History of Any Multi-Drug Resistant Organisms: None Reported Past Surgical History: Heart Catheterization With Stent, Joint Replacement, Orthopedic Surgery Additional Past Surgical History / Comment(s): carpal tunnel release bilat, ulcer surgery, RIGHT TOTAL KNEEX2, left rotater cuff Past Anesthesia/Blood Transfusion Reactions: No Reported Reaction Additional Past Anesthesia/Blood Transfusion Reaction / Comment(s): Pt received blood in 2007 without reaction. Date of Last Stent Placement:: 2010 Smoking Status: Current every day smoker - Past Family History Mother Family Medical History: Cancer Additional Family Medical History / Comment(s): Mother at age 43 from colon cancer. Father Additional Family Medical History / Comment(s): Father at age 98 from old age with no major medical problems. Patient does not have any brothers or sisters. Daughter(s) Additional Family Medical History / Comment(s): Patient has 2 daughters with mental health issues. No medical problems. Medications and Allergies Home Medications Medication Instructions Recorded Confirmed Type DULoxetine HCL [Cymbalta] 60 mg PO BID 05/16/14 01/30/18 History Allopurinol 100 mg PO BID 09/09/15 01/30/18 History Omeprazole [PriLOSEC] 20 mg PO DAILY 07/21/16 01/30/18 History Metoprolol Tartrate [Lopressor] 25 mg PO DAILY 08/29/16 01/30/18 History Sucralfate [Carafate] 1 gm PO BID 08/29/16 01/30/18 History Vit C/E/Zn/Coppr/Lutein/Zeaxan 1 cap PO BID 08/29/16 01/30/18 History [Preservision Areds 2 Softgel] guaiFENesin [Mucinex] 1,200 mg PO BID 08/29/16 01/30/18 History Tamsulosin [Flomax] 0.4 mg PO DAILY 11/16/16 01/30/18 History Lisinopril [Zestril] 2.5 mg PO DAILY tab 11/20/16 01/30/18 Rx Acetaminophen [Tylenol Extra 500 mg PO Q6HR PRN 05/11/17 01/30/18 History Strength] Ferrous Sulfate [Feosol] 325 mg PO DAILY 05/11/17 01/30/18 History Multivit-Min/FA/Lycopen/Lutein 1 tab PO DAILY 05/11/17 01/30/18 History [Centrum Silver Men Tablet] Simvastatin [Zocor] 20 mg PO HS 05/11/17 01/30/18 History rOPINIRole HCL [Requip] 0.25 mg PO HS 05/11/17 01/30/18 History ALPRAZolam [Xanax] 1 mg PO TID PRN 06/29/17 01/30/18 History Allergies Allergy/AdvReac Type Severity Reaction Status Date / Time No Known Allergies Allergy Verified 01/30/18 17:47 Physical Exam Vitals: Vital Signs Temp Pulse Pulse Resp BP BP Pulse Ox 01/31/18 15:45 84 11/21/18 15:34 82 18 12:42 97.7 F 79 16 138/80 95 18 12:28 88 18 12:17 88 01/31/18 09:00 80 18 08:48 76 18 08:00 20 01/31/18 05:00 98.2 F 77 16 117/61 98 18 00:30 16 2018 21:30 88 18 21:24 98.0 F 78 16 115/59 20/18 21:19 92 18 21:00 98.1 F 81 16 136/68 97 20/18 20:40 85 132/65 97 2018 20:30 85 131/67 97 20/18 20:20 87 131/67 97 2018 20:10 86 131/67 97 20/18 20:00 98.2 F 87 18 129/66 96 18 19:30 96 16 118/60 95 2018 19:20 96 118/60 95 18 19:14 98.1 F 18 19:10 99 18 116/58 95 18 19:04 98 16 118/60 95 18 19:00 101 H 139/68 95 18 18:50 105 H 139/68 94 L 18 18:40 107 H 139/68 94 L 18 18:30 106 H 16 146/71 94 L 18 18:20 105 H 17 146/71 93 L 01/30/18 18:10 113 H 16 146/71 93 L 01/30/18 18:00 109 H 20 142/77 93 L 20/18 17:50 111 H 18 142/77 94 L 20/18 17:40 112 H 20 142/77 95 2018 17:30 112 H 18 128/62 94 L 20/18 17:20 111 H 20 128/62 93 L 20/18 17:10 128/62 18 17:00 114 H 18 141/65 94 L 20/18 16:53 107 H 11/20/18 16:50 108 H 16 141/65 97 01/30/18 16:48 106 H 01/30/18 16:40 108 H 18 141/65 94 L Intake and Output 01/31/18 01/31/18 01/31/18 06:59 14:59 22:59 Intake Total 600 360 Output Total 1 Balance 599 360 Intake: Intake, IV Titration 600 Amount Sodium Chloride 0.9% 1, 600 000 ml @ 100 mls/hr IV . Q10H COUNT INCLUDES THE [facility] Rx#:[id number] Oral 360 Output: Stool 1 Other: Voiding Method Urinal Diaper # Voids 2 3 1 Results CBC & Chem 7: 01/30/18 16:52 01/30/18 16:52 Labs: Abnormal Lab Results - Last 24 Hours (Table) 01/30/18 01/30/18 Range/Units 16:52 16:52 WBC 20.0 H (3.8-10.6) k/uL Neutrophils # 18.4 H (1.3-7.7) k/uL Lymphocytes # 0.3 L (1.0-4.8) k/uL Monocytes # 1.1 H (0-1.0) k/uL BUN 21 H (9-20) mg/dL Glucose 109 H (74-99) mg/dL Thrombosis Risk Factor Assmnt - Choose All That Apply Any of the Below Risk Factors Present?: Yes Each Factor Represents 1 point: Sepsis (< 1month), Serious lung disease incl. pneumonia (< 1month) Other Risk Factors: Yes Each Risk Factor Represents 3 Points: Age 75 years or older Other congenital or acquired thrombophilia - If yes, enter type in comment: No Thrombosis Risk Factor Assessment Total Risk Factor Score: 5 Thrombosis Risk Factor Assessment Level: High Risk Assessment and Plan Plan: 1. COPD exacerbation, with pneumonia, right lung infiltrate, presenting with fever and chills dry cough, patient currently is a smoker at 4 cigarettes per day, he would be receiving nebulized albuterol Atrovent, as well as IV antibiotic Levaquin, Solu Medrol 60 mg every 6 hours IV, Mucinex, and Symbicort 160. Consult with his pulmonary physician Dr. Mancuso who has seen them in the past admissions. 2. 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 3 . Hypertension and hypertensive cardiovascular disease. Hold metoprolol 25 mg orally bedtime. Hold Imdur. Restart lisinopril 5 mg orally once every day, 4 . Hyperlipidemia. On Lipitor 10 5. restless leg syndrome, on ropinirole 0.25 mg at bedtime no changes made dose 6. BPH. Flomax 0.4 mg daily no change 8. Gout unspecified currently asymptomatic . Continue allopurinol 100 mg orally once every day. 9. CAD/arrhythmia. home med are: metoprolol 25 mg at bedtime, Imdur 30 mg orally once every day, Lipitor 20 mg orally once every day, aspirin 81 mg orally once every day. 10. GI prophylaxis. will start omeprazole 20 mg orally once every day, Carafate 1 g orally 4 times every day. 11. DVT prophylaxis.Patient will be started on heparin 5000 units subcutaneous twice a day. 12. Chronic pleural plaques bilateral lung field possibly secondary to asbestos exposure. 13. Ventral hernia, with herniation of the stomach currently asymptomatic 14. 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 15 . Depression, recurrent. Continue Cymbalta 120 mg orally once every day. Continue on Seroquel 25 mg at bedtime secondary to treatment resistant depression 1 mg Xanax daily at bedtime 17. Admit to inpatient. Estimate a length of stay 2 midnights.
--- NOTE | 2018-01-31 17:00 | P.CNPUL ---
History of Present Illness Consult date: 01/31/18 Requesting physician: Yoav Castillo Reason for consult: dyspnea, cough, COPD Chief complaint: Dyspnea, cough, chest congestion, fever History of present illness: This is a 87-year-old white male patient of Dr. Castillo, who presented to the emergency department per EMS on 01/30/2018 for evaluation of progressive dyspnea, cough, phlegm production, fever of 101.1F, progressive weakness. He was having trouble ambulating around his house, and even going to the bathroom. Patient does have underlying history of COPD, on home oxygen at 2 L/m at bedtime as needed. He used to see Dr. Mancuso in the remote past, but he has not seen him in several years. Patient is a current smoker, currently down to 4 -5 cigarettes a day, overall he carries a [id number] smoking history of 1 pack a day. Does have a past service history, he was in the [place], he retired from [employer], but he denies exposure to asbestos as he did not work in the power [employer]. Patient did complain of some nausea, but no vomiting , positive for significant fatigue. Did have a history of recent upper respiratory infection. Other past medical history is positive for coronary artery disease with previous stenting, previous episode of myocardial infarction , CVA/TIA, GERD/reflux, hypertension, hyperlipidemia, osteoarthritis, anxiety, depression, macular degeneration. He is not on any maintenance inhalers for his COPD, he does have a nebulizer machine at home, with albuterol, but he has run out of his medication and has not used it in a while. Chest x-ray was taken in the emergency department and was negative for any acute process, it showed scattered pleural calcifications consistent with asbestos related disease. EKG shows sinus tachycardia with no acute ischemic changes. Lab work was positive for leukocytosis, WBC is 20, hemoglobin was 14.5, electrolytes and renal profile were unremarkable. LFTs are normal limits, troponin was 0.019, proBNP was 344. Influenza screen negative, urinalysis is clear. Lactic acid is 1.8 patient received some IV fluids in the emergency department, a total of 1.5 L of 0.9 normal saline, his maintenance IV fluids as 0.9 at a rate of 100 ML per hour, he was placed on empiric antibiotics in the form of Levaquin. Nebulized bronchodilators, and we're consulted in regards to acute exacerbation of COPD. Review of Systems All systems: negative Constitutional: Denies chills, Denies fever Eyes: denies blurred vision, denies pain Ears, nose, mouth and throat: Denies headache, Denies sore throat Cardiovascular: Reports decreased exercise tolerance, Denies chest pain, Denies shortness of breath Respiratory: Reports congestion, Reports cough with sputum, Reports dyspnea, Reports home oxygen, Reports wheezing, Denies cough Gastrointestinal: Denies abdominal pain, Denies diarrhea, Denies nausea, Denies vomiting Musculoskeletal: Denies myalgias Integumentary: Denies pruritus, Denies rash Neurological: Denies numbness, Denies weakness Psychiatric: Denies anxiety, Denies depression Endocrine: Denies fatigue, Denies weight change Past Medical History Past Medical History: Coronary Artery Disease (CAD), COPD, CVA/TIA, GERD/Reflux , Hyperlipidemia, Hypertension, Osteoarthritis (OA), Prostate Disorder Additional Past Medical History / Comment(s): MACULAR DEGENERATION History of Any Multi-Drug Resistant Organisms: None Reported Past Surgical History: Heart Catheterization With Stent, Joint Replacement, Orthopedic Surgery Additional Past Surgical History / Comment(s): carpal tunnel release bilat, ulcer surgery, RIGHT TOTAL KNEEX2, left rotater cuff Past Anesthesia/Blood Transfusion Reactions: No Reported Reaction Additional Past Anesthesia/Blood Transfusion Reaction / Comment(s): Pt received blood in 2007 without reaction. Date of Last Stent Placement:: 2010 Smoking Status: Current every day smoker - Past Family History Mother Family Medical History: Cancer Additional Family Medical History / Comment(s): Mother at age 43 from colon cancer. Father Additional Family Medical History / Comment(s): Father at age 98 from old age with no major medical problems. Patient does not have any brothers or sisters. Daughter(s) Additional Family Medical History / Comment(s): Patient has 2 daughters with mental health issues. No medical problems. Medications and Allergies Home Medications Medication Instructions Recorded Confirmed Type DULoxetine HCL [Cymbalta] 60 mg PO BID 05/16/14 01/30/18 History Allopurinol 100 mg PO BID 09/09/15 01/30/18 History Omeprazole [PriLOSEC] 20 mg PO DAILY 07/21/16 01/30/18 History Metoprolol Tartrate [Lopressor] 25 mg PO DAILY 08/29/16 01/30/18 History Sucralfate [Carafate] 1 gm PO BID 08/29/16 01/30/18 History Vit C/E/Zn/Coppr/Lutein/Zeaxan 1 cap PO BID 08/29/16 01/30/18 History [Preservision Areds 2 Softgel] guaiFENesin [Mucinex] 1,200 mg PO BID 08/29/16 01/30/18 History Tamsulosin [Flomax] 0.4 mg PO DAILY 11/16/16 01/30/18 History Lisinopril [Zestril] 2.5 mg PO DAILY tab 11/20/16 01/30/18 Rx Acetaminophen [Tylenol Extra 500 mg PO Q6HR PRN 05/11/17 01/30/18 History Strength] Ferrous Sulfate [Feosol] 325 mg PO DAILY 05/11/17 01/30/18 History Multivit-Min/FA/Lycopen/Lutein 1 tab PO DAILY 05/11/17 01/30/18 History [Centrum Silver Men Tablet] Simvastatin [Zocor] 20 mg PO HS 05/11/17 01/30/18 History rOPINIRole HCL [Requip] 0.25 mg PO HS 05/11/17 01/30/18 History ALPRAZolam [Xanax] 1 mg PO TID PRN 06/29/17 01/30/18 History Allergies Allergy/AdvReac Type Severity Reaction Status Date / Time No Known Allergies Allergy Verified 01/30/18 17:47 Physical Exam Vitals: Vital Signs Temp Pulse Pulse Resp BP BP Pulse Ox 01/31/18 09:00 80 01/31/18 08:48 76 01/31/18 05:00 98.2 F 77 16 117/61 98 01/31/18 00:30 16 01/30/18 21:30 88 01/30/18 21:24 98.0 F 78 16 115/59 01/30/18 21:19 92 01/30/18 21:00 98.1 F 81 16 136/68 97 01/30/18 20:40 85 132/65 97 01/30/18 20:30 85 131/67 97 01/30/18 20:20 87 131/67 97 01/30/18 20:10 86 131/67 97 01/30/18 20:00 98.2 F 87 18 129/66 96 01/30/18 19:30 96 16 118/60 95 01/30/18 19:20 96 118/60 95 01/30/18 19:14 98.1 F 01/30/18 19:10 99 18 116/58 95 01/30/18 19:04 98 16 118/60 95 01/30/18 19:00 101 H 139/68 95 01/30/18 18:50 105 H 139/68 94 L 01/30/18 18:40 107 H 139/68 94 L 01/30/18 18:30 106 H 16 146/71 94 L 01/30/18 18:20 105 H 17 146/71 93 L 01/30/18 18:10 113 H 16 146/71 93 L 01/30/18 18:00 109 H 20 142/77 93 L 01/30/18 17:50 111 H 18 142/77 94 L 01/30/18 17:40 112 H 20 142/77 95 01/30/18 17:30 112 H 18 128/62 94 L 01/30/18 17:20 111 H 20 128/62 93 L 01/30/18 17:10 128/62 01/30/18 17:00 114 H 18 141/65 94 L 01/30/18 16:53 107 H 01/30/18 16:50 108 H 16 141/65 97 01/30/18 16:48 106 H 01/30/18 16:40 108 H 18 141/65 94 L 01/30/18 16:35 20 01/30/18 16:34 99.7 F H 111 H 18 141/65 93 L 01/30/18 16:31 93 L Intake and Output 01/30/18 01/31/18 01/31/18 22:59 06:59 14:59 Intake Total 600 Output Total 1 Balance 599 Intake: Intake, IV Titration 600 Amount Sodium Chloride 0.9% 1, 600 000 ml @ 100 mls/hr IV . Q10H [facility] Rx#:[id number] Output: Stool 1 Other: # Voids 2 1 Weight 83.007 kg GENERAL EXAM: Alert, pleasant 87-year-old male, short of breath with conversation HEAD: Normocephalic/atraumatic. EYES: Normal reaction of pupils, equal size. Conjunctiva pink, sclera white. NOSE: Clear with pink turbinates. THROAT: No erythema or exudates. NECK: No masses, no JVD, no thyroid enlargement, no adenopathy. CHEST: No chest wall deformity. Symmetrical expansion. LUNGS: Diminished breath sounds bilaterally, with rhonchi, and wheezing on forced expiratory maneuver CVS: Regular rate and rhythm, normal S1 and S2, no gallops, no murmurs, no rubs ABDOMEN: Soft, nontender. No hepatosplenomegaly, normal bowel sounds, no guarding or rigidity. EXTREMITIES: No clubbing, no edema, no cyanosis, 2+ pulses and upper and lower extremities. MUSCULOSKELETAL: Muscle strength and tone normal. SPINE: No scoliosis or deformity SKIN: No rashes CENTRAL NERVOUS SYSTEM: Alert and oriented -3. No focal deficits, tone is normal in all 4 extremities. PSYCHIATRIC: Alert and oriented -3. Appropriate affect. Intact judgment and insight. Results - Laboratory Findings CBC and BMP: 01/30/18 16:52 01/30/18 16:52 PT/INR, D-dimer PT 10.5 sec (9.0-12.0) 01/30/18 16:52 INR 1.1 (<1.2) 01/30/18 16:52 Abnormal lab findings: Abnormal Labs 01/30/18 01/30/18 16:52 16:52 WBC 20.0 H Neutrophils # 18.4 H Lymphocytes # 0.3 L Monocytes # 1.1 H BUN 21 H Glucose 109 H - Diagnostic Findings Chest x-ray: report reviewed, image reviewed Additional studies: EKG reviewed Assessment and Plan Plan: Assessment: #1. Acute on chronic hypoxemic respiratory failure related to acute exacerbation of COPD and tracheobronchitis #2. Febrile illness, leukocytosis, tachycardia, weakness. Influenza screen was negative, chest x-ray did not show evidence of pneumonia. #3. History of coronary artery disease with previous stenting #4. History of previous myocardial infarction #5. COPD with home oxygen at 2 L at bedtime as needed #6. Chronic and ongoing nicotine dependence, currently down to 4-5 cigarettes a day, but carries [id number] smoking history #7. Hypertension, hyperlipidemia #8. Osteoarthritis #9. History of previous CVA/TIA #10. GERD/reflux #11. Macular degeneration #12. Anxiety depression Plan: Continue current antibiotic coverage, we'll send a sputum culture. Patient is afebrile, his heart rate is better controlled. Continue DuoNeb nebulized treatments, we will add Solu-Medrol, and Symbicort. Repeat chest x-ray did not show clear evidence of pneumonia. GI and DVT prophylaxis. Continue to follow I performed a history & physical examination of the patient and discussed their management with my nurse practitioner, Geno Lindsey. I reviewed the nurse practitioner's note and agree with the documented findings and plan of care. Lung sounds are positive for wheezes, scattered rhonchi throughout the lung garvin. The findings and the impression was discussed with the patient. I attest to the documentation by the nurse practitioner. Time with Patient: Greater than 30
[2018-01-31 17:06] LABS: Glucose,Whole Blood 159 mg/dL (75-99)
[2018-01-31] MEDS ORDERED: LEVOFLOXACIN 750MG-D5W PMX 750 MG in DEXTROSE/WATER 1 150ML.BAG IVPB SCH (18:00)
[2018-01-31 20:00] LABS: Hemoglobin A1C 5.7 % (4.0-6.0)
[2018-01-31 20:03] LABS: Glucose,Whole Blood 147 mg/dL (75-99)
[2018-01-31] MEDS: ATORVASTATIN 10 MG TAB PO SCH (20:16)
[2018-01-31] MEDS: LEVOFLOXACIN 750 MG TAB PO SCH (20:16)
[2018-01-31] MEDS: VIT A,C & E-LUTEIN-MINERALS 1 EACH TAB PO SCH (20:17)
[2018-01-31] MEDS: SUCRALFATE 1 GM TAB PO SCH (20:17)
[2018-01-31] MEDS: SYMBICORT 160-4.5 MCG INHALER INHALATION SCH (20:27)
[2018-01-31] MEDS: ALPRAZolam 1 MG TAB PO PRN (21:13)
[2018-02-01] MEDS: SODIUM CHLORIDE 0.9% 1,000 ML IV SCH ×2 (03:58→17:50)
[2018-02-01] MEDS: methylPREDNISolone SOD SUCCI 125 MG/2 ML VIAL IV SCH ×2 (06:08→12:52)
[2018-02-01 06:54] LABS: Glucose,Whole Blood 127 mg/dL (75-99)
[2018-02-01 07:34] LABS: HCT 39.4 % (39.0-53.0); HGB 12.5 gm/dL (13.0-17.5); MCH 32.1 pg (25.0-35.0); MCHC 31.8 g/dL (31.0-37.0); Macrocytosis Slight; Mean Platelet Volume 7.8; Platelet Count 172 k/uL (150-450); RDW 14.3 % (11.5-15.5); WBC 13.6 k/uL (3.8-10.6)
[2018-02-01 07:46] LABS: Anion Gap 6 mmol/L; Blood Urea Nitrogen 21 mg/dL (9-20); Calcium 8.9 mg/dL (8.4-10.2); Carbon Dioxide 26 mmol/L (22-30); Chloride 109 mmol/L (98-107); Glucose 127 mg/dL (74-99); Potassium 4.3 mmol/L (3.5-5.1); Sodium 141 mmol/L (137-145)
[2018-02-01] MEDS: INSULIN ASPART 100 UNIT/ML 1 ML 10 ML VIAL SQ SCH ×4 (07:52→20:31)
[2018-02-01] MEDS: IPRATROPIUM-ALBUTEROL 3 ML NEB INHALATION SCH ×4 (08:18→20:48)
[2018-02-01] MEDS: SYMBICORT 160-4.5 MCG INHALER INHALATION SCH ×2 (08:18→20:48)
[2018-02-01] MEDS: ENOXAPARIN 40 MG/0.4 ML SYRINGE SQ SCH (08:21)
[2018-02-01] MEDS: LISINOPRIL 2.5 MG TAB PO SCH (08:21)
[2018-02-01] MEDS: guaiFENesin 600 MG TABLET.ER PO SCH ×2 (08:21→20:18)
[2018-02-01] MEDS: SUCRALFATE 1 GM TAB PO SCH ×2 (08:21→20:18)
[2018-02-01] MEDS: TAMSULOSIN 0.4 MG CAP.ER.24H PO SCH (08:22)
[2018-02-01] MEDS: ALLOPURINOL 100 MG TAB PO SCH ×2 (08:22→20:18)
[2018-02-01] MEDS: VIT A,C & E-LUTEIN-MINERALS 1 EACH TAB PO SCH ×2 (08:22→20:18)
[2018-02-01] MEDS: PANTOPRAZOLE 40 MG TABLET PO SCH (08:22)
[2018-02-01] MEDS: METOPROLOL TARTRATE 25 MG TAB PO SCH (08:23)
[2018-02-01] MEDS: DULoxetine HCL 60 MG CAPSULE.DR PO SCH ×2 (08:23→20:18)
[2018-02-01] MEDS: FERROUS SULFATE 325 MG TAB PO SCH (08:23)
[2018-02-01] MEDS: ALPRAZolam 1 MG TAB PO PRN ×2 (08:25→20:22)
[2018-02-01 11:48] LABS: Glucose,Whole Blood 124 mg/dL (75-99)
[2018-02-01] MEDS: MULTIVITAMINS, THERA 1 EACH TAB PO SCH (12:52)
--- NOTE | 2018-02-01 13:38 | P.PN ---
Subjective Progress Note Date: 02/01/18 Principal diagnosis: Acute on chronic hypoxemic respiratory failure secondary to an acute exacerbation of COPD and tracheobronchitis. This is a 87-year-old white male patient of Dr. Castillo, who presented to the emergency department per EMS on 01/30/2018 for evaluation of progressive dyspnea, cough, phlegm production, fever of 101.1F, progressive weakness. He was having trouble ambulating around his house, and even going to the bathroom. Patient does have underlying history of COPD, on home oxygen at 2 L/m at bedtime as needed. He used to see Dr. Mancuso in the remote past, but he has not seen him in several years. Patient is a current smoker, currently down to 4 -5 cigarettes a day, overall he carries a [id number] smoking history of 1 pack a day. Does have a past service history, he was in the [employer], he retired from [employer], but he denies exposure to asbestos as he did not work in the [employer]. Patient did complain of some nausea, but no vomiting , positive for significant fatigue. Did have a history of recent upper respiratory infection. Other past medical history is positive for coronary artery disease with previous stenting, previous episode of myocardial infarction , CVA/TIA, GERD/reflux, hypertension, hyperlipidemia, osteoarthritis, anxiety, depression, macular degeneration. He is not on any maintenance inhalers for his COPD, he does have a nebulizer machine at home, with albuterol, but he has run out of his medication and has not used it in a while. Chest x-ray was taken in the emergency department and was negative for any acute process, it showed scattered pleural calcifications consistent with asbestos related disease. EKG shows sinus tachycardia with no acute ischemic changes. Lab work was positive for leukocytosis, WBC is 20, hemoglobin was 14.5, electrolytes and renal profile were unremarkable. LFTs are normal limits, troponin was 0.019, proBNP was 344. Influenza screen negative, urinalysis is clear. Lactic acid is 1.8 patient received some IV fluids in the emergency department, a total of 1.5 L of 0.9 normal saline, his maintenance IV fluids as 0.9 at a rate of 100 ML per hour, he was placed on empiric antibiotics in the form of Levaquin. Nebulized bronchodilators, and we're consulted in regards to acute exacerbation of COPD. Patient is seen again today 02/01/2018 in follow-up on the regular medical floor. He is currently awake and alert in no acute distress. He is resting quite comfortably in bed. He is maintaining good O2 saturations in the 90s on 2 L/m per nasal nasal cannula. He is afebrile. Hemodynamically stable. Blood culture reveals no growth. White count 13.6. Hemoglobin 12.5. Creatinine 0.65. He is currently on DuoNeb inhalations, Symbicort, IV Solu-Medrol, Levaquin. Objective - Vital Signs Vital signs: Vital Signs Temp 98.5 F 02/01/18 12:42 Pulse 97 02/01/18 12:42 Resp 18 02/01/18 12:42 BP 123/58 02/01/18 12:42 Pulse Ox 97 02/01/18 12:42 Intake & Output 01/31/18 02/01/18 02/01/18 18:59 06:59 18:59 Intake Total 360 1400 Output Total 300 1 Balance 360 1100 -1 Intake: Intake, IV Titration 1400 Amount Sodium Chloride 0.9% 1, 600 000 ml @ 100 mls/hr IV . Q10H [facility] Rx#:[id number] Sodium Chloride 0.9% 1, 800 000 ml @ 100 mls/hr IV . Q10H [facility] Rx#:[id number] Oral 360 Output: Urine 300 Stool 1 Other: Voiding Method Urinal Urinal Urinal Diaper Diaper Diaper # Voids 1 - Exam GENERAL EXAM: Alert, pleasant 87-year-old male, short of breath with conversation HEAD: Normocephalic/atraumatic. EYES: Normal reaction of pupils, equal size. Conjunctiva pink, sclera white. NOSE: Clear with pink turbinates. THROAT: No erythema or exudates. NECK: No masses, no JVD, no thyroid enlargement, no adenopathy. CHEST: No chest wall deformity. Symmetrical expansion. LUNGS: Diminished breath sounds bilaterally, with rhonchi, and wheezing on forced expiratory maneuver CVS: Regular rate and rhythm, normal S1 and S2, no gallops, no murmurs, no rubs ABDOMEN: Soft, nontender. No hepatosplenomegaly, normal bowel sounds, no guarding or rigidity. EXTREMITIES: No clubbing, no edema, no cyanosis, 2+ pulses and upper and lower extremities. MUSCULOSKELETAL: Muscle strength and tone normal. SPINE: No scoliosis or deformity SKIN: No rashes CENTRAL NERVOUS SYSTEM: Alert and oriented -3. No focal deficits, tone is normal in all 4 extremities. PSYCHIATRIC: Alert and oriented -3. Appropriate affect. Intact judgment and insight. - Labs CBC & Chem 7: 02/01/18 06:58 02/01/18 06:58 Labs: Abnormal Lab Results - Last 24 Hours (Table) 01/31/18 01/31/18 02/01/18 Range/Units 17:04 20:02 06:53 WBC (3.8-10.6) k/uL RBC (4.30-5.90) m/uL Hgb (13.0-17.5) gm/dL MCV (80.0-100.0) fL Chloride (98-107) mmol/L BUN (9-20) mg/dL Creatinine (0.66-1.25) mg/dL Glucose (74-99) mg/dL POC Glucose (mg/dL) 159 H 147 H 127 H (75-99) mg/dL 02/01/18 02/01/18 02/01/18 Range/Units 06:58 06:58 11:46 WBC 13.6 H (3.8-10.6) k/uL RBC 3.90 L (4.30-5.90) m/uL Hgb 12.5 L (13.0-17.5) gm/dL MCV 101.0 H (80.0-100.0) fL Chloride 109 H (98-107) mmol/L BUN 21 H (9-20) mg/dL Creatinine 0.65 L (0.66-1.25) mg/dL Glucose 127 H (74-99) mg/dL POC Glucose (mg/dL) 124 H (75-99) mg/dL Microbiology - Last 24 Hours (Table) 01/30/18 16:52 Blood Culture - Preliminary Blood No Growth after 24 hours Assessment and Plan Assessment: Assessment: #1. Acute on chronic hypoxemic respiratory failure related to acute exacerbation of COPD and tracheobronchitis #2. Febrile illness, leukocytosis, tachycardia, weakness. Influenza screen was negative, chest x-ray did not show evidence of pneumonia. #3. History of coronary artery disease with previous stenting #4. History of previous myocardial infarction #5. COPD with home oxygen at 2 L at bedtime as needed #6. Chronic and ongoing nicotine dependence, currently down to 4-5 cigarettes a day, but carries [id number] smoking history #7. Hypertension, hyperlipidemia #8. Osteoarthritis #9. History of previous CVA/TIA #10. GERD/reflux #11. Macular degeneration #12. Anxiety depression Plan: The patient was seen and evaluated by Dr. Antony. He is improved today as compared to yesterday. We'll continue the current treatment plan. He is again educated regarding the importance of complete smoking cessation. We'll continue to follow make further recommendations based on his clinical status. I, the cosigning physician, performed a history & physical examination of the patient. Lungs sounds with faint end expiratory wheeze, diminished. Maintaining good O2 saturations in the 90s on 2 L/m per nasal cannula. I discussed the assessment and plan of care with my nurse practitioner, Delicia Preston. I attest to the above note as dictated by her.
--- NOTE | 2018-02-01 15:47 | XR ---
EXAMINATION TYPE: XR abdomen 2V DATE OF EXAM: 02/01/2018 CLINICAL HISTORY: Persistent Left-sided abdominal pain TECHNIQUE: Supine and upright views of the abdomen are obtained. COMPARISON: Abdominal x-ray and CT abdomen and pelvis April 10, 2016. FINDINGS: Gas is seen in nondistended stomach. Gas is seen in prominent small bowel loops throughout the abdomen and pelvis. Gas and fecal material is seen in slightly prominent colon colon. Surgical clips right upper pelvis are redemonstrated. Coils over the mid abdomen are seen correlating with central wall hernia repair surgery. Calcified pleural plaque right lung base is redemonstrated. Elevated left hemidiaphragm is seen. No pneumoperitoneum is present. There is severe multilevel spurring throughout the visualized spine. Moderate degenerative change of both hips is seen. Bridging osteophyte at pubic symphysis is noted. V ascular calcification projects over the pelvis. IMPRESSION: Overall nonspecific but favor nonobstructive bowel gas pattern.
[2018-02-01 17:00] LABS: Glucose,Whole Blood 175 mg/dL (75-99)
[2018-02-01] MEDS: LEVOFLOXACIN 750 MG TAB PO SCH (17:50)
--- NOTE | 2018-02-01 19:25 | P.PN ---
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 Patient has a nebulizer at home however he has no medications for this, he also decreased smoking October 2017 now at 4 cigarettes per day. Patient denies any recent falls, no weight loss no syncope no aspirated events.\ In the emergency room, chest x-ray there is pleural plaques and calcifications noted, mild increased lung markings present bilaterally, greater in the right midlung peripherally, follow-up x-rays are so recommended, double basic count of 20,000, neutrophilia INR 1.1, creatinine 0.7. Once a and B-, urinalysis negative, DIRECTOR OF BROADCAST proBNP 344 normal February 01: Patient's doing much better, he still has shortness of breath on exertion, ambulated to the hallway was limited, no lightheadedness no falls, resolution of fever while in the hospital, no aspirated events patient still requires 2 L nasal cannula going to decrease Solu-Medrol to 40 mg every 8 hours , on oral Levaquin. Objective - Vital Signs Vital signs: Vital Signs Temp 98.5 F 02/01/18 12:42 Pulse 97 02/01/18 12:42 Resp 18 02/01/18 12:42 BP 123/58 02/01/18 12:42 Pulse Ox 97 02/01/18 12:42 Intake & Output 01/31/18 02/01/18 02/01/18 18:59 06:59 18:59 Intake Total 360 1400 Output Total 300 1 Balance 360 1100 -1 Intake: Intake, IV Titration 1400 Amount Sodium Chloride 0.9% 1, 600 000 ml @ 100 mls/hr IV . Q10H [facility] Rx#:[id number] Sodium Chloride 0.9% 1, 800 000 ml @ 100 mls/hr IV . Q10H [facility] Rx#:[id number] Oral 360 Output: Urine 300 Stool 1 Other: Voiding Method Urinal Urinal Urinal Diaper Diaper Diaper # Voids 1 - Constitutional General appearance: Present: cooperative, no acute distress - EENT Eyes: Present: anicteric sclerae, EOMI, PERRLA, dentition normal ENT: Present: NA/AT, normal oropharynx - Neck Neck: Present: normal ROM. Absent: lymphadenopathy, other, rigidity, stridor, thyromegaly - Respiratory Respiratory: bilateral: CTA, diminished, negative: dullness, rales, rhonchi, wheezing - Cardiovascular Rhythm: regular Heart sounds: normal: S1, S2 Abnormal Heart Sounds: Absent: systolic murmur, diastolic murmur, rub, S3 Gallop , S4 Gallop, click, other - Gastrointestinal General gastrointestinal: Present: normal bowel sounds, soft - Integumentary Integumentary: Present: normal, normal turgor - Neurologic Neurologic: Present: CNII-XII intact - Musculoskeletal Musculoskeletal: Present: gait normal, strength equal bilaterally - Psychiatric Psychiatric: Present: A&O x's 3, appropriate affect, intact judgment & insight - Labs CBC & Chem 7: 02/01/18 06:58 02/01/18 06:58 Labs: Abnormal Lab Results - Last 24 Hours (Table) 01/31/18 01/31/18 02/01/18 Range/Units 17:04 20:02 06:53 WBC (3.8-10.6) k/uL RBC (4.30-5.90) m/uL Hgb (13.0-17.5) gm/dL MCV (80.0-100.0) fL Chloride (98-107) mmol/L BUN (9-20) mg/dL Creatinine (0.66-1.25) mg/dL Glucose (74-99) mg/dL POC Glucose (mg/dL) 159 H 147 H 127 H (75-99) mg/dL 02/01/18 02/01/18 02/01/18 Range/Units 06:58 06:58 11:46 WBC 13.6 H (3.8-10.6) k/uL RBC 3.90 L (4.30-5.90) m/uL Hgb 12.5 L (13.0-17.5) gm/dL MCV 101.0 H (80.0-100.0) fL Chloride 109 H (98-107) mmol/L BUN 21 H (9-20) mg/dL Creatinine 0.65 L (0.66-1.25) mg/dL Glucose 127 H (74-99) mg/dL POC Glucose (mg/dL) 124 H (75-99) mg/dL Microbiology - Last 24 Hours (Table) 01/30/18 16:52 Blood Culture - Preliminary Blood No Growth after 24 hours Assessment and Plan Plan: 1. COPD exacerbation, with pneumonia, right lung infiltrate, presenting with fever and chills dry cough, patient currently is a smoker at 4 cigarettes per day, he would be receiving nebulized albuterol Atrovent, as well as IV antibiotic Levaquin, Solu Medrol 40 mg every 8hours IV, Mucinex, and Symbicort 160. Consult with his pulmonary physician Dr. Mancuso who has seen them in the past admissions. 2. 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 3 . Hypertension and hypertensive cardiovascular disease. Hold metoprolol 25 mg orally bedtime. Hold Imdur. Restart lisinopril 5 mg orally once every day, 4 . Hyperlipidemia. On Lipitor 10 5. restless leg syndrome, on ropinirole 0.25 mg at bedtime no changes made dose 6. BPH. Flomax 0.4 mg daily no change 8. Gout unspecified currently asymptomatic . Continue allopurinol 100 mg orally once every day. 9. CAD/arrhythmia. home med are: metoprolol 25 mg at bedtime, Imdur 30 mg orally once every day, Lipitor 20 mg orally once every day, aspirin 81 mg orally once every day. 10. GI prophylaxis. will start omeprazole 20 mg orally once every day, Carafate 1 g orally 4 times every day. 11. DVT prophylaxis.Patient will be started on heparin 5000 units subcutaneous twice a day. 12. Chronic pleural plaques bilateral lung field possibly secondary to asbestos exposure. 13. Ventral hernia, with herniation of the stomach currently asymptomatic 14. 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 15 . Depression, recurrent. Continue Cymbalta 120 mg orally once every day. 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 Admit to inpatient. Estimate a length of stay 2 midnights.
[2018-02-01] MEDS: ATORVASTATIN 10 MG TAB PO SCH (20:18)
[2018-02-01] MEDS: methylPREDNISolone SOD SUCCI 40 MG/ML 1 ML VIAL IV SCH (20:18)
[2018-02-01] MEDS: QUEtiapine 50 MG TAB PO SCH (20:18)
[2018-02-01 20:32] LABS: Glucose,Whole Blood 99 mg/dL (75-99)
[2018-02-02] MEDS: methylPREDNISolone SOD SUCCI 40 MG/ML 1 ML VIAL IV SCH ×3 (05:32→20:51)
[2018-02-02 06:51] LABS: Glucose,Whole Blood 114 mg/dL (75-99)
[2018-02-02] MEDS: INSULIN ASPART 100 UNIT/ML 1 ML 10 ML VIAL SQ SCH ×4 (07:31→23:17)
[2018-02-02] MEDS: PANTOPRAZOLE 40 MG TABLET PO SCH (07:40)
[2018-02-02] MEDS: DULoxetine HCL 60 MG CAPSULE.DR PO SCH ×2 (07:40→20:50)
[2018-02-02] MEDS: ALLOPURINOL 100 MG TAB PO SCH ×2 (07:40→20:51)
[2018-02-02] MEDS: ENOXAPARIN 40 MG/0.4 ML SYRINGE SQ SCH (07:40)
[2018-02-02] MEDS: LISINOPRIL 2.5 MG TAB PO SCH (07:41)
[2018-02-02] MEDS: METOPROLOL TARTRATE 25 MG TAB PO SCH (07:41)
[2018-02-02] MEDS: guaiFENesin 600 MG TABLET.ER PO SCH ×2 (07:41→20:50)
[2018-02-02] MEDS: FERROUS SULFATE 325 MG TAB PO SCH (07:41)
[2018-02-02] MEDS: TAMSULOSIN 0.4 MG CAP.ER.24H PO SCH (07:42)
[2018-02-02] MEDS: VIT A,C & E-LUTEIN-MINERALS 1 EACH TAB PO SCH ×2 (07:42→20:49)
[2018-02-02] MEDS: SUCRALFATE 1 GM TAB PO SCH ×2 (07:42→20:50)
[2018-02-02] MEDS: SYMBICORT 160-4.5 MCG INHALER INHALATION SCH ×2 (08:17→19:50)
[2018-02-02] MEDS: IPRATROPIUM-ALBUTEROL 3 ML NEB INHALATION SCH ×4 (08:17→19:50)
[2018-02-02 12:03] LABS: Glucose,Whole Blood 92 mg/dL (75-99)
[2018-02-02] MEDS: MULTIVITAMINS, THERA 1 EACH TAB PO SCH (12:42)
--- NOTE | 2018-02-02 16:00 | P.PN ---
Subjective Progress Note Date: 02/02/18 Principal diagnosis: Acute on chronic hypoxemic respiratory failure secondary to an acute exacerbation of COPD and tracheobronchitis This is a 87-year-old white male patient of Dr. Castillo, who presented to the emergency department per EMS on 01/30/2018 for evaluation of progressive dyspnea, cough, phlegm production, fever of 101.1F, progressive weakness. He was having trouble ambulating around his house, and even going to the bathroom. Patient does have underlying history of COPD, on home oxygen at 2 L/m at bedtime as needed. He used to see Dr. Mancuso in the remote past, but he has not seen him in several years. Patient is a current smoker, currently down to 4 -5 cigarettes a day, overall he carries a [id number] smoking history of 1 pack a day. 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 Patient did complain of some nausea, but no vomiting , positive for significant fatigue. Did have a history of recent upper respiratory infection. Other past medical history is positive for coronary artery disease with previous stenting, previous episode of myocardial infarction , CVA/TIA, GERD/reflux, hypertension, hyperlipidemia, osteoarthritis, anxiety, depression, macular degeneration. He is not on any maintenance inhalers for his COPD, he does have a nebulizer machine at home, with albuterol, but he has run out of his medication and has not used it in a while. Chest x-ray was taken in the emergency department and was negative for any acute process, it showed scattered pleural calcifications consistent with asbestos related disease. EKG shows sinus tachycardia with no acute ischemic changes. Lab work was positive for leukocytosis, WBC is 20, hemoglobin was 14.5, electrolytes and renal profile were unremarkable. LFTs are normal limits, troponin was 0.019, proBNP was 344. Influenza screen negative, urinalysis is clear. Lactic acid is 1.8 patient received some IV fluids in the emergency department, a total of 1.5 L of 0.9 normal saline, his maintenance IV fluids as 0.9 at a rate of 100 ML per hour, he was placed on empiric antibiotics in the form of Levaquin. Nebulized bronchodilators, and we're consulted in regards to acute exacerbation of COPD. Patient is seen again today 02/01/2018 in follow-up on the regular medical floor. He is currently awake and alert in no acute distress. He is resting quite comfortably in bed. He is maintaining good O2 saturations in the 90s on 2 L/m per nasal nasal cannula. He is afebrile. Hemodynamically stable. Blood culture reveals no growth. White count 13.6. Hemoglobin 12.5. Creatinine 0.65. He is currently on DuoNeb inhalations, Symbicort, IV Solu-Medrol, Levaquin On 02/02/2018 patient seen in follow-up. Breathing easier, lung sounds are positive for a few rhonchi, no wheezes. Vital signs are stable, afebrile. Blood cultures negative. No new labs. Patient continues on nebulized bronchodilators, empiric antibiotics, and IV steroids. He is improving. Objective - Vital Signs Vital signs: Vital Signs Temp 97.6 F 02/02/18 12:33 Pulse 76 02/02/18 13:07 Resp 17 02/02/18 12:33 BP 123/56 02/02/18 12:33 Pulse Ox 99 02/02/18 12:33 Intake & Output 02/01/18 02/02/18 02/02/18 18:59 06:59 18:59 Intake Total 1200 600 Output Total 303 Balance 897 600 Weight 83.007 kg 79 kg Intake: Intake, IV Titration 800 10 Amount Sodium Chloride 0.9% 1, 800 10 000 ml @ 100 mls/hr IV . Q10H [facility] Rx#:[id number] Oral 400 590 Output: Urine 300 Stool 3 Other: Voiding Method Urinal Toilet Toilet Diaper Urinal Urinal Diaper Diaper # Voids 1 2 # Bowel Movements 0 - Exam GENERAL EXAM: Alert, pleasant 87-year-old male, short of breath with conversation HEAD: Normocephalic/atraumatic. EYES: Normal reaction of pupils, equal size. Conjunctiva pink, sclera white. NOSE: Clear with pink turbinates. THROAT: No erythema or exudates. NECK: No masses, no JVD, no thyroid enlargement, no adenopathy. CHEST: No chest wall deformity. Symmetrical expansion. LUNGS: Diminished breath sounds bilaterally, a few rhonchi, a few wheezes CVS: Regular rate and rhythm, normal S1 and S2, no gallops, no murmurs, no rubs ABDOMEN: Soft, nontender. No hepatosplenomegaly, normal bowel sounds, no guarding or rigidity. EXTREMITIES: No clubbing, no edema, no cyanosis, 2+ pulses and upper and lower extremities. MUSCULOSKELETAL: Muscle strength and tone normal. SPINE: No scoliosis or deformity SKIN: No rashes CENTRAL NERVOUS SYSTEM: Alert and oriented -3. No focal deficits, tone is normal in all 4 extremities. PSYCHIATRIC: Alert and oriented -3. Appropriate affect. Intact judgment and insight. - Labs CBC & Chem 7: 02/01/18 06:58 02/01/18 06:58 Labs: Abnormal Lab Results - Last 24 Hours (Table) 02/01/18 02/02/18 Range/Units 16:58 06:49 POC Glucose (mg/dL) 175 H 114 H (75-99) mg/dL Microbiology - Last 24 Hours (Table) 01/30/18 16:52 Blood Culture - Preliminary Blood No Growth after 48 hours Assessment and Plan Plan: Assessment: #1. Acute on chronic hypoxemic respiratory failure related to acute exacerbation of COPD and tracheobronchitis #2. Febrile illness, leukocytosis, tachycardia, weakness. Influenza screen was negative, chest x-ray did not show evidence of pneumonia. #3. History of coronary artery disease with previous stenting #4. History of previous myocardial infarction #5. COPD with home oxygen at 2 L at bedtime as needed #6. Chronic and ongoing nicotine dependence, currently down to 4-5 cigarettes a day, but carries [id number] smoking history #7. Hypertension, hyperlipidemia #8. Osteoarthritis #9. History of previous CVA/TIA #10. GERD/reflux #11. Macular degeneration #12. Anxiety depression Plan: Continue current antibiotic coverage, continue IV steroids, nebulized bronchodilators, and Symbicort, patient is improving, anticipate further improvement, encourage patient to increase activity, sit up at the bedside. Anticipate further improvement, and possible discharge home in the next 24 hours. I performed a history & physical examination of the patient and discussed their management with my nurse practitioner, Geno Lindsey. I reviewed the nurse practitioner's note and agree with the documented findings and plan of care. Lung sounds are positive for wheezes, scattered rhonchi throughout the lung garvin. The findings and the impression was discussed with the patient. I attest to the documentation by the nurse practitioner. Time with Patient: Less than 30
--- NOTE | 2018-02-02 16:08 | P.PN ---
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 Patient has a nebulizer at home however he has no medications for this, he also decreased smoking October 2017 now at 4 cigarettes per day. Patient denies any recent falls, no weight loss no syncope no aspirated events.\ In the emergency room, chest x-ray there is pleural plaques and calcifications noted, mild increased lung markings present bilaterally, greater in the right midlung peripherally, follow-up x-rays are so recommended, double basic count of 20,000, neutrophilia INR 1.1, creatinine 0.7. 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 02/02- Patient states that is breathing is better today but does not feel he is back to baseline. Solu-medrol will be transitioned to oral prednisone in the morning. Anticipate he will be ready for discharge tomorrow. Patient does have home O2 at 2 L and usually only uses it at night. Pulse ox is 99% on 2 L. Patient has been afebrile. Review Of Systems: Constitutional: No fever, no chills, no night sweats. No weight change. No weakness, fatigue or lethargy. No daytime sleepiness. EENT: No headache. No blurred vision or double vision, no loss of vision. No loss of Hearing, no ringing in the ears, no dizziness. No nasal drainage or congestion. No epistaxis. No sore throat. Lungs: Complains of shortness of breath, cough, no sputum production. No wheezing. Cardiovascular: No chest pain, no lower extremity edema. No palpitations. No paroxysmal nocturnal dyspnea. No orthopnea. No lightheadedness or dizziness. No syncopal episodes. Abdominal: No abdominal pain. No nausea, vomiting. No diarrhea. No constipation. No bloody or tarry stools.. No loss of appetite. Genitourinary: No dysuria, increased frequency, urgency. No urinary retention. Musculoskeletal: No myalgias. No muscle weakness, no gait dysfunction, no frequent falls. No back pain. No neck pain. Integumentary: No wounds, no lesions. No rash or pruritus. No unusual bruising. No change in hair or nails. Neurologic: No aphasia. No facial droop. No change in mentation. No head injury. No headache. No paralysis. No paresthesia. Psychiatric: No depression. No anxiety. No mood swings. Endocrine: No abnormal blood sugars. No weight change. No excessive sweating or thirst. No cold intolerance. Objective - Vital Signs Vital signs: Vital Signs Temp 97.4 F L 02/02/18 05:00 Pulse 88 02/02/18 08:31 Resp 16 02/02/18 05:00 BP 107/57 02/02/18 05:00 Pulse Ox 100 02/02/18 05:00 Intake & Output 02/01/18 02/02/18 02/02/18 18:59 06:59 18:59 Intake Total 1200 600 Output Total 303 Balance 897 600 Weight 83.007 kg 79 kg Intake: Intake, IV Titration 800 10 Amount Sodium Chloride 0.9% 1, 800 10 000 ml @ 100 mls/hr IV . Q10H SHASHANK Rx#:[id number] Oral 400 590 Output: Urine 300 Stool 3 Other: Voiding Method Urinal Toilet Toilet Diaper Urinal Urinal Diaper Diaper # Voids 1 2 - Exam General appearance: Present: cooperative, no acute distress. Respirations are stable. No acute respiratory distress noted. - EENT Eyes: Present: anicteric sclerae, EOMI, PERRLA, dentition normal ENT: Present: NA/AT, normal oropharynx - Neck Neck: Present: normal ROM. Absent: lymphadenopathy, other, rigidity, stridor, thyromegaly - Respiratory Respiratory: bilateral: CTA, diminished, negative: dullness, rales, rhonchi, wheezing - Cardiovascular Rhythm: regular Heart sounds: normal: S1, S2 Abnormal Heart Sounds: Absent: systolic murmur, diastolic murmur, rub, S3 Gallop , S4 Gallop, click, other - Gastrointestinal General gastrointestinal: Present: normal bowel sounds, soft - Integumentary Integumentary: Present: normal, normal turgor - Neurologic Neurologic: Present: CNII-XII intact - Musculoskeletal Musculoskeletal: Present: gait normal, strength equal bilaterally - Psychiatric Psychiatric: Present: A&O x's 3, appropriate affect, intact judgment & insight - Labs CBC & Chem 7: 02/01/18 06:58 02/01/18 06:58 Labs: Abnormal Lab Results - Last 24 Hours (Table) 02/01/18 02/01/18 02/02/18 Range/Units 11:46 16:58 06:49 POC Glucose (mg/dL) 124 H 175 H 114 H (75-99) mg/dL Microbiology - Last 24 Hours (Table) 01/30/18 16:52 Blood Culture - Preliminary Blood No Growth after 48 hours Assessment and Plan Plan: 1. COPD exacerbation, with pneumonia, right lung infiltrate, presenting with fever and chills dry cough, patient currently is a smoker at 4 cigarettes per day, he would be receiving nebulized albuterol Atrovent, as well as IV antibiotic Levaquin, Solu Medrol will be transitioned to oral prednisone in the morning, Mucinex, and Symbicort 160. Consult with his pulmonary physician Dr. Mancuso who has seen them in the past admissions. 2. 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 3 . Hypertension and hypertensive cardiovascular disease. Hold metoprolol 25 mg orally bedtime. Hold Imdur. Restart lisinopril 5 mg orally once every day, 4 . Hyperlipidemia. On Lipitor 10 5. restless leg syndrome, on ropinirole 0.25 mg at bedtime no changes made dose 6. BPH. Flomax 0.4 mg daily no change 8. Gout unspecified currently asymptomatic . Continue allopurinol 100 mg orally once every day. 9. CAD/arrhythmia. home med are: metoprolol 25 mg at bedtime, Imdur 30 mg orally once every day, Lipitor 20 mg orally once every day, aspirin 81 mg orally once every day. 10. GI prophylaxis. will start omeprazole 20 mg orally once every day, Carafate 1 g orally 4 times every day. 11. DVT prophylaxis.Patient will be started on heparin 5000 units subcutaneous twice a day. 12. Chronic pleural plaques bilateral lung field possibly secondary to asbestos exposure. 13. Ventral hernia, with herniation of the stomach currently asymptomatic 14. 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 15. Depression, recurrent. Continue Cymbalta 120 mg orally once every day. Continue on Seroquel 50 mg at bedtime secondary to treatment resistant depression 1 mg Xanax daily at bedtime Discharge plan: Home with [facility] on Monday. Impression and plan of care have been directed as dictated by the signing physician. Patricia Padilla nurse practitioner acting as scribe for signing physician.
[2018-02-02 16:48] LABS: Glucose,Whole Blood 142 mg/dL (75-99)
[2018-02-02] MEDS: LEVOFLOXACIN 750 MG TAB PO SCH (18:09)
[2018-02-02 20:18] LABS: Glucose,Whole Blood 120 mg/dL (75-99)
[2018-02-02] MEDS: ALPRAZolam 1 MG TAB PO PRN (20:49)
[2018-02-02] MEDS: QUEtiapine 50 MG TAB PO SCH (20:50)
[2018-02-02] MEDS: ATORVASTATIN 10 MG TAB PO SCH (20:50)
[2018-02-03 07:21] LABS: Glucose,Whole Blood 120 mg/dL (75-99)
[2018-02-03] MEDS: SYMBICORT 160-4.5 MCG INHALER INHALATION SCH (07:57)
[2018-02-03] MEDS: IPRATROPIUM-ALBUTEROL 3 ML NEB INHALATION SCH ×2 (07:57→11:12)
[2018-02-03] MEDS: ENOXAPARIN 40 MG/0.4 ML SYRINGE SQ SCH (08:13)
[2018-02-03] MEDS: INSULIN ASPART 100 UNIT/ML 1 ML 10 ML VIAL SQ SCH ×2 (08:13→12:10)
[2018-02-03] MEDS: ALLOPURINOL 100 MG TAB PO SCH (08:13)
[2018-02-03] MEDS: SUCRALFATE 1 GM TAB PO SCH (08:13)
[2018-02-03] MEDS: guaiFENesin 600 MG TABLET.ER PO SCH (08:14)
[2018-02-03] MEDS: PANTOPRAZOLE 40 MG TABLET PO SCH (08:14)
[2018-02-03] MEDS: FERROUS SULFATE 325 MG TAB PO SCH (08:14)
[2018-02-03] MEDS: DULoxetine HCL 60 MG CAPSULE.DR PO SCH (08:14)
[2018-02-03] MEDS: LISINOPRIL 2.5 MG TAB PO SCH (08:15)
[2018-02-03] MEDS: METOPROLOL TARTRATE 25 MG TAB PO SCH (08:15)
[2018-02-03] MEDS: TAMSULOSIN 0.4 MG CAP.ER.24H PO SCH (08:15)
[2018-02-03] MEDS: VIT A,C & E-LUTEIN-MINERALS 1 EACH TAB PO SCH (08:16)
[2018-02-03] MEDS ORDERED: predniSONE 20 MG TAB PO SCH (09:00)
[2018-02-03 11:24] LABS: Glucose,Whole Blood 82 mg/dL (75-99)
[2018-02-03 12:01] VITALS: BP 128/55; PULSE 69; RESP 17; TEMP 98.7
[2018-02-03] MEDS: MULTIVITAMINS, THERA 1 EACH TAB PO SCH (12:10)
--- NOTE | 2018-02-03 18:20 | P.DS ---
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 Patient has a nebulizer at home however he has no medications for this, he also decreased smoking October 2017 now at 4 cigarettes per day. Patient denies any recent falls, no weight loss no syncope no aspirated events.\ In the emergency room, chest x-ray there is pleural plaques and calcifications noted, mild increased lung markings present bilaterally, greater in the right midlung peripherally, follow-up x-rays are so recommended, double basic count of 20,000, neutrophilia INR 1.1, creatinine 0.7. 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 02/02- Patient states that is breathing is better today but does not feel he is back to baseline. Solu-medrol will be transitioned to oral prednisone in the morning. Anticipate he will be ready for discharge tomorrow. Patient does have home O2 at 2 L and usually only uses it at night. Pulse ox is 99% on 2 L. Patient has been afebrile. Patient states that he is feeling better and that he is back to his baseline. Patient is anxious to go home. Patient continues to be afebrile pulse ox is 100 % on room air. Discharge diagnosis 1. COPD exacerbation, with pneumonia, right lung infiltrate, 2. 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 Hypertension and hypertensive cardiovascular disease. 4 . Hyperlipidemia. 5. restless leg syndrome, 6. BPH. 8. Gout unspecified currently asymptomatic . 9. CAD/arrhythmia. 10. Chronic pleural plaques bilateral lung field possibly secondary to asbestos exposure. 11. Ventral hernia, with herniation of the stomach 12. 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 13. Depression, recurrent. C Disposition: Home with self-care CC: Dr. Castillo Impression and plan of care have been directed as dictated by the signing physician. Samina Almodovar nurse practitioner acting as scribe for signing physician. Patient Condition at Discharge: Fair Plan - Discharge Summary Discharge Rx Participant: No New Discharge Prescriptions: New Budesonide-Formot 160-4.5 Mcg [Symbicort 160-4.5 Mcg Inhaler] 2 puff INHALATION RT-BID #1 each Levofloxacin [Levaquin] 750 mg PO Q24H #3 tab predniSONE 10 mg PO DIRECTED #30 tab Continue DULoxetine HCL [Cymbalta] 60 mg PO BID Allopurinol 100 mg PO BID Omeprazole [PriLOSEC] 20 mg PO DAILY guaiFENesin [Mucinex] 1,200 mg PO BID Metoprolol Tartrate [Lopressor] 25 mg PO DAILY Vit C/E/Zn/Coppr/Lutein/Zeaxan [Preservision Areds 2 Softgel] 1 cap PO BID Sucralfate [Carafate] 1 gm PO BID Tamsulosin [Flomax] 0.4 mg PO DAILY Lisinopril [Zestril] 2.5 mg PO DAILY tab rOPINIRole HCL [Requip] 0.25 mg PO HS Simvastatin [Zocor] 20 mg PO HS Multivit-Min/FA/Lycopen/Lutein [Centrum Silver Men Tablet] 1 tab PO DAILY Ferrous Sulfate [Iron (65 MG Elemental)] 325 mg PO DAILY Acetaminophen [Tylenol Extra Strength] 500 mg PO Q6HR PRN PRN Reason: Pain ALPRAZolam [Xanax] 1 mg PO TID PRN PRN Reason: Anxiety Discharge Medication List DULoxetine HCL [Cymbalta] 60 mg PO BID 05/16/14 [History] Allopurinol 100 mg PO BID 09/09/15 [History] Omeprazole [PriLOSEC] 20 mg PO DAILY 07/21/16 [History] Metoprolol Tartrate [Lopressor] 25 mg PO DAILY 08/29/16 [History] Sucralfate [Carafate] 1 gm PO BID 08/29/16 [History] Vit C/E/Zn/Coppr/Lutein/Zeaxan [Preservision Areds 2 Softgel] 1 cap PO BID 08/29 [History] guaiFENesin [Mucinex] 1,200 mg PO BID 08/29/16 [History] Tamsulosin [Flomax] 0.4 mg PO DAILY 11/16/16 [History] Lisinopril [Zestril] 2.5 mg PO DAILY tab 11/20/16 [Rx] Acetaminophen [Tylenol Extra Strength] 500 mg PO Q6HR PRN 05/11/17 [History] Ferrous Sulfate [Iron (65 MG Elemental)] 325 mg PO DAILY 05/11/17 [History] Multivit-Min/FA/Lycopen/Lutein [Centrum Silver Men Tablet] 1 tab PO DAILY [History] Simvastatin [Zocor] 20 mg PO HS 05/11/17 [History] rOPINIRole HCL [Requip] 0.25 mg PO HS 05/11/17 [History] ALPRAZolam [Xanax] 1 mg PO TID PRN 06/29/17 [History] Budesonide-Formot 160-4.5 Mcg [Symbicort 160-4.5 Mcg Inhaler] 2 puff INHALATION RT-BID #1 each 02/03/18 [Rx] Levofloxacin [Levaquin] 750 mg PO Q24H #3 tab 02/03/18 [Rx] predniSONE 10 mg PO DIRECTED #30 tab 02/03/18 [Rx] Follow up Appointment(s)/Referral(s): Yoav Castillo DO [Primary Care Provider] - 1-2 days (call on Monday for follow up appointment as soon as possible.) [facility] Visiting Nurse, [NON-STAFF] - As Needed (call their office and let them know you are back home to confirm Monday visit) Patient Instructions/Handouts: Prednisone (By mouth), Levofloxacin (By mouth), Budesonide/Formoterol (By breathing), Fever in Adults (GEN), COPD (Chronic Obstructive Pulmonary Disease) (DC), Community Acquired Pneumonia (DC) Discharge Disposition: HOME WITH HOME HEALTH SERVICES
== END 2018-02-03 13:25 | disposition home health service (06) | DRG 193 ==
LOC: EC 16:26 → 4MS4W 18:52 → 4SSUR 19:05 → 3NMEDONC 19:06
PROVIDERS: ADMIT Internal Medicine; ATTEND Internal Medicine
DX: J18.9 Pneumonia, unspecified organism (principal); J96.21 Acute and chronic respiratory failure with hypoxia; J44.0 Chronic obstructive pulmonary disease with (acute) lower respiratory infection; J44.1 Chronic obstructive pulmonary disease with (acute) exacerbation; I69.354 Hemiplegia and hemiparesis following cerebral infarction affecting left non-dominant side; J38.01 Paralysis of vocal cords and larynx, unilateral; I11.9 Hypertensive heart disease without heart failure; J92.0 Pleural plaque with presence of asbestos; G25.81 Restless legs syndrome; M10.9 Gout, unspecified; K43.9 Ventral hernia without obstruction or gangrene; N40.0 Benign prostatic hyperplasia without lower urinary tract symptoms; I25.10 Atherosclerotic heart disease of native coronary artery without angina pectoris; M19.90 Unspecified osteoarthritis, unspecified site; K21.9 Gastro-esophageal reflux disease without esophagitis; E78.5 Hyperlipidemia, unspecified; I25.2 Old myocardial infarction; F41.8 Other specified anxiety disorders; H35.30 Unspecified macular degeneration; F17.210 Nicotine dependence, cigarettes, uncomplicated; Z71.6 Tobacco abuse counseling; Z99.81 Dependence on supplemental oxygen; Z79.899 Other long term (current) drug therapy; Z95.5 Presence of coronary angioplasty implant and graft; Z96.651 Presence of right artificial knee joint; Z80.0 Family history of malignant neoplasm of digestive organs; Z81.8 Family history of other mental and behavioral disorders
CPT/HCPCS: 36415; 71046; 74019; 80048; 80053; 81003; 82550; 82553; 83036; 83605; 83735; 83880; 84484; 85025; 85027; 85610; 85730; 87040; 87502; 93005; 94640; 96365; 96366; 99285

== ENCOUNTER 2018-07-04 15:17 | Emergency (ER) | payer MEDICARE ==
[2018-07-04 15:23] VITALS: BP 163/95; PULSE 87; RESP 17; TEMP 97.6
--- NOTE | 2018-07-04 16:09 | ED ---
General Adult HPI - General Source: patient, EMS, RN notes reviewed Mode of arrival: EMS Limitations: no limitations <Melvin Vieira - Last Filed: 07/04/18 16:55> <Cordell Campos - Last Filed: 07/04/18 18:04> - General Chief complaint: Urogenital Stated complaint: BLOOD IN URINE Time Seen by Provider: 07/04/18 15:25 - History of Present Illness Initial comments: This is an 87-year-old male presents emergency Department complaining of hematuria. Patient states it started last week has gotten progressively worse. Patient states today he had a big clot come out of his penis and that made him more concerned so decided come to the emergency department. Patient denies any dysuria or urinary frequency. Patient denies any abdominal pain patient denies fever chills. Patient denies any back pain. Patient denies any similar symptoms. Patient denies any nausea vomiting diarrhea. (Melvin Vieira) - Related Data Home Medications Medication Instructions Recorded Confirmed DULoxetine HCL [Cymbalta] 60 mg PO BID 05/16/14 07/04/18 Allopurinol 100 mg PO BID 09/09/15 07/04/18 Omeprazole [PriLOSEC] 20 mg PO DAILY 07/21/16 07/04/18 Sucralfate [Carafate] 1 gm PO BID 08/29/16 07/04/18 Vit C/E/Zn/Coppr/Lutein/Zeaxan 1 cap PO BID 08/29/16 07/04/18 [Preservision Areds 2 Softgel] Tamsulosin [Flomax] 0.4 mg PO DAILY 11/16/16 07/04/18 Acetaminophen [Tylenol Extra 500 mg PO Q6HR PRN 05/11/17 07/04/18 Strength] Ferrous Sulfate [Iron (65 MG 325 mg PO DAILY 05/11/17 07/04/18 Elemental)] Multivit-Min/FA/Lycopen/Lutein 1 tab PO DAILY 05/11/17 07/04/18 [Centrum Silver Men Tablet] rOPINIRole HCL [Requip] 0.25 mg PO HS 05/11/17 07/04/18 ALPRAZolam [Xanax] 1 mg PO TID PRN 06/29/17 07/04/18 Furosemide [Lasix] 20 mg PO DAILY 07/04/18 07/04/18 QUEtiapine [SEROquel] 50 mg PO HS 07/04/18 07/04/18 Previous Rx's Medication Instructions Recorded Lisinopril [Zestril] 2.5 mg PO DAILY tab 11/20/16 Budesonide-Formot 160-4.5 Mcg 2 puff INHALATION RT-BID #1 each 02/03/18 [Symbicort 160-4.5 Mcg Inhaler] Allergies Allergy/AdvReac Type Severity Reaction Status Date / Time No Known Allergies Allergy Verified 07/04/18 16:33 Review of Systems ROS Other: All systems not noted in ROS Statement are negative. <Melvin Vieira - Last Filed: 07/04/18 16:55> ROS Other: All systems not noted in ROS Statement are negative. <Cordell Campos - Last Filed: 07/04/18 18:04> ROS Statement: Those systems with pertinent positive or pertinent negative responses have been documented in the HPI. Past Medical History Past Medical History: Coronary Artery Disease (CAD), COPD, CVA/TIA, GERD/Reflux, Hyperlipidemia, Hypertension, Osteoarthritis (OA), Prostate Disorder Additional Past Medical History / Comment(s): MACULAR DEGENERATION History of Any Multi-Drug Resistant Organisms: None Reported Past Surgical History: Heart Catheterization With Stent, Joint Replacement, Orthopedic Surgery Additional Past Surgical History / Comment(s): carpal tunnel release bilat, ulcer surgery, RIGHT TOTAL KNEEX2, left rotater cuff Past Anesthesia/Blood Transfusion Reactions: No Reported Reaction Additional Past Anesthesia/Blood Transfusion Reaction / Comment(s): Pt received blood in 2007 without reaction. Date of Last Stent Placement:: 2010 Past Psychological History: Anxiety, Depression Smoking Status: Current every day smoker - Past Family History Mother Family Medical History: Cancer Additional Family Medical History / Comment(s): Mother at age 43 from colon cancer. Father Additional Family Medical History / Comment(s): Father at age 98 from old age with no major medical problems. Patient does not have any brothers or sisters. Daughter(s) Additional Family Medical History / Comment(s): Patient has 2 daughters with mental health issues. No medical problems. <Melvin Vieira - Last Filed: 07/04/18 16:55> General Exam Limitations: no limitations <Melvin Vieira - Last Filed: 07/04/18 16:55> - General Exam Comments Initial Comments: GENERAL: Patient is well-developed and well-nourished. Patient is nontoxic and well- hydrated and is in no acute distress. ENT: Neck is soft and supple. No significant lymphadenopathy is noted. Neck has full range of motion without eliciting any pain. EYES: The sclera were anicteric and conjunctiva were pink and moist. Extraocular movements were intact and pupils were equal round and reactive to light. Eyelids were unremarkable. PULMONARY: Unlabored respirations. Good breath sounds bilaterally. No audible rales rhonchi or wheezing was noted. CARDIOVASCULAR: There is a regular rate and rhythm without any murmurs gallops or rubs. ABDOMEN: Soft and nontender with normal bowel sounds. SKIN: Skin is clear with no lesions or rashes and otherwise unremarkable. NEUROLOGIC: Patient is alert and oriented x3. Cranial nerves II through XII are grossly intact. Motor and sensory are also intact. Normal speech, volume and content. Symmetrical smile. MUSCULOSKELETAL: Normal extremities with adequate strength and full range of motion. No lower extremity swelling or edema. No calf tenderness. LYMPHATICS: No significant lymphadenopathy is noted PSYCHIATRIC: Normal psychiatric evaluation. (Melvin Vieira) Course Vital Signs 07/04/18 15:18 Temperature 97.6 F Pulse Rate 87 Respiratory 17 Rate Blood Pressure 163/95 O2 Sat by Pulse 97 Oximetry Medical Decision Making - Lab Data Result diagrams: 07/04/18 16:00 07/04/18 16:00 <Melvin Vieira - Last Filed: 07/04/18 16:55> - Lab Data Result diagrams: 07/04/18 16:00 07/04/18 16:00 <Cordell Campos - Last Filed: 07/04/18 18:04> - Medical Decision Making Dr. Campos will be taking over the care of this patient at 5 PM (Melvin Vieira) Patient care was signed out to me by previous shift physician Dr. Liao. Plan at sign out was to follow up with CT imaging. Patient was evaluated at bedside. He had no complaints at this time. He states he feels well. Labs were reviewed. Patient has hemoglobin of 12.9 normal platelets. Patient also has n ormal coag panel. CT imaging was reviewed by myself and radiologist showing no acute processes at this time. There does appear to be some chronic findings of the long and abdomen however no findings to suggest cause of hematuria. Patient observed in emergency department for several hours with stable medical condition. Patient is told to follow-up with his urologist Dr. Arthur and his primary care physician. Patient is understandable and agreeable to disposition. Return parameters discussed. (Cordell Campos) - Lab Data Lab Results 07/04/18 07/04/18 07/04/18 Range/Units 16:00 16:00 16:00 WBC 7.3 (3.8-10.6) k/uL RBC 4.23 L (4.30-5.90) m/uL Hgb 12.9 L (13.0-17.5) gm/dL Hct 40.6 (39.0-53.0) % MCV 95.9 (80.0-100.0) fL MCH 30.4 (25.0-35.0) pg MCHC 31.7 (31.0-37.0) g/dL RDW 13.5 (11.5-15.5) % Plt Count 216 (150-450) k/uL Neutrophils % 65 % Lymphocytes % 14 % Monocytes % 11 % Eosinophils % 7 % Basophils % 1 % Neutrophils # 4.7 (1.3-7.7) k/uL Lymphocytes # 1.0 (1.0-4.8) k/uL Monocytes # 0.8 (0-1.0) k/uL Eosinophils # 0.5 (0-0.7) k/uL Basophils # 0.1 (0-0.2) k/uL PT 11.1 (9.0-12.0) sec INR 1.0 (<1.2) APTT 28.4 (22.0-30.0) sec Sodium 141 (137-145) mmol/L Potassium 3.9 (3.5-5.1) mmol/L Chloride 106 (98-107) mmol/L Carbon Dioxide 29 (22-30) mmol/L Anion Gap 6 mmol/L BUN 18 (9-20) mg/dL Creatinine 0.58 L (0.66-1.25) mg/dL Est GFR (CKD-EPI)AfAm >90 (>60 ml/min/1.73 sqM) Est GFR (CKD-EPI)NonAf >90 (>60 ml/min/1.73 sqM) Glucose 91 (74-99) mg/dL Calcium 8.9 (8.4-10.2) mg/dL Total Bilirubin 0.5 (0.2-1.3) mg/dL AST 17 (17-59) U/L ALT 20 L (21-72) U/L Alkaline Phosphatase 57 (38-126) U/L Total Protein 5.6 L (6.3-8.2) g/dL Albumin 3.3 L (3.5-5.0) g/dL Urine Color Urine Appearance (Clear) Urine pH (5.0-8.0) Ur Specific [place] (1.001-1.035) Urine Protein (Negative) Urine Glucose (UA) (Negative) Urine Ketones (Negative) Urine Blood (Negative) Urine Nitrite (Negative) Urine Bilirubin (Negative) Urine Urobilinogen (<2.0) mg/dL Ur Leukocyte Esterase (Negative) Urine RBC (0-5) /hpf Urine WBC (0-5) /hpf Urine Bacteria (None) /hpf 07/04/18 Range/Units 16:10 WBC (3.8-10.6) k/uL RBC (4.30-5.90) m/uL Hgb (13.0-17.5) gm/dL Hct (39.0-53.0) % MCV (80.0-100.0) fL MCH (25.0-35.0) pg MCHC (31.0-37.0) g/dL RDW (11.5-15.5) % Plt Count (150-450) k/uL Neutrophils % % Lymphocytes % % Monocytes % % Eosinophils % % Basophils % % Neutrophils # (1.3-7.7) k/uL Lymphocytes # (1.0-4.8) k/uL Monocytes # (0-1.0) k/uL Eosinophils # (0-0.7) k/uL Basophils # (0-0.2) k/uL PT (9.0-12.0) sec INR (<1.2) APTT (22.0-30.0) sec Sodium (137-145) mmol/L Potassium (3.5-5.1) mmol/L Chloride (98-107) mmol/L Carbon Dioxide (22-30) mmol/L Anion Gap mmol/L BUN (9-20) mg/dL Creatinine (0.66-1.25) mg/dL Est GFR (CKD-EPI)AfAm (>60 ml/min/1.73 sqM) Est GFR (CKD-EPI)NonAf (>60 ml/min/1.73 sqM) Glucose (74-99) mg/dL Calcium (8.4-10.2) mg/dL Total Bilirubin (0.2-1.3) mg/dL AST (17-59) U/L ALT (21-72) U/L Alkaline Phosphatase (38-126) U/L Total Protein (6.3-8.2) g/dL Albumin (3.5-5.0) g/dL Urine Color Light Red Urine Appearance Clear (Clear) Urine pH 7.0 (5.0-8.0) Ur Specific [place] 1.015 (1.001-1.035) Urine Protein Trace H (Negative) Urine Glucose (UA) Negative (Negative) Urine Ketones Negative (Negative) Urine Blood Large H (Negative) Urine Nitrite Negative (Negative) Urine Bilirubin Negative (Negative) Urine Urobilinogen <2.0 (<2.0) mg/dL Ur Leukocyte Esterase Negative (Negative) Urine RBC >182 H (0-5) /hpf Urine WBC 41 H (0-5) /hpf Urine Bacteria Rare H (None) /hpf Disposition <Melvin Vieira - Last Filed: 07/04/18 16:55> Is patient prescribed a controlled substance at d/c from ED?: No Time of Disposition: 18:04 <Cordell Campos - Last Filed: 07/04/18 18:04> Clinical Impression: Hematuria Disposition: HOME SELF-CARE Condition: Good Instructions (If sedation given, give patient instructions): Hematuria (ED) Referrals: Yoav Castillo DO [Primary Care Provider] - 1-2 days Too Arthur MD [STAFF PHYSICIAN] - 1-2 days
[2018-07-04 16:17] LABS: ALT 20 U/L (21-72); AST 17 U/L (17-59); Albumin 3.3 g/dL (3.5-5.0); Alkaline Phosphatase 57 U/L (38-126); Anion Gap 6 mmol/L; Basophils # (A) 0.1 k/uL (0-0.2); Basophils % (A) 1 %; Blood Urea Nitrogen 18 mg/dL (9-20); Calcium 8.9 mg/dL (8.4-10.2); Carbon Dioxide 29 mmol/L (22-30); Chloride 106 mmol/L (98-107); Eosinophils # (A) 0.5 k/uL (0-0.7); Eosinophils % (A) 7 %; Glucose 91 mg/dL (74-99); HCT 40.6 % (39.0-53.0); HGB 12.9 gm/dL (13.0-17.5); Lymphocytes % (A) 14 %; MCH 30.4 pg (25.0-35.0); MCHC 31.7 g/dL (31.0-37.0); MCV 95.9 fL (80.0-100.0); Mean Platelet Volume 6.8; Monocytes # (A) 0.8 k/uL (0-1.0); Monocytes % (A) 11 %; Neutrophils # (A) 4.7 k/uL (1.3-7.7); Neutrophils % (A) 65 %; Platelet Count 216 k/uL (150-450); Potassium 3.9 mmol/L (3.5-5.1); RBC 4.23 m/uL (4.30-5.90); RDW 13.5 % (11.5-15.5); Sodium 141 mmol/L (137-145); Total Bilirubin 0.5 mg/dL (0.2-1.3); Total Protein 5.6 g/dL (6.3-8.2); WBC 7.3 k/uL (3.8-10.6)
[2018-07-04 16:21] LABS: Appearance,Urine Clear (Clear); Bacteria,Urine Rare /hpf; Bilirubin,Urine Negative (Negative); Blood,Urine Large (Negative); Color,Urine Light Red; Glucose,Urine (UA) Negative (Negative); Ketones,Urine Negative (Negative); Leukocyte Esterase,Urine Negative (Negative); Nitrite,Urine Negative (Negative); Protein,Urine Trace (Negative); RBC,Urine >182 /hpf (0-5); Specific Gravity,Urine 1.015 (1.001-1.035); Urobilinogen,Urine <2.0 mg/dL (<2.0); WBC,Urine 41 /hpf (0-5)
[2018-07-04 17:01] LABS: Partial Thromboplastin Time 28.4 sec (22.0-30.0); Prothrombin Time 11.1 sec (9.0-12.0)
--- NOTE | 2018-07-04 17:45 | CT ---
EXAMINATION TYPE: CT abdomen pelvis w con DATE OF EXAM: 07/04/2018 COMPARISON: 04/10/2016 HISTORY: Hematuria with passing clots for [address] DLP: 1143.9 mGycm Automated exposure control for dose reduction was used. TECHNIQUE: Helical acquisition of images was performed from the lung bases through the pelvis. CONTRAST: Performed without Oral Contrast and with IV Contrast, patient injected with 100 mL of Isovue 300. FINDINGS: There is some patchy atelectasis at the lung bases. There is no pericardial effusion. There is no ple ural effusion. Heart size is fairly normal. There is small hiatal hernia. There is diaphragmatic pleural calcification bilaterally. Liver shows no focal defect. The bile ducts are not dilated. Spleen appears normal. Stomach appears n ormal. There is no pancreatic mass. Gallbladder appears normal. There is 1.8 cm nodule on the right adrenal gland. Kidneys show satisfactory contrast opacification. There is no hydronephrosis. Ureters are not dilated. There is no retroperitoneal adenopathy. Abdomina l aorta is atheromatous. Bladder distends smoothly. There is no inguinal hernia. There is no free flu id in the pelvis. There is prostatic calcification. There is no mesenteric edema. There is no ascites or free air. There are few surgical clips in the ri ght abdomen. Appendix is not seen. There is no sign of appendicitis. There is no evidence of a bowel obstruction. There is no intestinal wall thickening. There is multilevel extensive spondylotic change s in the lumbar spine. There is multilevel laminectomy defect in the lumbar spine. There is bony spin al stenosis at several levels. IMPRESSION: THERE IS SOME SCARRING AND ATELECTASIS AT THE LUNG BASES WITH CALCIFIED PLEURAL PLAQUE. NO SIGN OF AC MIR ABDOMEN AND PELVIS. ATHEROSCLEROTIC VASCULAR DISEASE. NO ADVERSE CHANGE COMPARED TO OLD EXAM. I d o not see a cause for hematuria.
== END 2018-07-04 18:21 | disposition home or self-care (01) ==
LOC: EC 15:17
DX: R31.9 Hematuria, unspecified (principal); I25.10 Atherosclerotic heart disease of native coronary artery without angina pectoris; K21.9 Gastro-esophageal reflux disease without esophagitis; I10 Essential (primary) hypertension; M19.90 Unspecified osteoarthritis, unspecified site; N42.9 Disorder of prostate, unspecified; F32.9 Major depressive disorder, single episode, unspecified; F41.9 Anxiety disorder, unspecified; F17.200 Nicotine dependence, unspecified, uncomplicated; Z79.899 Other long term (current) drug therapy; Z86.73 Personal history of transient ischemic attack (TIA), and cerebral infarction without residual deficits; Z95.5 Presence of coronary angioplasty implant and graft; Z96.651 Presence of right artificial knee joint
CPT/HCPCS: 36415; 80053; 85025; 85610; 85730; 81001; 74177; 99284; Q9967

== ENCOUNTER 2018-12-15 16:38 | Inpatient (IN) | payer MEDICARE ==
[2018-12-15 16:50] LABS: Glucose,Whole Blood 119 mg/dL (75-99)
[2018-12-15] MEDS ORDERED: SODIUM CHLORIDE 0.9% 1,000 ML IV STA (16:55)
[2018-12-15 17:23] LABS: Basophils # (A) 0.1 k/uL (0-0.2); Basophils % (A) 1 %; Eosinophils # (A) 0.4 k/uL (0-0.7); Eosinophils % (A) 5 %; HCT 39.1 % (39.0-53.0); HGB 12.1 gm/dL (13.0-17.5); Lymphocytes # (A) 0.8 k/uL (1.0-4.8); Lymphocytes % (A) 10 %; MCH 31.3 pg (25.0-35.0); MCHC 30.8 g/dL (31.0-37.0); MCV 101.4 fL (80.0-100.0); Macrocytosis Slight; Mean Platelet Volume 6.7; Monocytes # (A) 0.7 k/uL (0-1.0); Monocytes % (A) 9 %; Neutrophils # (A) 5.7 k/uL (1.3-7.7); Neutrophils % (A) 73 %; Platelet Count 240 k/uL (150-450); RBC 3.86 m/uL (4.30-5.90); RDW 12.9 % (11.5-15.5); WBC 7.9 k/uL (3.8-10.6)
[2018-12-15 17:36] LABS: ALT 23 U/L (21-72); AST 22 U/L (17-59); Acetaminophen <10.0 ug/mL; African American GFR (CKD) 73 (>60 ml/min/1.73 sqM); Albumin 3.7 g/dL (3.5-5.0); Alkaline Phosphatase 62 U/L (38-126); Anion Gap 8 mmol/L; Blood Urea Nitrogen 20 mg/dL (9-20); Calcium 8.7 mg/dL (8.4-10.2); Carbon Dioxide 29 mmol/L (22-30); Chloride 96 mmol/L (98-107); Creatine Kinase 76 U/L (55-170); Glucose 121 mg/dL (74-99); Potassium 3.9 mmol/L (3.5-5.1); Salicylate <1.0 mg/dL; Sodium 133 mmol/L (137-145); Total Bilirubin 0.4 mg/dL (0.2-1.3); Total Protein 6.1 g/dL (6.3-8.2)
[2018-12-15 17:38] LABS: Partial Thromboplastin Time 27.1 sec (22.0-30.0); Prothrombin Time 10.7 sec (9.0-12.0)
--- NOTE | 2018-12-15 18:34 | CT ---
EXAMINATION TYPE: CT brain wo con DATE OF EXAM: 12/15/2018 COMPARISON: 06/29/2017 HISTORY: confusion CT DLP: 1149.4 mGycm Automated exposure control for dose reduction was used. FINDINGS: There is some cerebral cortical atrophy. There is enlargement of the ventricles. There is occipital c ranial posterior fusion surgery noted. There is metal artifact. IMPRESSION: CEREBRAL ATROPHY. MILD HYDROCEPHALUS. NO SIGNIFICANT CHANGE. NO ACUTE INTRACRANIAL ABNORMALITY.
--- NOTE | 2018-12-15 18:41 | CT ---
EXAMINATION TYPE: CT abdomen pelvis w con DATE OF EXAM: 12/15/2018 COMPARISON: 07/04/2018 HISTORY: pain CT DLP: 1686.9 mGycm Automated exposure control for dose reduction was used. TECHNIQUE: Helical acquisition of images was performed from the lung bases through the pelvis. CONTRAST: Performed without Oral Contrast and with IV Contrast, patient injected with 80 mL of Isovue 300. FINDINGS: There is calcified pleural plaque at the lung bases. Heart size is fairly normal. There is no pleural effusion. Liver shows no focal defect. Gallbladder has normal size. Spleen is intact. Stomach is intact. The bi le ducts are not dilated. There is no sign of pancreatic mass. There is no adrenal mass. Kidneys have fairly normal size. There are tiny left renal calculi. There i s no hydronephrosis. Ureters are not dilated. Abdominal aorta is atheromatous. There is no retroperit matos adenopathy. Bladder distends smoothly. There is no inguinal hernia. There is prostatic calcific ation. There is extensive atherosclerotic vascular calcification. There is no mesenteric edema. There is no ascites or free air. There is no sign of a bowel obstructio n. Appendix is not definitely seen. There is no sign of thickened appendix. There is advanced multilevel spondylotic changes in the lumbar spine. There is no compression fractur e. There is degenerative first-degree L4-5 spondylolisthesis. There is multilevel lumbar laminectomy defect. IMPRESSION: THERE IS EXTENSIVE CALCIFIED PLEURAL PLAQUE. UNCHANGED. ADVANCED SPONDYLOTIC CHANGES IN THE LUMBAR SP INE UNCHANGED. NONOBSTRUCTING LEFT RENAL CALCULI UNCHANGED. NO SIGN OF ACUTE ABDOMEN AND PELVIS.
--- NOTE | 2018-12-15 18:42 | XR ---
EXAMINATION TYPE: XR chest 2V DATE OF EXAM: 12/15/2018 COMPARISON: 01/31/2018 HISTORY: COPD. Altered mental status. TECHNIQUE: Frontal and lateral views of the chest are obtained. FINDINGS: There is no heart failure nor confluent pneumonic infiltrate. There is calcified pleural p laque in both left and right lung garvin. There is significant arthritic change in the shoulder joint s. Thoracic aorta is atheromatous. There is no sign of pleural effusion. IMPRESSION: Calcified pleural plaque. No acute lung disease. No change.
--- NOTE | 2018-12-15 19:04 | ED ---
Weakness HPI - General Chief complaint: Weakness Stated complaint: altered mental status Time Seen by Provider: 12/15/18 16:45 Source: patient Mode of arrival: EMS Limitations: no limitations - History of Present Illness Initial comments: Patient is an 88-year-old male who presents to the emergency department with reported generalized weakness. The patient states that around 2 PM today he felt generally weak. He called EMS. When he arrived they found him to have blood pressures of 50 systolic. They were able to give him a 500 mL bolus which did bring him up to 80 systolic. The patient is denying any pain. He denies any headaches or visual changes. No fevers or chills. No recent upper respiratory infections. Denies any chest pain or shortness breath. No ripping or tearing sensation to his back. Does admit to weakness in all 4 extremities however denies any unilateral symptoms. No slurred speech or confusion. No history of stroke. Denies any neck thoracic or lumbar back pain. Denies any abdominal pain. No diarrhea, constipation, melanotic stools or hematochezia. Denies any changes in his urination to include dysuria, hematuria or difficulty voiding. The patient does take multiple sedating medications. I do ask him whether he could have overdosed on them and he denies this. No new prescribed medications or [id number] medications. The remainder of the HPI is limited as the patient's denies all complaints other than feeling weak" - Related Data Home Medications Medication Instructions Recorded Confirmed DULoxetine HCL [Cymbalta] 60 mg PO BID 05/16/14 12/15/18 Sucralfate [Carafate] 1 gm PO BID 08/29/16 12/15/18 Vit C/E/Zn/Coppr/Lutein/Zeaxan 1 cap PO BID 08/29/16 12/15/18 [Preservision Areds 2 Softgel] Acetaminophen [Tylenol Extra 500 mg PO Q6HR PRN 05/11/17 12/15/18 Strength] Ferrous Sulfate [Iron (65 MG 325 mg PO DAILY 05/11/17 12/15/18 Elemental)] Multivit-Min/FA/Lycopen/Lutein 1 tab PO DAILY 05/11/17 12/15/18 [Centrum Silver Men Tablet] rOPINIRole HCL [Requip] 0.25 mg PO HS 05/11/17 12/15/18 ALPRAZolam [Xanax] 1 mg PO TID PRN 06/29/17 12/15/18 QUEtiapine [SEROquel] 50 mg PO HS 07/04/18 12/15/18 Atorvastatin [Lipitor] 40 mg PO HS 12/15/18 12/15/18 Furosemide [Lasix] 20 mg PO DAILY PRN 12/15/18 12/15/18 Lisinopril [Zestril] 20 mg PO DAILY 12/15/18 12/15/18 Metoprolol Tartrate [Lopressor] 25 mg PO BID 12/15/18 12/15/18 Pantoprazole [Protonix] 40 mg PO DAILY 12/15/18 12/15/18 Previous Rx's Medication Instructions Recorded Budesonide-Formot 160-4.5 Mcg 2 puff INHALATION RT-BID #1 each 02/03/18 [Symbicort 160-4.5 Mcg Inhaler] Allergies Allergy/AdvReac Type Severity Reaction Status Date / Time No Known Allergies Allergy Verified 12/15/18 18:16 Review of Systems ROS Statement: Those systems with pertinent positive or pertinent negative responses have been documented in the HPI. ROS Other: All systems not noted in ROS Statement are negative. Past Medical History Past Medical History: Coronary Artery Disease (CAD), COPD, CVA/TIA, GERD/Reflux, Hyperlipidemia, Hypertension, Osteoarthritis (OA), Prostate Disorder Additional Past Medical History / Comment(s): MACULAR DEGENERATION History of Any Multi-Drug Resistant Organisms: None Reported Past Surgical History: Heart Catheterization With Stent, Joint Replacement, Orthopedic Surgery Additional Past Surgical History / Comment(s): carpal tunnel release bilat, ulcer surgery, RIGHT TOTAL KNEEX2, left rotater cuff Past Anesthesia/Blood Transfusion Reactions: No Reported Reaction Additional Past Anesthesia/Blood Transfusion Reaction / Comment(s): Pt received blood in 2007 without reaction. Date of Last Stent Placement:: 2010 Past Psychological History: Anxiety, Depression Smoking Status: Current every day smoker - Past Family History Mother Family Medical History: Cancer Additional Family Medical History / Comment(s): Mother at age 43 from colon cancer. Father Additional Family Medical History / Comment(s): Father at age 98 from old age with no major medical problems. Patient does not have any brothers or sisters. Daughter(s) Additional Family Medical History / Comment(s): Patient has 2 daughters with mental health issues. No medical problems. General Exam Limitations: no limitations General appearance: alert, lethargic Head exam: Present: atraumatic, normocephalic, normal inspection Eye exam: Present: normal appearance, PERRL, EOMI. Absent: scleral icterus, c onjunctival injection, periorbital swelling ENT exam: Present: normal exam, mucous membranes moist Neck exam: Present: normal inspection. Absent: tenderness, meningismus, lymphadenopathy Respiratory exam: Present: normal lung sounds bilaterally. Absent: respiratory distress, wheezes, rales, rhonchi, stridor Cardiovascular Exam: Present: regular rate, normal rhythm, normal heart sounds. Absent: systolic murmur, diastolic murmur, rubs, gallop, clicks GI/Abdominal exam: Present: soft, normal bowel sounds. Absent: distended, tenderness, guarding, rebound, rigid Extremities exam: Present: normal inspection, full ROM, normal capillary refill. Absent: tenderness, pedal edema, joint swelling, calf tenderness Back exam: Present: normal inspection Neurological exam: Present: alert, oriented X3, CN II-XII intact, other (awakens to verbal stimuli however falls asleep again quickly) Psychiatric exam: Present: normal affect, normal mood Skin exam: Present: warm, dry, intact, normal color. Absent: rash Course Vital Signs 12/15/18 12/15/18 12/15/18 16:43 16:50 17:00 Temperature Pulse Rate 73 70 69 Respiratory 18 20 22 Rate Blood Pressure 93/45 93/45 93/47 O2 Sat by Pulse 90 L Oximetry 12/15/18 12/15/18 12/15/18 17:10 17:20 17:30 Temperature Pulse Rate 69 71 76 Respiratory 14 17 17 Rate Blood Pressure 85/29 109/60 O2 Sat by Pulse 100 Oximetry 12/15/18 12/15/18 12/15/18 17:40 17:50 18:00 Temperature Pulse Rate 84 81 82 Respiratory 18 18 20 Rate Blood Pressure 115/65 98/62 117/49 O2 Sat by Pulse 100 100 98 Oximetry 12/15/18 12/15/18 12/15/18 18:30 18:40 19:09 Temperature Pulse Rate 81 80 83 Respiratory 18 18 18 Rate Blood Pressure 107/54 107/54 116/64 O2 Sat by Pulse 99 96 98 Oximetry 12/15/18 12/15/18 19:28 21:04 Temperature 97.4 F L Pulse Rate 83 86 Respiratory 18 16 Rate Blood Pressure 116/64 117/71 O2 Sat by Pulse 100 98 Oximetry EKG Findings - EKG Comments: EKG Findings:: EKG demonstrates a normal sinus rhythm with sinus arrhythmia. Ventricular rate of 71. VA interval 160. QRS 82. QTC 439. There is a Q wave in lead 3. No acute ST segment elevations. Medical Decision Making - Medical Decision Making Upon arrival the patient was placed into room 1. A thorough history and physical exam was performed. The patient does not demonstrate any lateralizing symptoms. He is moving all extremities. No pulsatile masses in the abdomen. Patient has no abdominal tenderness. The patient has 2+ pulses in his lower extremities. No cyanosis. The patient is answering questions appropriately. He is a and O 3. Denies taking any extra medications. Peripheral IV had been established. We did give the patient liter bolus in addition to the 500 mL bolus. I recommended conducting laboratory studies and a urinalysis. I also recommended CT and the patient's head and abdomen. I also recommended a chest x -ray. cbc demonstrated a hemoglobin of 12.1. Sodium is 133. Chloride 96. Glucose 121. TSH is 5.9. Toxicology demonstrates TCA and benzos. I did reevaluate the patient. His blood pressures improved into the 110's systolic. I did reevaluate the patient. He continues to deny any unilateral symptoms. No confusion from the patient. He just admits to feeling generally weak. His blood pressure does remain stable for several hours. I did call discuss the case with Dr. Roca accepted admission for the patient. Bridging orders were placed. I will hold most the patient's medications as they are sedating medications. The patient maintained in stable condition and was transported to the floor - Lab Data Result diagrams: 12/16/18 04:42 12/16/18 04:42 Lab Results 12/15/18 12/15/18 12/15/18 Range/Units 16:46 16:46 16:46 WBC 7.9 (3.8-10.6) k/uL RBC 3.86 L (4.30-5.90) m/uL Hgb 12.1 L (13.0-17.5) gm/dL Hct 39.1 (39.0-53.0) % MCV 101.4 H (80.0-100.0) fL MCH 31.3 (25.0-35.0) pg MCHC 30.8 L (31.0-37.0) g/dL RDW 12.9 (11.5-15.5) % Plt Count 240 (150-450) k/uL Neutrophils % 73 % Lymphocytes % 10 % Monocytes % 9 % Eosinophils % 5 % Basophils % 1 % Neutrophils # 5.7 (1.3-7.7) k/uL Lymphocytes # 0.8 L (1.0-4.8) k/uL Monocytes # 0.7 (0-1.0) k/uL Eosinophils # 0.4 (0-0.7) k/uL Basophils # 0.1 (0-0.2) k/uL Macrocytosis Slight PT (9.0-12.0) sec INR (<1.2) APTT (22.0-30.0) sec Sodium 133 L (137-145) mmol/L Potassium 3.9 (3.5-5.1) mmol/L Chloride 96 L (98-107) mmol/L Carbon Dioxide 29 (22-30) mmol/L Anion Gap 8 mmol/L BUN 20 (9-20) mg/dL Creatinine 1.07 (0.66-1.25) mg/dL Est GFR (CKD-EPI)AfAm 73 (>60 ml/min/1.73 sqM) Est GFR (CKD-EPI)NonAf 63 (>60 ml/min/1.73 sqM) Glucose 121 H (74-99) mg/dL POC Glucose (mg/dL) (75-99) mg/dL POC Glu Mechanical Oxidizer ID Plasma Lactic Acid Murtaza 2.0 (0.7-2.0) mmol/L Calcium 8.7 (8.4-10.2) mg/dL Total Bilirubin 0.4 (0.2-1.3) mg/dL AST 22 (17-59) U/L ALT 23 (21-72) U/L Alkaline Phosphatase 62 (38-126) U/L Ammonia 10 (<30) umol/L Creatine Kinase 76 (55-170) U/L Troponin I (0.000-0.034) ng/mL Total Protein 6.1 L (6.3-8.2) g/dL Albumin 3.7 (3.5-5.0) g/dL TSH 5.910 H (0.465-4.680) mIU/L Urine Color Urine Appearance (Clear) Urine pH (5.0-8.0) Ur Specific [place] (1.001-1.035) Urine Protein (Negative) Urine Glucose (UA) (Negative) Urine Ketones (Negative) Urine Blood (Negative) Urine Nitrite (Negative) Urine Bilirubin (Negative) Urine Urobilinogen (<2.0) mg/dL Ur Leukocyte Esterase (Negative) Salicylates <1.0 mg/dL Urine Opiates Screen (NotDetected) Ur Oxycodone Screen (NotDetected) Urine Methadone Screen (NotDetected) Ur Propoxyphene Screen (NotDetected) Acetaminophen <10.0 ug/mL Ur Barbiturates Screen (NotDetected) U Tricyclic Antidepress (NotDetected) Ur Phencyclidine Scrn (NotDetected) Ur Amphetamines Screen (NotDetected) U Methamphetamines Scrn (NotDetected) U Benzodiazepines Scrn (NotDetected) Urine Cocaine Screen (NotDetected) U Marijuana (THC) Screen (NotDetected) 12/15/18 12/15/18 12/15/18 Range/Units 16:46 16:46 16:49 WBC (3.8-10.6) k/uL RBC (4.30-5.90) m/uL Hgb (13.0-17.5) gm/dL Hct (39.0-53.0) % MCV (80.0-100.0) fL MCH (25.0-35.0) pg MCHC (31.0-37.0) g/dL RDW (11.5-15.5) % Plt Count (150-450) k/uL Neutrophils % % Lymphocytes % % Monocytes % % Eosinophils % % Basophils % % Neutrophils # (1.3-7.7) k/uL Lymphocytes # (1.0-4.8) k/uL Monocytes # (0-1.0) k/uL Eosinophils # (0-0.7) k/uL Basophils # (0-0.2) k/uL Macrocytosis PT 10.7 (9.0-12.0) sec INR 1.0 (<1.2) APTT 27.1 (22.0-30.0) sec Sodium (137-145) mmol/L Potassium (3.5-5.1) mmol/L Chloride (98-107) mmol/L Carbon Dioxide (22-30) mmol/L Anion Gap mmol/L BUN (9-20) mg/dL Creatinine (0.66-1.25) mg/dL Est GFR (CKD-EPI)AfAm (>60 ml/min/1.73 sqM) Est GFR (CKD-EPI)NonAf (>60 ml/min/1.73 sqM) Glucose (74-99) mg/dL POC Glucose (mg/dL) 119 H (75-99) mg/dL POC Glu Mechanical Oxidizer ID Yvonne Pinto Plasma Lactic Acid Murtaza (0.7-2.0) mmol/L Calcium (8.4-10.2) mg/dL Total Bilirubin (0.2-1.3) mg/dL AST (17-59) U/L ALT (21-72) U/L Alkaline Phosphatase (38-126) U/L Ammonia (<30) umol/L Creatine Kinase (55-170) U/L Troponin I <0.012 (0.000-0.034) ng/mL Total Protein (6.3-8.2) g/dL Albumin (3.5-5.0) g/dL TSH (0.465-4.680) mIU/L Urine Color Urine Appearance (Clear) Urine pH (5.0-8.0) Ur Specific [place] (1.001-1.035) Urine Protein (Negative) Urine Glucose (UA) (Negative) Urine Ketones (Negative) Urine Blood (Negative) Urine Nitrite (Negative) Urine Bilirubin (Negative) Urine Urobilinogen (<2.0) mg/dL Ur Leukocyte Esterase (Negative) Salicylates mg/dL Urine Opiates Screen (NotDetected) Ur Oxycodone Screen (NotDetected) Urine Methadone Screen (NotDetected) Ur Propoxyphene Screen (NotDetected) Acetaminophen ug/mL Ur Barbiturates Screen (NotDetected) U Tricyclic Antidepress (NotDetected) Ur Phencyclidine Scrn (NotDetected) Ur Amphetamines Screen (NotDetected) U Methamphetamines Scrn (NotDetected) U Benzodiazepines Scrn (NotDetected) Urine Cocaine Screen (NotDetected) U Marijuana (THC) Screen (NotDetected) 12/15/18 12/15/18 Range/Units 19:37 19:37 WBC (3.8-10.6) k/uL RBC (4.30-5.90) m/uL Hgb (13.0-17.5) gm/dL Hct (39.0-53.0) % MCV (80.0-100.0) fL MCH (25.0-35.0) pg MCHC (31.0-37.0) g/dL RDW (11.5-15.5) % Plt Count (150-450) k/uL Neutrophils % % Lymphocytes % % Monocytes % % Eosinophils % % Basophils % % Neutrophils # (1.3-7.7) k/uL Lymphocytes # (1.0-4.8) k/uL Monocytes # (0-1.0) k/uL Eosinophils # (0-0.7) k/uL Basophils # (0-0.2) k/uL Macrocytosis PT (9.0-12.0) sec INR (<1.2) APTT (22.0-30.0) sec Sodium (137-145) mmol/L Potassium (3.5-5.1) mmol/L Chloride (98-107) mmol/L Carbon Dioxide (22-30) mmol/L Anion Gap mmol/L BUN (9-20) mg/dL Creatinine (0.66-1.25) mg/dL Est GFR (CKD-EPI)AfAm (>60 ml/min/1.73 sqM) Est GFR (CKD-EPI)NonAf (>60 ml/min/1.73 sqM) Glucose (74-99) mg/dL POC Glucose (mg/dL) (75-99) mg/dL POC Glu Mechanical Oxidizer ID Plasma Lactic Acid Mur[place] (0.7-2.0) mmol/L Calcium (8.4-10.2) mg/dL Total Bilirubin (0.2-1.3) mg/dL AST (17-59) U/L ALT (21-72) U/L Alkaline Phosphatase (38-126) U/L Ammonia (<30) umol/L Creatine Kinase (55-170) U/L Troponin I (0.000-0.034) ng/mL Total Protein (6.3-8.2) g/dL Albumin (3.5-5.0) g/dL TSH (0.465-4.680) mIU/L Urine Color Yellow Urine Appearance Clear (Clear) Urine pH 6.0 (5.0-8.0) Ur Specific [place] 1.024 (1.001-1.035) Urine Protein Negative (Negative) Urine Glucose (UA) Negative (Negative) Urine Ketones Negative (Negative) Urine Blood Negative (Negative) Urine Nitrite Negative (Negative) Urine Bilirubin Negative (Negative) Urine Urobilinogen <2.0 (<2.0) mg/dL Ur Leukocyte Esterase Negative (Negative) Salicylates mg/dL Urine Opiates Screen Not Detected (NotDetected) Ur Oxycodone Screen Not Detected (NotDetected) Urine Methadone Screen Not Detected (NotDetected) Ur Propoxyphene Screen Not Detected (NotDetected) Acetaminophen ug/mL Ur Barbiturates Screen Not Detected (NotDetected) U Tricyclic Antidepress Detected H (NotDetected) Ur Phencyclidine Scrn Not Detected (NotDetected) Ur Amphetamines Screen Not Detected (NotDetected) U Methamphetamines Scrn Not Detected (NotDetected) U Benzodiazepines Scrn Detected H (NotDetected) Urine Cocaine Screen Not Detected (NotDetected) U Marijuana (THC) Screen Not Detected (NotDetected) Disposition Clinical Impression: Hypotension, Weakness Disposition: ADMITTED IP TO THIS [facility] Condition: Good Is patient prescribed a controlled substance at d/c from ED?: No Decision to Admit Reason: Admit from EC Decision Date: 12/15/18 Decision Time: 20:37
[2018-12-15 19:53] LABS: Appearance,Urine Clear (Clear); Bilirubin,Urine Negative (Negative); Blood,Urine Negative (Negative); Color,Urine Yellow; Glucose,Urine (UA) Negative (Negative); Ketones,Urine Negative (Negative); Leukocyte Esterase,Urine Negative (Negative); Nitrite,Urine Negative (Negative); Protein,Urine Negative (Negative); Specific Gravity,Urine 1.024 (1.001-1.035); Urobilinogen,Urine <2.0 mg/dL (<2.0)
[2018-12-15 20:10] LABS: Amphetamine Screen,Urine Not Detected (NotDetected); Barbiturate Screen,Urine Not Detected (NotDetected); Benzodiazepines Screen,Urine Detected (NotDetected); Cocaine Screen,Urine Not Detected (NotDetected); Methadone Screen, Urine Not Detected (NotDetected); Opiate Screen,Urine Not Detected (NotDetected); Oxycodone Screen, Urine Not Detected (NotDetected); Phencyclidine Screen,Urine Not Detected (NotDetected); Tricyclic Antidepressant,Urine Detected (NotDetected); Urn Cannabinoid Scrn Not Detected (NotDetected)
[2018-12-15] MEDS ORDERED: NALOXONE 0.4 MG/ML 1 ML VIAL IV PRN (20:37)
[2018-12-16 05:17] LABS: Basophils # (A) 0.1 k/uL (0-0.2); Basophils % (A) 1 %; Eosinophils # (A) 0.4 k/uL (0-0.7); Eosinophils % (A) 6 %; HCT 37.9 % (39.0-53.0); HGB 11.9 gm/dL (13.0-17.5); Lymphocytes # (A) 1.3 k/uL (1.0-4.8); Lymphocytes % (A) 16 %; MCH 32.6 pg (25.0-35.0); MCHC 31.5 g/dL (31.0-37.0); MCV 103.5 fL (80.0-100.0); Macrocytosis Slight; Mean Platelet Volume 7.1; Monocytes # (A) 0.9 k/uL (0-1.0); Monocytes % (A) 11 %; Neutrophils % (A) 64 %; Platelet Count 239 k/uL (150-450); RBC 3.67 m/uL (4.30-5.90); RDW 12.6 % (11.5-15.5); WBC 7.8 k/uL (3.8-10.6)
[2018-12-16 05:51] LABS: African American GFR (CKD) >90 (>60 ml/min/1.73 sqM); Anion Gap 5 mmol/L; Blood Urea Nitrogen 15 mg/dL (9-20); Calcium 8.7 mg/dL (8.4-10.2); Carbon Dioxide 30 mmol/L (22-30); Chloride 100 mmol/L (98-107); Glucose 102 mg/dL (74-99); Potassium 3.9 mmol/L (3.5-5.1); Sodium 135 mmol/L (137-145)
[2018-12-16] MEDS: SYMBICORT 160-4.5 MCG INHALER INHALATION SCH ×2 (07:26→19:18)
[2018-12-16] MEDS ORDERED: ALPRAZolam 1 MG TAB PO PRN (09:47)
[2018-12-16] MEDS ORDERED: ACETAMINOPHEN TAB 500 MG TAB PO PRN (09:47)
[2018-12-16] MEDS ORDERED: IPRATROPIUM-ALBUTEROL 3 ML NEB INHALATION PRN (10:32)
--- NOTE | 2018-12-16 10:32 | P.HPIM ---
History of Present Illness H&P Date: 12/16/18 Chief Complaint: Low blood pressure, weakness This is an 88-year-old male patient of Dr. Castillo, Dr. Mitchell and Dr. Mancuso with past medical history of COPD, chronic hypoxic respiratory failure on home O2 at 2 L at bedtime as needed, [id number] history of smoking, [place], CVA, gastroesophageal reflux disease, hypertension, hyperlipidemia, osteoarthritis, generalized anxiety disorder, recurrent depression, macular degeneration. Patient states that he had sudden onset of weakness around 2 PM yesterday and EMS was called. When EMS arrived they found a blood pressure of 50 systolic and gave him a 500 mL bolus of fluid with repeat systolic reading of 80. Patient did not have any headache or visual changes no fever no chills. No upper respiratory infections. No cough. He states he has felt weak for a couple of days. He has had lower blood pressure but never that low in the past. He takes Lasix only as needed and ordered by Dr. Mitchell that way. He thinks that he has been eating and drinking okay. He denies any blood or tightness in his stools. No diarrhea. Denies any change in urination. Patient came into [facility] emergency center for evaluation. EKG was a sinus rhythm without acute ST segment elevation. Pressure at the time of transfer to the emergency center was 117/71 status post total of 1.5 L of IV fluids. WBC 7.9, hemoglobin 12.1, Pletal count 241. Sodium 133, potassium 3.9, chloride 96, CO2 29, BUN 20 creatinine 1.07, blood sugar 121. Lactic acid 2.0, ammonia level X, salicylate level less than 1, acetaminophen level less than 10. Troponin negative. Urinalysis clear with nitrate and leukoesterase negative. Drug screen positive for tricyclic antidepressants and benzodiazepines which patient is prescribed. Chest x-ray showed no acute lung disease. CAT scan of the brain revealed cerebral atrophy. Mild hydrocephalus. No significant change. No acute intracranial abnormality. CAT scan of the abdomen and pelvis with contrast revealed extensive calcified pleural plaque. Unchanged. 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 Non-obstructive left renal calculi unchanged. No sign of acute abdomen and pelvis. Patient was admitted to the [facility] floor. Blood pressure medications have been held. Sodium is improved today at 135. IV fluids will be continued at 75 mL per hour. Patient has been instructed to stop taking Dyazide when he is discharged from hospital. Review of Systems Constitutional: Reports fatigue, Reports weakness, Denies anorexia, Denies chills, Denies fever, Denies lethargy, Denies malaise, Denies poor appetite Eyes: denies blurred vision, denies pain Ears, nose, mouth and throat: Denies dysphagia, Denies nasal congestion, Denies nasal discharge, Denies vertigo Cardiovascular: Reports lightheadedness, Denies chest pain, Denies decreased exercise tolerance, Denies dyspnea on exertion, Denies leg edema, Denies palpitations, Denies shortness of breath, Denies syncope Respiratory: Denies cough, Denies cough with sputum, Denies dyspnea, Denies hemoptysis, Denies wheezing Gastrointestinal: Denies abdominal pain, Denies diarrhea, Denies loss of appetite, Denies nausea, Denies vomiting Genitourinary: Denies dysuria, Denies urinary frequency, Denies urinary retention Musculoskeletal: Reports muscle weakness, Denies gait dysfunction, Denies myalgias Integumentary: Denies pruritus, Denies rash, Denies wounds Neurological: Denies change in mentation, Denies change in speech, Denies numbness, Denies seizures, Denies weakness Psychiatric: Denies anxiety, Denies depression Endocrine: Denies fatigue, Denies weight change Past Medical History Past Medical History: Coronary Artery Disease (CAD), COPD, CVA/TIA, GERD/Reflux, Hyperlipidemia, Hypertension, Osteoarthritis (OA), Prostate Disorder Additional Past Medical History / Comment(s): MACULAR DEGENERATION History of Any Multi-Drug Resistant Organisms: None Reported Past Surgical History: Heart Catheterization With Stent, Joint Replacement, Orthopedic Surgery Additional Past Surgical History / Comment(s): carpal tunnel release bilat, ulcer surgery, RIGHT TOTAL KNEEX2, left rotater cuff Past Anesthesia/Blood Transfusion Reactions: No Reported Reaction Additional Past Anesthesia/Blood Transfusion Reaction / Comment(s): Pt received blood in 2007 without reaction. Date of Last Stent Placement:: 2010 Past Psychological History: Anxiety, Depression Smoking Status: Current every day smoker - Past Family History Mother Family Medical History: Cancer Additional Family Medical History / Comment(s): Mother at age 43 from colon cancer. Father Additional Family Medical History / Comment(s): Father at age 98 from old age with no major medical problems. Patient does not have any brothers or sisters. Daughter(s) Additional Family Medical History / Comment(s): Patient has 2 daughters with mental health issues. No medical problems. Medications and Allergies Home Medications Medication Instructions Recorded Confirmed Type DULoxetine HCL [Cymbalta] 60 mg PO BID 05/16/14 12/15/18 History Sucralfate [Carafate] 1 gm PO BID 08/29/16 12/15/18 History Vit C/E/Zn/Coppr/Lutein/Zeaxan 1 cap PO BID 08/29/16 12/15/18 History [Preservision Areds 2 Softgel] Acetaminophen [Tylenol Extra 500 mg PO Q6HR PRN 05/11/17 12/15/18 History Strength] Ferrous Sulfate [Iron (65 MG 325 mg PO DAILY 05/11/17 12/15/18 History Elemental)] Multivit-Min/FA/Lycopen/Lutein 1 tab PO DAILY 05/11/17 12/15/18 History [Centrum Silver Men Tablet] rOPINIRole HCL [Requip] 0.25 mg PO HS 05/11/17 12/15/18 History ALPRAZolam [Xanax] 1 mg PO TID PRN 06/29/17 12/15/18 History Budesonide-Formot 160-4.5 Mcg 2 puff INHALATION RT-BID #1 each 02/03/18 12/15/18 Rx [Symbicort 160-4.5 Mcg Inhaler] QUEtiapine [SEROquel] 50 mg PO HS 07/04/18 12/15/18 History Atorvastatin [Lipitor] 40 mg PO HS 12/15/18 12/15/18 History Furosemide [Lasix] 20 mg PO DAILY PRN 12/15/18 12/15/18 History Lisinopril [Zestril] 20 mg PO DAILY 12/15/18 12/15/18 History Metoprolol Tartrate [Lopressor] 25 mg PO BID 12/15/18 12/15/18 History Pantoprazole [Protonix] 40 mg PO DAILY 12/15/18 12/15/18 History Triamterene-Hctz 37.5-25Mg 1 cap PO DAILY 10/05/19 10/05/19 History [Dyazide 37.5-25 Capsule] Allergies Allergy/AdvReac Type Severity Reaction Status Date / Time No Known Allergies Allergy Verified 12/15/18 18:16 Physical Exam Vitals: Vital Signs Temp Pulse Pulse Pulse Resp BP BP 12/16/18 08:00 77 12/16/18 05:00 98 F 75 18 123/75 12/16/18 02:00 77 131/77 12/15/18 23:00 78 18 12/15/18 22:25 97.9 F 82 18 145/83 12/15/18 21:04 86 16 117/71 12/15/18 19:28 97.4 F L 83 18 116/64 12/15/18 19:09 83 18 116/64 12/15/18 18:40 80 18 107/54 12/15/18 18:30 81 18 107/54 12/15/18 18:00 82 20 117/49 12/15/18 17:50 81 18 98/62 12/15/18 17:40 84 18 115/65 12/15/18 17:30 76 17 109/60 12/15/18 17:20 71 17 12/15/18 17:10 69 14 85/29 12/15/18 17:00 69 22 93/47 12/15/18 16:50 70 20 93/45 12/15/18 16:43 73 18 93/45 Pulse Ox 12/16/18 08:00 12/16/18 05:00 96 12/16/18 02:00 12/15/18 23:00 12/15/18 22:25 100 12/15/18 21:04 98 12/15/18 19:28 100 12/15/18 19:09 98 12/15/18 18:40 96 12/15/18 18:30 99 12/15/18 18:00 98 12/15/18 17:50 100 12/15/18 17:40 100 12/15/18 17:30 100 12/15/18 17:20 12/15/18 17:10 12/15/18 17:00 12/15/18 16:50 12/15/18 16:43 90 L Intake and Output 12/15/18 12/16/18 12/16/18 22:59 06:59 14:59 Intake Total 1000 Balance 1000 Intake: Intake, IV Titration 1000 Amount Sodium Chloride 0.9% 1, 1000 000 ml @ 999 mls/hr IV . Q1H1M STA Rx#:[id number] Other: Voiding Method Urinal Toilet Urinal # Voids 1 1 Weight 85.275 kg Gen: This is an 88-year-old male. He is resting in chair at the bedside and appears to be comfortable and in no acute distress. HEENT: Head is atraumatic, normocephalic. Pupils equal, round. Sclerae is anicteric. NECK: Supple. No JVD. No lymphadenopathy. No thyromegaly. LUNGS: Clear to auscultation. No wheezes or rhonchi. No intercostal retractions. HEART: Regular rate and rhythm. Systolic murmur. ABDOMEN: Soft. Bowel sounds are present. No masses. No tenderness. EXTREMITIES: No pedal edema. No calf tenderness. NEUROLOGICAL: Patient is awake, alert and oriented x3. Cranial nerves 2 through 12 are grossly intact. Upper and lower extremity strength 5/5. Results CBC & Chem 7: 12/16/18 04:42 12/16/18 04:42 Labs: Abnormal Lab Results - Last 24 Hours (Table) 12/15/18 12/15/18 12/15/18 Range/Units 16:46 16:46 16:49 RBC 3.86 L (4.30-5.90) m/uL Hgb 12.1 L (13.0-17.5) gm/dL Hct (39.0-53.0) % MCV 101.4 H (80.0-100.0) fL MCHC 30.8 L (31.0-37.0) g/dL Lymphocytes # 0.8 L (1.0-4.8) k/uL Sodium 133 L (137-145) mmol/L Chloride 96 L (98-107) mmol/L Glucose 121 H (74-99) mg/dL POC Glucose (mg/dL) 119 H (75-99) mg/dL Total Protein 6.1 L (6.3-8.2) g/dL TSH 5.910 H (0.465-4.680) mIU/L U Tricyclic Antidepress (NotDetected) U Benzodiazepines Scrn (NotDetected) 12/15/18 12/16/18 12/16/18 Range/Units 19:37 04:42 04:42 RBC 3.67 L (4.30-5.90) m/uL Hgb 11.9 L (13.0-17.5) gm/dL Hct 37.9 L (39.0-53.0) % MCV 103.5 H (80.0-100.0) fL MCHC (31.0-37.0) g/dL Lymphocytes # (1.0-4.8) k/uL Sodium 135 L (137-145) mmol/L Chloride (98-107) mmol/L Glucose 102 H (74-99) mg/dL POC Glucose (mg/dL) (75-99) mg/dL Total Protein (6.3-8.2) g/dL TSH (0.465-4.680) mIU/L U Tricyclic Antidepress Detected H (NotDetected) U Benzodiazepines Scrn Detected H (NotDetected) Thrombosis Risk Factor Assmnt - DVT/VTE Prophylaxis DVT/VTE Prophylaxis: Pharmacologic Prophylaxis ordered - Choose All That Apply Any of the Below Risk Factors Present?: Yes Each Factor Represents 1 point: Abnormal pulmonary function (COPD) Other Risk Factors: No Other congenital or acquired thrombophilia - If yes, enter type in comment: No Thrombosis Risk Factor Assessment Total Risk Factor Score: 1 Thrombosis Risk Factor Assessment Level: Low Risk Assessment and Plan Plan: 1. Hypotension and weakness secondary to orthostatic changes. We will plan to continue IV fluids at 75 mL per hour. Hold Lasix, Dyazide, lisinopril. Monitor orthostatic vital signs daily. 2. Hyponatremia secondary to Dyazide. Dyazide on hold. Continue IV fluids 75 mL per hour. 3. History of coronary artery disease status post stent. Continue Lipitor 40 mg at bedtime, Lopressor 25 mg twice daily 4. COPD, chronic hypoxic respiratory failure with home O2 at 2 L nasal cannula at bedtime, no exacerbation. Continue Symbicort twice daily, DuoNeb treatments 4 times daily as needed. 5. Hypertension, hypertensive cardiovascular disease. Continue to hold lisinopril, Dyazide, Lasix. Continue Lopressor 25 mg twice daily. 6. Hyperlipidemia. Continue statin. 7. Gastroesophageal reflux disease. Continue Protonix. 8. Generalized anxiety disorder and recurrent depression. Continue Xanax 1 mg 3 times daily as needed, Cymbalta 60 mg twice daily. 9. Restless leg syndrome. Continue Requip to 0.25 mg at bedtime. 10. DVT prophylaxis. Lovenox. Patient will be admitted to the hospital for a minimum of 2 night stay. Discharge plan: Return home most likely. PT evaluation. Impression and plan of care have been directed as dictated by the signing physician. Patricia Padilla nurse practitioner acting as scribe for signing physician.
[2018-12-16] MEDS: SODIUM CHLORIDE 0.9% 1,000 ML IV SCH ×2 (10:39→21:57)
[2018-12-16] MEDS: DULoxetine HCL 60 MG CAPSULE.DR PO SCH ×2 (10:39→20:38)
[2018-12-16] MEDS: METOPROLOL TARTRATE 25 MG TAB PO SCH (20:38)
[2018-12-16] MEDS: VIT A,C & E-LUTEIN-MINERALS 1 EACH TAB PO SCH (20:38)
[2018-12-16] MEDS: SUCRALFATE 1 GM TAB PO SCH (20:38)
[2018-12-16] MEDS ORDERED: QUEtiapine 50 MG TAB PO SCH (21:00)
[2018-12-16] MEDS ORDERED: ATORVASTATIN 40 MG TAB PO SCH (21:00)
[2018-12-16 22:28] VITALS: RESP 16
[2018-12-17 05:09] VITALS: BP 111/70; PULSE 72; TEMP 98.3
[2018-12-17] MEDS ORDERED: PANTOPRAZOLE 40 MG TABLET PO SCH (07:30)
[2018-12-17] MEDS: SYMBICORT 160-4.5 MCG INHALER INHALATION SCH (07:42)
[2018-12-17] MEDS: SUCRALFATE 1 GM TAB PO SCH (08:25)
[2018-12-17] MEDS: VIT A,C & E-LUTEIN-MINERALS 1 EACH TAB PO SCH (08:25)
[2018-12-17] MEDS: METOPROLOL TARTRATE 25 MG TAB PO SCH (08:25)
[2018-12-17] MEDS: DULoxetine HCL 60 MG CAPSULE.DR PO SCH (08:25)
[2018-12-17] MEDS ORDERED: FERROUS SULFATE 325 MG TAB PO SCH (09:00)
[2018-12-17] MEDS ORDERED: MULTIVITAMINS, THERA 1 EACH TAB PO SCH (09:00)
--- NOTE | 2018-12-17 15:15 | P.DS ---
Providers Date of admission: 12/15/18 20:38 Expected date of discharge: 12/17/18 Attending physician: Chong Moy Primary care physician: Yoav Castillo [facility] Course: This is an 88-year-old male patient of Dr. Castillo, Dr. Mitchell and Dr. Mancuso with past medical history of COPD, chronic hypoxic respiratory failure on home O2 at 2 L at bedtime as needed, [id number] history of smoking, [place], CVA, gastroesophageal reflux disease, hypertension, hyperlipidemia, osteoarthritis, generalized anxiety disorder, recurrent depression, macular degeneration. Patient states that he had sudden onset of weakness around 2 PM yesterday and EMS was called. When EMS arrived they found a blood pressure of 50 systolic and gave him a 500 mL bolus of fluid with repeat systolic reading of 80. Patient did not have any headache or visual changes no fever no chills. No upper respiratory infections. No cough. He states he has felt weak for a couple of days. He has had lower blood pressure but never that low in the past. He takes Lasix only as needed and ordered by Dr. Mitchell that way. He thinks that he has been eating and drinking okay. He denies any blood or tightness in his stools. No diarrhea. Denies any change in urination. Patient came into [facility] emergency center for evaluation. EKG was a sinus rhythm without acute ST segment elevation. Pressure at the time of transfer to the emergency center was 117/71 status post total of 1.5 L of IV fluids. WBC 7.9, hemoglobin 12.1, Pletal count 241. Sodium 133, potassium 3.9, chloride 96, CO2 29, BUN 20 creatinine 1.07, blood sugar 121. Lactic acid 2.0, ammonia level X, salicylate level less than 1, acetaminophen level less than 10. Troponin negative. Urinalysis clear with nitrate and leukoesterase negative. Drug screen positive for tricyclic antidepressants and benzodiazepines which patient is prescribed. Chest x-ray showed no acute lung disease. CAT scan of the brain revealed cerebral atrophy. Mild hydrocephalus. No significant change. No acute intracranial abnormality. CAT scan of the abdomen and pelvis with contrast revealed extensive calcified pleural plaque. Unchanged. 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 Non-obstructive left renal calculi unchanged. No sign of acute abdomen and pelvis. Patient was admitted to the [facility] floor. Blood pressure medications have been held. Sodium is improved today at 135. IV fluids will be continued at 75 mL per hour. Patient has been instructed to stop taking Dyazide when he is discharged from hospital. 12/17: Patient's vital signs have been stable and orthostatics have been negative. He has been afebrile, heart rate 80s, pulse ox 97% on room air. This morning's blood pressure is 111/70. It has been recommended to patient to completely stop Dyazide. Patient may resume lisinopril and lasix prn tomorrow and monitor blood pressure at home. Patient will be discharged home today in stable condition. Discharge diagnoses: 1. Hypotension and weakness secondary to orthostatic changes from blood pressure medications: Lasix, Dyazide, lisinopril. 2. Hyponatremia secondary to Dyazide. 3. History of coronary artery disease status post stent. 4. COPD, chronic hypoxic respiratory failure with home O2 at 2 L nasal cannula at bedtime, no exacerbation. 5. Hypertension, hypertensive cardiovascular disease. 6. Hyperlipidemia. 7. Gastroesophageal reflux disease. 8. Generalized anxiety disorder and recurrent depression. 9. Restless leg syndrome. Discharge plan: home Impression and plan of care have been directed as dictated by the signing physician. Patricia Padilla nurse practitioner acting as scribe for signing physician. Patient Condition at Discharge: Good Plan - Discharge Summary Discharge Rx Participant: Yes New Discharge Prescriptions: Continue DULoxetine HCL [Cymbalta] 60 mg PO BID Vit C/E/Zn/Coppr/Lutein/Zeaxan [Preservision Areds 2 Softgel] 1 cap PO BID Sucralfate [Carafate] 1 gm PO BID rOPINIRole HCL [Requip] 0.25 mg PO HS Multivit-Min/FA/Lycopen/Lutein [Centrum Silver Men Tablet] 1 tab PO DAILY Ferrous Sulfate [Iron (65 MG Elemental)] 325 mg PO DAILY Acetaminophen [Tylenol Extra Strength] 500 mg PO Q6HR PRN PRN Reason: Pain ALPRAZolam [Xanax] 1 mg PO TID PRN PRN Reason: Anxiety Budesonide-Formot 160-4.5 Mcg [Symbicort 160-4.5 Mcg Inhaler] 2 puff INHALATION RT-BID #1 each QUEtiapine [SEROquel] 50 mg PO HS Metoprolol Tartrate [Lopressor] 25 mg PO BID Atorvastatin [Lipitor] 40 mg PO HS Pantoprazole [Protonix] 40 mg PO DAILY Furosemide [Lasix] 20 mg PO DAILY PRN PRN Reason: Edema Lisinopril [Zestril] 20 mg PO DAILY Discontinued Triamterene-Hctz 37.5-25Mg [Dyazide 37.5-25 Capsule] 1 cap PO DAILY Discharge Medication List DULoxetine HCL [Cymbalta] 60 mg PO BID 05/16/14 [History] Sucralfate [Carafate] 1 gm PO BID 08/29/16 [History] Vit C/E/Zn/Coppr/Lutein/Zeaxan [Preservision Areds 2 Softgel] 1 cap PO BID 08/29/16 [History] Acetaminophen [Tylenol Extra Strength] 500 mg PO Q6HR PRN 05/11/17 [History] Ferrous Sulfate [Iron (65 MG Elemental)] 325 mg PO DAILY 05/11/17 [History] Multivit-Min/FA/Lycopen/Lutein [Centrum Silver Men Tablet] 1 tab PO DAILY 05/11/17 [History] rOPINIRole HCL [Requip] 0.25 mg PO HS 05/11/17 [History] ALPRAZolam [Xanax] 1 mg PO TID PRN 06/29/17 [History] Budesonide-Formot 160-4.5 Mcg [Symbicort 160-4.5 Mcg Inhaler] 2 puff INHALATION RT-BID #1 each 02/03/18 [Rx] QUEtiapine [SEROquel] 50 mg PO HS 07/04/18 [History] Atorvastatin [Lipitor] 40 mg PO HS 12/15/18 [History] Furosemide [Lasix] 20 mg PO DAILY PRN 12/15/18 [History] Lisinopril [Zestril] 20 mg PO DAILY 12/15/18 [History] Metoprolol Tartrate [Lopressor] 25 mg PO BID 12/15/18 [History] Pantoprazole [Protonix] 40 mg PO DAILY 12/15/18 [History] Follow up Appointment(s)/Referral(s): Yoav Castillo DO [Primary Care Provider] - 01/08/19 9:30 am [facility] Visiting Nurse, [NON-STAFF] - Patient Instructions/Handouts: Hypotension (DC), Weakness (DC) Activity/Diet/Wound Care/Special Instructions: Stop Dyazide Discharge Disposition: HOME WITH HOME HEALTH SERVICES
== END 2018-12-17 13:20 | disposition home health service (06) | DRG 312 ==
LOC: EC 16:38 → 3NMEDONC 20:38
PROVIDERS: ADMIT Internal Medicine; ATTEND Internal Medicine
DX: I95.1 Orthostatic hypotension (principal); E87.1 Hypo-osmolality and hyponatremia; F33.9 Major depressive disorder, recurrent, unspecified; G91.9 Hydrocephalus, unspecified; J96.11 Chronic respiratory failure with hypoxia; J44.9 Chronic obstructive pulmonary disease, unspecified; I11.9 Hypertensive heart disease without heart failure; T50.1X5A Adverse effect of loop [high-ceiling] diuretics, initial encounter; T50.2X5A Adverse effect of carbonic-anhydrase inhibitors, benzothiadiazides and other diuretics, initial encounter; T46.4X5A Adverse effect of angiotensin-converting-enzyme inhibitors, initial encounter; E78.5 Hyperlipidemia, unspecified; F41.1 Generalized anxiety disorder; G25.81 Restless legs syndrome; H35.30 Unspecified macular degeneration; I25.10 Atherosclerotic heart disease of native coronary artery without angina pectoris; K21.9 Gastro-esophageal reflux disease without esophagitis; N20.0 Calculus of kidney; M19.90 Unspecified osteoarthritis, unspecified site; N42.9 Disorder of prostate, unspecified; I25.2 Old myocardial infarction; Z79.51 Long term (current) use of inhaled steroids; Z79.899 Other long term (current) drug therapy; Z95.5 Presence of coronary angioplasty implant and graft; Z86.73 Personal history of transient ischemic attack (TIA), and cerebral infarction without residual deficits; Z96.651 Presence of right artificial knee joint; Z87.891 Personal history of nicotine dependence; Z99.81 Dependence on supplemental oxygen; Z80.0 Family history of malignant neoplasm of digestive organs
CPT/HCPCS: 36415; 70450; 71046; 74177; 80048; 80053; 80306; 80329; 81003; 82140; 82550; 83520; 83605; 84443; 84484; 85025; 85610; 85730; 93005; 94640; 96360; 99285

== ENCOUNTER 2019-01-09 14:37 | Emergency (ER) | payer MEDICARE ==
[2019-01-09 14:48] VITALS: RESP 18
[2019-01-09] MEDS ORDERED: Acetaminophen-Codeine 300-30mg TAB PO STA (15:12)
--- NOTE | 2019-01-09 15:40 | ED ---
Fall HPI - General Chief Complaint: Fall Stated Complaint: fall Time Seen by Provider: 01/09/19 14:39 Source: patient, EMS Mode of arrival: EMS - History of Present Illness Initial Comments: The patient is a 88-year-old male presents to the emergency room after sustaining a fall at home. He states he went out to get his mail. As he was entering back into his home he slipped going up 3 steps. He fell forward on the wooden steps. States that half of his body was inside his home while the bottom half of his body was outside the home. He does believe he hit his head. No l oss of consciousness. Denies any headaches or visual changes. No neck pain or stiffness. The patient was placed in a c-collar before transportation. He reports to having right shoulder pain and no numbness or tingling into his hand. He reports that he did have a left hip pain which has since resolved since he was helped up onto the gurney. He denies being provided with any medications for his pain control. Denies any chest pain or shortness of breath. No abdominal pain. Denies any numbness or tingling in his lower extremity. There are no other alleviating, precipitating or modifying factors - Related Data Home Medications Medication Instructions Recorded Confirmed DULoxetine HCL [Cymbalta] 60 mg PO BID 05/16/14 01/09/19 Sucralfate [Carafate] 1 gm PO BID 08/29/16 01/09/19 Vit C/E/Zn/Coppr/Lutein/Zeaxan 1 cap PO BID 08/29/16 01/09/19 [Preservision Areds 2 Softgel] Acetaminophen [Tylenol Extra 500 mg PO Q6HR PRN 05/11/17 01/09/19 Strength] Ferrous Sulfate [Iron (65 MG 325 mg PO DAILY 05/11/17 01/09/19 Elemental)] Multivit-Min/FA/Lycopen/Lutein 1 tab PO DAILY 05/11/17 01/09/19 [Centrum Silver Men Tablet] rOPINIRole HCL [Requip] 0.25 mg PO HS 05/11/17 01/09/19 QUEtiapine [SEROquel] 50 mg PO HS 07/04/18 01/09/19 Atorvastatin [Lipitor] 40 mg PO HS 12/15/18 01/09/19 Pantoprazole [Protonix] 40 mg PO DAILY 12/15/18 01/09/19 ALPRAZolam [Xanax] 1 mg PO HS 01/09/19 01/09/19 ALPRAZolam [Xanax] 1 mg PO TID PRN 01/09/19 01/09/19 Allopurinol [Zyloprim] 100 mg PO BID 01/09/19 01/09/19 Lisinopril [Zestril] 10 mg PO DAILY 01/09/19 01/09/19 Omeprazole 20 mg PO DAILY 01/09/19 01/09/19 Tamsulosin [Flomax] 0.4 mg PO BID 01/09/19 01/09/19 Previous Rx's Medication Instructions Recorded Budesonide-Formot 160-4.5 Mcg 2 puff INHALATION RT-BID #1 each 02/03/18 [Symbicort 160-4.5 Mcg Inhaler] Allergies Allergy/AdvReac Type Severity Reaction Status Date / Time No Known Allergies Allergy Verified 01/09/19 15:12 Review of Systems ROS Statement: Those systems with pertinent positive or pertinent negative responses have been documented in the HPI. ROS Other: All systems not noted in ROS Statement are negative. Past Medical History Past Medical History: Coronary Artery Disease (CAD), COPD, CVA/TIA, GERD/Reflux, Hyperlipidemia, Hypertension, Osteoarthritis (OA), Prostate Disorder Additional Past Medical History / Comment(s): MACULAR DEGENERATION History of Any Multi-Drug Resistant Organisms: None Reported Past Surgical History: Heart Catheterization With Stent, Joint Replacement, Orthopedic Surgery Additional Past Surgical History / Comment(s): carpal tunnel release bilat, ulcer surgery, RIGHT TOTAL KNEEX2, left rotater cuff Past Anesthesia/Blood Transfusion Reactions: No Reported Reaction Additional Past Anesthesia/Blood Transfusion Reaction / Comment(s): Pt received blood in 2007 without reaction. Date of Last Stent Placement:: 2010 Past Psychological History: Anxiety, Depression Smoking Status: Current some day smoker Past Alcohol Use History: None Reported Past Drug Use History: None Reported - Past Family History Mother Family Medical History: Cancer Additional Family Medical History / Comment(s): Mother at age 43 from colon cancer. Father Additional Family Medical History / Comment(s): Father at age 98 from old age with no major medical problems. Patient does not have any brothers or sisters. Daughter(s) Additional Family Medical History / Comment(s): Patient has 2 daughters with mental health issues. No medical problems. General Exam Limitations: no limitations General appearance: alert, in no apparent distress Head exam: Present: atraumatic, normocephalic, normal inspection Eye exam: Present: normal appearance, PERRL, EOMI. Absent: scleral icterus, conjunctival injection, periorbital swelling ENT exam: Present: normal exam, mucous membranes moist Neck exam: Present: normal inspection. Absent: tenderness, meningismus, lymphadenopathy Respiratory exam: Present: normal lung sounds bilaterally. Absent: respiratory distress, wheezes, rales, rhonchi, stridor Cardiovascular Exam: Present: regular rate, normal rhythm, normal heart sounds. Absent: systolic murmur, diastolic murmur, rubs, gallop, clicks GI/Abdominal exam: Present: soft, normal bowel sounds. Absent: distended, tenderness, guarding, rebound, rigid Extremities exam: Present: normal inspection, full ROM, normal capillary refill, other (tenderness over right glenohumeral joint. Intact ROM). Absent: tenderness, pedal edema, joint swelling, calf tenderness Back exam: Present: normal inspection Neurological exam: Present: alert, oriented X3, CN II-XII intact Psychiatric exam: Present: normal affect, normal mood Skin exam: Present: warm, dry, normal color, other (skin tear over dorsal 5th digit left hand). Absent: rash Course Vital Signs 01/09/19 01/09/19 14:42 17:50 Temperature 98.6 F 98.4 F Pulse Rate 57 L 64 Respiratory 18 18 Rate Blood Pressure 147/76 154/82 O2 Sat by Pulse 98 95 Oximetry Medical Decision Making - Medical Decision Making The patient was placed into room 20. He does remain in a c-collar. I did recommend CT imaging of the patient's brain as well as x-rays of the patient's right shoulder, left hip and pelvis and left hand. Hand x-ray demonstrates osteoarthritic changes. No fracture seen. Old injury at the radial carpal joint. Left hip x-ray demonstrates hypertrophic mild ST arthritis in the left hip joint. No fracture seen. No significant change compared to old exam. Right shoulder x-ray demonstrates moderate osteoarthritis and subacromial impingement. No fracture seen. CT of the head and cervical spine demonstrates atrophy with prominence of the ventricles. Advanced anterior vertebral body spurring. Foraminal stenosis due to uncovertebral joint hypertrophy. I did cleanse the patient's left dorsal skin tear. It is reapproximated with [place]. The patient is ambulated and is steady on his feet. I discussed diagnosis, differential and treatment options. He does feel comfortable going home at this time. He does call for a ride and the patient was discharged home in stable condition - EKG Data EKG Comments: EKG demonstrates a normal sinus rhythm with a sinus arrhythmia. Ventricular rate of 66. NM interval 160. QRS 78. QTC 448. There are no acute ST segment elevations depressions concerning for ischemic changes Disposition Clinical Impression: Fall, Right shoulder pain, Avulsion of skin of left hand Disposition: HOME SELF-CARE Condition: Stable Instructions (If sedation given, give patient instructions): Fall Prevention for Older Adults (ED) Additional Instructions: Please follow up with your primary care doctor in 2-4 days. Return to the emergency room for any new or worsening symptoms Is patient prescribed a controlled substance at d/c from ED?: No Referrals: Yoav Castillo DO [Primary Care Provider] - 1-2 days Time of Disposition: 17:19
--- NOTE | 2019-01-09 16:03 | CT ---
EXAMINATION TYPE: CT brain gabriela wo con DATE OF EXAM: 01/09/2019 COMPARISON: 12/15/2018 HISTORY: Fall. right shoulder trauma CT DLP: 1360.7 mGycm, Automated exposure control for dose reduction was used. CONTRAST: Patient injected with 0 mL of Isovue 300. CT of the brain is performed utilizing 3 mm thick sections through the posterior fossa and 3 mm thick sections through the remaining calvarium. Study is performed within 24 hours of arrival to the hospital. No abnormal hyperdensity is present to suggest an acute intracranial hemorrhage. No mass lesion is evident. No acute infarcts are evident. Ventricles and sulci are prominent for the patient age. There is opacification of ethmoid air cells and portion of the left sphenoid sinus. Remaining paranas al sinuses and mastoid air cells within the field of view are clear. IMPRESSIONS: 1. Atrophy with prominence of the ventricles CT cervical spine. COMPARISON: None CT of the cervical spine is performed in the axial plane at 2 mm thick sections. Reconstructed image s in the coronal, and sagittal plane are reviewed on the computer. No acute fractures are evident. There is a mild scoliosis present. There is disc space narrowing. This is greater at C6-7. Large anterior vertebral body spurs are prese nt with displacement of the anterior soft tissues. Vertebral body heights are preserved. No spinal canal stenosis is evident. Postsurgical changes are within the upper cervical spine. Severe right foraminal stenosis is present C5-6 left foraminal stenosis present C4-5 No neural foraminal stenosis is evident. IMPRESSIONS: 1. Advanced anterior vertebral body spurring. 2. Foraminal stenosis due to uncovertebral joint hypertrophy.
--- NOTE | 2019-01-09 16:44 | XR ---
EXAMINATION TYPE: XR shoulder complete RT DATE OF EXAM: 01/09/2019 COMPARISON: NONE HISTORY: Pain TECHNIQUE: 3 views FINDINGS: There is moderate narrowing of the glenohumeral joint space with spurring and stress osteos clerosis. AC joint is intact. There is spurring at the AC joint. I see no fracture nor dislocation. T here is narrowing of the subacromial joint space. IMPRESSION: Moderate osteoarthritis and subacromial impingement. No fracture seen.
--- NOTE | 2019-01-09 16:46 | XR ---
EXAMINATION TYPE: XR Hip LT and AP Pelvis DATE OF EXAM: 01/09/2019 COMPARISON: 08/29/2016 HISTORY: Pain TECHNIQUE: A single AP view of the pelvis is obtained. Two views of the left hip are obtained. FINDINGS: The pelvic ring is intact. There is hypertrophic spurring of the acetabula and femoral head s. Sacroiliac joints are intact. I see no fracture. IMPRESSION: Hypertrophic mild osteoarthritis in the left hip joint. No fracture seen. No significant change akhil red to old exam.
--- NOTE | 2019-01-09 16:47 | XR ---
EXAMINATION TYPE: XR hand complete LT DATE OF EXAM: 01/09/2019 COMPARISON: NONE HISTORY: Pain TECHNIQUE: 3 views FINDINGS: There is some narrowing and spurring at the first carpometacarpal joint. I see no fracture nor dislocation. There is severe narrowing of the radiocarpal joint space. There is widening of the s capholunate joint space consistent with old ligamentous tear. There is spurring at the IP joint of th e thumb. IMPRESSION: Osteoarthritic changes. No fracture seen. Old injury at the radiocarpal joint.
[2019-01-09] MEDS ORDERED: TOPICAL SKIN ADHESIVE 1 EACH AMP TOPICAL ONE (16:53)
[2019-01-09 17:52] VITALS: BP 154/82; PULSE 64; TEMP 98.4
== END 2019-01-09 18:15 | disposition home or self-care (01) ==
LOC: EC 14:37
DX: S61.402A Unspecified open wound of left hand, initial encounter (principal); M19.042 Primary osteoarthritis, left hand; M16.12 Unilateral primary osteoarthritis, left hip; M19.011 Primary osteoarthritis, right shoulder; M48.02 Spinal stenosis, cervical region; F41.9 Anxiety disorder, unspecified; F32.9 Major depressive disorder, single episode, unspecified; I25.10 Atherosclerotic heart disease of native coronary artery without angina pectoris; K21.9 Gastro-esophageal reflux disease without esophagitis; E78.5 Hyperlipidemia, unspecified; I10 Essential (primary) hypertension; N42.9 Disorder of prostate, unspecified; H35.30 Unspecified macular degeneration; F17.200 Nicotine dependence, unspecified, uncomplicated; Z79.899 Other long term (current) drug therapy; Z95.5 Presence of coronary angioplasty implant and graft; Z96.651 Presence of right artificial knee joint; Z86.73 Personal history of transient ischemic attack (TIA), and cerebral infarction without residual deficits; W10.8XXA Fall (on) (from) other stairs and steps, initial encounter; Y93.89 Activity, other specified; Y92.009 Unspecified place in unspecified non-institutional (private) residence as the place of occurrence of the external cause
CPT/HCPCS: 70450; 72125; 73502; 93005; 99284

== ENCOUNTER 2019-03-20 12:03 | Inpatient (IN) | payer MEDICARE ==
[2019-03-20] MEDS ORDERED: SODIUM CHLORIDE 0.9% 500 ML 500 ML IV STA (12:43)
[2019-03-20 13:01] LABS: Basophils # (A) 0.1 k/uL (0-0.2); Basophils % (A) 2 %; Eosinophils # (A) 0.4 k/uL (0-0.7); Eosinophils % (A) 7 %; HCT 37.7 % (39.0-53.0); HGB 11.8 gm/dL (13.0-17.5); Lymphocytes # (A) 0.6 k/uL (1.0-4.8); Lymphocytes % (A) 10 %; MCH 29.7 pg (25.0-35.0); MCHC 31.2 g/dL (31.0-37.0); MCV 95.3 fL (80.0-100.0); Mean Platelet Volume 8.9; Monocytes # (A) 0.5 k/uL (0-1.0); Monocytes % (A) 9 %; Neutrophils # (A) 4.1 k/uL (1.3-7.7); Neutrophils % (A) 70 %; Platelet Count 224 k/uL (150-450); RBC 3.96 m/uL (4.30-5.90); WBC 5.8 k/uL (3.8-10.6)
[2019-03-20 13:10] LABS: Anion Gap 5 mmol/L; Blood Urea Nitrogen 16 mg/dL (9-20); Carbon Dioxide 27 mmol/L (22-30); Chloride 107 mmol/L (98-107); Glucose 124 mg/dL (74-99); Sodium 139 mmol/L (137-145)
[2019-03-20 13:11] LABS: ALT 14 U/L (4-49); AST 37 U/L (17-59); African American GFR (CKD) >90 (>60 ml/min/1.73 sqM); Albumin 3.2 g/dL (3.5-5.0); Alkaline Phosphatase 32 U/L (38-126); Calcium 8.2 mg/dL (8.4-10.2); Non-African American GFR(CKD) 81 (>60 ml/min/1.73 sqM); Potassium 4.4 mmol/L (3.5-5.1); Total Bilirubin 0.8 mg/dL (0.2-1.3); Total Protein 5.9 g/dL (6.3-8.2)
[2019-03-20 13:14] LABS: Partial Thromboplastin Time 29.4 sec (22.0-30.0)
--- NOTE | 2019-03-20 13:52 | XR ---
EXAMINATION TYPE: XR chest 2V DATE OF EXAM: 03/20/2019 COMPARISON: 12/15/2018 TECHNIQUE: PA and lateral views submitted. HISTORY: Shortness of breath FINDINGS: Pleural thickening and plaques noted with pleural calcification. Basilar consolidation on the left no braulio with pleural effusion or thickening. Coarsened interstitium likely in the basis of chronic inters titial lung disease stable. Heart enlarged. Arthropathy of the shoulders. Atherosclerotic change aort a. Hyperinflation suggests COPD. IMPRESSION: 1. 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 2. Left basilar infiltrate or atelectasis correlate clinically.
--- NOTE | 2019-03-20 14:09 | CT ---
EXAMINATION TYPE: CT abdomen pelvis w con DATE OF EXAM: 03/20/2019 COMPARISON: 12/15/2018 HISTORY: 88 year-old male abdominal pain, weakness-per chart TECHNIQUE: Contiguous axial scanning of the abdomen and pelvis following administration of 100 ml Omn ipaque 300 IV contrast. Delayed images through the kidneys and coronal/sagittal reconstructions perf ormed. CT DLP: 1435.45 mGycm Automated exposure control for dose reduction was used. FINDINGS: Multiple calcified pleural plaques. Stable streaky bibasilar opacities likely combination of atelecta sis and interstitial scarring. Some endobronchial opacity posterior basilar segmental right lower lob e bronchus probably mucus plugging. Heart borderline enlarged with mitral annular calcifications. No focal liver lesion or biliary ductal dilatation. Portal venous system is patent. Gallbladder, left adrenal gland, spleen, and pancreas appear within normal limits. A couple nonobstructive 4 mm left renal calculi are unchanged. Extrarenal pelvis redemonstrated on th e left. Tiny cortical cyst lower pole right kidney unchanged from 12/15/2018. Moderate atherosclerotic calcifications abdominal aorta and iliac arteries. Ectatic abdominal aorta m easuring up to 2.6 cm. Right and left common iliac arteries are ectatic at 1.7 cm. Moderate stool burden. No pericolonic inflammatory change. Prior ventral abdominal wall mesh repair. Bilobed nodule measuring up to 1.7 cm within the right adrenal gland stable to a millimeter or 2 larg er from from 04/10/2016 suggesting a benign adrenal adenoma. No dilated small bowel, free fluid, or free air. No mesenteric or retroperitoneal lymphadenopathy. Trabeculated bladder with wall thickening and mild surrounding fat stranding. Prostate gland enlargem ent 4.9 cm wide with superior funneling suggesting prior TURP. No abnormal fluid collection in the pe lvis or pelvic lymphadenopathy. Bones: Sclerotic appearance to the proximal femoral epiphyses unchanged. No progression in changes fr om 12/15/2018. Degenerative changes at the hips and SI joints. Advanced degenerative changes throughou t the lumbar spine with a prior multilevel laminectomies. Grade 1 anterolisthesis at L4-L5. Bridging anterior endplate spondylosis may represent dish. IMPRESSION: 1. ENDOBRONCHIAL OPACITY POSTERIOR BASILAR SEGMENTAL RIGHT LOWER LOBE, PROBABLE MUCOUS PLUGGING. ADI MMEND FOLLOW-UP CT IN 3-4 WEEKS TO ENSURE CLEARANCE. PLEURAL PLAQUES SUGGEST PRIOR ASBESTOS EXPOSURE. 2. A COUPLE OF NONOBSTRUCTIVE 4 MM LEFT RENAL CALCULI. 3. TRABECULATED BLADDER WITH WALL THICKENING AND MILD SURROUNDING FAT STRANDING. 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 CORRELATE TO EXCLUDE SUPERIMPOSED CYSTITIS. 4. PROSTATOMEGALY OF 4.9 CM WIDE AND SUSPECTED PRIOR TURP. CLINICALLY CORRELATE. 5. 1.7 CM RIGHT ADRENAL NODULE WAS PRESENT BACK ON 04/10/2016 SUGGESTING A BENIGN ADRENAL ADENOMA.
[2019-03-20 14:17] LABS: Appearance,Urine Clear (Clear); Bilirubin,Urine Negative (Negative); Blood,Urine Negative (Negative); Color,Urine Yellow; Glucose,Urine (UA) Negative (Negative); Ketones,Urine Negative (Negative); Leukocyte Esterase,Urine Negative (Negative); Nitrite,Urine Negative (Negative); Protein,Urine Trace (Negative); Specific Gravity,Urine 1.039 (1.001-1.035); Urobilinogen,Urine <2.0 mg/dL (<2.0)
[2019-03-20] MEDS ORDERED: SODIUM CHLORIDE 0.9% 1,000 ML IV STA (14:45)
[2019-03-20] MEDS ORDERED: NALOXONE 0.4 MG/ML 1 ML VIAL IV PRN (14:45)
[2019-03-20] MEDS ORDERED: ONDANSETRON 4 MG/2 ML VIAL IVP PRN (14:45)
--- NOTE | 2019-03-20 14:45 | ED ---
Weakness HPI - General Chief complaint: Weakness Stated complaint: WEAKNESS Time Seen by Provider: 03/20/19 12:23 Source: patient, EMS Mode of arrival: EMS - History of Present Illness Initial comments: Patient is an 88-year-old male presenting to the emergency department via EMS with complaints of weakness that started today. Patient states he drank his coffee this morning and states he was unable to climb a couple stairs due to weakness. Patient states he's had a mild cough for the last few days. Admits to mild shortness of breath. He denies any fever, chills, chest pain, abdominal pain, vomiting. He has no other complaints this time. In the EMS prior to arrival he received a half liter bolus fluids. Upon arrival to the ER, patient was hypotensive at 87/47, pulse is 76, respiratory rate 18, 93% on room air. Of note, patient's stated on the phone that patient does have a history of mild aphasia and he is currently at baseline. - Related Data Home Medications Medication Instructions Recorded Confirmed DULoxetine HCL [Cymbalta] 60 mg PO BID 05/16/14 01/09/19 Sucralfate [Carafate] 1 gm PO BID 08/29/16 01/09/19 Vit C/E/Zn/Coppr/Lutein/Zeaxan 1 cap PO BID 08/29/16 01/09/19 [Preservision Areds 2 Softgel] Acetaminophen [Tylenol Extra 500 mg PO Q6HR PRN 05/11/17 01/09/19 Strength] Ferrous Sulfate [Iron (65 MG 325 mg PO DAILY 05/11/17 01/09/19 Elemental)] Multivit-Min/FA/Lycopen/Lutein 1 tab PO DAILY 05/11/17 01/09/19 [Centrum Silver Men Tablet] rOPINIRole HCL [Requip] 0.25 mg PO HS 05/11/17 01/09/19 QUEtiapine [SEROquel] 50 mg PO HS 07/04/18 01/09/19 Atorvastatin [Lipitor] 40 mg PO HS 12/15/18 01/09/19 Pantoprazole [Protonix] 40 mg PO DAILY 12/15/18 01/09/19 ALPRAZolam [Xanax] 1 mg PO HS 01/09/19 01/09/19 ALPRAZolam [Xanax] 1 mg PO TID PRN 01/09/19 01/09/19 Allopurinol [Zyloprim] 100 mg PO BID 01/09/19 01/09/19 Lisinopril [Zestril] 10 mg PO DAILY 01/09/19 01/09/19 Omeprazole 20 mg PO DAILY 01/09/19 01/09/19 Tamsulosin [Flomax] 0.4 mg PO BID 01/09/19 01/09/19 Previous Rx's Medication Instructions Recorded Budesonide-Formot 160-4.5 Mcg 2 puff INHALATION RT-BID #1 each 02/03/18 [Symbicort 160-4.5 Mcg Inhaler] Allergies Allergy/AdvReac Type Severity Reaction Status Date / Time No Known Allergies Allergy Verified 01/09/19 15:12 Review of Systems ROS Statement: Those systems with pertinent positive or pertinent negative responses have been documented in the HPI. ROS Other: All systems not noted in ROS Statement are negative. Past Medical History Past Medical History: Coronary Artery Disease (CAD), COPD, CVA/TIA, GERD/Reflux, Hyperlipidemia, Hypertension, Osteoarthritis (OA), Prostate Disorder Additional Past Medical History / Comment(s): MACULAR DEGENERATION History of Any Multi-Drug Resistant Organisms: None Reported Past Surgical History: Heart Catheterization With Stent, Joint Replacement, Orthopedic Surgery Additional Past Surgical History / Comment(s): carpal tunnel release bilat, ulcer surgery, RIGHT TOTAL KNEEX2, left rotater cuff Past Anesthesia/Blood Transfusion Reactions: No Reported Reaction Additional Past Anesthesia/Blood Transfusion Reaction / Comment(s): Pt received blood in 2007 without reaction. Date of Last Stent Placement:: 2010 Past Psychological History: Anxiety, Depression Smoking Status: Current some day smoker Past Alcohol Use History: None Reported Past Drug Use History: None Reported - Past Family History Mother Family Medical History: Cancer Additional Family Medical History / Comment(s): Mother at age 43 from colon cancer. Father Additional Family Medical History / Comment(s): Father at age 98 from old age with no major medical problems. Patient does not have any brothers or sisters. Daughter(s) Additional Family Medical History / Comment(s): Patient has 2 daughters with mental health issues. No medical problems. General Exam - General Exam Comments Initial Comments: GENERAL: The patient appears fatigued, pale HEAD: Atraumatic, normocephalic. EYES: Pupils equal round and reactive to light, extraocular movements intact, sclera anicteric, conjunctiva are normal. ENT: TMs normal, nares patent, oropharynx clear without exudates. Dry mucous membranes. NECK: Normal range of motion, supple without lymphadenopathy or JVD. LUNGS: Breath sounds clear to auscultation bilaterally and equal. No wheezes rales or rhonchi. HEART: Regular rate and rhythm without murmurs, rubs or gallops. ABDOMEN: Lower abdominal, right lower quadrant tenderness on palpation. Soft, normoactive bowel sounds. No guarding, no rebound. No masses appreciated. : Deferred EXTREMITIES: Normal range of motion, no pitting or edema. No clubbing or cyanosis. Fur Coat Sewer Strength is equal and bilateral. NEUROLOGICAL: Cranial nerves II through XII grossly intact. Mild aphasia present, patient is at baseline. PSYCH: Normal mood, normal affect. SKIN: Warm, Dry, normal turgor, no rashes or lesions noted. Course Vital Signs 03/20/19 03/20/19 03/20/19 12:06 12:28 13:54 Temperature 98.4 F Pulse Rate 76 57 L Respiratory 18 18 Rate Blood Pressure 87/47 92/55 O2 Sat by Pulse 93 L 97 Oximetry 03/20/19 14:57 Temperature Pulse Rate Respiratory Rate Blood Pressure 119/66 O2 Sat by Pulse Oximetry EKG Findings - EKG Comments: EKG Findings:: Ventricular rate 59, MA interval 168, QTC 435. Sinus bradycardia with sinus arrhythmia, otherwise normal ECG. No acute ST segment changes. Medical Decision Making - Medical Decision Making Patient is an 88-year-old male presenting via EMS for weakness. History of a cough as well. Patient has mild aphasia which is his baseline. Lab work shows no acute abnormalities. Lactic acid is normal, troponin is normal, glucose is 124. UA is normal, no signs of infection. Chest x-ray shows left basilar infiltrate or atelectasis, correlate clinically. Given patient's abdominal pain on exam, a CT of abdomen was ordered and only shows chronic changes, no acute findings. EKG shows bradycardia, no other acute findings. I discussed these settings with the patient and wanted patient to be admitted for dehydration, weakness, possible pneumonia. Case was discussed with Dr. Vieira. Dr. Gilliland accepted the patient. Patient is agreement with this plan of care. - Lab Data Result diagrams: 03/20/19 12:30 03/20/19 12:30 Lab Results 03/20/19 03/20/19 03/20/19 Range/Units 12:30 12:30 12:30 WBC 5.8 (3.8-10.6) k/uL RBC 3.96 L (4.30-5.90) m/uL Hgb 11.8 L (13.0-17.5) gm/dL Hct 37.7 L (39.0-53.0) % MCV 95.3 (80.0-100.0) fL MCH 29.7 (25.0-35.0) pg MCHC 31.2 (31.0-37.0) g/dL RDW 13.0 (11.5-15.5) % Plt Count 224 (150-450) k/uL Neutrophils % 70 % Lymphocytes % 10 % Monocytes % 9 % Eosinophils % 7 % Basophils % 2 % Neutrophils # 4.1 (1.3-7.7) k/uL Lymphocytes # 0.6 L (1.0-4.8) k/uL Monocytes # 0.5 (0-1.0) k/uL Eosinophils # 0.4 (0-0.7) k/uL Basophils # 0.1 (0-0.2) k/uL PT (9.0-12.0) sec INR (<1.2) APTT (22.0-30.0) sec Sodium 139 (137-145) mmol/L Potassium 4.4 (3.5-5.1) mmol/L Chloride 107 (98-107) mmol/L Carbon Dioxide 27 (22-30) mmol/L Anion Gap 5 mmol/L BUN 16 (9-20) mg/dL Creatinine 0.80 (0.66-1.25) mg/dL Est GFR (CKD-EPI)AfAm >90 (>60 ml/min/1.73 sqM) Est GFR (CKD-EPI)NonAf 81 (>60 ml/min/1.73 sqM) Glucose 124 H (74-99) mg/dL Plasma Lactic Acid [place] 1.5 (0.7-2.0) mmol/L Calcium 8.2 L (8.4-10.2) mg/dL Total Bilirubin 0.8 (0.2-1.3) mg/dL AST 37 (17-59) U/L ALT 14 (4-49) U/L Alkaline Phosphatase 32 L (38-126) U/L Troponin I (0.000-0.034) ng/mL Total Protein 5.9 L (6.3-8.2) g/dL Albumin 3.2 L (3.5-5.0) g/dL TSH (0.465-4.680) mIU/L Urine Color Urine Appearance (Clear) Urine pH (5.0-8.0) Ur Specific [place] (1.001-1.035) Urine Protein (Negative) Urine Glucose (UA) (Negative) Urine Ketones (Negative) Urine Blood (Negative) Urine Nitrite (Negative) Urine Bilirubin (Negative) Urine Urobilinogen (<2.0) mg/dL Ur Leukocyte Esterase (Negative) 03/20/19 03/20/19 03/20/19 Range/Units 12:30 12:30 12:30 WBC (3.8-10.6) k/uL RBC (4.30-5.90) m/uL Hgb (13.0-17.5) gm/dL Hct (39.0-53.0) % MCV (80.0-100.0) fL MCH (25.0-35.0) pg MCHC (31.0-37.0) g/dL RDW (11.5-15.5) % Plt Count (150-450) k/uL Neutrophils % % Lymphocytes % % Monocytes % % Eosinophils % % Basophils % % Neutrophils # (1.3-7.7) k/uL Lymphocytes # (1.0-4.8) k/uL Monocytes # (0-1.0) k/uL Eosinophils # (0-0.7) k/uL Basophils # (0-0.2) k/uL PT 11.0 (9.0-12.0) sec INR 1.0 (<1.2) APTT 29.4 (22.0-30.0) sec Sodium (137-145) mmol/L Potassium (3.5-5.1) mmol/L Chloride (98-107) mmol/L Carbon Dioxide (22-30) mmol/L Anion Gap mmol/L BUN (9-20) mg/dL Creatinine (0.66-1.25) mg/dL Est GFR (CKD-EPI)AfAm (>60 ml/min/1.73 sqM) Est GFR (CKD-EPI)NonAf (>60 ml/min/1.73 sqM) Glucose (74-99) mg/dL Plasma Lactic Acid [place] (0.7-2.0) mmol/L Calcium (8.4-10.2) mg/dL Total Bilirubin (0.2-1.3) mg/dL AST (17-59) U/L ALT (4-49) U/L Alkaline Phosphatase (38-126) U/L Troponin I <0.012 (0.000-0.034) ng/mL Total Protein (6.3-8.2) g/dL Albumin (3.5-5.0) g/dL TSH 1.510 (0.465-4.680) mIU/L Urine Color Urine Appearance (Clear) Urine pH (5.0-8.0) Ur Specific [place] (1.001-1.035) Urine Protein (Negative) Urine Glucose (UA) (Negative) Urine Ketones (Negative) Urine Blood (Negative) Urine Nitrite (Negative) Urine Bilirubin (Negative) Urine Urobilinogen (<2.0) mg/dL Ur Leukocyte Esterase (Negative) 03/20/19 Range/Units 14:00 WBC (3.8-10.6) k/uL RBC (4.30-5.90) m/uL Hgb (13.0-17.5) gm/dL Hct (39.0-53.0) % MCV (80.0-100.0) fL MCH (25.0-35.0) pg MCHC (31.0-37.0) g/dL RDW (11.5-15.5) % Plt Count (150-450) k/uL Neutrophils % % Lymphocytes % % Monocytes % % Eosinophils % % Basophils % % Neutrophils # (1.3-7.7) k/uL Lymphocytes # (1.0-4.8) k/uL Monocytes # (0-1.0) k/uL Eosinophils # (0-0.7) k/uL Basophils # (0-0.2) k/uL PT (9.0-12.0) sec INR (<1.2) APTT (22.0-30.0) sec Sodium (137-145) mmol/L Potassium (3.5-5.1) mmol/L Chloride (98-107) mmol/L Carbon Dioxide (22-30) mmol/L Anion Gap mmol/L BUN (9-20) mg/dL Creatinine (0.66-1.25) mg/dL Est GFR (CKD-EPI)AfAm (>60 ml/min/1.73 sqM) Est GFR (CKD-EPI)NonAf (>60 ml/min/1.73 sqM) Glucose (74-99) mg/dL Plasma Lactic Acid [place] (0.7-2.0) mmol/L Calcium (8.4-10.2) mg/dL Total Bilirubin (0.2-1.3) mg/dL AST (17-59) U/L ALT (4-49) U/L Alkaline Phosphatase (38-126) U/L Troponin I (0.000-0.034) ng/mL Total Protein (6.3-8.2) g/dL Albumin (3.5-5.0) g/dL TSH (0.465-4.680) mIU/L Urine Color Yellow Urine Appearance Clear (Clear) Urine pH 6.0 (5.0-8.0) Ur Specific [place] 1.039 H (1.001-1.035) Urine Protein Trace H (Negative) Urine Glucose (UA) Negative (Negative) Urine Ketones Negative (Negative) Urine Blood Negative (Negative) Urine Nitrite Negative (Negative) Urine Bilirubin Negative (Negative) Urine Urobilinogen <2.0 (<2.0) mg/dL Ur Leukocyte Esterase Negative (Negative) Disposition Clinical Impression: Hypotension, Weakness, Pneumonia Disposition: ADMITTED IP TO THIS [facility] Condition: Stable Is patient prescribed a controlled substance at d/c from ED?: No Decision Date: 03/20/19 Decision Time: 14:48
[2019-03-20] MEDS ORDERED: ACETAMINOPHEN TAB 500 MG TAB PO PRN (19:57)
[2019-03-20] MEDS: ATORVASTATIN 40 MG TAB PO SCH (22:23)
[2019-03-20] MEDS: SUCRALFATE 1 GM TAB PO SCH (22:23)
[2019-03-20] MEDS: TAMSULOSIN 0.4 MG CAP.ER.24H PO SCH (22:23)
[2019-03-20] MEDS: DULoxetine HCL 60 MG CAPSULE.DR PO SCH (22:23)
[2019-03-20] MEDS: VIT A,C & E-LUTEIN-MINERALS 1 EACH TAB PO SCH (22:24)
[2019-03-20] MEDS: ALPRAZolam 1 MG TAB PO PRN (22:26)
[2019-03-20] MEDS: SODIUM CHLORIDE 0.9% 1,000 ML IV SCH (22:27)
[2019-03-20] MEDS: QUEtiapine 50 MG TAB PO SCH (22:27)
[2019-03-21] MEDS: TAMSULOSIN 0.4 MG CAP.ER.24H PO SCH ×2 (08:49→21:52)
[2019-03-21] MEDS: SUCRALFATE 1 GM TAB PO SCH ×2 (08:49→21:52)
[2019-03-21] MEDS: DULoxetine HCL 60 MG CAPSULE.DR PO SCH ×2 (08:49→21:52)
[2019-03-21] MEDS: LISINOPRIL 10 MG TAB PO SCH (08:49)
[2019-03-21] MEDS: PANTOPRAZOLE 40 MG TABLET PO SCH (08:49)
[2019-03-21] MEDS: FERROUS SULFATE 325 MG TAB PO SCH (08:49)
[2019-03-21] MEDS: MULTIVITAMINS, THERA 1 EACH TAB PO SCH (08:49)
[2019-03-21] MEDS: SODIUM CHLORIDE 0.9% 1,000 ML IV SCH (08:49)
[2019-03-21] MEDS: VIT A,C & E-LUTEIN-MINERALS 1 EACH TAB PO SCH ×2 (11:45→21:52)
[2019-03-21] MEDS ORDERED: IPRATROPIUM-ALBUTEROL 3 ML NEB INHALATION PRN (12:53)
[2019-03-21] MEDS: AZITHROMYCIN 500 MG in SODIUM CHLORIDE 0.9% 250 ML IVPB SCH (14:17)
[2019-03-21] MEDS: IPRATROPIUM-ALBUTEROL 3 ML NEB INHALATION SCH ×2 (17:03→21:26)
[2019-03-21] MEDS: methylPREDNISolone SOD SUCCI 40 MG/ML 1 ML VIAL IV SCH (17:24)
--- NOTE | 2019-03-21 18:23 | P.CNPUL ---
History of Present Illness Consult date: 03/21/19 Reason for consult: pneumonia History of present illness: 88-year-old male patient came into the ED because of generalized weakness. He did have some mild cough and chronic shortness of breath. He denied having any fever chills or chest pain or nausea or vomiting or abdominal pain. In the ED, the patient had a BP of 87/47 with a pulse of 76 and the pulse ox was 93% on room air. The white cell count was at 5.8 with hemoglobin of 11.8. El ectrolytes were all within normal limits. Glucose was at 124. Lactic acid level was at 1.5. LFTs are normal. The UA was negative. Chest x-ray was showing chronic asbestosis and scarring in the lung bases bilaterally along with pleural calcification. CAT scan of the abdomen was done in the emergency department showed a 1.7 cm right adrenal adenoma, benign, bladder wall thickening secondary to chronic bladder wall hypertrophy, nonobstructive 4 mm left renal calculus, posterior basilar segmental atelectatic changes in the right lung base along with changes consistent with asbestosis. The patient was started on Zithromax. The patient was admitted to the floor for further monitoring. He is known to have COPD. He is known to have asbestosis. He has chronic hypoxic respiratory failure admitted on oxygen 2 L per minute nasal cannula. He carries a 11-[id number]-eadi smoking history. He was history of CAD, previous [place], previous CVA, hypertension and hyperlipidemia and acid reflux and osteoarthritis in addition to generalized anxiety and depression macular degeneration. He has also restless leg syndrome. He was hospitalized back in December 2018 for hypotension and weakness that was attributed to medication and diuretic use. Review of Systems Constitutional: Reports fatigue, Reports weakness, Denies anorexia, Denies chills, Denies fever, Denies lethargy, Denies malaise, Denies poor appetite Eyes: denies blurred vision, denies pain Ears, nose, mouth and throat: Denies dysphagia, Denies nasal congestion, Denies nasal discharge, Denies vertigo Cardiovascular: Reports lightheadedness, Denies chest pain, Denies decreased exercise tolerance, Denies dyspnea on exertion, Denies leg edema, Denies palpitations, Denies shortness of breath, Denies syncope Respiratory: Denies cough, Denies cough with sputum, Denies dyspnea, Denies hemoptysis, Denies wheezing, the patient has chronic exertional dyspnea. Gastrointestinal: Denies abdominal pain, Denies diarrhea, Denies loss of appetite, Denies nausea, Denies vomiting Genitourinary: Denies dysuria, Denies urinary frequency, Denies urinary retention Musculoskeletal: Reports muscle weakness, Denies gait dysfunction, Denies myalgias Integumentary: Denies pruritus, Denies rash, Denies wounds Neurological: Denies change in mentation, Denies change in speech, Denies numbness, Denies seizures, Denies weakness Psychiatric: Denies anxiety, Denies depression Endocrine: Denies fatigue, Denies weight change Past Medical History Past Medical History: Coronary Artery Disease (CAD), COPD, CVA/TIA, GERD/Reflux, Hyperlipidemia, Hypertension, Osteoarthritis (OA), Pneumonia, Prostate Disorder Additional Past Medical History / Comment(s): Asbestosis, COPD, chronic hypoxic respiratory failure, previous CVA, hypertension, hyperlipidemia, osteoarthritis, generalized anxiety disorder, depression, MACULAR DEGENERATION, BPH History of Any Multi-Drug Resistant Organisms: None Reported Past Surgical History: Heart Catheterization With Stent, Joint Replacement, Orthopedic Surgery Additional Past Surgical History / Comment(s): carpal tunnel release bilat, ulce r surgery, RIGHT TOTAL KNEEX2, left rotater cuff Past Anesthesia/Blood Transfusion Reactions: No Reported Reaction Additional Past Anesthesia/Blood Transfusion Reaction / Comment(s): Pt received blood in 2007 without reaction. Date of Last Stent Placement:: 2010 Past Psychological History: Anxiety, Depression Additional Psychological History / Comment(s): Pt resides w/ in a single story home. Pt uses a walker. He no longer drives, his family takes him to appts. He has someone who comes in and does light housework. His is his crab catcher. He has home oxygen and a nubulizer.a nurses come out Smoking Status: Current some day smoker Past Alcohol Use History: None Reported Additional Past Alcohol Use History / Comment(s): Patient is a smoker of a half a pack per day for more than 20 years has cut down to 1/4 ppd. He denies any medical marijuana, marijuana or street drug use. He states no current alcohol use Past Drug Use History: None Reported - Past Family History Mother Family Medical History: Cancer Additional Family Medical History / Comment(s): Mother at age 43 from colon cancer. Father Additional Family Medical History / Comment(s): Father at age 98 from old age with no major medical problems. Patient does not have any brothers or sisters. Daughter(s) Additional Family Medical History / Comment(s): Patient has 2 daughters with mental health issues. No medical problems. Medications and Allergies Home Medications Medication Instructions Recorded Confirmed Type DULoxetine HCL [Cymbalta] 60 mg PO BID 05/16/14 03/20/19 History Sucralfate [Carafate] 1 gm PO BID 08/29/16 03/20/19 History Vit C/E/Zn/Coppr/Lutein/Zeaxan 1 cap PO BID 08/29/16 03/20/19 History [Preservision Areds 2 Softgel] Acetaminophen [Tylenol Extra 500 mg PO Q6HR PRN 05/11/17 03/20/19 History Strength] Ferrous Sulfate [Iron (65 MG 325 mg PO DAILY 05/11/17 03/20/19 History Elemental)] Multivit-Min/FA/Lycopen/Lutein 1 tab PO DAILY 05/11/17 03/20/19 History [Centrum Silver Men Tablet] rOPINIRole HCL [Requip] 0.25 mg PO HS 05/11/17 03/20/19 History QUEtiapine [SEROquel] 50 mg PO HS 07/04/18 03/20/19 History Atorvastatin [Lipitor] 40 mg PO HS 12/15/18 03/20/19 History Pantoprazole [Protonix] 40 mg PO DAILY 12/15/18 03/20/19 History ALPRAZolam [Xanax] 1 mg PO TID PRN 01/09/19 03/20/19 History Lisinopril [Zestril] 10 mg PO DAILY 01/09/19 03/20/19 History Tamsulosin [Flomax] 0.4 mg PO BID 01/09/19 03/20/19 History Furosemide [Lasix] 20 mg PO MOFR 03/20/19 03/20/19 History Lisinopril [Prinivil] 20 mg PO HS 03/20/19 03/20/19 History Allergies Allergy/AdvReac Type Severity Reaction Status Date / Time No Known Allergies Allergy Verified 01/09/19 15:12 Physical Exam Vitals: Vital Signs Temp Pulse Pulse Resp BP BP Pulse Ox 03/21/19 17:13 76 01/09/20 17:04 72 03/21/19 15:42 18 03/21/19 13:25 98.0 F 82 18 147/75 94 L 03/21/19 08:48 94 L 03/21/19 08:00 20 03/21/19 05:35 97.9 F 92 20 152/75 94 L 03/21/19 01:53 20 03/21/19 01:14 97.8 F 96 20 166/78 96 03/21/19 00:34 71 18 151/81 96 03/20/19 21:42 69 18 142/72 98 03/20/19 18:03 65 18 138/67 98 Intake and Output 03/21/19 03/21/19 03/21/19 06:59 14:59 22:59 Intake Total 750 Output Total 300 Balance 450 Intake: Oral 750 Output: Urine 300 Other: Voiding Method Diaper Diaper Urinal Incontinent Incontinent Diaper Incontinent # Voids 2 3 # Bowel Movements 1 Weight 82.554 kg GENERAL EXAM: Alert, pleasant 88-year-old male, not in acute distress, no room air oxygen pulse ox is in the order of 94-95% HEAD: Normocephalic/atraumatic. EYES: Normal reaction of pupils, equal size. Conjunctiva pink, sclera white. NOSE: Clear with pink turbinates. THROAT: No erythema or exudates. NECK: No masses, no JVD, no thyroid enlargement, no adenopathy. CHEST: No chest wall deformity. Symmetrical expansion. LUNGS: Diminished breath sounds bilaterally, with rhonchi, and wheezing on forced expiratory maneuver CVS: Regular rate and rhythm, normal S1 and S2, no gallops, no murmurs, no rubs ABDOMEN: Soft, nontender. No hepatosplenomegaly, normal bowel sounds, no guarding or rigidity. EXTREMITIES: No clubbing, no edema, no cyanosis, 2+ pulses and upper and lower extremities. MUSCULOSKELETAL: Muscle strength and tone normal. SPINE: No scoliosis or deformity SKIN: No rashes CENTRAL NERVOUS SYSTEM: Alert and oriented -3. No focal deficits, tone is normal in all 4 extremities. PSYCHIATRIC: Alert and oriented -3. Appropriate affect. Intact judgment and insight. Results - Laboratory Findings CBC and BMP: 03/20/19 12:30 01/08/20 12:30 PT/INR, D-dimer PT 11.0 sec (9.0-12.0) 03/20/19 12:30 INR 1.0 (<1.2) 03/20/19 12:30 Abnormal lab findings: Abnormal Labs 03/20/19 03/20/19 03/20/19 12:30 12:30 14:00 RBC 3.96 L Hgb 11.8 L Hct 37.7 L Lymphocytes # 0.6 L Glucose 124 H Calcium 8.2 L Alkaline Phosphatase 32 L Total Protein 5.9 L Albumin 3.2 L Ur Specific [place] 1.039 H Urine Protein Trace H - Diagnostic Findings Chest x-ray: image reviewed Assessment and Plan Plan: 1 generalized weakness along with brief hypotension at time of admission, recovered and the patient's blood pressures is normalized for now. Doubt underlying infection 2 asbestosis 3 COPD with chronic hypoxic respiratory failure, currently oxygenating well 4 coronary artery disease with previous coronary stenting and previous myocardial infarction 5 chronic tobacco smoking the patient has more than [id number] smoking history 6 previous history of CVA 7 hypertension 8 hyperlipidemia 9 chronic generalized anxiety disorder 10 chronic osteoarthritis 11 macular degeneration 12 BPH 13. Depression 14 restless leg syndrome Plan No evidence of pneumonia. The lung bases are clear. Based on the CAT scan of the abdomen the lung bases shows pleural calcification and diaphragmatic calcification and asbestosis with some scarring. Pneumonia is not present based on x-ray findings. Management of COPD with bronchodilators Management of comorbidities Resume home meds He does have some mild cough and congestion and addition of a short course of Zithromax and steroid taper is reasonable.
[2019-03-21] MEDS: BUDESONIDE 1 MG/2 ML NEBU INHALATION SCH (21:26)
[2019-03-21] MEDS: QUEtiapine 50 MG TAB PO SCH (21:52)
[2019-03-21] MEDS: ATORVASTATIN 40 MG TAB PO SCH (21:52)
[2019-03-22] MEDS: SODIUM CHLORIDE 0.9% 1,000 ML IV SCH (00:33)
[2019-03-22] MEDS: methylPREDNISolone SOD SUCCI 40 MG/ML 1 ML VIAL IV SCH ×3 (00:33→20:32)
[2019-03-22] MEDS: ALPRAZolam 1 MG TAB PO PRN (00:35)
[2019-03-22] MEDS: IPRATROPIUM-ALBUTEROL 3 ML NEB INHALATION SCH ×4 (07:18→19:44)
[2019-03-22] MEDS: BUDESONIDE 1 MG/2 ML NEBU INHALATION SCH ×2 (07:18→19:44)
[2019-03-22] MEDS: SUCRALFATE 1 GM TAB PO SCH ×2 (07:37→20:32)
[2019-03-22] MEDS: TAMSULOSIN 0.4 MG CAP.ER.24H PO SCH ×2 (07:37→20:32)
[2019-03-22] MEDS: PANTOPRAZOLE 40 MG TABLET PO SCH (07:37)
[2019-03-22] MEDS: VIT A,C & E-LUTEIN-MINERALS 1 EACH TAB PO SCH ×2 (07:37→20:32)
[2019-03-22] MEDS: FERROUS SULFATE 325 MG TAB PO SCH (07:37)
[2019-03-22] MEDS: LISINOPRIL 10 MG TAB PO SCH (07:37)
[2019-03-22] MEDS: DULoxetine HCL 60 MG CAPSULE.DR PO SCH ×2 (07:38→20:32)
[2019-03-22] MEDS: AZITHROMYCIN 500 MG in SODIUM CHLORIDE 0.9% 250 ML IVPB SCH (07:38)
[2019-03-22] MEDS: MULTIVITAMINS, THERA 1 EACH TAB PO SCH (07:38)
[2019-03-22] MEDS: ACETAMINOPHEN TAB 325 MG TAB PO PRN (07:44)
--- NOTE | 2019-03-22 09:34 | P.HPIM ---
History of Present Illness H&P Date: 03/20/19 Chief Complaint: Generalized weakness and mild cough. This is an 88-year-old male patient of Dr. Castillo, Dr. Mitchell and Dr. Mancuso with past medical history of COPD, chronic hypoxic respiratory failure on home O2 at 2 L at bedtime as needed, [id number] history of smoking, [place], CVA, gastroesophageal reflux disease, hypertension, hyperlipidemia, osteoarthritis, generalized anxiety disorder, recurrent depression, macular degeneration. Patient was complaining of generalized weakness and mild cough without any increased shortness of breath EMS was called and the patient was brought into the emergency department at [facility] patient was complai man of some abdominal pain along with that patient ended up going for a computed tomography scan of the abdomen that showed an opacity of the right bronchial tube could be related to mucous plug however it was not certain and he was recommended to repeat his computed tomography scan about 3-4 weeks to assure clearance, the results of the abdomen did not show any significant acute abnormalities, patient was hypotensive he was given IV fluid in the ambulance and in the ER he was given another liter of fluid his blood pressure normalizes however the patient was extremely weak his EKG showed sinus bradycardia without evidence of acute ST-T wave changes his laboratory evaluation urinalysis and c hest x-ray showed asbestos exposure with bibasilar streaky atelectasis versus infiltrate. Patient will be admitted to the hospital for evaluation. Review of Systems Constitutional: Reports anorexia, Reports chronic pain, Reports fatigue, Reports weakness, Reports weight loss Eyes: bilateral blurred vision, denies decreased vision Ears: bilateral: decreased hearing Ears, nose, mouth and throat: Denies dysphagia, Denies sore throat Cardiovascular: Reports decreased exercise tolerance, Reports dyspnea on exertion, Reports shortness of breath, Denies chest pain, Denies lightheadedness, Denies rapid heart beat, Denies syncope Respiratory: Reports home oxygen, Denies congestion, Denies cough with sputum, Denies sleep apnea, Denies snoring, Denies wheezing Gastrointestinal: Reports abdominal pain, Reports nausea, Denies bloating, Denies BRBPR, Denies excessive gas, Denies heartburn, Denies melena, Denies vomiting Genitourinary: Reports nocturia, Denies dysuria Musculoskeletal: Reports gait dysfunction Musculoskeletal: absent: ankle pain, ankle stiffness, ankle swelling, elbow pain, elbow stiffness, elbow swelling, foot pain, foot stiffness, foot swelling, hand pain, hand stiffness, hand swelling, hip pain, hip stiffness, hip swelling, knee pain, knee stiffness, knee swelling, shoulder pain, shoulder stiffness, shoulder swelling, wrist pain, wrist stiffness, wrist swelling Integumentary: Denies pruritus, Denies rash Neurological: Reports gait dysfunction, Reports weakness, Denies numbness Psychiatric: Reports anxiety Endocrine: Denies fatigue, Denies weight change Past Medical History Past Medical History: Coronary Artery Disease (CAD), COPD, CVA/TIA, GERD/Reflux, Hyperlipidemia, Hypertension, Osteoarthritis (OA), Prostate Disorder Additional Past Medical History / Comment(s): MACULAR DEGENERATION History of Any Multi-Drug Resistant Organisms: None Reported Past Surgical History: Heart Catheterization With Stent, Joint Replacement, Orthopedic Surgery Additional Past Surgical History / Comment(s): carpal tunnel release bilat, ulcer surgery, RIGHT TOTAL KNEEX2, left rotater cuff Past Anesthesia/Blood Transfusion Reactions: No Reported Reaction Additional Past Anesthesia/Blood Transfusion Reaction / Comment(s): Pt received blood in 2007 without reaction. Date of Last Stent Placement:: 2010 Past Psychological History: Anxiety, Depression Smoking Status: Current some day smoker Past Alcohol Use History: None Reported Past Drug Use History: None Reported - Past Family History Mother Family Medical History: Cancer Additional Family Medical History / Comment(s): Mother at age 43 from colon cancer. Father Additional Family Medical History / Comment(s): Father at age 98 from old age with no major medical problems. Patient does not have any brothers or sisters. Daughter(s) Additional Family Medical History / Comment(s): Patient has 2 daughters with mental health issues. No medical problems. Medications and Allergies Home Medications Medication Instructions Recorded Confirmed Type DULoxetine HCL [Cymbalta] 60 mg PO BID 05/16/14 03/20/19 History Sucralfate [Carafate] 1 gm PO BID 08/29/16 03/20/19 History Vit C/E/Zn/Coppr/Lutein/Zeaxan 1 cap PO BID 08/29/16 03/20/19 History [Preservision Areds 2 Softgel] Acetaminophen [Tylenol Extra 500 mg PO Q6HR PRN 05/11/17 03/20/19 History Strength] Ferrous Sulfate [Iron (65 MG 325 mg PO DAILY 05/11/17 03/20/19 History Elemental)] Multivit-Min/FA/Lycopen/Lutein 1 tab PO DAILY 05/11/17 03/20/19 History [Centrum Silver Men Tablet] rOPINIRole HCL [Requip] 0.25 mg PO HS 05/11/17 03/20/19 History QUEtiapine [SEROquel] 50 mg PO HS 07/04/18 03/20/19 History Atorvastatin [Lipitor] 40 mg PO HS 12/15/18 03/20/19 History Pantoprazole [Protonix] 40 mg PO DAILY 12/15/18 03/20/19 History ALPRAZolam [Xanax] 1 mg PO TID PRN 01/09/19 03/20/19 History Lisinopril [Zestril] 10 mg PO DAILY 01/09/19 03/20/19 History Tamsulosin [Flomax] 0.4 mg PO BID 01/09/19 03/20/19 History Furosemide [Lasix] 20 mg PO MOFR 03/20/19 03/20/19 History Lisinopril [Prinivil] 20 mg PO HS 03/20/19 03/20/19 History Allergies Allergy/AdvReac Type Severity Reaction Status Date / Time No Known Allergies Allergy Verified 01/09/19 15:12 Physical Exam Vitals: Vital Signs Temp Pulse Resp BP Pulse Ox 03/20/19 14:57 119/66 03/20/19 13:54 57 L 18 92/55 97 03/20/19 12:28 98.4 F 03/20/19 12:06 76 18 87/47 93 L Intake and Output 03/20/19 03/20/19 03/20/19 06:59 14:59 22:59 Other: Weight 82.554 kg - Constitutional General appearance: average body habitus, no acute distress - EENT Eyes: anicteric sclerae, EOMI, PERRLA, no ptosis, no scleral icterus, normal appearance ENT: hard of hearing, NA/AT, normal oropharynx, no thrush Ears: bilateral: normal - Neck Neck: no lymphadenopathy, normal ROM, no rigidity, no stridor, no thyromegaly Carotids: bilateral: upstroke normal Thyroid: bilateral: normal size - Respiratory Respiratory: bilateral: diminished, negative: dullness, rales, rhonchi, wheezing, prolonged expiration - Cardiovascular Rhythm: regular Heart sounds: normal: S1, S2 Abnormal Heart Sounds: systolic murmur, no S3 Gallop - Gastrointestinal General gastrointestinal: normal bowel sounds, soft, no splenomegaly, no tenderness, no umbilical hernia, no ventral hernia - Integumentary Integumentary: normal, normal turgor - Neurologic Neurologic: CNII-XII intact - Musculoskeletal Musculoskeletal: generalized weakness, strength equal bilaterally - Psychiatric Psychiatric: A&O x's 3, appropriate affect, intact judgment & insight Results CBC & Chem 7: 03/20/19 12:30 03/20/19 12:30 Labs: Abnormal Lab Results - Last 24 Hours (Table) 03/20/19 03/20/19 03/20/19 Range/Units 12:30 12:30 14:00 RBC 3.96 L (4.30-5.90) m/uL Hgb 11.8 L (13.0-17.5) gm/dL Hct 37.7 L (39.0-53.0) % Lymphocytes # 0.6 L (1.0-4.8) k/uL Glucose 124 H (74-99) mg/dL Calcium 8.2 L (8.4-10.2) mg/dL Alkaline Phosphatase 32 L (38-126) U/L Total Protein 5.9 L (6.3-8.2) g/dL Albumin 3.2 L (3.5-5.0) g/dL Ur Specific [place] 1.039 H (1.001-1.035) Urine Protein Trace H (Negative) Thrombosis Risk Factor Assmnt - DVT/VTE Prophylaxis DVT/VTE Prophylaxis: Pharmacologic Prophylaxis ordered, Mechanical Prophylaxis ordered Assessment and Plan Assessment: Assessment and plan: 1. Generalized weakness likely related to hypotension and possible poor oral intake of fluid along with polypharmacy. Patient did respond to the fluid challenges blood pressure is better now he continues to be generally, chest x- ray was reviewed showed atelectasis versus infiltrate, computed tomography scan did show a capacity in the endobronchial of the right lower lobe suggestive of mucous plug however need to repeat a computed tomography scan in about 4 weeks to assure stability. Continue aggressive pulmonary toileting with DuoNeb 3 mg nebulization 4 times every day continue with Symbicort 160/4.5 g 2 puff inhalation twice every day., Continue oxygen support start the patient on Zithr omax 500 mg IV piggyback every 24 hours, pulmonary consultation Dr. Mancuso. 2. Mild anemia. Likely chronic monitor the CBC next 24 hours, patient did have macrocytosis last time was hospitalized last year however his MCV is normal now. 3. History of coronary artery disease status post stent. Continue Lipitor 40 mg at bedtime, Lopressor 25 mg twice daily 4. Chronic hypoxemic respiratory failure due to COPD. Continue oxygen support, continue Symbicort, continue DuoNeb 3 mL nebulization 4 times every day. 5. Hypertension and hypertensive cardiovascular disease. We will hold lisinop ril for tonight continue patient on metoprolol 25 mg orally twice every day 3 6. Hyperlipidemia. We will continue patient on Lipitor 40 mg orally once every . 7. Gastroesophageal reflux disease. Continue Protonix 40 mg orally once every day. 8. Generalized anxiety disorder and recurrent depression. Continue Xanax 1 mg 3 times daily as needed, Cymbalta 60 mg twice daily. 9. Restless leg syndrome. Continue Requip to 0.25 mg at bedtime. 10. DVT prophylaxis. Continue Lovenox 40 mg subcutaneously every 24 hours. 11. Admitted to inpatient estimate a length of stay 2 midnights per 12. Patient is full code.
--- NOTE | 2019-03-22 12:04 | FL ---
EXAMINATION TYPE: FL barium swallow w video DATE OF EXAM: 03/22/2019 COMPARISON: NONE HISTORY: History of aspiration TECHNIQUE: Fluoroscopy. FINDINGS: Fluoroscopic guidance was provided for the procedure performed in conjunction with the [facility] [place] pathology department. Please see complete report forthcoming from the Speech Pathology departmen t. Various consistencies from thin liquid to solids were administered. Fluoroscopy time 3 minutes 54 seconds. Number of images: 0. Deep penetration was observed with thin liquids, nectar thick liquids, and honey thick liquids. No de finite aspiration occurred. With holding breath and liquids could be swallowed without significant pe netration. Penetration remained with chin tuck. Patient could clear with cough. No significant pooling was observed in the vallecula. There was some hesitancy in propulsion of the bolus. IMPRESSION: 1. Deep penetration with thin, nectar thick, and honey thick liquids. This improved with breath holdi ng. No aspiration was observed.
--- NOTE | 2019-03-22 14:19 | P.PN ---
Subjective Progress Note Date: 03/21/19 This is an 88-year-old male patient of Dr. Castillo, Dr. Mitchell and Dr. Mancuso with past medical history of COPD, chronic hypoxic respiratory failure on home O2 at 2 L at bedtime as needed, [id number] history of smoking, [place], CVA, gastroesophageal reflux disease, hypertension, hyperlipidemia, osteoarthritis, generalized anxiety disorder, recurrent depression, macular degeneration. Patient was complaining of generalized weakness and mild cough without any increased shortness of breath EMS was called and the patient was brought into the emergency department at [facility] patient was complaining of some abdominal pain along with that patient ended up going for a computed tomography scan of the abdomen that showed an opacity of the right bronchial tube could be related to mucous plug however it was not certain and he was recommended to repeat his computed tomography scan about 3-4 weeks to assure clearance, the results of the abdomen did not show any significant acute a bnormalities, patient was hypotensive he was given IV fluid in the ambulance and in the ER he was given another liter of fluid his blood pressure normalizes however the patient was extremely weak his EKG showed sinus bradycardia without evidence of acute ST-T wave changes his laboratory evaluation urinalysis and chest x-ray showed asbestos exposure with bibasilar streaky atelectasis versus infiltrate. Patient will be admitted to the hospital for evaluation. 03/21: Patient states he is having difficulty swallowing for which a consult with speech therapy will be added and possible modified barium swallow. Patient is complaining of cough that's nonproductive. Patient states he has seen Dr. Dyllan pierre in the past but not recently, consult with Dr. Mancuso has been added. Added Solu-Medrol, azithromycin, DuoNeb treatments and Pulmicort Review of Systems Constitutional: Reports anorexia, Reports chronic pain, Reports fatigue, Reports weakness, Reports weight loss Eyes: bilateral blurred vision, denies decreased vision Ears: decreased hearing Ears, nose, mouth and throat: Reports dysphagia, Denies sore throat Cardiovascular: Reports decreased exercise tolerance, Reports dyspnea on exertion, Reports shortness of breath, Denies chest pain, Denies lightheadedness, Denies rapid heart beat, Denies syncope Respiratory: Reports home oxygen, Denies congestion, Denies cough with sputum, Denies sleep apnea, Denies snoring, Denies wheezing Gastrointestinal: Reports abdominal pain, Reports nausea, Denies bloating, Denies BRBPR, Denies excessive gas, Denies heartburn, Denies melena, Denies vomiting Genitourinary: Reports nocturia, Denies dysuria Musculoskeletal: Reports gait dysfunction Musculoskeletal: absent: ankle pain, ankle stiffness, ankle swelling, elbow pain, elbow stiffness, elbow swelling, foot pain, foot stiffness, foot swelling, hand pain, hand stiffness, hand swelling, hip pain, hip stiffness, hip swelling, knee pain, knee stiffness, knee swelling, shoulder pain, shoulder stiffness, shoulder swelling, wrist pain, wrist stiffness, wrist swelling Integumentary: Denies pruritus, Denies rash Neurological: Reports gait dysfunction, Reports weakness, Denies numbness Psychiatric: Reports anxiety Endocrine: Denies fatigue, Denies weight change Objective - Vital Signs Vital signs: Vital Signs Temp 97.9 F 03/21/19 05:35 Pulse 92 03/21/19 05:35 Resp 20 03/21/19 08:00 BP 152/75 03/21/19 05:35 Pulse Ox 94 L 03/21/19 08:48 Intake & Output 03/20/19 03/21/19 03/21/19 18:59 06:59 18:59 Output Total 300 Balance -300 Weight 82.554 kg 82.554 kg Output: Urine 300 Other: Voiding Method Diaper Diaper Incontinent Incontinent # Voids 2 3 - Exam - Constitutional General appearance: average body habitus, no acute distress, frequent cough - EENT Eyes: anicteric sclerae, EOMI, PERRLA, no ptosis, no scleral icterus, normal appearance ENT: hard of hearing, NA/AT, normal oropharynx, no thrush Ears: bilateral: normal - Neck Neck: no lymphadenopathy, normal ROM, no rigidity, no stridor, no thyromegaly Carotids: bilateral: upstroke normal Thyroid: bilateral: normal size - Respiratory Respiratory: bilateral: diminished, negative: dullness, rales, rhonchi, wheezing, prolonged expiration - Cardiovascular Rhythm: regular Heart sounds: normal: S1, S2 Abnormal Heart Sounds: systolic murmur, no S3 Gallop - Gastrointestinal General gastrointestinal: normal bowel sounds, soft, no splenomegaly, no tenderness, no umbilical hernia, no ventral hernia - Integumentary Integumentary: normal, normal turgor - Neurologic Neurologic: CNII-XII intact - Musculoskeletal Musculoskeletal: generalized weakness, strength equal bilaterally - Psychiatric Psychiatric: A&O x's 3, appropriate affect, intact judgment & insight - Labs CBC & Chem 7: 03/20/19 12:30 03/20/19 12:30 Labs: Abnormal Lab Results - Last 24 Hours (Table) 03/20/19 03/20/19 03/20/19 Range/Units 12:30 12:30 14:00 RBC 3.96 L (4.30-5.90) m/uL Hgb 11.8 L (13.0-17.5) gm/dL Hct 37.7 L (39.0-53.0) % Lymphocytes # 0.6 L (1.0-4.8) k/uL Glucose 124 H (74-99) mg/dL Calcium 8.2 L (8.4-10.2) mg/dL Alkaline Phosphatase 32 L (38-126) U/L Total Protein 5.9 L (6.3-8.2) g/dL Albumin 3.2 L (3.5-5.0) g/dL Ur Specific [place] 1.039 H (1.001-1.035) Urine Protein Trace H (Negative) Assessment and Plan Plan: 1. Generalized weakness likely related to hypotension and possible poor oral intake of fluid along with polypharmacy. Patient did respond to the fluid c hallenges blood pressure is better now he continues to be generally, chest x-ray was reviewed showed atelectasis versus infiltrate, computed tomography scan did show a capacity in the endobronchial of the right lower lobe suggestive of mucous plug however need to repeat a computed tomography scan in about 4 weeks to assure stability. Continue aggressive pulmonary toileting with DuoNeb 3 mg nebulization 4 times every day continue with Symbicort 160/4.5 g 2 puff inhalation twice every day., Continue oxygen support, Zithromax 500 mg IV piggyback every 24 hours, pulmonary consultation Dr. Mancuso added. 2. Mild anemia. Likely chronic monitor the CBC next 24 hours, patient did have macrocytosis last time was hospitalized last year however his MCV is normal now. 3. History of coronary artery disease status post stent. Continue Lipitor 40 mg at bedtime, Lopressor 25 mg twice daily 4. Chronic hypoxemic respiratory failure due to COPD. Continue oxygen support, continue Symbicort, continue DuoNeb 3 mL nebulization 4 times every day. 5. Hypertension and hypertensive cardiovascular disease. We will hold lisinopril for tonight continue patient on metoprolol 25 mg orally twice every day 3 6. Hyperlipidemia. We will continue patient on Lipitor 40 mg orally once every . 7. Gastroesophageal reflux disease. Continue Protonix 40 mg orally once every day. 8. Generalized anxiety disorder and recurrent depression. Continue Xanax 1 mg 3 times daily as needed, Cymbalta 60 mg twice daily. 9. Restless leg syndrome. Continue Requip to 0.25 mg at bedtime. 10. DVT prophylaxis. Continue Lovenox 40 mg subcutaneously every 24 hours. 11. Dysphagia. Consult with speech therapy added. Patient is full code. Discharge plan: To be determined Impression and plan of care have been directed as dictated by the signing physician. Patricia Padilla nurse practitioner acting as scribe for signing physician.
--- NOTE | 2019-03-22 14:32 | P.PN ---
Subjective Progress Note Date: 03/22/19 This is an 88-year-old male patient of Dr. Castillo, Dr. Mitchell and Dr. Mancuso with past medical history of COPD, chronic hypoxic respiratory failure on home O2 at 2 L at bedtime as needed, [id number] history of smoking, AL, CVA, gastroesophageal reflux disease, hypertension, hyperlipidemia, osteoarthritis, generalized anxiety disorder, recurrent depression, macular degeneration. Patient was complaining of generalized weakness and mild cough without any increased shortness of breath EMS was called and the patient was brought into the emergency department at [facility] patient was complaining of some abdominal pain along with that patient ended up going for a computed tomography scan of the abdomen that showed an opacity of the right bronchial tube could be related to mucous plug however it was not certain and he was recommended to repeat his computed tomography scan about 3-4 weeks to assure clearance, the results of the abdomen did not show any significant acute a bnormalities, patient was hypotensive he was given IV fluid in the ambulance and in the ER he was given another liter of fluid his blood pressure normalizes however the patient was extremely weak his EKG showed sinus bradycardia without evidence of acute ST-T wave changes his laboratory evaluation urinalysis and chest x-ray showed asbestos exposure with bibasilar streaky atelectasis versus infiltrate. Patient will be admitted to the hospital for evaluation. 03/21: Patient states he is having difficulty swallowing for which a consult with speech therapy will be added and possible modified barium swallow. Patient is complaining of cough that's nonproductive. Patient states he has seen Dr. Dyllan pierre in the past but not recently, consult with Dr. Mancuso has been added. Added Solu-Medrol, azithromycin, DuoNeb treatments and Pulmicort 03/22: Patient has been seen by Dr. Mancuso with no evidence of pneumonia. Continue management of COPD with bronchodilators, short course of Zithromax and steroid taper for cough and congestion. Patient has been seen by speech therapy with recommendations for no straws, liquids from cup, small bites and sips, double swallow. Patient is cleared for regular diet. Blood pressure is been running on the higher side and lisinopril will be resumed at his home dose which was 10 mg in the morning and 20 mg at bedtime. Solu-Medrol will be decreased to 40 mg every 12 hours. Patient has been afebrile, heart rate 76, blood pressure 115/75, pulse ox 94% on room air. PT has recommended subacute rehab. Social work is following for [facility] on the leg. Most likely patient will be ready for discharge on Monday. Review of Systems Constitutional: Reports anorexia, Reports chronic pain, Reports fatigue, Reports weakness, Reports weight loss Eyes: bilateral blurred vision, denies decreased vision Ears: decreased hearing Ears, nose, mouth and throat: Reports dysphagia, Denies sore throat Cardiovascular: Reports decreased exercise tolerance, Reports dyspnea on exertion, Reports shortness of breath, Denies chest pain, Denies lightheadedness, Denies rapid heart beat, Denies syncope Respiratory: Reports home oxygen, Denies congestion, Denies cough with sputum, Denies sleep apnea, Denies snoring, Denies wheezing Gastrointestinal: Reports abdominal pain, Reports nausea, Denies bloating, Denies BRBPR, Denies excessive gas, Denies heartburn, Denies melena, Denies vomiting Genitourinary: Reports nocturia, Denies dysuria Musculoskeletal: Reports gait dysfunction Musculoskeletal: absent: ankle pain, ankle stiffness, ankle swelling, elbow pain, elbow stiffness, elbow swelling, foot pain, foot stiffness, foot swelling, hand pain, hand stiffness, hand swelling, hip pain, hip stiffness, hip swelling, knee pain, knee stiffness, knee swelling, shoulder pain, shoulder stiffness, shoulder swelling, wrist pain, wrist stiffness, wrist swelling Integumentary: Denies pruritus, Denies rash Neurological: Reports gait dysfunction, Reports weakness, Denies numbness, denies tingling. Psychiatric: Reports anxiety Endocrine: Denies fatigue, Denies weight change Objective - Vital Signs Vital signs: Vital Signs Temp 98.0 F 03/22/19 05:50 Pulse 80 03/22/19 11:39 Resp 18 03/22/19 05:50 BP 158/75 03/22/19 10:00 Pulse Ox 94 L 03/22/19 07:18 Intake & Output 03/21/19 03/22/19 03/22/19 18:59 06:59 18:59 Intake Total 750 Output Total 300 Balance 450 Intake: Oral 750 Output: Urine 300 Other: Voiding Method Urinal Urinal Diaper Diaper Incontinent Incontinent # Voids 3 2 # Bowel Movements 1 - Exam - Constitutional General appearance: average body habitus, no acute distress, occasional cough - EENT Eyes: anicteric sclerae, EOMI, PERRLA, no ptosis, no scleral icterus, normal appearance ENT: hard of hearing, NA/AT, normal oropharynx, no thrush Ears: bilateral: normal - Neck Neck: no lymphadenopathy, normal ROM, no rigidity, no stridor, no thyromegaly Carotids: bilateral: upstroke normal Thyroid: bilateral: normal size - Respiratory Respiratory: bilateral: diminished, negative: dullness, rales, rhonchi, wheezing, prolonged expiration - Cardiovascular Rhythm: regular Heart sounds: normal: S1, S2 Abnormal Heart Sounds: systolic murmur, no S3 Gallop - Gastrointestinal General gastrointestinal: normal bowel sounds, soft, no splenomegaly, no tenderness, no umbilical hernia, no ventral hernia - Integumentary Integumentary: normal, normal turgor - Neurologic Neurologic: CNII-XII intact - Musculoskeletal Musculoskeletal: generalized weakness, strength equal bilaterally - Psychiatric Psychiatric: A&O x's 3, appropriate affect, intact judgment & insight - Labs CBC & Chem 7: 03/20/19 12:30 03/20/19 12:30 Assessment and Plan Plan: 1. Generalized weakness likely related to hypotension and possible poor oral intake of fluid along with polypharmacy. Patient did respond to the fluid challenges. 2. Mild anemia. Likely chronic monitor the CBC next 24 hours, patient did have macrocytosis last time was hospitalized last year however his MCV is normal now. 3. History of coronary artery disease status post stent. Continue Lipitor 40 mg at bedtime, Lopressor 25 mg twice daily 4. Chronic hypoxemic respiratory failure due to COPD with COPD exacerbation. Consult with pulmonary medicine appreciated. Continue Pulmicort 1 mg twice daily, DuoNeb treatments 4 times daily and as needed, Solu-Medrol decreased to 40 g every 12 hours, azithromycin 500 mg oral daily. 5. Hypertension and hypertensive cardiovascular disease. Lisinopril resumed at his home dose of 10 mg in the morning and 20 mg at bedtime. 6. Hyperlipidemia. We will continue patient on Lipitor 40 mg orally once every . 7. Gastroesophageal reflux disease. Continue Protonix 40 mg orally once every day. 8. Generalized anxiety disorder and recurrent depression. Continue Xanax 1 mg 3 times daily as needed, Cymbalta 60 mg twice daily. 9. Restless leg syndrome. Continue Requip to 0.25 mg at bedtime. 10. DVT prophylaxis. Continue Lovenox 40 mg subcutaneously every 24 hours. 11. Dysphagia. Consult with speech therapy appreciated. Status post modified barium swallow. 12. Abnormal CAT scan. CAT scan did show a capacity in the endobronchial of the right lower lobe suggestive of mucous plug however need to repeat a computed tomography scan in about 4 weeks to assure stability. Patient is full code. Discharge plan: [facility] on Monday Impression and plan of care have been directed as dictated by the signing physician. Patricia Padilla nurse practitioner acting as scribe for signing physician.
--- NOTE | 2019-03-22 15:30 | P.PN ---
Subjective Progress Note Date: 03/22/19 88-year-old male patient came into the ED because of generalized weakness. He did have some mild cough and chronic shortness of breath. He denied having any fever chills or chest pain or nausea or vomiting or abdominal pain. In the ED, the patient had a BP of 87/47 with a pulse of 76 and the pulse ox was 93% on room air. The white cell count was at 5.8 with hemoglobin of 11.8. Electrolytes were all within normal limits. Glucose was at 124. Lactic acid level was at 1.5. LFTs are normal. The UA was negative. Chest x-ray was showing chronic asbestosis and scarring in the lung bases bilaterally along with pleural calcification. CAT scan of the abdomen was done in the emergency department showed a 1.7 cm right adrenal adenoma, benign, bladder wall thickening secondary to chronic bladder wall hypertrophy, nonobstructive 4 mm left renal calculus, posterior basilar segmental atelectatic changes in the right lung base along with changes consistent with asbestosis. The patient was started on Zithromax. The patient was admitted to the floor for further monitoring. He is known to have COPD. He is known to have asbestosis. He has chronic hypoxic respiratory failure admitted on oxygen 2 L per minute nasal cannula. He carries a [id number] smoking history. He was history of CAD, p revious [place], previous CVA, hypertension and hyperlipidemia and acid reflux and osteoarthritis in addition to generalized anxiety and depression macular degeneration. He has also restless leg syndrome. He was hospitalized back in December 2018 for hypotension and weakness that was attributed to medication and diuretic use. On 03/22/2019, I'm seeing the patient for a follow-up. Please refer to the consultation done yesterday. The patient is feeling better is got more energy. He is still feeling weak. he gets tired whenever he moves around. No fever or chills. No nausea or vomiting. He is on IV Solu-Medrol. He is on Zithromax and bronchodilators. Hemodynamics is stable and there is no hypotension. 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 No other significant events overnight. Objective - Vital Signs Vital signs: Vital Signs Temp 98.0 F 03/22/19 05:50 Pulse 80 03/22/19 11:39 Resp 18 03/22/19 05:50 BP 158/75 03/22/19 10:00 Pulse Ox 94 L 03/22/19 07:18 Intake & Output 03/21/19 03/22/19 03/22/19 18:59 06:59 18:59 Intake Total 750 Output Total 300 Balance 450 Intake: Oral 750 Output: Urine 300 Other: Voiding Method Urinal Urinal Diaper Diaper Incontinent Incontinent # Voids 3 2 4 # Bowel Movements 1 - Exam GENERAL EXAM: Alert, pleasant 88-year-old male, not in acute distress, no room air oxygen pulse ox is in the order of 94-95% HEAD: Normocephalic/atraumatic. EYES: Normal reaction of pupils, equal size. Conjunctiva pink, sclera white. NOSE: Clear with pink turbinates. THROAT: No erythema or exudates. NECK: No masses, no JVD, no thyroid enlargement, no adenopathy. CHEST: No chest wall deformity. Symmetrical expansion. LUNGS: Diminished breath sounds bilaterally, with rhonchi, and wheezing on forced expiratory maneuver CVS: Regular rate and rhythm, normal S1 and S2, no gallops, no murmurs, no rubs ABDOMEN: Soft, nontender. No hepatosplenomegaly, normal bowel sounds, no guarding or rigidity. EXTREMITIES: No clubbing, no edema, no cyanosis, 2+ pulses and upper and lower extremities. MUSCULOSKELETAL: Muscle strength and tone normal. SPINE: No scoliosis or deformity SKIN: No rashes CENTRAL NERVOUS SYSTEM: Alert and oriented -3. No focal deficits, tone is normal in all 4 extremities. PSYCHIATRIC: Alert and oriented - Labs CBC & Chem 7: 03/20/19 12:30 03/20/19 12:30 Assessment and Plan Plan: 1 generalized weakness along with brief hypotension at time of admission, recovered and the patient's blood pressures is normalized for now. Doubt underlying infection 2 asbestosis 3 COPD with chronic hypoxic respiratory failure, currently oxygenating well 4 coronary artery disease with previous coronary stenting and previous myocardial infarction 5 chronic tobacco smoking the patient has more than [id number] smoking history 6 previous history of CVA 7 hypertension 8 hyperlipidemia 9 chronic generalized anxiety disorder 10 chronic osteoarthritis 11 macular degeneration 12 BPH 13. Depression 14 restless leg syndrome Plan No evidence of pneumonia. The lung bases are clear. Based on the CAT scan of the abdomen the lung bases shows pleural calcification and diaphragmatic calcification and asbestosis with some scarring. Pneumonia is not present based on x-ray findings. Management of COPD with bronchodi and addition of a short course of Zithromax and steroid taper is reasonable the patient had some symptoms of bronchitis time of admission which is improved on today's evaluation. He is still feeling weak. We'll may be considering rehabilitation transfer by next week.
[2019-03-22] MEDS: QUEtiapine 50 MG TAB PO SCH (20:32)
[2019-03-22] MEDS: LISINOPRIL 20 MG TAB PO SCH (20:32)
[2019-03-22] MEDS: ATORVASTATIN 40 MG TAB PO SCH (20:32)
[2019-03-22] MEDS ORDERED: LISINOPRIL 10 MG TAB PO SCH (21:00)
[2019-03-23] MEDS: BUDESONIDE 1 MG/2 ML NEBU INHALATION SCH ×2 (08:56→20:33)
[2019-03-23] MEDS: IPRATROPIUM-ALBUTEROL 3 ML NEB INHALATION SCH ×4 (08:56→20:33)
[2019-03-23] MEDS: PANTOPRAZOLE 40 MG TABLET PO SCH (09:00)
[2019-03-23] MEDS ORDERED: LISINOPRIL 10 MG TAB PO SCH (09:00)
[2019-03-23] MEDS: SUCRALFATE 1 GM TAB PO SCH ×2 (09:00→20:59)
[2019-03-23] MEDS: VIT A,C & E-LUTEIN-MINERALS 1 EACH TAB PO SCH ×2 (09:00→21:09)
[2019-03-23] MEDS: MULTIVITAMINS, THERA 1 EACH TAB PO SCH (09:00)
[2019-03-23] MEDS: AZITHROMYCIN 500 MG TAB PO SCH (09:00)
[2019-03-23] MEDS: DULoxetine HCL 60 MG CAPSULE.DR PO SCH ×2 (09:00→20:59)
[2019-03-23] MEDS: TAMSULOSIN 0.4 MG CAP.ER.24H PO SCH ×2 (09:00→20:59)
[2019-03-23] MEDS: FERROUS SULFATE 325 MG TAB PO SCH (09:00)
[2019-03-23] MEDS: methylPREDNISolone SOD SUCCI 40 MG/ML 1 ML VIAL IV SCH ×2 (09:00→21:00)
--- NOTE | 2019-03-23 10:21 | P.PN ---
Subjective Progress Note Date: 03/23/19 88-year-old male patient came into the ED because of generalized weakness. He did have some mild cough and chronic shortness of breath. He denied having any fever chills or chest pain or nausea or vomiting or abdominal pain. In the ED, the patient had a BP of 87/47 with a pulse of 76 and the pulse ox was 93% on room air. The white cell count was at 5.8 with hemoglobin of 11.8. Electrolytes were all within normal limits. Glucose was at 124. Lactic acid level was at 1.5. LFTs are normal. The UA was negative. Chest x-ray was showing chronic asbestosis and scarring in the lung bases bilaterally along with pleural calcification. CAT scan of the abdomen was done in the emergency department showed a 1.7 cm right adrenal adenoma, benign, bladder wall thickening secondary to chronic bladder wall hypertrophy, nonobstructive 4 mm left renal calculus, posterior basilar segmental atelectatic changes in the right lung base along with changes consistent with asbestosis. The patient was started on Zithromax. The patient was admitted to the floor for further monitoring. He is known to have COPD. He is known to have asbestosis. He has chronic hypoxic respiratory failure admitted on oxygen 2 L per minute nasal cannula. He carries a 11-[id number]-[id number] smoking history. He was history of CAD, p revious [place], previous CVA, hypertension and hyperlipidemia and acid reflux and osteoarthritis in addition to generalized anxiety and depression macular degeneration. He has also restless leg syndrome. He was hospitalized back in December 2018 for hypotension and weakness that was attributed to medication and diuretic use. On 03/22/2019, I'm seeing the patient for a follow-up. Please refer to the consultation done yesterday. The patient is feeling better is got more energy. He is still feeling weak. he gets tired whenever he moves around. No fever or chills. No nausea or vomiting. He is on IV Solu-Medrol. He is on Zithromax and bronchodilators. Hemodynamics is stable and there is no hypotension. 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 No other significant events overnight. On 03/23/2019 the patient is sitting up on a recliner. No new complaints. Limited congested cough. Strength and stamina has improved and he is contemplating going home rather than [facility]. Tolerating his diet. No new complaints for now. Objective - Vital Signs Vital signs: Vital Signs Temp 97.6 F 03/23/19 05:31 Pulse 80 03/23/19 09:15 Resp 16 03/23/19 05:31 BP 153/62 03/23/19 05:31 Pulse Ox 94 L 03/23/19 05:31 Intake & Output 03/22/19 03/23/19 03/23/19 18:59 06:59 18:59 Intake Total 220 100 300 Output Total 400 Balance 220 -300 300 Intake: Oral 220 100 300 Output: Urine 400 Other: Voiding Method Urinal Incontinent Diaper Incontinent # Voids 4 1 - Exam GENERAL EXAM: Alert, pleasant 88-year-old male, not in acute distress, no room air oxygen pulse ox is in the order of 94-95% HEAD: Normocephalic/atraumatic. EYES: Normal reaction of pupils, equal size. Conjunctiva pink, sclera white. NOSE: Clear with pink turbinates. THROAT: No erythema or exudates. NECK: No masses, no JVD, no thyroid enlargement, no adenopathy. CHEST: No chest wall deformity. Symmetrical expansion. LUNGS: Diminished breath sounds bilaterally, with rhonchi, and wheezing on forced expiratory maneuver CVS: Regular rate and rhythm, normal S1 and S2, no gallops, no murmurs, no rubs ABDOMEN: Soft, nontender. No hepatosplenomegaly, normal bowel sounds, no guarding or rigidity. EXTREMITIES: No clubbing, no edema, no cyanosis, 2+ pulses and upper and lower extremities. MUSCULOSKELETAL: Muscle strength and tone normal. SPINE: No scoliosis or deformity SKIN: No rashes CENTRAL NERVOUS SYSTEM: Alert and oriented -3. No focal deficits, tone is normal in all 4 extremities. PSYCHIATRIC: Alert and oriented - Labs CBC & Chem 7: 03/20/19 12:30 03/20/19 12:30 Assessment and Plan Plan: 1 generalized weakness along with brief hypotension at time of admission, recovered and the patient's blood pressures is normalized for now. Doubt underlying infection but clinically improved and the patient is feeling better sitting up on a chair. 2 asbestosis 3 COPD with chronic hypoxic respiratory failure, currently oxygenating well 4 coronary artery disease with previous coronary stenting and previous myocardial infarction 5 chronic tobacco smoking the patient has more than 29-[id number]-hynn smoking history 6 previous history of CVA 7 hypertension 8 hyperlipidemia 9 chronic generalized anxiety disorder 10 chronic osteoarthritis 11 macular degeneration 12 BPH 13. Depression 14 restless leg syndrome Plan Continue Zithromax. Prednisone burst taper. Pulmonary we'll sign off the case. Clinically improved. Consider ECF versus home.
--- NOTE | 2019-03-23 12:37 | P.PN ---
Subjective Progress Note Date: 03/23/19 This is an 88-year-old male patient of Dr. Castillo, Dr. Mitchell and Dr. Mancuso with past medical history of COPD, chronic hypoxic respiratory failure on home O2 at 2 L at bedtime as needed, [id number] history of smoking, [place], CVA, gastroesophageal reflux disease, hypertension, hyperlipidemia, osteoarthritis, generalized anxiety disorder, recurrent depression, macular degeneration. Patient was complaining of generalized weakness and mild cough without any increased shortness of breath EMS was called and the patient was brought into the emergency department at [facility] patient was complaining of some abdominal pain along with that patient ended up going for a computed tomography scan of the abdomen that showed an opacity of the right bronchial tube could be related to mucous plug however it was not certain and he was recommended to repeat his computed tomography scan about 3-4 weeks to assure clearance, the results of the abdomen did not show any significant acute ab normalities, patient was hypotensive he was given IV fluid in the ambulance and in the ER he was given another liter of fluid his blood pressure normalizes however the patient was extremely weak his EKG showed sinus bradycardia without evidence of acute ST-T wave changes his laboratory evaluation urinalysis and chest x-ray showed asbestos exposure with bibasilar streaky atelectasis versus infiltrate. Patient will be admitted to the hospital for evaluation. 03/21: Patient states he is having difficulty swallowing for which a consult with speech therapy will be added and possible modified barium swallow. Patient is complaining of cough that's nonproductive. Patient states he has seen Dr. Jacobo overton in the past but not recently, consult with Dr. Mancuso has been added. Added Solu-Medrol, azithromycin, DuoNeb treatments and Pulmicort 03/22: Patient has been seen by Dr. Mancuso with no evidence of pneumonia. Continue management of COPD with bronchodilators, short course of Zithromax and steroid taper for cough and congestion. Patient has been seen by speech therapy with recommendations for no straws, liquids from cup, small bites and sips, double swallow. Patient is cleared for regular diet. Blood pressure is been running on the higher side and lisinopril will be resumed at his home dose which was 10 mg in the morning and 20 mg at bedtime. Solu-Medrol will be decreased to 40 mg every 12 hours. Patient has been afebrile, heart rate 76, blood pressure 115/75, pulse ox 94% on room air. PT has recommended subacute rehab. Social work is following for [facility] on the leg. Most likely patient will be ready for discharge on Monday. 03/23: Patient is sitting up in bed without any complaints. He continues to have a cough periodically. Patient is tolerating recommendations from speech therapy with meals. Blood pressure 153/62, heart rate 81, respirations 16 nonlabored, pulse ox a 94% on room air. Fluoroscopy barium swallow with video impression shows deep penetration with thick, nectar thick and honey thick liquids. This is improved with breath held. No aspiration was observed. Patient is complaining to be discharged on Monday to [facility]. Review of Systems Constitutional: Reports anorexia, Reports chronic pain, Reports fatigue, Reports weakness, Reports weight loss Eyes: bilateral blurred vision, denies decreased vision Ears: decreased hearing Ears, nose, mouth and throat: Reports dysphagia, Denies sore throat Cardiovascular: Reports decreased exercise tolerance, Reports dyspnea on exertion, Reports shortness of breath, Denies chest pain, Denies lig htheadedness, Denies rapid heart beat, Denies syncope Respiratory: Reports home oxygen, Denies congestion, Denies cough with sputum, Denies sleep apnea, Denies snoring, Denies wheezing Gastrointestinal: Reports abdominal pain, Reports nausea, Denies bloating, Denies BRBPR, Denies excessive gas, Denies heartburn, Denies melena, Denies vomiting Genitourinary: Reports nocturia, Denies dysuria Musculoskeletal: Reports gait dysfunction Musculoskeletal: absent: ankle pain, ankle stiffness, ankle swelling, elbow pain, elbow stiffness, elbow swelling, foot pain, foot stiffness, foot swelling, hand pain, hand stiffness, hand swelling, hip pain, hip stiffness, hip swelling, knee pain, knee stiffness, knee swelling, shoulder pain, shoulder stiffness, shoulder swelling, wrist pain, wrist stiffness, wrist swelling Integumentary: Denies pruritus, Denies rash Neurological: Reports gait dysfunction, Reports weakness, Denies numbness, denies tingling. Psychiatric: Reports anxiety Endocrine: Denies fatigue, Denies weight change Objective - Vital Signs Vital signs: Vital Signs Temp 97.6 F 03/23/19 05:31 Pulse 80 01/11/20 09:15 Resp 16 03/23/19 05:31 BP 153/62 03/23/19 05:31 Pulse Ox 94 L 03/23/19 05:31 Intake & Output 03/22/19 03/23/19 03/23/19 18:59 06:59 18:59 Intake Total 220 100 300 Output Total 400 Balance 220 -300 300 Intake: Oral 220 100 300 Output: Urine 400 Other: Voiding Method Urinal Incontinent Diaper Incontinent # Voids 4 1 - Exam General Appearance: Alert, cooperative, no distress, appears stated age. Occasional cough Neck HEENT: Supple, no lymphadenopathy, no thyroid enlargement, no carotid bruits. Lungs: Bilateral diminished, no dullness, rales, rhonchi, wheezing, prolonged expiration. Chest Wall: Chest wall normal expansion with deep inspiration no tenderness and no deformity was found on exam, no costochondral pain or discomfort. Heart: Regular rate and rhythm, S1, S2 normal, systolic murmur, rub or gallop. Back: Symmetric, no curvature, ROM normal, no CVA tenderness. Abdomen: Soft, non-tender, no rebound or rigidity, no hepatosplenomegaly. Extremities: Generalized weakness Extremities normal, atraumatic, no cyanosis or edema. Pulses: 2+ and symmetric. Skin: Skin color, texture, tugor normal, no rashes or lesions. Neurologic: Alert oriented x3 cranial nerves II through XII intact, no motor deficit, no abnormal balance or gait - Labs CBC & Chem 7: 03/20/19 12:30 03/20/19 12:30 Assessment and Plan Plan: 1. Generalized weakness likely related to hypotension and possible poor oral intake of fluid along with polypharmacy. Patient did respond to the fluid challenges. 2. Mild anemia. Likely chronic patient did have macrocytosis last time was hospitalized last year however his MCV is normal now. 3. History of coronary artery disease status post stent. Continue Lipitor 40 mg at bedtime, Lopressor 25 mg twice daily 4. Chronic hypoxemic respiratory failure due to COPD with COPD exacerbation. Consult with pulmonary medicine appreciated. Continue Pulmicort 1 mg twice daily, DuoNeb treatments 4 times daily and as needed, Solu-Medrol decreased to 40 g every 12 hours, azithromycin 500 mg oral daily. 5. Hypertension and hypertensive cardiovascular disease. Lisinopril resumed at his home dose of 10 mg in the morning and 20 mg at bedtime. 6. Hyperlipidemia. We will continue patient on Lipitor 40 mg orally once every . 7. Gastroesophageal reflux disease. Continue Protonix 40 mg orally once every day. 8. Generalized anxiety disorder and recurrent depression. Continue Xanax 1 mg 3 times daily as needed, Cymbalta 60 mg twice daily. 9. Restless leg syndrome. Continue Requip to 0.25 mg at bedtime. 10. DVT prophylaxis. Continue Lovenox 40 mg subcutaneously every 24 hours. 11. Dysphagia. Consult with speech therapy appreciated. Status post modified barium swallow. Tolerating recommendations of speech therapy 12. Abnormal CAT scan. CAT scan did show a capacity in the endobronchial of the right lower lobe suggestive of mucous plug however need to repeat a computed tomography scan in about 4 weeks to assure stability. Patient is full code. Discharge plan: [facility] on Monday Impression and plan of care have been directed as dictated by the signing physician. Samina Almodovar nurse practitioner acting as scribe for signing physician.
[2019-03-23] MEDS ORDERED: ENALAPRILAT 1.25 MG/ML 1 ML VIAL IVP PRN (14:39)
[2019-03-23] MEDS ORDERED: LISINOPRIL 10 MG TAB PO STA (14:39)
[2019-03-23] MEDS: ACETAMINOPHEN TAB 325 MG TAB PO PRN (15:06)
[2019-03-23] MEDS: ATORVASTATIN 40 MG TAB PO SCH (20:59)
[2019-03-23] MEDS: LISINOPRIL 20 MG TAB PO SCH (20:59)
[2019-03-23] MEDS: QUEtiapine 50 MG TAB PO SCH (20:59)
[2019-03-24] MEDS: TAMSULOSIN 0.4 MG CAP.ER.24H PO SCH ×2 (08:06→21:18)
[2019-03-24] MEDS: SUCRALFATE 1 GM TAB PO SCH ×2 (08:06→21:18)
[2019-03-24] MEDS: FERROUS SULFATE 325 MG TAB PO SCH (08:07)
[2019-03-24] MEDS: DULoxetine HCL 60 MG CAPSULE.DR PO SCH ×2 (08:07→21:18)
[2019-03-24] MEDS: LISINOPRIL 20 MG TAB PO SCH ×2 (08:07→21:18)
[2019-03-24] MEDS: predniSONE 20 MG TAB PO SCH (08:07)
[2019-03-24] MEDS: PANTOPRAZOLE 40 MG TABLET PO SCH (08:07)
[2019-03-24] MEDS: AZITHROMYCIN 500 MG TAB PO SCH (08:07)
[2019-03-24] MEDS: MULTIVITAMINS, THERA 1 EACH TAB PO SCH (08:07)
[2019-03-24] MEDS: VIT A,C & E-LUTEIN-MINERALS 1 EACH TAB PO SCH ×2 (08:07→21:19)
[2019-03-24 08:18] LABS: Basophils % (A) 0 %; Eosinophils % (A) 0 %; HCT 41.5 % (39.0-53.0); HGB 13.2 gm/dL (13.0-17.5); Lymphocytes # (A) 0.6 k/uL (1.0-4.8); Lymphocytes % (A) 5 %; MCH 30.4 pg (25.0-35.0); MCHC 31.9 g/dL (31.0-37.0); MCV 95.4 fL (80.0-100.0); Mean Platelet Volume 8.8; Monocytes # (A) 0.6 k/uL (0-1.0); Monocytes % (A) 5 %; Neutrophils # (A) 11.6 k/uL (1.3-7.7); Neutrophils % (A) 89 %; Platelet Count 246 k/uL (150-450); RBC 4.35 m/uL (4.30-5.90); RDW 13.3 % (11.5-15.5)
[2019-03-24 08:35] LABS: African American GFR (CKD) >90 (>60 ml/min/1.73 sqM); Anion Gap 6 mmol/L; Blood Urea Nitrogen 17 mg/dL (9-20); Calcium 9.4 mg/dL (8.4-10.2); Carbon Dioxide 32 mmol/L (22-30); Chloride 101 mmol/L (98-107); Glucose 116 mg/dL (74-99); Non-African American GFR(CKD) 85 (>60 ml/min/1.73 sqM); Potassium 4.5 mmol/L (3.5-5.1); Sodium 139 mmol/L (137-145)
[2019-03-24] MEDS ORDERED: methylPREDNISolone SOD SUCCI 125 MG/2 ML VIAL IV STA (09:09)
--- NOTE | 2019-03-24 09:09 | P.PN ---
Subjective Progress Note Date: 03/24/19 This is an 88-year-old male patient of Dr. Castillo, Dr. Mitchell and Dr. Mancuso with past medical history of COPD, chronic hypoxic respiratory failure on home O2 at 2 L at bedtime as needed, [id number] history of smoking, [place], CVA, gastroesophageal reflux disease, hypertension, hyperlipidemia, osteoarthritis, generalized anxiety disorder, recurrent depression, macular degeneration. Patient was complaining of generalized weakness and mild cough without any increased shortness of breath EMS was called and the patient was brought into the emergency department at [facility] patient was complaining of some abdominal pain along with that patient ended up going for a computed tomography scan of the abdomen that showed an opacity of the right bronchial tube could be related to mucous plug however it was not certain and he was recommended to repeat his computed tomography scan about 3-4 weeks to assure clearance, the results of the abdomen did not show any significant acute ab normalities, patient was hypotensive he was given IV fluid in the ambulance and in the ER he was given another liter of fluid his blood pressure normalizes however the patient was extremely weak his EKG showed sinus bradycardia without evidence of acute ST-T wave changes his laboratory evaluation urinalysis and chest x-ray showed asbestos exposure with bibasilar streaky atelectasis versus infiltrate. Patient will be admitted to the hospital for evaluation. 03/21: Patient states he is having difficulty swallowing for which a consult with speech therapy will be added and possible modified barium swallow. Patient is complaining of cough that's nonproductive. Patient states he has seen Dr. Jacobo overton in the past but not recently, consult with Dr. Mancuso has been added. Added Solu-Medrol, azithromycin, DuoNeb treatments and Pulmicort 03/22: Patient has been seen by Dr. Mancuso with no evidence of pneumonia. Continue management of COPD with bronchodilators, short course of Zithromax and steroid taper for cough and congestion. Patient has been seen by speech therapy with recommendations for no straws, liquids from cup, small bites and sips, double swallow. Patient is cleared for regular diet. Blood pressure is been running on the higher side and lisinopril will be resumed at his home dose which was 10 mg in the morning and 20 mg at bedtime. Solu-Medrol will be decreased to 40 mg every 12 hours. Patient has been afebrile, heart rate 76, blood pressure 115/75, pulse ox 94% on room air. PT has recommended subacute rehab. Social work is following for [facility] on the leg. Most likely patient will be ready for discharge on Monday. 03/23: Patient is sitting up in bed without any complaints. He continues to have a cough periodically. Patient is tolerating recommendations from speech therapy with meals. Blood pressure 153/62, heart rate 81, respirations 16 nonlabored, pulse ox a 94% on room air. Fluoroscopy barium swallow with video impression shows deep penetration with thick, nectar thick and honey thick liquids. This is improved with breath held. No aspiration was observed. Patient is complaining to be discharged on Monday to [facility]. 03/24: Patient is sitting up in chair without any complaints. Patient continues to have periodic cough and some wheezing. Patient is unsure if he wants to go to [facility] or possibly [facility] since his ulcer to his house. WC is 13.0 most likely related to steroid use. Hemoglobin 13.2. Vital signs are stable patient has been afebrile. Continue to plan for discharge on Monday possibly to [facility] or [facility] Review of System Constitutional: Reports anorexia, Reports chronic pain, Reports fatigue, Reports weakness, Reports weight loss Eyes: bilateral blurred vision, denies decreased vision Ears: decreased hearing Ears, nose, mouth and throat: Reports dysphagia, Denies sore throat Cardiovascular: Reports decreased exercise tolerance, Reports dyspnea on exertion, Reports shortness of breath, Denies chest pain, Denies lightheadedness, Denies rapid heart beat, Denies syncope Respiratory: Reports home oxygen, Denies congestion, Denies cough with sputum, Denies sleep apnea, Denies snoring, Denies wheezing Gastrointestinal: Reports abdominal pain, Reports nausea, Denies bloating, Denies BRBPR, Denies excessive gas, Denies heartburn, Denies melena, Denies vomiting Genitourinary: Reports nocturia, Denies dysuria Musculoskeletal: Reports gait dysfunction Musculoskeletal: absent: ankle pain, ankle stiffness, ankle swelling, elbow pain, elbow stiffness, elbow swelling, foot pain, foot stiffness, foot swelling, hand pain, hand stiffness, hand swelling, hip pain, hip stiffness, hip swelling, knee pain, knee stiffness, knee swelling, shoulder pain, shoulder stiffness, shoulder swelling, wrist pain, wrist stiffness, wrist swelling Integumentary: Denies pruritus, Denies rash Neurological: Reports gait dysfunction, Reports weakness, Denies numbness, denies tingling. Psychiatric: Reports anxiety Endocrine: Denies fatigue, Denies weight change Objective - Vital Signs Vital signs: Vital Signs Temp 97.3 F L 03/24/19 05:00 Pulse 70 03/24/19 05:00 Resp 20 03/24/19 05:00 BP 150/75 03/24/19 05:00 Pulse Ox 95 03/24/19 05:00 Intake & Output 03/23/19 03/24/19 03/24/19 18:59 06:59 18:59 Intake Total 1000 475 Balance 1000 475 Intake: Oral 1000 475 Other: Voiding Method Incontinent Incontinent # Voids 1 2 - Exam General Appearance: Alert, cooperative, no distress, appears stated age. Occasional cough Neck HEENT: Supple, no lymphadenopathy, no thyroid enlargement, no carotid bruits. Lungs: Bilateral diminished noted wheezes, no dullness, rales, rhonchi, prolonged expiration. Chest Wall: Chest wall normal expansion with deep inspiration no tenderness and no deformity was found on exam, no costochondral pain or discomfort. Heart: Regular rate and rhythm, S1, S2 normal, systolic murmur, rub or gallop. Back: Symmetric, no curvature, ROM normal, no CVA tenderness. Abdomen: Soft, non-tender, no rebound or rigidity, no hepatosplenomegaly. Extremities: Generalized weakness Extremities normal, atraumatic, no cyanosis or edema. Pulses: 2+ and symmetric. Skin: Skin color, texture, tugor normal, no rashes or lesions. Neurologic: Alert oriented x3 cranial nerves II through XII intact, no motor deficit, no abnormal balance or gait - Labs CBC & Chem 7: 03/24/19 07:35 03/24/19 07:35 Labs: Abnormal Lab Results - Last 24 Hours (Table) 03/24/19 03/24/19 Range/Units 07:35 07:35 WBC 13.0 H (3.8-10.6) k/uL Neutrophils # 11.6 H (1.3-7.7) k/uL Lymphocytes # 0.6 L (1.0-4.8) k/uL Carbon Dioxide 32 H (22-30) mmol/L Glucose 116 H (74-99) mg/dL Assessment and Plan Plan: 1. Generalized weakness likely related to hypotension and possible poor oral intake of fluid along with polypharmacy. Patient did respond to the fluid challenges. PTOT consult, consult for Dr. Fernandez for possible inpatient rehab 2. Mild anemia. Likely chronic patient did have macrocytosis last time was hospitalized last year however his MCV is normal now. 3. History of coronary artery disease status post stent. Continue Lipitor 40 mg at bedtime, Lopressor 25 mg twice daily 4. Chronic hypoxemic respiratory failure due to COPD with COPD exacerbation. Consult with pulmonary medicine appreciated. Continue Pulmicort 1 mg twice daily, DuoNeb treatments 4 times daily and as needed, give Solu-Medrol 60 mg once, Solu-Medrol decreased to 40 g every 12 hours, azithromycin 500 mg oral daily. 5. Hypertension and hypertensive cardiovascular disease. Lisinopril resumed at his home dose of 10 mg in the morning and 20 mg at bedtime. 6. Hyperlipidemia. We will continue patient on Lipitor 40 mg orally once every . 7. Gastroesophageal reflux disease. Continue Protonix 40 mg orally once every day. 8. Generalized anxiety disorder and recurrent depression. Continue Xanax 1 mg 3 times daily as needed, Cymbalta 60 mg twice daily. 9. Restless leg syndrome. Continue Requip to 0.25 mg at bedtime. 10. DVT prophylaxis. Continue Lovenox 40 mg subcutaneously every 24 hours. 11. Dysphagia. Consult with speech therapy appreciated. Status post modified barium swallow. Tolerating recommendations of speech therapy 12. Abnormal CAT scan. CAT scan did show a capacity in the endobronchial of the right lower lobe suggestive of mucous plug however need to repeat a computed tomography scan in about 4 weeks to assure stability. Patient is full code. Discharge plan: [facility] or inpatient rehab awaiting referral for Dr. Palomares on Monday Impression and plan of care have been directed as dictated by the signing physician. Samina Almodovar nurse practitioner acting as scribe for signing physician.
[2019-03-24] MEDS: IPRATROPIUM-ALBUTEROL 3 ML NEB INHALATION SCH ×4 (09:55→20:08)
[2019-03-24] MEDS: BUDESONIDE 1 MG/2 ML NEBU INHALATION SCH ×2 (10:52→20:08)
[2019-03-24] MEDS: QUEtiapine 50 MG TAB PO SCH (21:18)
[2019-03-24] MEDS: ATORVASTATIN 40 MG TAB PO SCH (21:19)
[2019-03-25] MEDS: ALPRAZolam 1 MG TAB PO PRN ×2 (01:46→20:49)
--- NOTE | 2019-03-25 06:33 | P.CONS ---
History of Present Illness - Chief Complaint Medical debility - History of Present Illness I had the opportunity to see patient for inpatient rehab consultation with regard to medical debility. He was admitted to [facility] March 20 with what he thought was blood pressure changes but were as actually admitted with cough. Seen by Dr. Mancuso for COPD and chronic respiratory failure hypoxic. Chest x-ray demonstrates chronic change and left basilar atelectasis. CT abdomen demonstrates right lower lobe pulmonary plug, left renal calculi, trabeculated bladder and prostate megaly. Modified barium swallow demonstrates deep penetration with honey and nectar but no aspiration. PT reports minimal timmy tance for bed mobility transfers and gait 40 feet with roller walker. Speech therapy reports swallow within functional limits and recommended regular diet and thin liquids. OT prescribed. Previous functional history as elicited from patient: 88-year-old right-handed white male who is lives in one floor home with . Both are retired. They share the cooking. Aid comes in assist 3 times a week with laundry and housework. Both patient and have daughters to do the driving. Patient otherwise independent with sitdown shower, gait with [address] Castillo is PMD. Patient admits to smoking and has occasional drink. Family history mother with cancer. Review of Systems Review of systems: ENT: Denies sneezes or discharge. Eyes: Denies discharge or photophobia. Cardiac: Denies chest pain or palpitation. Pulmonary: Mild shortness of breath. Gastrointestinal: Denies nausea, emesis, constipation, diarrhea. Genitourinary: Denies discharge or frequency. Musculoskeletal: Denies muscle or bone aches. Neurologic: Mild generalized weakness. Endocrine: Denies shakes or sweats. Oncology: Denies cancers. Dermatologic: Denies rash, itching, pruritus. ALLERGY/immunology: Denies sneezes, rashes. Past Medical History Past Medical History: Coronary Artery Disease (CAD), COPD, CVA/TIA, GERD/Reflux, Hyperlipidemia, Hypertension, Osteoarthritis (OA), Prostate Disorder Additional Past Medical History / Comment(s): MACULAR DEGENERATION History of Any Multi-Drug Resistant Organisms: None Reported Past Surgical History: Heart Catheterization With Stent, Joint Replacement, Orthopedic Surgery Additional Past Surgical History / Comment(s): carpal tunnel release bilat, ulcer surgery, RIGHT TOTAL KNEEX2, left rotater cuff Past Anesthesia/Blood Transfusion Reactions: No Reported Reaction Additional Past Anesthesia/Blood Transfusion Reaction / Comm: Pt received blood in 2007 without reaction. Date of Last Stent Placement:: 2010 Past Psychological History: Anxiety, Depression Smoking Status: Current some day smoker Past Alcohol Use History: None Reported Past Drug Use History: None Reported - Past Family History Mother Family Medical History: Cancer Additional Family Medical History / Comment(s): Mother at age 43 from colon cancer. Father Additional Family Medical History / Comment(s): Father at age 98 from old age with no major medical problems. Patient does not have any brothers or sisters. Daughter(s) Additional Family Medical History / Comment(s): Patient has 2 daughters with mental health issues. No medical problems. Medications and Allergies Home Medications Medication Instructions Recorded Confirmed Type DULoxetine HCL [Cymbalta] 60 mg PO BID 05/16/14 03/20/19 History Sucralfate [Carafate] 1 gm PO BID 08/29/16 03/20/19 History Vit C/E/Zn/Coppr/Lutein/Zeaxan 1 cap PO BID 08/29/16 03/20/19 History [Preservision Areds 2 Softgel] Acetaminophen [Tylenol Extra 500 mg PO Q6HR PRN 05/11/17 03/20/19 History Strength] Ferrous Sulfate [Iron (65 MG 325 mg PO DAILY 05/11/17 03/20/19 History Elemental)] Multivit-Min/FA/Lycopen/Lutein 1 tab PO DAILY 05/11/17 03/20/19 History [Centrum Silver Men Tablet] rOPINIRole HCL [Requip] 0.25 mg PO HS 05/11/17 03/20/19 History QUEtiapine [SEROquel] 50 mg PO HS 07/04/18 03/20/19 History Atorvastatin [Lipitor] 40 mg PO HS 12/15/18 03/20/19 History Pantoprazole [Protonix] 40 mg PO DAILY 12/15/18 03/20/19 History ALPRAZolam [Xanax] 1 mg PO TID PRN 01/09/19 03/20/19 History Lisinopril [Zestril] 10 mg PO DAILY 01/09/19 03/20/19 History Tamsulosin [Flomax] 0.4 mg PO BID 01/09/19 03/20/19 History Furosemide [Lasix] 20 mg PO MOFR 03/20/19 03/20/19 History Lisinopril [Prinivil] 20 mg PO HS 03/20/19 03/20/19 History Allergies Allergy/AdvReac Type Severity Reaction Status Date / Time No Known Allergies Allergy Verified 01/09/19 15:12 Physical Exam Vitals: Vital Signs Temp Pulse Pulse Resp BP BP Pulse Ox 03/25/19 05:23 97.6 F 71 16 132/73 97 03/24/19 21:15 98.2 F 89 18 133/65 92 L 03/24/19 20:24 84 03/24/19 20:08 82 03/24/19 16:45 84 03/24/19 16:34 84 03/24/19 14:02 97.8 F 98 18 178/71 96 03/24/19 11:10 80 03/24/19 10:52 80 Intake and Output 03/24/19 03/24/19 03/25/19 14:59 22:59 06:59 Intake Total 600 300 Balance 600 300 Intake: Oral 600 300 Other: # Voids 1 2 3 Skin: Atrophic, intact. General: Medium build and comfortable appearance. Head: Normocephalic, atraumatic. Eyes: Symmetric. Pupils equal round. Ears: Symmetric. Hearing within normal limits. Mouth: Clear. Neck: Supple. Carotid without bruit. Cardiac: Regular rate and rhythm. Lungs: Clear anteriorly and posteriorly. Abdomen: Soft active nontender. Extremities: Normal tone. Neurological: Mental status: Alert, cooperative, pleasant. Cranial nerves: Symmetric facial tone and trapezius. Motor: Can actively elevate all 4 limbs. Sensation: Intact throughout. DTRs: Symmetric and equal throughout. Mobility: Did not attempt to sit or stand from Gracie chair from which he was sleeping. Results CBC & Chem 7: 03/24/19 07:35 03/24/19 07:35 Labs: Abnormal Lab Results - Last 24 Hours (Table) 03/24/19 03/24/19 Range/Units 07:35 07:35 WBC 13.0 H (3.8-10.6) k/uL Neutrophils # 11.6 H (1.3-7.7) k/uL Lymphocytes # 0.6 L (1.0-4.8) k/uL Carbon Dioxide 32 H (22-30) mmol/L Glucose 116 H (74-99) mg/dL Assessment and Plan (1) Acute exacerbation of chronic obstructive airways disease Current Visit: No Status: Acute Code(s): J44.1 - CHRONIC OBSTRUCTIVE PULMONARY DISEASE W (ACUTE) EXACERBATION SNOMED Code(s): 187097513 Plan: Impression: 1. Medical debility. 2. COPD exacerbation. 3. Coronary artery disease. 4. History of stroke. 5. Osteoarthritis. 6. Hypertension. Comments and plan: At this time PT and speech are ongoing and overweight OT. Some safety concerns noted but we'll follow therapies today for possible inpatient rehab.
[2019-03-25] MEDS: IPRATROPIUM-ALBUTEROL 3 ML NEB INHALATION SCH ×4 (07:10→21:19)
[2019-03-25] MEDS: BUDESONIDE 1 MG/2 ML NEBU INHALATION SCH ×2 (07:10→21:18)
[2019-03-25] MEDS: FERROUS SULFATE 325 MG TAB PO SCH (09:05)
[2019-03-25] MEDS: AZITHROMYCIN 500 MG TAB PO SCH (09:05)
[2019-03-25] MEDS: MULTIVITAMINS, THERA 1 EACH TAB PO SCH (09:05)
[2019-03-25] MEDS: SUCRALFATE 1 GM TAB PO SCH ×2 (09:05→20:46)
[2019-03-25] MEDS: LISINOPRIL 20 MG TAB PO SCH ×2 (09:05→20:46)
[2019-03-25] MEDS: predniSONE 20 MG TAB PO SCH (09:05)
[2019-03-25] MEDS: TAMSULOSIN 0.4 MG CAP.ER.24H PO SCH ×2 (09:05→20:46)
[2019-03-25] MEDS: DULoxetine HCL 60 MG CAPSULE.DR PO SCH ×2 (09:05→20:46)
[2019-03-25] MEDS: PANTOPRAZOLE 40 MG TABLET PO SCH (09:05)
[2019-03-25] MEDS: VIT A,C & E-LUTEIN-MINERALS 1 EACH TAB PO SCH ×2 (09:06→20:46)
--- NOTE | 2019-03-25 10:29 | P.DS ---
Providers Date of admission: 03/20/19 15:35 Expected date of discharge: 03/25/19 Attending physician: Alfonzo Gilliland Consults: 03/21/19 12:53 Consult Physician Routine Consulting Provider: Len Mancuso Consult Reason/Comments: copd Do you want consulting provider notified?: Yes 03/23/19 09:02 Consult Physician Routine Consulting Provider: Maximo Palomares Consult Reason/Comments: rehab Do you want consulting provider notified?: Yes Primary care physician: Yoav Alden [facility] Course: This is an 88-year-old male patient of Dr. Castillo, Dr. Mitchell and Dr. Mancuso with past medical history of COPD, chronic hypoxic respiratory failure on home O2 at 2 L at bedtime as needed, [id number] history of smoking, [place], CVA, gastroesophageal reflux disease, hypertension, hyperlipidemia, osteoarthritis, generalized anxiety disorder, recurrent depression, macular degeneration. Patient was complaining of generalized weakness and mild cough without any increased shortness of breath EMS was called and the patient was brought into the emergency department at [facility] patient was complaining of some abdominal pain along with that patient ended up going for a computed tomography scan of the abdomen that showed an opacity of the right bronchial tube could be related to mucous plug however it was not certain and he was recommended to repeat his computed tomography scan about 3-4 weeks to assure clearance, the results of the abdomen did not show any significant acute abnormalities, patient was hypotensive he was given IV fluid in the ambulance a nd in the ER he was given another liter of fluid his blood pressure normalizes however the patient was extremely weak his EKG showed sinus bradycardia without evidence of acute ST-T wave changes his laboratory evaluation urinalysis and chest x-ray showed asbestos exposure with bibasilar streaky atelectasis versus infiltrate. Patient will be admitted to the hospital for evaluation. 03/21: Patient states he is having difficulty swallowing for which a consult with speech therapy will be added and possible modified barium swallow. Patient is complaining of cough that's nonproductive. Patient states he has seen Dr. Mancuso in the past but not recently, consult with Dr. Mancuso has been added. Added Solu-Medrol, azithromycin, DuoNeb treatments and Pulmicort 03/22: Patient has been seen by Dr. Artinian with no evidence of pneumonia. Continue management of COPD with bronchodilators, short course of Zithromax and steroid taper for cough and congestion. Patient has been seen by speech therapy with recommendations for no straws, liquids from cup, small bites and sips, double swallow. Patient is cleared for regular diet. Blood pressure is been running on the higher side and lisinopril will be resumed at his home dose which was 10 mg in the morning and 20 mg at bedtime. Solu-Medrol will be decreased to 40 mg every 12 hours. Patient has been afebrile, heart rate 76, blood pressure 115/75, pulse ox 94% on room air. PT has recommended subacute rehab. Social work is following for [facility] on the leg. Most likely patient will be ready for discharge on Monday. 03/23: Patient is sitting up in bed without any complaints. He continues to have a cough periodically. Patient is tolerating recommendations from speech therapy with meals. Blood pressure 153/62, heart rate 81, respirations 16 nonlabored, pulse ox a 94% on room air. Fluoroscopy barium swallow with video impression shows deep penetration with thick, nectar thick and honey thick liquids. This is improved with breath held. No aspiration was observed. Patient is complaining to be discharged on Monday to [facility]. 03/24: Patient is sitting up in chair without any complaints. Patient continues to have periodic cough and some wheezing. Patient is unsure if he wants to go to [facility] or possibly [facility] since his ulcer to his house. WC is 13.0 most likely related to steroid use. Hemoglobin 13.2. Vital signs are stable patient has been afebrile. Continue to plan for discharge on Monday possibly to [facility] or [facility] 03/25: Patient has been evaluated by Dr. Palomares for possible inpatient rehab. Patient is agreeable to go to inpatient rehab. There is an insurance authorization that needs to be obtained. Patient has been afebrile, heart rate 76, blood pressure 132/73, pulse ox 97% on room air. All medication has been transitioned to oral. Patient will be discharged once all arrangements are completed. Discharge diagnoses: 1. Generalized weakness likely related to hypotension and possible poor oral intake of fluid along with polypharmacy. Patient did respond to the fluid challenges. 2. Mild anemia, chronic disease. 3. History of coronary artery disease status post stent. 4. Chronic hypoxemic respiratory failure due to COPD with COPD exacerbation. 5. Hypertension and hypertensive cardiovascular disease. 6. Hyperlipidemia. 7. Gastroesophageal reflux disease. 8. Generalized anxiety disorder and recurrent depression. 9. Restless leg syndrome. 10. Dysphagia. 11. Abnormal CAT scan. CAT scan did show a capacity in the endobronchial of the right lower lobe suggestive of mucous plug however need to repeat a computed tomography scan in about 4 weeks to assure stability. e. Discharge plan: [facility] or [facility]patient Re[facility] at [facility] under Dr. Palomares Impression and plan of care have been directed as dictated by the signing physician. Patricia Padilla nurse practitioner acting as scribe for signing physician. Patient Condition at Discharge: Good Plan - Discharge Summary Discharge Rx Participant: No New Discharge Prescriptions: New Ipratropium-Albuterol Nebulize [Duoneb 0.5 mg-3 mg/3 ml Soln] 3 ml INHALATION RT-QID ampul.neb predniSONE 0 mg PO DIRECTED #30 tab Budesonide [Pulmicort] 1 mg INHALATION RT-BID nebu Lisinopril [Zestril] 20 mg PO BID #60 tab Azithromycin [Zithromax] 500 mg PO DAILY #5 tab Continue DULoxetine HCL [Cymbalta] 60 mg PO BID Vit C/E/Zn/Coppr/Lutein/Zeaxan [Preservision Areds 2 Softgel] 1 cap PO BID Sucralfate [Carafate] 1 gm PO BID rOPINIRole HCL [Requip] 0.25 mg PO HS Multivit-Min/FA/Lycopen/Lutein [Centrum Silver Men Tablet] 1 tab PO DAILY Ferrous Sulfate [Iron (65 MG Elemental)] 325 mg PO DAILY Acetaminophen [Tylenol Extra Strength] 500 mg PO Q6HR PRN PRN Reason: Pain QUEtiapine [SEROquel] 50 mg PO HS Atorvastatin [Lipitor] 40 mg PO HS Pantoprazole [Protonix] 40 mg PO DAILY Tamsulosin [Flomax] 0.4 mg PO BID Furosemide [Lasix] 20 mg PO MOFR ALPRAZolam [Xanax] 1 mg PO TID PRN #9 tab PRN Reason: Anxiety Discontinued Lisinopril [Zestril] 10 mg PO DAILY Lisinopril [Prinivil] 20 mg PO HS Discharge Medication List DULoxetine HCL [Cymbalta] 60 mg PO BID 05/16/14 [History] Sucralfate [Carafate] 1 gm PO BID 08/29/16 [History] Vit C/E/Zn/Coppr/Lutein/Zeaxan [Preservision Areds 2 Softgel] 1 cap PO BID 08/29/16 [History] Acetaminophen [Tylenol Extra Strength] 500 mg PO Q6HR PRN 05/11/17 [History] Ferrous Sulfate [Iron (65 MG Elemental)] 325 mg PO DAILY 05/11/17 [History] Multivit-Min/FA/Lycopen/Lutein [Centrum Silver Men Tablet] 1 tab PO DAILY 05/11/17 [History] rOPINIRole HCL [Requip] 0.25 mg PO HS 05/11/17 [History] QUEtiapine [SEROquel] 50 mg PO HS 07/04/18 [History] Atorvastatin [Lipitor] 40 mg PO HS 12/15/18 [History] Pantoprazole [Protonix] 40 mg PO DAILY 12/15/18 [History] Tamsulosin [Flomax] 0.4 mg PO BID 01/09/19 [History] Furosemide [Lasix] 20 mg PO MOFR 03/20/19 [History] ALPRAZolam [Xanax] 1 mg PO TID PRN #9 tab 03/25/19 [Rx] Azithromycin [Zithromax] 500 mg PO DAILY #5 tab 03/25/19 [Rx] Budesonide [Pulmicort] 1 mg INHALATION RT-BID nebu 03/25/19 [Rx] Ipratropium-Albuterol Nebulize [Duoneb 0.5 mg-3 mg/3 ml Soln] 3 ml INHALATION R T-QID ampul.neb 03/25/19 [Rx] Lisinopril [Zestril] 20 mg PO BID #60 tab 03/25/19 [Rx] predniSONE 0 mg PO DIRECTED #30 tab 03/25/19 [Rx] Follow up Appointment(s)/Referral(s): [facility], [NON-STAFF] - 1 Week Yoav Castillo DO [Primary Care Provider] - 1 Week (After discharge from rehab) Len Mancuso MD [STAFF PHYSICIAN] - 2 Weeks Patient Instructions/Handouts: Pneumonia (DC) Discharge Disposition: TRANSFER TO SNF/ECF
[2019-03-25] MEDS: QUEtiapine 50 MG TAB PO SCH (20:46)
[2019-03-25] MEDS: ATORVASTATIN 40 MG TAB PO SCH (20:47)
[2019-03-26] MEDS: TAMSULOSIN 0.4 MG CAP.ER.24H PO SCH ×2 (07:57→21:37)
[2019-03-26] MEDS: MULTIVITAMINS, THERA 1 EACH TAB PO SCH (07:57)
[2019-03-26] MEDS: DULoxetine HCL 60 MG CAPSULE.DR PO SCH ×2 (07:57→21:37)
[2019-03-26] MEDS: PANTOPRAZOLE 40 MG TABLET PO SCH (07:57)
[2019-03-26] MEDS: SUCRALFATE 1 GM TAB PO SCH ×2 (07:57→21:37)
[2019-03-26] MEDS: AZITHROMYCIN 500 MG TAB PO SCH (07:57)
[2019-03-26] MEDS: LISINOPRIL 20 MG TAB PO SCH ×2 (07:57→21:37)
[2019-03-26] MEDS: predniSONE 20 MG TAB PO SCH (07:57)
[2019-03-26] MEDS: FERROUS SULFATE 325 MG TAB PO SCH (07:57)
[2019-03-26] MEDS: VIT A,C & E-LUTEIN-MINERALS 1 EACH TAB PO SCH ×2 (08:00→21:37)
[2019-03-26] MEDS: BUDESONIDE 1 MG/2 ML NEBU INHALATION SCH ×2 (08:40→19:16)
[2019-03-26] MEDS: IPRATROPIUM-ALBUTEROL 3 ML NEB INHALATION SCH ×4 (08:40→19:16)
--- NOTE | 2019-03-26 09:34 | P.PN ---
Subjective Progress Note Date: 03/25/19 This is an 88-year-old male patient of Dr. Castillo, Dr. Mitchell and Dr. Mancuso with past medical history of COPD, chronic hypoxic respiratory failure on home O2 at 2 L at bedtime as needed, [id number] history of smoking, [place], CVA, gastroesophageal reflux disease, hypertension, hyperlipidemia, osteoarthritis, generalized anxiety disorder, recurrent depression, macular degeneration. Patient was complaining of generalized weakness and mild cough without any increased shortness of breath EMS was called and the patient was brought into the emergency department at [facility] patient was complaining of some abdominal pain along with that patient ended up going for a computed tomography scan of the abdomen that showed an opacity of the right bronchial tube could be related to mucous plug however it was not certain and he was recommended to repeat his computed tomography scan about 3-4 weeks to assure clearance, the results of the abdomen did not show any significant acute a bnormalities, patient was hypotensive he was given IV fluid in the ambulance and in the ER he was given another liter of fluid his blood pressure normalizes however the patient was extremely weak his EKG showed sinus bradycardia without evidence of acute ST-T wave changes his laboratory evaluation urinalysis and chest x-ray showed asbestos exposure with bibasilar streaky atelectasis versus infiltrate. Patient will be admitted to the hospital for evaluation. 03/21: Patient states he is having difficulty swallowing for which a consult with speech therapy will be added and possible modified barium swallow. Patient is complaining of cough that's nonproductive. Patient states he has seen Dr. Dyllan pierre in the past but not recently, consult with Dr. Mancuso has been added. Added Solu-Medrol, azithromycin, DuoNeb treatments and Pulmicort 03/22: Patient has been seen by Dr. Mancuso with no evidence of pneumonia. Continue management of COPD with bronchodilators, short course of Zithromax and steroid taper for cough and congestion. Patient has been seen by speech therapy with recommendations for no straws, liquids from cup, small bites and sips, double swallow. Patient is cleared for regular diet. Blood pressure is been running on the higher side and lisinopril will be resumed at his home dose which was 10 mg in the morning and 20 mg at bedtime. Solu-Medrol will be decreased to 40 mg every 12 hours. Patient has been afebrile, heart rate 76, blood pressure 115/75, pulse ox 94% on room air. PT has recommended subacute rehab. Social work is following for [facility] on the leg. Most likely patient will be ready for discharge on Monday. 03/23: Patient is sitting up in bed without any complaints. He continues to have a cough periodically. Patient is tolerating recommendations from speech therapy with meals. Blood pressure 153/62, heart rate 81, respirations 16 nonlabored, pulse ox a 94% on room air. Fluoroscopy barium swallow with video impression shows deep penetration with thick, nectar thick and honey thick liquids. This is improved with breath held. No aspiration was observed. Patient is complaining to be discharged on Monday to [facility]. 03/24: Patient is sitting up in chair without any complaints. Patient continues to have periodic cough and some wheezing. Patient is unsure if he wants to go to [facility] or possibly [facility] since his ulcer to his house. WC is 13.0 most likely related to steroid use. Hemoglobin 13.2. Vital signs are stable patient has been afebrile. Continue to plan for discharge on Monday possibly to [facility] or [facility] 03/25: Patient has been evaluated by Dr. Palomares for possible inpatient rehab. Patient is agreeable to go to inpatient rehab. There is an insurance authorization that needs to be obtained. Patient has been afebrile, heart rate 76, blood pressure 132/73, pulse ox 97% on room air. All medication has been transitioned to oral. Patient will be discharged once all arrangements are completed. Review of Systems Constitutional: Reports anorexia, Reports chronic pain, Reports fatigue, Reports weakness, Reports weight loss Eyes: bilateral blurred vision, denies decreased vision Ears: decreased hearing, bilaterally Ears, nose, mouth and throat: Reports dysphagia, Denies sore throat Cardiovascular: Reports decreased exercise tolerance, Reports dyspnea on exertion, Reports shortness of breath, Denies chest pain, Denies lightheadedness, Denies rapid heart beat, Denies syncope Respiratory: Reports home oxygen, Denies congestion, Denies cough with sputum, Denies sleep apnea, Denies snoring, Denies wheezing Gastrointestinal: Reports abdominal pain, Reports nausea, Denies bloating, Denies BRBPR, Denies excessive gas, Denies heartburn, Denies melena, Denies vomiting Genitourinary: Reports nocturia, Denies dysuria Musculoskeletal: Reports gait dysfunction Musculoskeletal: absent: ankle pain, ankle stiffness, ankle swelling, elbow pain, elbow stiffness, elbow swelling, foot pain, foot stiffness, foot swelling, hand pain, hand stiffness, hand swelling, hip pain, hip stiffness, hip swelling, knee pain, knee stiffness, knee swelling, shoulder pain, shoulder stiffness, shoulder swelling, wrist pain, wrist stiffness, wrist swelling Integumentary: Denies pruritus, Denies rash Neurological: Reports gait dysfunction, Reports weakness, Denies numbness, denies tingling. Psychiatric: Reports anxiety Endocrine: Denies fatigue, Denies weight change Objective - Vital Signs Vital signs: Vital Signs Temp 97.4 F L 03/26/19 05:55 Pulse 80 03/26/19 08:58 Resp 16 03/26/19 08:00 BP 131/74 03/26/19 05:55 Pulse Ox 99 03/26/19 08:43 Intake & Output 03/25/19 03/26/19 03/26/19 18:59 06:59 18:59 Other: Voiding Method Incontinent # Voids 2 1 - Exam - Constitutional General appearance: average body habitus, no acute distress, occasional cough, patient resting in chair. Appears to be comfortable. - EENT Eyes: anicteric sclerae, EOMI, PERRLA, no ptosis, no scleral icterus, normal appearance ENT: hard of hearing, NA/AT, normal oropharynx, no thrush Ears: bilateral: normal - Neck Neck: no lymphadenopathy, normal ROM, no rigidity, no stridor, no thyromegaly Carotids: bilateral: upstroke normal Thyroid: bilateral: normal size - Respiratory Respiratory: bilateral: diminished, negative: dullness, rales, rhonchi, wheezing, prolonged expiration - Cardiovascular Rhythm: regular Heart sounds: normal: S1, S2 Abnormal Heart Sounds: systolic murmur, no S3 Gallop - Gastrointestinal General gastrointestinal: normal bowel sounds, soft, no splenomegaly, no tenderness, no umbilical hernia, no ventral hernia - Integumentary Integumentary: normal, normal turgor - Neurologic Neurologic: CNII-XII intact - Musculoskeletal Musculoskeletal: generalized weakness, strength equal bilaterally - Psychiatric Psychiatric: A&O x's 3, appropriate affect, intact judgment & insight - Labs CBC & Chem 7: 03/24/19 07:35 03/24/19 07:35 Assessment and Plan Plan: 1. Generalized weakness likely related to hypotension and possible poor oral intake of fluid along with polypharmacy. Patient did respond to the fluid challenges. 2. Mild anemia. Likely chronic monitor the CBC next 24 hours, patient did have macrocytosis last time was hospitalized last year however his MCV is normal now. 3. History of coronary artery disease status post stent. Continue Lipitor 40 mg at bedtime, Lopressor 25 mg twice daily 4. Chronic hypoxemic respiratory failure due to COPD with COPD exacerbation. Consult with pulmonary medicine appreciated. Continue Pulmicort 1 mg twice daily, DuoNeb treatments 4 times daily and as needed, Solu-Medrol decreased to 40 g every 12 hours, azithromycin 500 mg oral daily. 5. Hypertension and hypertensive cardiovascular disease. Lisinopril resumed at his home dose of 10 mg in the morning and 20 mg at bedtime. 6. Hyperlipidemia. We will continue patient on Lipitor 40 mg orally once every . 7. Gastroesophageal reflux disease. Continue Protonix 40 mg orally once every day. 8. Generalized anxiety disorder and recurrent depression. Continue Xanax 1 mg 3 times daily as needed, Cymbalta 60 mg twice daily. 9. Restless leg syndrome. Continue Requip to 0.25 mg at bedtime. 10. DVT prophylaxis. Continue Lovenox 40 mg subcutaneously every 24 hours. 11. Dysphagia. Consult with speech therapy appreciated. Status post modified barium swallow. Patient is tolerating recommendations from speech therapy. 12. Abnormal CAT scan. CAT scan did show a capacity in the endobronchial of the right lower lobe suggestive of mucous plug however need to repeat a computed tomography scan in about 4 weeks to assure stability. Patient is full code. Discharge plan: Inpatient rehab at [facility] Impression and plan of care have been directed as dictated by the signing physician. Patricia Padilla nurse practitioner acting as scribe for signing physician.
[2019-03-26] MEDS: QUEtiapine 50 MG TAB PO SCH (21:37)
[2019-03-26] MEDS: ATORVASTATIN 40 MG TAB PO SCH (21:37)
[2019-03-27 05:44] VITALS: BP 131/72; RESP 16; TEMP 97.4
[2019-03-27] MEDS: IPRATROPIUM-ALBUTEROL 3 ML NEB INHALATION SCH ×2 (07:37→11:57)
[2019-03-27] MEDS: BUDESONIDE 1 MG/2 ML NEBU INHALATION SCH (07:37)
[2019-03-27] MEDS: predniSONE 20 MG TAB PO SCH (08:28)
[2019-03-27] MEDS: DULoxetine HCL 60 MG CAPSULE.DR PO SCH (08:28)
[2019-03-27] MEDS: SUCRALFATE 1 GM TAB PO SCH (08:28)
[2019-03-27] MEDS: VIT A,C & E-LUTEIN-MINERALS 1 EACH TAB PO SCH (08:28)
[2019-03-27] MEDS: AZITHROMYCIN 500 MG TAB PO SCH (08:28)
[2019-03-27] MEDS: FERROUS SULFATE 325 MG TAB PO SCH (08:28)
[2019-03-27] MEDS: PANTOPRAZOLE 40 MG TABLET PO SCH (08:28)
[2019-03-27] MEDS: MULTIVITAMINS, THERA 1 EACH TAB PO SCH (08:28)
[2019-03-27] MEDS: LISINOPRIL 20 MG TAB PO SCH (08:28)
[2019-03-27] MEDS: TAMSULOSIN 0.4 MG CAP.ER.24H PO SCH (08:28)
[2019-03-27 10:28] VITALS: BMI 28.5
[2019-03-27 12:07] VITALS: PULSE 80
--- NOTE | 2019-04-05 20:41 | P.DS ---
Providers Date of admission: 03/20/19 15:35 Expected date of discharge: 03/27/19 Attending physician: Alfonzo Gilliland Consults: 03/21/19 12:53 Consult Physician Routine Consulting Provider: Len Mancuso Consult Reason/Comments: copd Do you want consulting provider notified?: Yes 03/23/19 09:02 Consult Physician Routine Consulting Provider: Maximo Palomares Consult Reason/Comments: rehab Do you want consulting provider notified?: Yes Primary care physician: Yoav Castillo [facility] Course: Hospital Course: This is an 88-year-old male patient of Dr. Castillo, Dr. Mitchell and Dr. Mancuso with past medical history of COPD, chronic hypoxic respiratory failure on home O2 at 2 L at bedtime as needed, [id number] history of smoking, ND, CVA, gastroesophageal reflux disease, hypertension, hyperlipidemia, osteoarthritis, generalized anxiety disorder, recurrent depression, macular degeneration. Patient was complaining of generalized weakness and mild cough without any increased shortness of breath EMS was called and the patient was brought into the emergency department at [facility] patient was complaining of some abdominal pain along with that patient ended up going for a computed tomography scan of the abdomen that showed an opacity of the right bronchial tube could be related to mucous plug however it was not certain and he was recommended to repeat his computed tomography scan about 3-4 weeks to assure clearance, the results of the abdomen did not show any significant acute abnormalities, patient was hypotensive he was given IV fluid in the ambulance and in the ER he was given another liter of fluid his blood pressure normalizes however the patient was extremely weak his EKG showed sinus bradycardia without evidence of acute ST-T wave changes his laboratory evaluation urinalysis and chest x-ray showed asbestos exposure with bibasilar streaky atelectasis versus infiltrate. Patient will be admitted to the hospital for evaluation. 03/21: Patient states he is having difficulty swallowing for which a consult with speech therapy will be added and possible modified barium swallow. Patient is complaining of cough that's nonproductive. Patient states he has seen Dr. Mancuso in the past but not recently, consult with Dr. Mancuso has been added. Added Solu-Medrol, azithromycin, DuoNeb treatments and Pulmicort 03/22: Patient has been seen by Dr. Artinian with no evidence of pneumonia. Continue management of COPD with bronchodilators, short course of Zithromax and steroid taper for cough and congestion. Patient has been seen by speech therapy with recommendations for no straws, liquids from cup, small bites and sips, double swallow. Patient is cleared for regular diet. Blood pressure is been running on the higher side and lisinopril will be resumed at his home dose which was 10 mg in the morning and 20 mg at bedtime. Solu-Medrol will be decreased to 40 mg every 12 hours. Patient has been afebrile, heart rate 76, blood pressure 115/75, pulse ox 94% on room air. PT has recommended subacute rehab. Social work is following for [facility] on the leg. Most likely patient will be ready for discharge on Monday. 03/23: Patient is sitting up in bed without any complaints. He continues to have a cough periodically. Patient is tolerating recommendations from speech therapy with meals. Blood pressure 153/62, heart rate 81, respirations 16 nonlabored, pulse ox a 94% on room air. Fluoroscopy barium swallow with video impression shows deep penetration with thick, nectar thick and honey thick liquids. This is improved with breath held. No aspiration was observed. Patient is complaining to be discharged on Monday to [facility]. 03/24: Patient is sitting up in chair without any complaints. Patient continues to have periodic cough and some wheezing. Patient is unsure if he wants to go to [facility] or possibly [facility] since his ulcer to his house. WC is 13.0 most likely related to steroid use. Hemoglobin 13.2. Vital signs are stable patient has been afebrile. Continue to plan for discharge on Monday possibly to [facility] or [facility] 03/25: Patient has been evaluated by Dr. Palomares for possible inpatient rehab. Patient is agreeable to go to inpatient rehab. There is an insurance authorization that needs to be obtained. Patient has been afebrile, heart rate 76, blood pressure 132/73, pulse ox 97% on room air. All medication has been transitioned to oral. Patient will be discharged once all arrangements are completed. 03/26: still awaiting [facility] disposition, i have discussed with patient as well as insurance company for peer to peer review regarding needs for therapy at skilled inpatient rehab as the patient is still having difficulties with balance, if have observed him with has minimal assist however requires walker ambulation, unsteady balance, negative orthostatics. dr palomares thinks he will do well with inpatient rehab based on his recommendation, the insurance coordinating physician has declined this option, info was relayed to the patient, and will be discharged to home with home therpies, additional aid for modiefied ADLs to assist with disabled . pateint remains high risk for falls and complications related to fall, the coordinating physician for the insurance company is aware of this comorbidities and risk. , Discharge diagnoses: 1. Generalized weakness likely related to hypotension and possible poor oral intake of fluid along with polypharmacy. Patient did respond to the fluid challenges. 2. Mild anemia, chronic disease. 3. History of coronary artery disease status post stent. 4. Chronic hypoxemic respiratory failure due to COPD with COPD exacerbation. 5. Hypertension and hypertensive cardiovascular disease. 6. Hyperlipidemia. 7. Gastroesophageal reflux disease. 8. Generalized anxiety disorder and recurrent depression. 9. Restless leg syndrome. 10. Dysphagia. 11. Abnormal CAT scan. CAT scan did show a capacity in the endobronchial of the right lower lobe suggestive of mucous plug however need to repeat a computed tomography scan in about 4 weeks to assure stability. e. Discharge plan: home with home health registered nurse,with therapies Impression and plan of care have been directed as dictated by the signing physician. Patricia Padilla nurse practitioner acting as scribe for signing physician. Patient Condition at Discharge: Good Patient Condition at Discharge: Good Plan - Discharge Summary Discharge Rx Participant: No New Discharge Prescriptions: New predniSONE 0 mg PO DIRECTED #30 tab Lisinopril [Zestril] 20 mg PO BID #60 tab Azithromycin [Zithromax] 500 mg PO DAILY #5 tab Ipratropium-Albuterol Nebulize [Duoneb 0.5 mg-3 mg/3 ml Soln] 3 ml INHALATION QID #120 neb Budesonide [Pulmicort] 1 mg INHALATION BID #60 neb Continue DULoxetine HCL [Cymbalta] 60 mg PO BID Vit C/E/Zn/Coppr/Lutein/Zeaxan [Preservision Areds 2 Softgel] 1 cap PO BID Sucralfate [Carafate] 1 gm PO BID rOPINIRole HCL [Requip] 0.25 mg PO HS Multivit-Min/FA/Lycopen/Lutein [Centrum Silver Men Tablet] 1 tab PO DAILY Ferrous Sulfate [Iron (65 MG Elemental)] 325 mg PO DAILY Acetaminophen [Tylenol Extra Strength] 500 mg PO Q6HR PRN PRN Reason: Pain QUEtiapine [SEROquel] 50 mg PO HS Atorvastatin [Lipitor] 40 mg PO HS Pantoprazole [Protonix] 40 mg PO DAILY Tamsulosin [Flomax] 0.4 mg PO BID Furosemide [Lasix] 20 mg PO MOFR ALPRAZolam [Xanax] 1 mg PO TID PRN #9 tab PRN Reason: Anxiety Discontinued Lisinopril [Zestril] 10 mg PO DAILY Lisinopril [Prinivil] 20 mg PO HS Discharge Medication List DULoxetine HCL [Cymbalta] 60 mg PO BID 05/16/14 [History] Sucralfate [Carafate] 1 gm PO BID 08/29/16 [History] Vit C/E/Zn/Coppr/Lutein/Zeaxan [Preservision Areds 2 Softgel] 1 cap PO BID 08/29/16 [History] Acetaminophen [Tylenol Extra Strength] 500 mg PO Q6HR PRN 05/11/17 [History] Ferrous Sulfate [Iron (65 MG Elemental)] 325 mg PO DAILY 05/11/17 [History] Multivit-Min/FA/Lycopen/Lutein [Centrum Silver Men Tablet] 1 tab PO DAILY 05/11/17 [History] rOPINIRole HCL [Requip] 0.25 mg PO HS 05/11/17 [History] QUEtiapine [SEROquel] 50 mg PO HS 07/04/18 [History] Atorvastatin [Lipitor] 40 mg PO HS 12/15/18 [History] Pantoprazole [Protonix] 40 mg PO DAILY 12/15/18 [History] Tamsulosin [Flomax] 0.4 mg PO BID 01/09/19 [History] Furosemide [Lasix] 20 mg PO MOFR 03/20/19 [History] ALPRAZolam [Xanax] 1 mg PO TID PRN #9 tab 03/25/19 [Rx] Azithromycin [Zithromax] 500 mg PO DAILY #5 tab 03/25/19 [Rx] Lisinopril [Zestril] 20 mg PO BID #60 tab 03/25/19 [Rx] predniSONE 0 mg PO DIRECTED #30 tab 03/25/19 [Rx] Budesonide [Pulmicort] 1 mg INHALATION BID #60 neb 03/27/19 [Rx] Ipratropium-Albuterol Nebulize [Duoneb 0.5 mg-3 mg/3 ml Soln] 3 ml INHALATION QID #120 neb 03/27/19 [Rx] Follow up Appointment(s)/Referral(s): Yoav Castillo DO [Primary Care Provider] - 04/10/19 10:15 am () Len Mancuso MD [STAFF PHYSICIAN] - 04/08/19 3:15 pm [facility] Visiting Nurse, [NON-STAFF] - Patient Instructions/Handouts: Pneumonia (DC) Discharge Disposition: HOME WITH HOME HEALTH SERVICES
== END 2019-03-27 13:36 | disposition home health service (06) | DRG 315 ==
LOC: EC 12:03 → 4SSUR 15:35 → 6NMEDSUR 03-21 01:10
PROVIDERS: ADMIT Internal Medicine; ATTEND Internal Medicine
DX: I95.9 Hypotension, unspecified (principal); J96.11 Chronic respiratory failure with hypoxia; F33.9 Major depressive disorder, recurrent, unspecified; J98.11 Atelectasis; J44.1 Chronic obstructive pulmonary disease with (acute) exacerbation; T17.590A Other foreign object in bronchus causing asphyxiation, initial encounter; E86.0 Dehydration; D63.8 Anemia in other chronic diseases classified elsewhere; I11.9 Hypertensive heart disease without heart failure; J61 Pneumoconiosis due to asbestos and other mineral fibers; I69.920 Aphasia following unspecified cerebrovascular disease; R40.2362 Coma scale, best motor response, obeys commands, at arrival to emergency department; R40.2142 Coma scale, eyes open, spontaneous, at arrival to emergency department; R40.2252 Coma scale, best verbal response, oriented, at arrival to emergency department; E78.5 Hyperlipidemia, unspecified; I25.10 Atherosclerotic heart disease of native coronary artery without angina pectoris; F41.1 Generalized anxiety disorder; G25.81 Restless legs syndrome; K21.9 Gastro-esophageal reflux disease without esophagitis; R13.10 Dysphagia, unspecified; M19.90 Unspecified osteoarthritis, unspecified site; H35.30 Unspecified macular degeneration; N40.1 Benign prostatic hyperplasia with lower urinary tract symptoms; N39.498 Other specified urinary incontinence; D72.829 Elevated white blood cell count, unspecified; T38.0X5A Adverse effect of glucocorticoids and synthetic analogues, initial encounter; H91.90 Unspecified hearing loss, unspecified ear; G89.29 Other chronic pain; I25.2 Old myocardial infarction; E66.3 Overweight; Z68.28 Body mass index [BMI] 28.0-28.9, adult; F17.210 Nicotine dependence, cigarettes, uncomplicated; Z71.6 Tobacco abuse counseling; Z99.81 Dependence on supplemental oxygen; Z79.899 Other long term (current) drug therapy; Z71.3 Dietary counseling and surveillance; Z95.5 Presence of coronary angioplasty implant and graft; Z96.651 Presence of right artificial knee joint; Z87.01 Personal history of pneumonia (recurrent); Z98.890 Other specified postprocedural states; Z77.090 Contact with and (suspected) exposure to asbestos; Z80.0 Family history of malignant neoplasm of digestive organs; Z81.8 Family history of other mental and behavioral disorders
CPT/HCPCS: 36415; 71046; 74177; 74230; 80048; 80053; 81003; 83605; 84443; 84484; 85025; 85610; 85730; 93005; 94640; 94760; 96360; 99285

== ENCOUNTER → 2019-05-07 | Outpatient (CLI) | payer MEDICARE ==
[2019-05-07 13:44] LABS: African American GFR (CKD) >90 (>60 ml/min/1.73 sqM); Blood Urea Nitrogen 15 mg/dL (9-20); Non-African American GFR(CKD) 84 (>60 ml/min/1.73 sqM)
--- NOTE | 2019-05-07 15:11 | CT ---
EXAMINATION TYPE: CT chest w con DATE OF EXAM: 05/07/2019 COMPARISON: 02/16/2016 HISTORY: 88-year-old male Abnormal sputum TECHNIQUE: Contiguous axial scanning of the chest after the administration of 100 ml mL of Isovue 300 . Coronal/sagittal reconstructions performed. CT DLP: 431mGycm. Automatic exposure control utilized for a dose reduction. FINDINGS: Heart upper limits of normal in size without pericardial effusion. At least 2 vessel coronary artery calcifications are present. Ectatic ascending aorta 3.9 cm with moderate atherosclerotic calcifications throughout an conventiona l arch vessel branching anatomy. No thoracic lymphadenopathy by CT size criteria. Bilateral calcified pleural plaques are redemonstrated. Mild diffuse bronchial wall thickening. Mild interstitial and groundglass in the lower lungs. No consolidation or pleural effusion. Visualized upper abdomen shows tiny layering calculi. Mild diffuse thickening of the left adrenal gla nd is unchanged. A 1.5 cm nodule right adrenal gland as compared to 04/10/2016 suggesting a benign adr enal adenoma. 5 mm nonobstructive left renal calculus. Bones: Bulky changes of dish within the mid to lower thoracic spine. IMPRESSION: 1. Asbestos related pleural disease redemonstrated. 2. Some minimal groundglass and reticular changes in the lung bases could reflect early interstitial fibrosis, new from 02/16/2016. 3. Mild diffuse bronchial wall thickening suggests bronchitis or asthma. No infiltrate or air space d isease. 4. Cholelithiasis, 5 mm nonobstructive left renal calculus, and stable 1.5 cm benign right adrenal ad enoma.
== END | disposition home or self-care (01) ==
LOC: RADCTMAIN 12:50
PROVIDERS: ATTEND Family Medicine
DX: J98.09 Other diseases of bronchus, not elsewhere classified (principal); R19.5 Other fecal abnormalities
CPT/HCPCS: 82565; 84520; 71260; 36415; Q9967

== ENCOUNTER 2020-02-13 20:03 | Emergency (ER) | payer MEDICARE ==
[2020-02-13 20:11] VITALS: RESP 16
[2020-02-13] MEDS ORDERED: LIDOCAINE 1% INJ 10MG/ML (20 ML MDV) SQ ONE (20:19)
--- NOTE | 2020-02-13 20:20 | ED ---
General Adult HPI - General Chief complaint: Head Injury Stated complaint: Fall Time Seen by Provider: 02/13/20 20:10 Source: patient, RN notes reviewed, old records reviewed Mode of arrival: EMS Limitations: no limitations - History of Present Illness Initial comments: Patient is a pleasant 89-year-old male who presents the emergency department today after tripping on a blanket while getting out of his recliner treat chair. Patient reports he tripped and fell hitting the right side of his head on a N table. He does report he has a laceration near the right eyebrow and temporal area. Patient reports he did not want to come to the hospital but his family insisted. Patient states that he is not on blood thinners. Denies loss consciousness. Denies any extremity injuries from the fall. Denies any chest pain shortness of breath nausea or vomiting. Denies any visual changes. - Related Data Home Medications Medication Instructions Recorded Confirmed DULoxetine HCL [Cymbalta] 60 mg PO BID 05/16/14 03/20/19 Sucralfate [Carafate] 1 gm PO BID 08/29/16 03/20/19 Vit C/E/Zn/Coppr/Lutein/Zeaxan 1 cap PO BID 08/29/16 03/20/19 [Preservision Areds 2 Softgel] Acetaminophen [Tylenol Extra 500 mg PO Q6HR PRN 05/11/17 03/20/19 Strength] Ferrous Sulfate [Iron (65 MG 325 mg PO DAILY 05/11/17 03/20/19 Elemental)] Multivit-Min/FA/Lycopen/Lutein 1 tab PO DAILY 05/11/17 03/20/19 [Centrum Silver Men Tablet] rOPINIRole HCL [Requip] 0.25 mg PO HS 05/11/17 03/20/19 QUEtiapine [SEROquel] 50 mg PO HS 07/04/18 03/20/19 Atorvastatin [Lipitor] 40 mg PO HS 12/15/18 03/20/19 Pantoprazole [Protonix] 40 mg PO DAILY 12/15/18 03/20/19 Tamsulosin [Flomax] 0.4 mg PO BID 01/09/19 03/20/19 Furosemide [Lasix] 20 mg PO MOFR 03/20/19 03/20/19 Previous Rx's Medication Instructions Recorded ALPRAZolam [Xanax] 1 mg PO TID PRN #9 tab 03/25/19 Azithromycin [Zithromax] 500 mg PO DAILY #5 tab 03/25/19 lisinopriL [Zestril] 20 mg PO BID #60 tab 03/25/19 predniSONE 0 mg PO DIRECTED #30 tab 03/25/19 Budesonide [Pulmicort] 1 mg INHALATION BID #60 neb 03/27/19 Ipratropium-Albuterol Nebulize 3 ml INHALATION QID #120 neb 03/27/19 [Duoneb 0.5 mg-3 mg/3 ml Soln] Allergies Allergy/AdvReac Type Severity Reaction Status Date / Time No Known Allergies Allergy Verified 02/13/20 20:11 Review of Systems ROS Statement: Those systems with pertinent positive or pertinent negative responses have been documented in the HPI. ROS Other: All systems not noted in ROS Statement are negative. Past Medical History Past Medical History: Coronary Artery Disease (CAD), COPD, CVA/TIA, GERD/Reflux, Hyperlipidemia, Hypertension, Osteoarthritis (OA), Prostate Disorder Additional Past Medical History / Comment(s): MACULAR DEGENERATION History of Any Multi-Drug Resistant Organisms: None Reported Past Surgical History: Heart Catheterization With Stent, Joint Replacement, Orthopedic Surgery Additional Past Surgical History / Comment(s): carpal tunnel release bilat, ulcer surgery, RIGHT TOTAL KNEEX2, left rotater cuff Past Anesthesia/Blood Transfusion Reactions: No Reported Reaction Additional Past Anesthesia/Blood Transfusion Reaction / Comment(s): Pt received blood in 2007 without reaction. Date of Last Stent Placement:: 2010 Past Psychological History: Anxiety, Depression Smoking Status: Current every day smoker Past Alcohol Use History: None Reported Past Drug Use History: None Reported - Past Family History Mother Family Medical History: Cancer Additional Family Medical History / Comment(s): Mother at age 43 from colon cancer. Father Additional Family Medical History / Comment(s): Father at age 98 from old age with no major medical problems. Patient does not have any brothers or sisters. Daughter(s) Additional Family Medical History / Comment(s): Patient has 2 daughters with mental health issues. No medical problems. General Exam - General Exam Comments Initial Comments: Pleasant 89-year-old male. Alert and oriented 3. Joking. Limitations: no limitations General appearance: alert, in no apparent distress Head exam: Present: normocephalic, normal inspection. Absent: atraumatic Eye exam: Present: normal appearance, PERRL, EOMI, conjunctival injection (Patient has a 1 mm subconjunctival hemorrhage on the right portion of right eye), other (PT has a 2 cm flap laceration over the right christian). Absent: scleral icterus, periorbital swelling ENT exam: Present: normal exam Neck exam: Present: normal inspection. Absent: tenderness, meningismus, lymphadenopathy Respiratory exam: Present: normal lung sounds bilaterally. Absent: respiratory distress, wheezes, rales, rhonchi, stridor Cardiovascular Exam: Present: regular rate, normal rhythm, normal heart sounds. Absent: systolic murmur, diastolic murmur, rubs, gallop, clicks GI/Abdominal exam: Present: soft, normal bowel sounds. Absent: distended, tenderness, guarding, rebound, rigid Extremities exam: Present: normal inspection, full ROM, normal capillary refill. Absent: tenderness, pedal edema, joint swelling, calf tenderness Back exam: Present: normal inspection Neurological exam: Present: alert, oriented X3, CN II-XII intact Psychiatric exam: Present: normal affect, normal mood Skin exam: Present: warm, dry, intact, normal color. Absent: rash Course Vital Signs 02/13/20 20:08 Temperature 97.5 F L Pulse Rate 71 Respiratory 16 Rate Blood Pressure 119/56 O2 Sat by Pulse 96 Oximetry Procedures - Laceration Laceration #1 Site: face (r christian) Size (cm): 2 Description: flap Depth: simple, single layer Anesthetic Used: lidocaine 1% Anesthesia Technique: local infiltration Amount (mls): 2 Pre-repair: wound explored, irrigated extensively Type of Sutures: nylon Size of Sutures: 5-0 Number of Sutures: 3 Patient Tolerated Procedure: well, no complications Medical Decision Making - Medical Decision Making 89-year-old male presents return today after trip and fall on a blanket getting out of his recliner chair. Patient fell striking the right side of his christian on a end table. He is a 2 similar flap laceration was cleaned and irrigated and closed with 3 sutures. Patient's eye movements are intact. CT brain and C- spine reviewed and negative for acute process. No signs of fracture. At this time Patient advised to be monitored for any signs of altered mental status. Discussed return parameters. Patient advised on wound care instructions. All questions answered. - Radiology Data Radiology results: report reviewed Cerebral atrophy. No acute intracranial normality. No change. Hypertrophic degenerative changes and cervical spine. Previous surgery. No fracture seen. No change compared old exam. Disposition Clinical Impression: Fall, Facial laceration, Minor head injury Disposition: HOME SELF-CARE Condition: Good Instructions (If sedation given, give patient instructions): Laceration (ED), Concussion (ED) Additional Instructions: Please return to the emergency room in 7 days to have sutures removed. Please leave wound covered for the first 24-48 hours and then leave open to air after that time. Please use clean soap and water to clean the suture area to prevent scabbing over the top of your sutures. Please watch for any signs of infection which may include but not limited to increased pain, swelling, redness, fever or chills. Please return to the emergency room if any signs of infection do occur. Please return to the emergency room for any other concerns or complications. Is patient prescribed a controlled substance at d/c from ED?: No Referrals: Yoav Castillo DO [Primary Care Provider] - 1-2 days Time of Disposition: 20:55
--- NOTE | 2020-02-13 20:49 | CT ---
EXAMINATION TYPE: CT brain mayitoine wo con DATE OF EXAM: 02/13/2020 COMPARISON: 01/09/2019 HISTORY: Fall injury CT DLP: 1414.6 mGycm Automated exposure control for dose reduction was used. There is cerebral cortical atrophy. There is enlargement of the ventricles. There is no mass effect n or midline shift. There is no sign of intracranial hemorrhage. The calvarium is intact. Skull base is intact. There is normal aeration of the temporal bones. There is extensive hypertrophic anterior bridging osteophyte formation in the cervical spine from C3 to C7. There is multilevel cervical hypertrophic facet arthropathy. There is posterior fusion surgery at the skull base from the occiput to the C3 vertebra. Detail limited by metal artifact. IMPRESSION: Cerebral atrophy. No acute intracranial abnormality. No change. Hypertrophic degenerative changes in the cervical spine. Previous surgery. No fracture seen. No olsen e compared to old exam.
[2020-02-13] MEDS ORDERED: BACITRACIN OINT 1 EACH PACKET TOPICAL ONE (21:10)
[2020-02-13 21:40] VITALS: BP 138/74; PULSE 89; TEMP 98
== END 2020-02-13 21:39 | disposition home or self-care (01) ==
LOC: EC 20:03
DX: S01.81XA Laceration without foreign body of other part of head, initial encounter (principal); H11.31 Conjunctival hemorrhage, right eye; I10 Essential (primary) hypertension; K21.9 Gastro-esophageal reflux disease without esophagitis; E78.5 Hyperlipidemia, unspecified; M19.90 Unspecified osteoarthritis, unspecified site; F41.9 Anxiety disorder, unspecified; F32.9 Major depressive disorder, single episode, unspecified; F17.200 Nicotine dependence, unspecified, uncomplicated; Z79.899 Other long term (current) drug therapy; Z86.73 Personal history of transient ischemic attack (TIA), and cerebral infarction without residual deficits; W01.198A Fall on same level from slipping, tripping and stumbling with subsequent striking against other object, initial encounter; Y92.009 Unspecified place in unspecified non-institutional (private) residence as the place of occurrence of the external cause
CPT/HCPCS: 72125; 70450; 99284; 12011; J2001

== ENCOUNTER 2021-07-05 18:41 | Inpatient (IN) | payer MEDICARE ==
[2021-07-05] MEDS ORDERED: IPRATROPIUM-ALBUTEROL 3 ML NEB INHALATION STA ×2 (18:54→20:53)
--- NOTE | 2021-07-05 18:59 | ED ---
General Adult HPI - General Stated complaint: Fall Time Seen by Provider: 07/05/21 18:53 Source: patient, EMS, RN notes reviewed Mode of arrival: EMS Limitations: altered mental status - History of Present Illness Initial comments: Patient is a pleasant 89-year-old male presenting to the emergency department with concerns or fall. Unclear when incident occurred. Patient states there is family members ill of the thumb however none were at home. Patient was found on the ground by EMS after he activated his emergency button. Patient denies any injury. Patient denies dyspnea. Patient denies head injury or loss of consciousness. Patient is a poor historian. Patient reportedly did have history of similar problem couple weeks ago. - Related Data Home Medications Medication Instructions Recorded Confirmed DULoxetine HCL [Cymbalta] 60 mg PO BID 05/16/14 07/05/21 Sucralfate [Carafate] 1 gm PO BID 08/29/16 07/05/21 rOPINIRole HCL [Requip] 0.25 mg PO HS 05/11/17 07/05/21 QUEtiapine [SEROquel] 50 mg PO HS 07/04/18 07/05/21 Pantoprazole [Protonix] 40 mg PO DAILY 12/15/18 07/05/21 Allopurinol [Zyloprim] 100 mg PO BID 02/13/20 07/05/21 lisinopriL [Zestril] 20 mg PO DAILY 02/13/20 07/05/21 Spironolactone [Aldactone] 25 mg PO DAILY 06/12/21 07/05/21 Previous Rx's Medication Instructions Recorded Aspirin 162 mg PO DAILY 06/14/21 Atorvastatin [Lipitor] 40 mg PO HS #30 tab 06/14/21 ALPRAZolam [Xanax] 0.5 mg PO BID PRN #0 06/15/21 Furosemide [Lasix] 20 mg PO DAILY #0 06/15/21 Metoprolol Tartrate [Lopressor] 25 mg PO BID 30 Days #60 tab 06/15/21 Allergies Allergy/AdvReac Type Severity Reaction Status Date / Time No Known Allergies Allergy Verified 07/05/21 20:50 Review of Systems ROS Statement: Those systems with pertinent positive or pertinent negative responses have been documented in the HPI. ROS Other: All systems not noted in ROS Statement are negative. Constitutional: Denies: fever Eyes: Denies: eye pain ENT: Denies: ear pain Respiratory: Reports: as per HPI (Patient denies dyspnea however is receptive to nebulizer treatment) Cardiovascular: Denies: chest pain Endocrine: Denies: fatigue Gastrointestinal: Denies: abdominal pain Genitourinary: Denies: dysuria Musculoskeletal: Denies: back pain Skin: Denies: rash Neurological: Denies: weakness Past Medical History Past Medical History: Coronary Artery Disease (CAD), COPD, CVA/TIA, GERD/Reflux, Hyperlipidemia, Hypertension, Osteoarthritis (OA), Prostate Disorder Additional Past Medical History / Comment(s): MACULAR DEGENERATION History of Any Multi-Drug Resistant Organisms: None Reported Past Surgical History: Heart Catheterization With Stent, Joint Replacement, Orthopedic Surgery Additional Past Surgical History / Comment(s): carpal tunnel release bilat, ulcer surgery, RIGHT TOTAL KNEEX2, left rotater cuff Past Anesthesia/Blood Transfusion Reactions: No Reported Reaction Additional Past Anesthesia/Blood Transfusion Reaction / Comment(s): Pt received blood in 2007 without reaction. Date of Last Stent Placement:: 2010 Past Psychological History: Anxiety, Depression Smoking Status: Current every day smoker Past Alcohol Use History: None Reported Past Drug Use History: None Reported - Past Family History Mother Family Medical History: Cancer Additional Family Medical History / Comment(s): Mother at age 43 from colon cancer. Father Additional Family Medical History / Comment(s): Father at age 98 from old age with no major medical problems. Patient does not have any brothers or sisters. Daughter(s) Additional Family Medical History / Comment(s): Patient has 2 daughters with mental health issues. No medical problems. General Exam Limitations: altered mental status General appearance: alert Head exam: Present: atraumatic Eye exam: Present: normal appearance, PERRL, EOMI ENT exam: Present: normal oropharynx Neck exam: Present: normal inspection. Absent: tenderness Respiratory exam: Present: wheezes, rales, other (Patient does have mild respir atory distress) Cardiovascular Exam: Present: regular rate, normal rhythm GI/Abdominal exam: Present: soft. Absent: tenderness Extremities exam: Present: normal inspection, full ROM. Absent: tenderness, pedal edema, calf tenderness Neurological exam: Present: alert Expanded Neurological exam: Present: protecting the airway Motor strength exam: RUE: 5, LUE: 5, RLE: 4, LLE: 4 Eye Response: (4) open spontaneously Motor Response: (6) obeys commands Verbal Response: (5) oriented Psychiatric exam: Present: normal affect, normal mood Skin exam: Present: normal color, abrasion (Right hand skin abrasion) Course Vital Signs 07/05/21 07/05/21 07/05/21 18:59 19:06 19:19 Temperature 98.6 F Pulse Rate 106 H 104 H 109 H Respiratory 30 H Rate Blood Pressure 153/65 O2 Sat by Pulse 96 Oximetry 07/05/21 20:02 Temperature Pulse Rate 111 H Respiratory 26 H Rate Blood Pressure 152/84 O2 Sat by Pulse 95 Oximetry EKG Findings - EKG Comments: EKG Findings:: Sinus tachycardia 108. NC 156. QRS 88. QT 327. QTC 390. Left axis. Normal QRS. No acute ST change. Medical Decision Making - Medical Decision Making Patient reevaluated and resting comfortably in bed. Still with wheezing. Patient and family updated on results and plan. He is discussed with neurology, Dr. Chandra including CT results. He is okay with patient stating in the hospital here. Case also discussed with Dr. Samano who will admit covering Dr. Cheng, who admits for Dr. Castillo. - Lab Data Result diagrams: 07/05/21 19:11 Lab Results 07/05/21 07/05/21 07/05/21 Range/Units 19:11 19:11 19:11 PT 11.3 (9.0-12.0) sec INR 1.0 (<1.2) APTT 29.0 (22.0-30.0) sec Sodium 133 L (137-145) mmol/L Potassium 3.9 (3.5-5.1) mmol/L Chloride 96 L (98-107) mmol/L Carbon Dioxide 31 H (22-30) mmol/L Anion Gap 6 mmol/L BUN 17 (9-20) mg/dL Creatinine 0.94 (0.66-1.25) mg/dL Est GFR (CKD-EPI)AfAm 84 (>60 ml/min/1.73 sqM) Est GFR (CKD-EPI)NonAf 72 (>60 ml/min/1.73 sqM) Glucose 115 H (74-99) mg/dL Plasma Lactic Acid Murtaza 1.1 (0.7-2.0) mmol/L Calcium 8.7 (8.4-10.2) mg/dL Magnesium 1.8 (1.6-2.3) mg/dL Total Bilirubin 0.9 (0.2-1.3) mg/dL AST 28 (17-59) U/L ALT 16 (4-49) U/L Alkaline Phosphatase 79 (38-126) U/L Creatine Kinase 77 (55-170) U/L Troponin I (0.000-0.034) ng/mL NT-Pro-B Natriuret Pep pg/mL Total Protein 6.6 (6.3-8.2) g/dL Albumin 3.7 (3.5-5.0) g/dL TSH 2.450 (0.465-4.680) mIU/L Free T4 1.02 (0.78-2.19) ng/dL Free T3 pg/mL 4.4 (2.8-5.3) pg/ml Coronavirus (PCR) (Not Detectd) 07/05/21 07/05/21 07/05/21 Range/Units 19:11 19:11 19:11 PT (9.0-12.0) sec INR (<1.2) APTT (22.0-30.0) sec Sodium (137-145) mmol/L Potassium (3.5-5.1) mmol/L Chloride (98-107) mmol/L Carbon Dioxide (22-30) mmol/L Anion Gap mmol/L BUN (9-20) mg/dL Creatinine (0.66-1.25) mg/dL Est GFR (CKD-EPI)AfAm (>60 ml/min/1.73 sqM) Est GFR (CKD-EPI)NonAf (>60 ml/min/1.73 sqM) Glucose (74-99) mg/dL Plasma Lactic Acid Murtaza (0.7-2.0) mmol/L Calcium (8.4-10.2) mg/dL Magnesium (1.6-2.3) mg/dL Total Bilirubin (0.2-1.3) mg/dL AST (17-59) U/L ALT (4-49) U/L Alkaline Phosphatase (38-126) U/L Creatine Kinase (55-170) U/L Troponin I 0.042 H* (0.000-0.034) ng/mL NT-Pro-B Natriuret Pep 1190 pg/mL Total Protein (6.3-8.2) g/dL Albumin (3.5-5.0) g/dL TSH (0.465-4.680) mIU/L Free T4 (0.78-2.19) ng/dL Free T3 pg/mL (2.8-5.3) pg/ml Coronavirus (PCR) Not Detected (Not Detectd) - Radiology Data Radiology results: report reviewed (Computed tomography scan of the brain shows left parietal chronic subdural hematoma which is increase since previous.), image reviewed (Chest x-ray shows pleural plaques, probable fibrotic changes. Similar to previous. Pelvis x-ray shows no acute process.) Disposition Clinical Impression: Fall, COPD exacerbation, Chronic subdural hematoma Disposition: ADMITTED IP TO THIS HOSP Is patient prescribed a controlled substance at d/c from ED?: No Referrals: Yoav Castillo DO [Primary Care Provider] - 1-2 days Time of Disposition: 20:54
[2021-07-05 19:37] LABS: Albumin 3.7 g/dL (3.5-5.0); Calcium 8.7 mg/dL (8.4-10.2); Magnesium 1.8 mg/dL (1.6-2.3); Potassium 3.9 mmol/L (3.5-5.1); Total Bilirubin 0.9 mg/dL (0.2-1.3); Total Protein 6.6 g/dL (6.3-8.2)
[2021-07-05 19:53] LABS: Prothrombin Time 11.3 sec (9.0-12.0)
[2021-07-05 19:55] LABS: T4, Free (Free Thyroxine) 1.02 ng/dL (0.78-2.19)
--- NOTE | 2021-07-05 20:04 | CT ---
EXAMINATION TYPE: CT brain wo con DATE OF EXAM: 07/05/2021 COMPARISON: 06/12/2021 HISTORY: AMS CT DLP: 1172.4 mGycm Automated exposure control for dose reduction was used. There is previous surgery at the craniocervical junction posteriorly. There is mild enlargement of th e ventricles. There is cerebral cortical atrophy. There is some widening of the subdural space over t he left parietal convexity related to a subdural chronic hematoma. This measures 8 mm in maximum thic kness. There is minimal mass effect upon the left parietal lobe cortex. No fracture seen. Skull base is intact. There is normal aeration of the mastoid sinuses. IMPRESSION: There is left parietal chronic subdural hematoma which is increased and changing distribution compare d to last exam.
--- NOTE | 2021-07-05 20:06 | XR ---
EXAMINATION TYPE: XR chest 2V DATE OF EXAM: 07/05/2021 COMPARISON: 06/12/2021 HISTORY: Weakness TECHNIQUE: 2 views FINDINGS: There is bilateral patchy pleural thickening and calcified pleural plaque. Heart size is no rmal. No heart failure. There is also diaphragmatic pleural plaque on the right side. There are chest leads. No heart failure. IMPRESSION: Calcified pleural plaque. Probably fibrotic changes. No acute lung disease. No change compared to las t exam.
--- NOTE | 2021-07-05 20:09 | XR ---
EXAMINATION TYPE: XR pelvis AP view DATE OF EXAM: 07/05/2021 COMPARISON: 01/09/2019 HISTORY: Pain TECHNIQUE: FINDINGS: The pelvic ring is intact. Proximal femurs are intact. Sacroiliac joints are normal. There is multilevel lumbar spondylotic changes and fusion surgery. IMPRESSION: No acute abnormality of the pelvis. No change.
[2021-07-05] MEDS ORDERED: NALOXONE 0.4 MG/ML 1 ML VIAL IV PRN (20:55)
[2021-07-05] MEDS ORDERED: methylPREDNISolone SOD SUCCI 125 MG/2 ML VIAL IV STA (20:55)
[2021-07-05] MEDS ORDERED: IPRATROPIUM-ALBUTEROL 3 ML NEB INHALATION PRN (20:55)
[2021-07-05 20:56] LABS: Basophils % (A) 0 %; Eosinophils # (A) 0.2 k/uL (0-0.7); Eosinophils % (A) 1 %; HCT 39.5 % (39.0-53.0); HGB 12.5 gm/dL (13.0-17.5); Lymphocytes # (A) 0.9 k/uL (1.0-4.8); Lymphocytes % (A) 6 %; MCH 31.7 pg (25.0-35.0); MCHC 31.6 g/dL (31.0-37.0); MCV 100.3 fL (80.0-100.0); Mean Platelet Volume 8.4; Monocytes # (A) 1.2 k/uL (0-1.0); Monocytes % (A) 8 %; Neutrophils % (A) 84 %; Platelet Count 227 k/uL (150-450); RBC 3.94 m/uL (4.30-5.90); RDW 13.5 % (11.5-15.5); WBC 15.4 k/uL (3.8-10.6)
[2021-07-05] MEDS: SODIUM CHLORIDE 0.9% 1,000 ML IV SCH (21:35)
[2021-07-05 21:46] LABS: ABG Base Excess 3.4 mmol/L; ABG HCO3 30 mmol/L (21-25); ABG Oxygen Saturation 98.7 % (94-97); ABG PCO2 58 mmHg (35-45); ABG PH 7.31 (7.35-7.45); ABG PO2 146 mmHg (83-108); ABG TCO2 31 mmol/L (19-24); Allen Test Performed? Yes
[2021-07-05 23:21] LABS: Appearance,Urine Clear (Clear); Bilirubin,Urine Negative (Negative); Blood,Urine Negative (Negative); Color,Urine Yellow; Glucose,Urine (UA) Negative (Negative); Ketones,Urine 1+ (Negative); Leukocyte Esterase,Urine Negative (Negative); Nitrite,Urine Negative (Negative); PH, Urine 5.5 (5.0-8.0); Protein,Urine Trace (Negative); Specific Gravity,Urine 1.014 (1.001-1.035); Urobilinogen,Urine <2.0 mg/dL (<2.0)
[2021-07-06] MEDS: methylPREDNISolone SOD SUCCI 125 MG/2 ML VIAL IV SCH ×5 (01:42→23:40)
[2021-07-06] MEDS ORDERED: ALPRAZolam 1 MG TAB PO PRN (02:38)
--- NOTE | 2021-07-06 02:38 | P.HPIM ---
History of Present Illness H&P Date: 07/05/21 The patient is an 89-year-old male with a PMH of coronary artery disease status post stents, systolic CHF, COPD, HTN, HLD, and EtOH abuse who presented to the ED after a fall. The history supplemented by the patient's daughter via phone. She noted that the patient's grandson lives with him and helps him with his ADLs. The patient reportedly had a fall earlier today at around 5:30 PM, where he fell in his kitchen. He subsequently activated his medical alert bracelet, following which the EMS found him on the floor in his kitchen. The patient's grandson did not witness the fall. The patient does not recall the events surrounding the fall, but states that he did not lose consciousness. Does report hitting his right hand on the way down, and suffering a laceration there. He further denied experiencing chest discomfort. He reports chronic exertional dyspnea with audible wheezing due to his extensive COPD, which is unchanged. He further denied any pain at the time of interview. He underwent an extensive evaluation in the emergency room with a CT brain showing a left parietal chronic subdural hematoma, increased from prior. The patient reported chronic right lower extremity weakness ongoing for the past several months, which is also unchanged. Denied any additional weakness, numbness, or tingling. EKG revealed sinus tachycardia at [address]/T-wave changes noted as reviewed by me. Chest x-ray revealed chronic fibrotic changes with calcified pleural plaque. Pelvis x-ray was unremarkable. Laboratory evaluation was remarkable for leukocytosis of 15.4, ABG showing hypercapnia at 58, sodium 133, and troponin is 0.042 with proBNP 1190. Review of systems: Pertinent positives and negatives as discussed in HPI, a complete review of systems was performed and all other systems are negative. Physical examination: General: non toxic, no distress, appears at stated age, normal weight Derm: R hand wrist laceration noted, warm, dry Head: atraumatic, normocephalic, symmetric Eyes: EOMI, no lid lag, anicteric sclera, pupils equal round reactive to light ENT: Nose and ears atraumatic, no thrush, no pharyngeal erythema Neck: No thyromegaly, no cervical lymphadenopathy, trachea midline, supple Mouth: no lip lesion, mucus membranes moist Cardiovascular: S1S2 reg, no murmur, positive posterior tibial pulse bilateral, 1+ sanchez LE edema, capillary refill less than 2 seconds Lungs: Diffuse wheezing, with scattered ronchi, no rales, no accessory muscle use Abdominal: soft, nontender to palpation, no guarding, no appreciable organomegaly, normal bowel sounds Ext: no gross muscle atrophy, muscle strength 3 out of 5 in all 4 extremities grossly, no contractures, Neuro: CN II-XI grossly intact, light touch intact all 4 extremities, finger to nose within normal limits, Psych: Slow to respond but oriented x 3, appropriate affect Assessment/plan Shortness of breath, suspected acute COPD exacerbation with acute hypercapnic respiratory failure -C/w Solumedrol 60 mg q6h -Duonebs RTC and PRN -Supplemental oxygen Subacute subdural hematoma -Case discussed by ED physician with the neurologist production floater who recommended no need for transfer -Hold off on antiplatelets and anticoagulants for now Troponin elevation, suspected secondary to ongoing acute COPD exacerbation -Cardiac monitoring -Cardiology consult Leukocytosis, likely secondary to ongoing acute stressor -No signs of active infection at this time -Monitor for now DVT prophylaxis -IPCDs The patient is admitted with an anticipated greater than 2 midnight stay for evaluation of COPD exacerbation CODE STATUS: Full Code Discussed with: Patient Anticipated discharge date: 2-[address]: Home Past Medical History Past Medical History: Coronary Artery Disease (CAD), COPD, CVA/TIA, GERD/Reflux, Hyperlipidemia, Hypertension, Osteoarthritis (OA), Prostate Disorder Additional Past Medical History / Comment(s): MACULAR DEGENERATION History of Any Multi-Drug Resistant Organisms: None Reported Past Surgical History: Heart Catheterization With Stent, Joint Replacement, Orthopedic Surgery Additional Past Surgical History / Comment(s): carpal tunnel release bilat, ulcer surgery, RIGHT TOTAL KNEEX2, left rotater cuff Past Anesthesia/Blood Transfusion Reactions: No Reported Reaction Additional Past Anesthesia/Blood Transfusion Reaction / Comment(s): Pt received blood in 2007 without reaction. Date of Last Stent Placement:: 2010 Past Psychological History: Anxiety, Depression Smoking Status: Current every day smoker Past Alcohol Use History: None Reported Past Drug Use History: None Reported - Past Family History Mother Family Medical History: Cancer Additional Family Medical History / Comment(s): Mother at age 43 from colon cancer. Father Additional Family Medical History / Comment(s): Father at age 98 from old age with no major medical problems. Patient does not have any brothers or sisters. Daughter(s) Additional Family Medical History / Comment(s): Patient has 2 daughters with mental health issues. No medical problems. Medications and Allergies Home Medications Medication Instructions Recorded Confirmed Type DULoxetine HCL [Cymbalta] 60 mg PO BID 05/16/14 07/05/21 History Sucralfate [Carafate] 1 gm PO BID 08/29/16 07/05/21 History rOPINIRole HCL [Requip] 0.25 mg PO HS 05/11/17 07/05/21 History QUEtiapine [SEROquel] 50 mg PO HS 07/04/18 07/05/21 History Pantoprazole [Protonix] 40 mg PO DAILY 12/15/18 07/05/21 History Allopurinol [Zyloprim] 100 mg PO BID 02/13/20 07/05/21 History lisinopriL [Zestril] 20 mg PO DAILY 02/13/20 07/05/21 History Spironolactone [Aldactone] 25 mg PO DAILY 06/12/21 07/05/21 History Aspirin 162 mg PO DAILY 06/14/21 07/05/21 Rx Atorvastatin [Lipitor] 40 mg PO HS #30 tab 06/14/21 07/05/21 Rx ALPRAZolam [Xanax] 0.5 mg PO BID PRN #0 06/15/21 07/05/21 Rx Furosemide [Lasix] 20 mg PO DAILY #0 06/15/21 07/05/21 Rx Metoprolol Tartrate [Lopressor] 25 mg PO BID 30 Days #60 tab 06/15/21 07/05/21 Rx Allergies Allergy/AdvReac Type Severity Reaction Status Date / Time No Known Allergies Allergy Verified 07/05/21 20:50 Physical Exam Vitals: Vital Signs Temp Pulse Resp BP Pulse Ox 07/05/21 22:10 98.1 F 106 H 24 189/97 96 07/05/21 21:43 104 H 07/05/21 21:33 109 H 07/05/21 20:02 111 H 26 H 152/84 95 07/05/21 19:19 109 H 07/05/21 19:06 104 H 07/05/21 18:59 98.6 F 106 H 30 H 153/65 96 Intake and Output 07/05/21 07/05/21 07/05/21 06:59 14:59 22:59 Other: Weight 86.183 kg Results CBC & Chem 7: 07/05/21 19:11 07/05/21 19:11 Labs: Abnormal Lab Results - Last 24 Hours (Table) 07/05/21 07/05/21 07/05/21 Range/Units 19:11 19:11 19:11 WBC 15.4 H (3.8-10.6) k/uL RBC 3.94 L (4.30-5.90) m/uL Hgb 12.5 L (13.0-17.5) gm/dL MCV 100.3 H (80.0-100.0) fL Neutrophils # 13.0 H (1.3-7.7) k/uL Lymphocytes # 0.9 L (1.0-4.8) k/uL Monocytes # 1.2 H (0-1.0) k/uL ABG pH (7.35-7.45) ABG pCO2 (35-45) mmHg ABG pO2 (83-108) mmHg ABG HCO3 (21-25) mmol/L ABG Total CO2 (19-24) mmol/L ABG O2 Saturation (94-97) % Sodium 133 L (137-145) mmol/L Chloride 96 L (98-107) mmol/L Carbon Dioxide 31 H (22-30) mmol/L Glucose 115 H (74-99) mg/dL Troponin I 0.042 H* (0.000-0.034) ng/mL 07/05/21 Range/Units 21:39 WBC (3.8-10.6) k/uL RBC (4.30-5.90) m/uL Hgb (13.0-17.5) gm/dL MCV (80.0-100.0) fL Neutrophils # (1.3-7.7) k/uL Lymphocytes # (1.0-4.8) k/uL Monocytes # (0-1.0) k/uL ABG pH 7.31 L (7.35-7.45) ABG pCO2 58 H (35-45) mmHg ABG pO2 146 H (83-108) mmHg ABG HCO3 30 H (21-25) mmol/L ABG Total CO2 31 H (19-24) mmol/L ABG O2 Saturation 98.7 H (94-97) % Sodium (137-145) mmol/L Chloride (98-107) mmol/L Carbon Dioxide (22-30) mmol/L Glucose (74-99) mg/dL Troponin I (0.000-0.034) ng/mL
[2021-07-06] MEDS: IPRATROPIUM-ALBUTEROL 3 ML NEB INHALATION SCH ×4 (07:48→19:21)
[2021-07-06] MEDS: SPIRONOLACTONE 25 MG TAB PO SCH (09:01)
[2021-07-06] MEDS: SUCRALFATE 1 GM TAB PO SCH ×2 (09:01→21:42)
[2021-07-06] MEDS: lisinopriL 20 MG TAB PO SCH (09:01)
[2021-07-06] MEDS: PANTOPRAZOLE 40 MG TABLET PO SCH (09:01)
[2021-07-06] MEDS: DULoxetine HCL 60 MG CAPSULE.DR PO SCH ×2 (09:01→21:42)
[2021-07-06] MEDS: allopurinoL 100 MG TAB PO SCH ×2 (09:01→21:42)
[2021-07-06] MEDS: THIAMINE 100 MG TAB PO SCH (09:38)
[2021-07-06] MEDS: SODIUM CHLORIDE 0.9% 1,000 ML IV SCH ×2 (09:41→23:54)
[2021-07-06 09:42] LABS: Alcohol <10 mg/dL
[2021-07-06] MEDS: HEPARIN SODIUM,PORCINE/PF 5,000 UNIT/0.5 ML SYRINGE SQ SCH ×3 (10:28→23:40)
--- NOTE | 2021-07-06 10:31 | P.CNNES ---
History of Present Illness Consult date: 07/06/21 Requesting physician: Braydon Dan Reason for Consult: chronic subdural History of Present Illness: This is an 89-year-old gentleman with medical history of coronary artery disease status post stent, systolic congestive heart failure, hypertension, hyperlipidemia, alcohol abuse who presented to the emergency department on 07/05/2021 after a fall. Some of the history is obtained from medical record and ED physician. The patient stated he drinks alcohol every other day and drinks a bottle of alcohol. He had a fall recently and stated his right leg gave out. He denies any loss of consicousness associated with this. He denies any history of seizures. He stated he had two surgeries on his right knee. He has chronic neck and low back pain and not worse. Per the primary team's note is seems the patient's grandson lives with the patient and helps with his ADLs. It seems the patient has had a fall earlier yesterday around 5:30 PM where he was in the kitchen as a result he activities medical alert the bracelet and he was found the in the kitchen. The fall was unwitnessed. It seems the patient the did not lose consciousness. He had trauma to right hand as result. Patient is on home medication of aspirin 162 mg daily. Some of the workup in the hospital consisted of: White blood cells 15.4 thousand and it's the slightly neutrophilic, MCV 100.3, hemoglobin 12.5, hematocrit 39.5, platelet of 227,000. Sodium is 133, initial serum glucose was 115,, doxepin 31. Otherwise the rest of Chem-7 pounds unremarkable. AST and ALT is within normal limits. TSH is 2.450 and a free T4 is 1.02. Troponin is 0.042 and it's minimally trending up at. Urinalysis negative for urinary tract infection Ravi virus PCR was not detected PT, PTT and INR is within normal limits CT of the head is reported as left parietal chronic subdural hematoma which is increased in changing distribution compared to last exam. I personally reviewed the CT of the head and I do agree that the the subdural over the left but seems more on the left frontal more than parietal region is bigger than the 06/12/2021 but there is no acute bleeding appreciated. Also I did not appreciate midline shift or the significant midline shift that was concerning and I reviewed it the personally today. When I spoke with the the ED physician yesterday he also notified me there is no report of midline shift that I was able to appreciate an as a result was felt the patient does not need any neurosurgical intervention or transfer for escalation of care. Review of Systems Review of system: The 12 point system was reviewed and apparent positive and negative per HPI. Past Medical History Past Medical History: Coronary Artery Disease (CAD), COPD, CVA/TIA, GERD/Reflux, Hyperlipidemia, Hypertension, Osteoarthritis (OA), Prostate Disorder Additional Past Medical History / Comment(s): MACULAR DEGENERATION History of Any Multi-Drug Resistant Organisms: None Reported Past Surgical History: Heart Catheterization With Stent, Joint Replacement, Orthopedic Surgery Additional Past Surgical History / Comment(s): carpal tunnel release bilat, ulcer surgery, RIGHT TOTAL KNEEX2, left rotater cuff Past Anesthesia/Blood Transfusion Reactions: No Reported Reaction Additional Past Anesthesia/Blood Transfusion Reaction / Comment(s): Pt received blood in 2007 without reaction. Date of Last Stent Placement:: 2010 Past Psychological History: Anxiety, Depression Smoking Status: Current every day smoker Past Alcohol Use History: None Reported Past Drug Use History: None Reported - Past Family History Mother Family Medical History: Cancer Additional Family Medical History / Comment(s): Mother at age 43 from colon cancer. Father Additional Family Medical History / Comment(s): Father at age 98 from old age with no major medical problems. Patient does not have any brothers or sisters. Daughter(s) Additional Family Medical History / Comment(s): Patient has 2 daughters with mental health issues. No medical problems. Medications and Allergies Home Medications Medication Instructions Recorded Confirmed Type DULoxetine HCL [Cymbalta] 60 mg PO BID 05/16/14 07/05/21 History Sucralfate [Carafate] 1 gm PO BID 08/29/16 07/05/21 History rOPINIRole HCL [Requip] 0.25 mg PO HS 05/11/17 07/05/21 History QUEtiapine [SEROquel] 50 mg PO HS 07/04/18 07/05/21 History Pantoprazole [Protonix] 40 mg PO DAILY 12/15/18 07/05/21 History Allopurinol [Zyloprim] 100 mg PO BID 02/13/20 07/05/21 History lisinopriL [Zestril] 20 mg PO DAILY 02/13/20 07/05/21 History Spironolactone [Aldactone] 25 mg PO DAILY 06/12/21 07/05/21 History Aspirin 162 mg PO DAILY 06/14/21 07/05/21 Rx Atorvastatin [Lipitor] 40 mg PO HS #30 tab 06/14/21 07/05/21 Rx ALPRAZolam [Xanax] 0.5 mg PO BID PRN #0 06/15/21 07/05/21 Rx Furosemide [Lasix] 20 mg PO DAILY #0 06/15/21 07/05/21 Rx Metoprolol Tartrate [Lopressor] 25 mg PO BID 30 Days #60 tab 06/15/21 07/05/21 Rx Allergies Allergy/AdvReac Type Severity Reaction Status Date / Time No Known Allergies Allergy Verified 07/05/21 20:50 Physical Examination - Vital Signs Vital Signs: Vital Signs Temp Pulse Resp BP Pulse Ox 07/06/21 07:57 101 H 07/06/21 07:48 101 H 07/06/21 06:09 95 24 134/85 97 07/06/21 03:00 97 18 175/96 97 07/06/21 01:00 96 16 175/96 98 07/05/21 23:00 97 16 186/92 97 07/05/21 22:10 98.1 F 106 H 24 189/97 96 07/05/21 21:43 104 H 07/05/21 21:33 109 H 07/05/21 20:02 111 H 26 H 152/84 95 07/05/21 19:19 109 H 07/05/21 19:06 104 H 07/05/21 18:59 98.6 F 106 H 30 H 153/65 96 Intake and Output 07/05/21 07/06/21 07/06/21 22:59 06:59 14:59 Other: Weight 86.183 kg GENERAL: The patient is lying in bed and is not in acute distress. CHEST: The heart rate is regular rate rhythm. No murmurs to auscultation. No carotid bruit bilaterally. LUNG: Clear to auscultation bilaterally no wheezing noted throughout. Not labored breathing. Kept on coughing. ABDOMEN/GI: Bowel sounds present in all 4 quadrants. No tenderness to palpation throughout. NEUROLOGICAL: Higher mental function: The patient is awake, alert, oriented to self, place and time. Patient is following commands. No aphasia and no neglect. Cranial nerves: The pupils are round, equal and reactive to light and accommodation. Visual garvin are full to confrontation throughout. Extraocular movement is intact no nystagmus is noted. Facial sensation is normal to touch throughout. The facial strength is normal throughout. Hearing is moderately decreased bilaterally to hand rub. Tongue is midline and moved [id number] without any difficulty. No dysarthria is noted but has hoarse raspy voice. Shoulder shrug is limited on left because of old rotator cuff. . Motor: Gait is deferred. The strength is lifting all extremities above gravity but limited on left proximal extremity because of rotator cuff. Normal tone and bulk. Cerebellum: Normal finger to nose bilaterally. Sensation: Sensation is normal to touch throughout. Reflexes (right/left): 1+ throughout. Plantars are mute bilaterally. Results - Laboratory Findings CBC and BMP: 07/05/21 19:11 07/05/21 19:11 Abnormal Lab Findings: Abnormal Labs 07/05/21 07/05/21 07/05/21 19:11 19:11 19:11 WBC 15.4 H RBC 3.94 L Hgb 12.5 L MCV 100.3 H Neutrophils # 13.0 H Lymphocytes # 0.9 L Monocytes # 1.2 H ABG pH ABG pCO2 ABG pO2 ABG HCO3 ABG Total CO2 ABG O2 Saturation Sodium 133 L Chloride 96 L Carbon Dioxide 31 H Glucose 115 H Troponin I 0.042 H* Urine Protein Urine Ketones 07/05/21 07/05/21 07/05/21 21:39 22:36 23:03 WBC RBC Hgb MCV Neutrophils # Lymphocytes # Monocytes # ABG pH 7.31 L ABG pCO2 58 H ABG pO2 146 H ABG HCO3 30 H ABG Total CO2 31 H ABG O2 Saturation 98.7 H Sodium Chloride Carbon Dioxide Glucose Troponin I 0.050 H* Urine Protein Trace H Urine Ketones 1+ H 07/06/21 00:10 WBC RBC Hgb MCV Neutrophils # Lymphocytes # Monocytes # ABG pH ABG pCO2 ABG pO2 ABG HCO3 ABG Total CO2 ABG O2 Saturation Sodium Chloride Carbon Dioxide Glucose Troponin I 0.053 H* Urine Protein Urine Ketones Assessment and Plan Assessment: Subacute to Chronic subdural over the left frontal/parietal region that is slightly larger compared to 06/12/21: Likely due falls and alcohol abuse and stated right knee giving out (had two surgeries of knee) Shortness of breath possibly due to acute 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 * I'll get a repeat CT of the head by tomorrow to assess if there is any worsening of subdural * CT of the head on 07/05/2021 is reported as left parietal chronic subdural hematoma which is increased in changing distribution compared to last exam. I personally reviewed the CT of the head and I do agree that the the subdural over the left but seems more on the left frontal more than parietal region is bigger than the 06/12/2021 but there is no acute bleeding appreciated. Also I did not appreciate midline shift or the significant midline shift that was concerning and I reviewed it the personally today. When I spoke with the the ED physician yesterday he also notified me there is no report of midline shift that I was able to appreciate an as a result was felt the patient does not need any neurosurgical intervention or transfer for escalation of care. * Every 4 hours neuro checks * Consulted the physical therapy and occupation therapy * Ordered vitamin b12 level, folate level and alcohol level * Started the patient on Thiamine 100mg daily. * On fall precaution * Pulmonary team is consulted * The patient was counseled on tobacco cessation for 3 minutes. * Also counseled on alcohol cessation. * Will defer the rest of medical management to the primary team. Thank you for consultation. Jeff Verma M.D. Neuro-Hospitalist. Time with Patient: Greater than 30
[2021-07-06] MEDS: INSULIN ASPART (NovoLOG) 100 UNIT/ML VIAL SQ SCH ×3 (12:11→21:45)
[2021-07-06 12:12] LABS: Glucose,Whole Blood 158 mg/dL (75-99)
--- NOTE | 2021-07-06 13:51 | P.PN ---
Subjective Progress Note Date: 07/06/21 The patient is an 89-year-old male with a PMH of coronary artery disease status post stents, systolic CHF, COPD, HTN, HLD, and EtOH abuse who presented to the ED after a fall. The history supplemented by the patient's daughter via phone. She noted that the patient's grandson lives with him and helps him with his ADLs. The patient reportedly had a fall earlier today at around 5:30 PM, where he fell in his kitchen. He subsequently activated his medical alert bracelet, following which the EMS found him on the floor in his kitchen. The patient's grandson did not witness the fall. The patient does not recall the events surrounding the fall, but states that he did not lose consciousness. Does repor t hitting his right hand on the way down, and suffering a laceration there. He further denied experiencing chest discomfort. He reports chronic exertional dyspnea with audible wheezing due to his extensive COPD, which is unchanged. He further denied any pain at the time of interview. He underwent an extensive evaluation in the emergency room with a CT brain showing a left parietal chronic subdural hematoma, increased from prior. The patient reported chronic right lower extremity weakness ongoing for the past several months, which is also unchanged. Denied any additional weakness, numbness, or tingling. EKG revealed sinus tachycardia at [address]/T-wave changes noted as reviewed by me. Chest x-ray revealed chronic fibrotic changes with calcified pleural plaque. Pelvis x-ray was unremarkable. Laboratory evaluation was remarkable for leukocytosis of 15.4, ABG showing hypercapnia at 58, sodium 133, and troponin is 0.042 with proBNP 1190. 07/05: Patient is seen today in the ER waiting for a bed on the Cardiac Stepdown Unit. He has a dressing in place to the left forearm. Patient has been seen by neurology and recommended holding antiplatelets due to falls, repeat CAT scan of the head tomorrow to evaluate for any worsening of the subdural hematoma. PT and OT consults were added as well as vitamin B12 and folate and alcohol levels. Patient was started on thiamine 100 mg daily. Patient to be seen by pulmonary medicine today. Pulmicort added. Discussed discharge planning with the patient and he has been at [facility] in the past and may consider going there again. He had a fall on Monday and states his legs just gave out on him. Review Of Systems: Constitutional: No fever, no chills, no night sweats. No weight change. Reports weakness, reports fatigue or lethargy. No daytime sleepiness. EENT: No headache. No blurred vision or double vision, no loss of vision. No loss of Hearing, no ringing in the ears, no dizziness. No nasal drainage or con gestion. No epistaxis. No sore throat. Lungs: Reports shortness of breath, cough, no sputum production. No wheezing. Cardiovascular: No chest pain, no lower extremity edema. No palpitations. No p aroxysmal nocturnal dyspnea. No orthopnea. No lightheadedness or dizziness. No syncopal episodes. Abdominal: No abdominal pain. No nausea, vomiting. No diarrhea. No constipation. No bloody or tarry stools.. No loss of appetite. Genitourinary: No dysuria, increased frequency, urgency. No urinary retention. Musculoskeletal: No myalgias. Reports muscle weakness, no gait dysfunction, no frequent falls. No back pain. No neck pain. Integumentary: No wounds, no lesions. No rash or pruritus. No unusual bruising. No change in hair or nails. Neurologic: No aphasia. No facial droop. No change in mentation. No head injury. No headache. No paralysis. No paresthesia. Psychiatric: No depression. No anxiety. No mood swings. Endocrine: No abnormal blood sugars. No weight change. No excessive sweating or thirst. No cold intolerance. Physical examination: General: This is an 89-year-old male, resting in the ER bed and appears to be comfortable at rest. Derm: R hand wrist laceration noted, warm, dry Head: atraumatic, normocephalic, symmetric Eyes: EOMI, no lid lag, anicteric sclera, pupils equal round reactive to light ENT: Nose and ears atraumatic, no thrush, no pharyngeal erythema Neck: No thyromegaly, no cervical lymphadenopathy, trachea midline, supple Mouth: no lip lesion, mucus membranes moist Cardiovascular: S1S2 reg, no murmur, positive posterior tibial pulse bilateral, 1+ sanchez LE edema, capillary refill less than 2 seconds Lungs: Diffuse wheezing, with scattered ronchi, no rales, no accessory muscle use Abdominal: soft, nontender to palpation, no guarding, no appreciable organomegaly, normal bowel sounds Ext: no gross muscle atrophy, muscle strength 3 out of 5 in all 4 extremities grossly, no contractures, Neuro: CN II-XI grossly intact, light touch intact all 4 extremities, finger to nose within normal limits, Psych: Slow to respond but oriented x 3, appropriate affect Assessment/plan Shortness of breath, suspected acute COPD exacerbation with acute hypercapnic respiratory failure -C/w Solumedrol 60 mg q6h -Duonebs RTC and PRN -Supplemental oxygen -Pulmicort 1 mg twice daily -Consult with pulmonary medicine Subacute subdural hematoma -Neurology consult appreciated -Hold off on antiplatelets and anticoagulants for now -Repeat CAT scan of the brain tomorrow Troponin elevation, suspected secondary to ongoing acute COPD exacerbation -Cardiac monitoring -Cardiology consult added Leukocytosis, likely secondary to ongoing acute stressor -No signs of active infection at this time -Monitor for now DVT prophylaxis -IPCDs CODE STATUS: Full Code DISCHARGE PLAN TBD. PT and OT consults added. Patient may require subacute rehab. Impression and plan of care have been directed as dictated by the signing physician. Patricia Padilla nurse practitioner acting as scribe for signing physician. Objective - Vital Signs Vital signs: Vital Signs Temp 98.1 F 07/05/21 22:10 Pulse 101 H 07/06/21 07:57 Resp 24 07/06/21 06:09 BP 134/85 07/06/21 06:09 Pulse Ox 97 07/06/21 06:09 Intake & Output 07/05/21 07/06/21 07/06/21 18:59 06:59 18:59 Weight 86.183 kg - Labs CBC & Chem 7: 07/05/21 19:11 07/05/21 19:11 Labs: Abnormal Lab Results - Last 24 Hours (Table) 07/05/21 07/05/21 07/05/21 Range/Units 19:11 19:11 19:11 WBC 15.4 H (3.8-10.6) k/uL RBC 3.94 L (4.30-5.90) m/uL Hgb 12.5 L (13.0-17.5) gm/dL MCV 100.3 H (80.0-100.0) fL Neutrophils # 13.0 H (1.3-7.7) k/uL Lymphocytes # 0.9 L (1.0-4.8) k/uL Monocytes # 1.2 H (0-1.0) k/uL ABG pH (7.35-7.45) ABG pCO2 (35-45) mmHg ABG pO2 (83-108) mmHg ABG HCO3 (21-25) mmol/L ABG Total CO2 (19-24) mmol/L ABG O2 Saturation (94-97) % Sodium 133 L (137-145) mmol/L Chloride 96 L (98-107) mmol/L Carbon Dioxide 31 H (22-30) mmol/L Glucose 115 H (74-99) mg/dL Troponin I 0.042 H* (0.000-0.034) ng/mL Urine Protein (Negative) Urine Ketones (Negative) 07/05/21 07/05/21 07/05/21 Range/Units 21:39 22:36 23:03 WBC (3.8-10.6) k/uL RBC (4.30-5.90) m/uL Hgb (13.0-17.5) gm/dL MCV (80.0-100.0) fL Neutrophils # (1.3-7.7) k/uL Lymphocytes # (1.0-4.8) k/uL Monocytes # (0-1.0) k/uL ABG pH 7.31 L (7.35-7.45) ABG pCO2 58 H (35-45) mmHg ABG pO2 146 H (83-108) mmHg ABG HCO3 30 H (21-25) mmol/L ABG Total CO2 31 H (19-24) mmol/L ABG O2 Saturation 98.7 H (94-97) % Sodium (137-145) mmol/L Chloride (98-107) mmol/L Carbon Dioxide (22-30) mmol/L Glucose (74-99) mg/dL Troponin I 0.050 H* (0.000-0.034) ng/mL Urine Protein Trace H (Negative) Urine Ketones 1+ H (Negative) 07/06/21 Range/Units 00:10 WBC (3.8-10.6) k/uL RBC (4.30-5.90) m/uL Hgb (13.0-17.5) gm/dL MCV (80.0-100.0) fL Neutrophils # (1.3-7.7) k/uL Lymphocytes # (1.0-4.8) k/uL Monocytes # (0-1.0) k/uL ABG pH (7.35-7.45) ABG pCO2 (35-45) mmHg ABG pO2 (83-108) mmHg ABG HCO3 (21-25) mmol/L ABG Total CO2 (19-24) mmol/L ABG O2 Saturation (94-97) % Sodium (137-145) mmol/L Chloride (98-107) mmol/L Carbon Dioxide (22-30) mmol/L Glucose (74-99) mg/dL Troponin I 0.053 H* (0.000-0.034) ng/mL Urine Protein (Negative) Urine Ketones (Negative)
--- NOTE | 2021-07-06 14:03 | P.CNPUL ---
History of Present Illness Consult date: 07/06/21 History of present illness: This is a 89-year-old the patient was brought in to the burst department because of ongoing difficulties with mobility, falls and shortness of breath. The patient is known to have COPD and asbestosis. The patient served in the [employer] for a total of 40 years and he has chronic pleural plaques suggestive of asbestosis addition to COPD. He is a chronic smoker with [id number] smoking history.. The patient has also multiple other medical problems and comorbidities. 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 The patient denies having any worsening shortness of breath. In fact he feels that his shortness of breath is chronic without any interval worsening. No p leurisy. No hemoptysis. No chest pain. The chest x-ray is consistent with asbestosis with bilateral pleural plaquing. The patient also had a CAT scan of the brain that showed a chronic left parietal subdural hematoma. No interval change on the CAT scan findings and there was no evidence of any midline shift or any progression of the subdural hematoma. COVID 19 testing was negative. UA was negative. Troponin was at 0.041, rest of the electrolytes are essentially within normal limits with a white second of 15.4 and a platelet count of 227 and hemoglobin of 12.5. The patient will be seen by neurology regarding his falls which is obviously a multifactorial issue, and I was asked to evaluate this patient regarding his chronic dyspnea and shortness of breath. Review of Systems Constitutional: Reports weakness Eyes: bilateral decreased vision, denies as per HPI, denies blurred vision, denies bulging eye, denies diplopia, denies discharge, denies dry eye, denies irritation, denies itching, denies pain, denies photophobia, denies loss of peripheral vision, denies loss of vision, denies tunnel vision/blind spots Ears: deny: decreased hearing, ear discharge, earache, tinnitus Ears, nose, mouth and throat: Reports as per HPI Breasts: absent: as per HPI, gynecomastia Cardiovascular: Reports decreased exercise tolerance, Reports dyspnea on exertion Respiratory: Reports as per HPI, Reports dyspnea Gastrointestinal: Reports as per HPI, Reports loss of appetite Genitourinary: Reports as per HPI Musculoskeletal: Reports frequent falls, Reports gait dysfunction, Reports muscle weakness, Reports neck pain Musculoskeletal: absent: ankle pain, ankle stiffness, ankle swelling Integumentary: Reports as per HPI Neurological: Reports gait dysfunction, Reports weakness, Reports visual changes Psychiatric: Reports as per HPI Endocrine: Reports as per HPI Hematologic/Lymphatic: Reports as per HPI Allergic/Immunologic: Reports as per HPI Past Medical History Past Medical History: Coronary Artery Disease (CAD), COPD, CVA/TIA, GERD/Reflux, Hyperlipidemia, Hypertension, Osteoarthritis (OA), Prostate Disorder Additional Past Medical History / Comment(s): MACULAR DEGENERATION, COPD, Asbestosis, OA, alcohoism (fifth of bourbon a week), chronic subdural hematoma, recurrent falls History of Any Multi-Drug Resistant Organisms: None Reported Past Surgical History: Heart Catheterization With Stent, Joint Replacement, Orthopedic Surgery Additional Past Surgical History / Comment(s): carpal tunnel release bilat, ulcer surgery, RIGHT TOTAL KNEEX2, left rotater cuff Past Anesthesia/Blood Transfusion Reactions: No Reported Reaction Additional Past Anesthesia/Blood Transfusion Reaction / Comment(s): Pt received blood in 2007 without reaction. Date of Last Stent Placement:: 2010 Past Psychological History: Anxiety, Depression Smoking Status: Current every day smoker Past Alcohol Use History: None Reported Past Drug Use History: None Reported - Past Family History Mother Family Medical History: Cancer Additional Family Medical History / Comment(s): Mother at age 43 from colon cancer. Father Additional Family Medical History / Comment(s): Father at age 98 from old age with no major medical problems. Patient does not have any brothers or sisters. Daughter(s) Additional Family Medical History / Comment(s): Patient has 2 daughters with mental health issues. No medical problems. Medications and Allergies Home Medications Medication Instructions Recorded Confirmed Type DULoxetine HCL [Cymbalta] 60 mg PO BID 05/16/14 07/05/21 History Sucralfate [Carafate] 1 gm PO BID 08/29/16 07/05/21 History rOPINIRole HCL [Requip] 0.25 mg PO HS 05/11/17 07/05/21 History QUEtiapine [SEROquel] 50 mg PO HS 07/04/18 07/05/21 History Pantoprazole [Protonix] 40 mg PO DAILY 12/15/18 07/05/21 History Allopurinol [Zyloprim] 100 mg PO BID 02/13/20 07/05/21 History lisinopriL [Zestril] 20 mg PO DAILY 02/13/20 07/05/21 History Spironolactone [Aldactone] 25 mg PO DAILY 06/12/21 07/05/21 History Aspirin 162 mg PO DAILY 06/14/21 07/05/21 Rx Atorvastatin [Lipitor] 40 mg PO HS #30 tab 06/14/21 07/05/21 Rx ALPRAZolam [Xanax] 0.5 mg PO BID PRN #0 06/15/21 07/05/21 Rx Furosemide [Lasix] 20 mg PO DAILY #0 06/15/21 07/05/21 Rx Metoprolol Tartrate [Lopressor] 25 mg PO BID 30 Days #60 tab 06/15/21 07/05/21 Rx Allergies Allergy/AdvReac Type Severity Reaction Status Date / Time No Known Allergies Allergy Verified 07/05/21 20:50 Physical Exam Vitals: Vital Signs Temp Pulse Resp BP Pulse Ox 07/06/21 09:03 98 28 H 143/94 98 07/06/21 07:57 101 H 07/06/21 07:48 101 H 07/06/21 06:09 95 24 134/85 97 07/06/21 03:00 97 18 175/96 97 07/06/21 01:00 96 16 175/96 98 07/05/21 23:00 97 16 186/92 97 07/05/21 22:10 98.1 F 106 H 24 189/97 96 07/05/21 21:43 104 H 07/05/21 21:33 109 H 07/05/21 20:02 111 H 26 H 152/84 95 07/05/21 19:19 109 H 07/05/21 19:06 104 H 07/05/21 18:59 98.6 F 106 H 30 H 153/65 96 Intake and Output 07/05/21 07/06/21 07/06/21 22:59 06:59 14:59 Other: Weight 86.183 kg No acute distress, oriented 3. Room air saturation is 95%. No use of accessory muscles or conversational dyspnea. HEENT examination is grossly unremarkable. Neck supple. Full range of motion. No adenopathy thyromegaly or neck vein distention. Cardiovascular examination reveals regular rhythm rate. S1-S2 normal. No S3 or S4. No discernible murmur noted. Lungs reveal mostly clear breath sounds. Minimal scattered rhonchi noted. No wheezes or crackles. Breath sounds are equal bilaterally. Abdominal exam revealed normal bowel sounds. The abdomen was soft, non-tender, and without masses, organomegaly, or appreciable enlargement of the abdominal aorta. Extremities are intact. No cyanosis clubbing or edema. Examination of the skin revealed no evidence of significant rashes, suspicious appearing nevi or other concerning lesions.there are areas of skin abrasion and laceration and upper extremities due to previous falls. Neurologically, the patient is awake and alert and the patient does not have any focal neurological deficit. Cranial nerves are essentially intact. Results - Laboratory Findings CBC and BMP: 07/05/21 19:11 07/05/21 19:11 ABG WBC 15.4 k/uL (3.8-10.6) H 07/05/21 19: RBC 3.94 m/uL (4.30-5.90) L 07/05/21 19:11 Hgb 12.5 gm/dL (13.0-17.5) L 07/05/21 19:11 Hct 39.5 % (39.0-53.0) 07/05/21 19: MCV 100.3 fL (80.0-100.0) H 07/05/21 19:11 MCH 31.7 pg (25.0-35.0) 07/05/21 19: MCHC 31.6 g/dL (31.0-37.0) 07/05/21 19: RDW 13.5 % (11.5-15.5) 07/05/21 19:11 Plt Count 227 k/uL (150-450) 07/05/21 19:11 MPV 8.4 07/05/21 19:11 Neutrophils % 84 % 07/05/21 19:11 Lymphocytes % 6 % 07/05/21 19:11 Monocytes % 8 % 07/05/21 19:11 Eosinophils % 1 % 07/05/21 19:11 Basophils % 0 % 07/05/21 19:11 Neutrophils # 13.0 k/uL (1.3-7.7) H 07/05/21 19:11 Lymphocytes # 0.9 k/uL (1.0-4.8) L 07/05/21 19:11 Monocytes # 1.2 k/uL (0-1.0) H 07/05/21 19:11 Eosinophils # 0.2 k/uL (0-0.7) 07/05/21 19:11 Basophils # 0.0 k/uL (0-0.2) 07/05/21 19:11 PT 11.3 sec (9.0-12.0) 07/05/21 19:11 INR 1.0 (<1.2) 07/05/21 19:11 APTT 29.0 sec (22.0-30.0) 07/05/21 19:11 Sample Site rrad 07/05/21 21:39 ABG pH 7.31 (7.35-7.45) L 07/05/21 21:39 ABG pCO2 58 mmHg (35-45) H 07/05/21 21:39 ABG pO2 146 mmHg (83-108) H 07/05/21 21:39 ABG HCO3 30 mmol/L (21-25) H 07/05/21 21:39 ABG Total CO2 31 mmol/L (19-24) H 07/05/21 21:39 ABG O2 Saturation 98.7 % (94-97) H 07/05/21 21:39 ABG Base Excess 3.4 mmol/L 07/05/21 21:39 Brock Test Yes 07/05/21 21:39 FiO2 65 % 07/05/21 21:39 Sodium 133 mmol/L (137-145) L 07/05/21 19:11 Potassium 3.9 mmol/L (3.5-5.1) 07/05/21 19:11 Chloride 96 mmol/L (98-107) L 07/05/21 19:11 Carbon Dioxide 31 mmol/L (22-30) H 07/05/21 19:11 Anion Gap 6 mmol/L 07/05/21 19:11 BUN 17 mg/dL (9-20) 07/05/21 19:11 Creatinine 0.94 mg/dL (0.66-1.25) 07/05/21 19:11 Est GFR (CKD-EPI)AfAm 84 (>60 ml/min/1.73 sqM) 07/05/21 19:11 Est GFR (CKD-EPI)NonAf 72 (>60 ml/min/1.73 sqM) 07/05/21 19:11 Glucose 115 mg/dL (74-99) H 07/05/21 19:11 Plasma Lactic Acid Murtaza 1.1 mmol/L (0.7-2.0) 07/05/21 19:11 Calcium 8.7 mg/dL (8.4-10.2) 07/05/21 19:11 Magnesium 1.8 mg/dL (1.6-2.3) 07/05/21 19:11 Total Bilirubin 0.9 mg/dL (0.2-1.3) 07/05/21 19:11 AST 28 U/L (17-59) 07/05/21 19:11 ALT 16 U/L (4-49) 07/05/21 19:11 Alkaline Phosphatase 79 U/L (38-126) 07/05/21 19:11 Creatine Kinase 77 U/L (55-170) 07/05/21 19:11 Troponin I 0.053 ng/mL (0.000-0.034) H* 07/06/21 00:10 NT-Pro-B Natriuret Pep 1190 pg/mL 07/05/21 19:11 Total Protein 6.6 g/dL (6.3-8.2) 07/05/21 19:11 Albumin 3.7 g/dL (3.5-5.0) 07/05/21 19:11 TSH 2.450 mIU/L (0.465-4.680) 07/05/21 19:11 Free T4 1.02 ng/dL (0.78-2.19) 07/05/21 19:11 Free T3 pg/mL 4.4 pg/ml (2.8-5.3) 07/05/21 19:11 Urine Color Yellow 07/05/21 23:03 Urine Appearance Clear (Clear) 07/05/21 23:03 Urine pH 5.5 (5.0-8.0) 07/05/21 23:03 Ur Specific [place] 1.014 (1.001-1.035) 07/05/21 23:03 Urine Protein Trace (Negative) H 07/05/21 23:03 Urine Glucose (UA) Negative (Negative) 07/05/21 23:03 Urine Ketones 1+ (Negative) H 07/05/21 23:03 Urine Blood Negative (Negative) 07/05/21 23:03 Urine Nitrite Negative (Negative) 07/05/21 23:03 Urine Bilirubin Negative (Negative) 07/05/21 23:03 Urine Urobilinogen <2.0 mg/dL (<2.0) 07/05/21 23:03 Ur Leukocyte Esterase Negative (Negative) 07/05/21 23:03 Serum Alcohol <10 mg/dL 07/06/21 09:04 Coronavirus (PCR) Not Detected (Not Detectd) 07/05/21 19:11 PT/INR, D-dimer PT 11.3 sec (9.0-12.0) 07/05/21 19:11 INR 1.0 (<1.2) 07/05/21 19:11 Abnormal lab findings: Abnormal Labs 07/05/21 07/05/21 07/05/21 19:11 19:11 19:11 WBC 15.4 H RBC 3.94 L Hgb 12.5 L MCV 100.3 H Neutrophils # 13.0 H Lymphocytes # 0.9 L Monocytes # 1.2 H ABG pH ABG pCO2 ABG pO2 ABG HCO3 ABG Total CO2 ABG O2 Saturation Sodium 133 L Chloride 96 L Carbon Dioxide 31 H Glucose 115 H Troponin I 0.042 H* Urine Protein Urine Ketones 07/05/21 07/05/21 07/05/21 21:39 22:36 23:03 WBC RBC Hgb MCV Neutrophils # Lymphocytes # Monocytes # ABG pH 7.31 L ABG pCO2 58 H ABG pO2 146 H ABG HCO3 30 H ABG Total CO2 31 H ABG O2 Saturation 98.7 H Sodium Chloride Carbon Dioxide Glucose Troponin I 0.050 H* Urine Protein Trace H Urine Ketones 1+ H 07/06/21 00:10 WBC RBC Hgb MCV Neutrophils # Lymphocytes # Monocytes # ABG pH ABG pCO2 ABG pO2 ABG HCO3 ABG Total CO2 ABG O2 Saturation Sodium Chloride Carbon Dioxide Glucose Troponin I 0.053 H* Urine Protein Urine Ketones - Diagnostic Findings Chest x-ray: image reviewed Assessment and Plan Plan: chronic dyspnea/Shortness of breath, without evidence of any acute exacerbation. The patient shortness of breath is multifactorial and chronic. The patient is known to have COPD.. The patient has underlying asbestosis. The patient also has an underlying COPD. Nevertheless, no signs of any acute COPD exacerbation this point in time. Chest x-ray was reviewed.the findings are essentially stable and is consistent with asbestosis. A superinfection is doubtful at this point in time. Asbestosis with bilateral pleural plaquing History of COPD, not particularly active. The patient COPD is currently inactive in stable chronic subdural hematoma recurrent falls, multifactorial, related to osteoarthritis, poor balance, previous history of subdural hematoma, shortness of breath and poor vision Chronic and ongoing tobacco dependence. Obesity. CAD with previous stent placement. History of hypertension. History of hyperlipidemia. Gastroesophageal reflux disease. Generalized anxiety disorder/depression. history of smoking Mild chronic systolic heart failure. Most recent chronic stress test showed a fixed defect involving the inferior wall. The patient has an ejection fraction of around 40%. Plan Overall pulmonary status is stable Chest x-ray was reviewed consistent with asbestosis Hemodynamically stable We'll continue to follow continue current management Neurology follow-up regarding falls and subdural hematoma, chronic
[2021-07-06 15:22] LABS: Vitamin B12 >2000.0 pg/mL (200.0-944.0)
[2021-07-06 17:17] LABS: Glucose,Whole Blood 184 mg/dL (75-99)
[2021-07-06] MEDS: BUDESONIDE 1 MG/2 ML NEBU INHALATION SCH (19:21)
[2021-07-06 21:07] LABS: Glucose,Whole Blood 167 mg/dL (75-99)
[2021-07-06] MEDS: ATORVASTATIN 40 MG TAB PO SCH (21:42)
[2021-07-06] MEDS: QUEtiapine 50 MG TAB PO SCH (21:42)
[2021-07-07 06:08] LABS: Glucose,Whole Blood 190 mg/dL (75-99)
[2021-07-07] MEDS: methylPREDNISolone SOD SUCCI 125 MG/2 ML VIAL IV SCH ×2 (06:28→12:22)
[2021-07-07] MEDS: INSULIN ASPART (NovoLOG) 100 UNIT/ML VIAL SQ SCH ×4 (06:28→20:23)
[2021-07-07] MEDS: BUDESONIDE 1 MG/2 ML NEBU INHALATION SCH ×2 (07:17→20:31)
[2021-07-07] MEDS: IPRATROPIUM-ALBUTEROL 3 ML NEB INHALATION SCH ×4 (07:17→20:31)
[2021-07-07] MEDS: PANTOPRAZOLE 40 MG TABLET PO SCH (08:36)
[2021-07-07] MEDS: THIAMINE 100 MG TAB PO SCH (08:36)
[2021-07-07] MEDS: allopurinoL 100 MG TAB PO SCH ×2 (08:36→20:23)
[2021-07-07] MEDS: DULoxetine HCL 60 MG CAPSULE.DR PO SCH ×2 (08:36→20:23)
[2021-07-07] MEDS: SPIRONOLACTONE 25 MG TAB PO SCH (08:36)
[2021-07-07] MEDS: SUCRALFATE 1 GM TAB PO SCH ×2 (08:36→20:23)
[2021-07-07] MEDS: lisinopriL 20 MG TAB PO SCH (08:36)
[2021-07-07] MEDS: HEPARIN SODIUM,PORCINE/PF 5,000 UNIT/0.5 ML SYRINGE SQ SCH ×3 (08:36→23:43)
--- NOTE | 2021-07-07 10:15 | CT ---
EXAMINATION TYPE: CT brain wo con DATE OF EXAM: 07/07/2021 HISTORY: subdural assessment CT DLP: 1454.3 mGycm. Automated Exposure Control for Dose Reduction was Utilized. TECHNIQUE: CT scan of the head is performed without contrast. COMPARISON: CT Brain Without [address] June 12, 2021 FINDINGS: Persistent left-sided extra-axial fluid collection slightly more hyperdense than CSF slight ly more posterior in location measuring up to 10 mm in thickness similar to prior consistent with sub acute hemorrhage. No new midline shift. No new hyperdensity or new acute intracranial hemorrhage. The re is diffuse ventricular and sulcal prominence redemonstrated. Partial opacification of posterior le ft ethmoid sinus again seen. Surgical change extending to the posterior calvarium inferiorly is parti ally imaged. Globes are intact. IMPRESSION: As above.
--- NOTE | 2021-07-07 11:15 | P.CRDCN ---
History of Present Illness Consult date: 07/07/21 History of present illness: HISTORY OF PRESENT ILLNESS: This is a 89-year-old male with a past medical history significant for CAD, COPD, peripheral arterial disease, hypertension, and congestive heart failure. Patient follows in the office with Dr. Mitchell. We have been asked to see the patient in consultation for abnormal troponins. Patient examined at the bedside. Patient presented to the hospital secondary to a fall at home and shortness of breath. Patient is being treated for COPD exacerbation. The patient has no plans of chest pain or pressure. He denies dizziness or lightheadedness. Patient's vital signs are stable. * EKG reveals sinus tachycardia with no signs of acute ischemia * Chest xray calcified pleural plaque. Probable fibrotic changes. No acute lung disease. * Laboratory data: WBC 15.4. Hemoglobin 12.5. Platelet count 227. Sodium 133. Potassium 3.9. BUN 17. Creatinine 0.94. Magnesium 1.8. Troponin 0.042. 0.050. 0.053. * Current home cardiac medications include lisinopril 20 mg daily, Aldactone 25 mg daily, metoprolol tartrate 25 mg twice a day, Lasix 20 mg daily, aspirin 162 mg daily, and Lipitor 40 mg daily * Most recent echocardiogram obtained in June 2021 revealed ejection fraction 50% * Patient underwent Lexiscan stress test in June 2021 revealing small fixed defect along the inferior lateral wall. Polar map suggests may be reversible although this appears more fixed on the SPECT imaging REVIEW OF SYSTEMS: At the time of my exam: CONSTITUTIONAL: Denies fever or chills. HEENT: Denies blurred vision, vision changes, or eye pain. Denies hemoptysis CARDIOVASCULAR: Denies chest pain. Denies orthopnea. Denies PND. Denies palpitations RESPIRATORY: Denies shortness of breath. GASTROINTESTINAL: Denies abdominal pain. Denies nausea or vomiting. HEMATOLOGIC: Denies bleeding disorders. GENITOURINARY: Denies any blood in urine. SKIN: Denies pruitis. Denies rash. PHYSICAL EXAM: VITAL SIGNS: Reviewed. GENERAL: Well-developed in no acute distress. HEENT: Head is normocephalic. Pupils are equal, round. Sclerae anicteric. Mucous membranes of the mouth are moist. Neck supple. No JVD or thyromegaly LUNGS: Respirations even and unlabored. Lungs diminished with expiratory wheezing and rhonchi noted HEART: Regular rate and rhythm. S1 and S2 heard. ABDOMEN: Soft. Nondistended. Nontender. EXTREMITIES: Normal range of motion. No clubbing or cyanosis. Peripheral pulses intact. 1+ bilateral lower extremity edema NEUROLOGIC: Awake and alert. Oriented x 3. ASSESSMENT: Shortness of breath Acute COPD exacerbation Abnormal troponins, not suggestive of acute coronary syndrome, likely type II NV secondary to oxygen supply and demand mismatch S/P Fall Chronic Coronary artery disease Chronic heart failure with pEF Hypertension Peripheral arterial disease PLAN: Echo and stress test from earlier this month reviewed. No need to repeat. Troponins not suggestive of ACS Continue home cardiac medications No further inpatient recommendations from a cardiac standpoint We will sign off. Please reconsult if needed. Nurse practitioner note has been reviewed by physician. Signing provider agrees with the documented findings, assessment, and plan of care. Past Medical History Past Medical History: Coronary Artery Disease (CAD), COPD, CVA/TIA, GERD/Reflux, Hyperlipidemia, Hypertension, Osteoarthritis (OA), Prostate Disorder Additional Past Medical History / Comment(s): MACULAR DEGENERATION History of Any Multi-Drug Resistant Organisms: None Reported Past Surgical History: Heart Catheterization With Stent, Joint Replacement, Orthopedic Surgery Additional Past Surgical History / Comment(s): carpal tunnel release bilat, ulcer surgery, RIGHT TOTAL KNEEX2, left rotater cuff Past Anesthesia/Blood Transfusion Reactions: No Reported Reaction Additional Past Anesthesia/Blood Transfusion Reaction / Comment(s): Pt received blood in 2007 without reaction. Date of Last Stent Placement:: 2010 Past Psychological History: Anxiety, Depression Additional Psychological History / Comment(s): Pt uses a walker. He no longer drives, his family takes him to [employer]. He has someone who comes in and does light housework. He has home oxygen prn and a nubulizer.vna nurses come out Smoking Status: Current every day smoker Past Alcohol Use History: None Reported Additional Past Alcohol Use History / Comment(s): Patient is a smoker of a half a pack per day for more than 20 years has cut down to 1/4 ppd. He denies any medical marijuana, marijuana or street drug use. He states no current alcohol use Past Drug Use History: None Reported - Past Family History Mother Family Medical History: Cancer Additional Family Medical History / Comment(s): Mother at age 43 from colon cancer. Father Additional Family Medical History / Comment(s): Father at age 98 from old age with no major medical problems. Patient does not have any brothers or sisters. Daughter(s) Additional Family Medical History / Comment(s): Patient has 2 daughters with mental health issues. No medical problems. Medications and Allergies Home Medications Medication Instructions Recorded Confirmed Type DULoxetine HCL [Cymbalta] 60 mg PO BID 05/16/14 07/05/21 History Sucralfate [Carafate] 1 gm PO BID 08/29/16 07/05/21 History rOPINIRole HCL [Requip] 0.25 mg PO HS 05/11/17 07/05/21 History QUEtiapine [SEROquel] 50 mg PO HS 07/04/18 07/05/21 History Pantoprazole [Protonix] 40 mg PO DAILY 12/15/18 07/05/21 History Allopurinol [Zyloprim] 100 mg PO BID 02/13/20 07/05/21 History lisinopriL [Zestril] 20 mg PO DAILY 02/13/20 07/05/21 History Spironolactone [Aldactone] 25 mg PO DAILY 06/12/21 07/05/21 History Aspirin 162 mg PO DAILY 06/14/21 07/05/21 Rx Atorvastatin [Lipitor] 40 mg PO HS #30 tab 06/14/21 07/05/21 Rx ALPRAZolam [Xanax] 0.5 mg PO BID PRN #0 06/15/21 07/05/21 Rx Furosemide [Lasix] 20 mg PO DAILY #0 06/15/21 07/05/21 Rx Metoprolol Tartrate [Lopressor] 25 mg PO BID 30 Days #60 tab 06/15/21 07/05/21 Rx Allergies Allergy/AdvReac Type Severity Reaction Status Date / Time No Known Allergies Allergy Verified 07/05/21 20:50 Physical Exam Vitals: Vital Signs Temp Pulse Pulse Resp BP BP Pulse Ox 07/07/21 08:00 97.8 F 103 H 22 147/87 94 L 07/07/21 07:33 96 07/07/21 07:17 98 07/07/21 04:00 97.8 F 108 H 20 148/73 94 L 07/07/21 01:57 20 07/07/21 00:00 98.2 F 102 H 20 107/70 95 07/06/21 22:19 98.2 F 98 18 111/66 94 L 07/06/21 21:21 98.2 F 98 18 111/66 94 L 07/06/21 19:34 66 07/06/21 19:22 96 07/06/21 17:30 108 H 28 H 129/72 95 07/06/21 16:09 98 07/06/21 15:59 98 07/06/21 15:57 99 28 H 128/77 99 07/06/21 13:00 96 24 142/79 98 07/06/21 12:05 98 16 150/85 98 07/06/21 11:50 98 07/06/21 11:38 98 Intake and Output 07/06/21 07/07/21 07/07/21 22:59 06:59 14:59 Intake Total 100 Output Total 250 Balance -150 Intake: Oral 100 Output: Urine 250 Other: # Voids 0 1 Weight 86.183 kg Results 07/05/21 19:11 07/05/21 19:11 Current Medications Generic Name Dose Route Start Last Admin Trade Name Freq PRN Reason Stop Dose Admin Albuterol/Ipratropium 3 ml 07/06/21 08:00 07/07/21 07:17 Ipratropium-Albuterol 3 Ml Neb INHALATION 3 ml RT-QID SHASHANK Administration Albuterol/Ipratropium 3 ml 07/05/21 20:55 Ipratropium-Albuterol 3 Ml Neb INHALATION RT-Q4H PRN Shortness Of Breath Or Wheezing Allopurinol 100 mg 07/06/21 09:00 07/07/21 08:36 Allopurinol 100 Mg Tab PO 100 mg BID SHASHANK Administration Alprazolam 0.5 mg 07/06/21 02:38 Alprazolam 1 Mg Tab PO BID PRN Anxiety Atorvastatin Calcium 40 mg 07/06/21 21:00 07/06/21 21:42 Atorvastatin 40 Mg Tab PO 40 mg HS SHASHANK Administration Budesonide 1 mg 07/06/21 20:00 07/07/21 07:17 Budesonide 1 Mg/2 Ml Nebu INHALATION 1 mg RT-BID SHASHANK Administration Duloxetine HCl 60 mg 07/06/21 09:00 07/07/21 08:36 Duloxetine Hcl 60 Mg Capsule.Dr PO 60 mg BID SHASHANK Administration Heparin Sodium (Porcine) 5,000 unit 07/06/21 10:30 07/07/21 08:36 Heparin Sodium,Porcine/Pf 5,000 Unit/0.5 Ml Syringe SQ 5,000 unit Q8HR SHASHANK Administration Sodium Chloride 1,000 mls @ 75 mls/hr 07/05/21 21:00 07/06/21 23:54 Saline 0.9% IV 75 mls/hr .[id number] SHASHANK Administration Insulin Aspart 0 unit 07/06/21 12:30 07/07/21 06:28 Insulin Aspart (Novolog) 100 Unit/Ml Vial SQ 5 unit ACHS SHASHANK Administration Protocol Lisinopril 20 mg 07/06/21 09:00 07/07/21 08:36 Lisinopril 20 Mg Tab PO 20 mg DAILY SHASHANK Administration Methylprednisolone Sodium Succinate 60 mg 07/06/21 00:00 07/07/21 06:28 Methylprednisolone Sod Succi 125 Mg/2 Ml Vial IV 60 mg Q6HR SHASHANK Administration Naloxone HCl 0.2 mg 07/05/21 20:55 Naloxone 0.4 Mg/Ml 1 Ml Vial IV Q2M PRN Opioid Reversal Nystatin 500,000 unit 07/07/21 13:00 Nystatin 100,000 Unit/Ml Susp 500,000 Unit/5 Ml Cup PO QID SHASHANK Protocol Pantoprazole Sodium 40 mg 07/06/21 09:00 07/07/21 08:36 Pantoprazole 40 Mg Tablet PO 40 mg DAILY SHASHANK Administration Quetiapine Fumarate 50 mg 07/06/21 21:00 07/06/21 21:42 Quetiapine 50 Mg Tab PO 50 mg HS SHASHANK Administration Ropinirole HCl 0.25 mg 07/06/21 21:00 07/06/21 21:42 Ropinirole Hcl 0.25 Mg Tab PO 0.25 mg HS SHASHANK Administration Spironolactone 25 mg 07/06/21 09:00 07/07/21 08:36 Spironolactone 25 Mg Tab PO 25 mg DAILY SHASHANK Administration Sucralfate 1 gm 07/06/21 09:00 07/07/21 08:36 Sucralfate 1 Gm Tab PO 1 gm BID SHASHANK Administration Thiamine HCl 100 mg 07/06/21 09:15 07/07/21 08:36 Thiamine 100 Mg Tab PO 100 mg DAILY SHASHANK Administration Intake and Output 07/06/21 07/07/21 07/07/21 22:59 06:59 14:59 Intake Total 100 Output Total 250 Balance -150 Intake: Oral 100 Output: Urine 250 Other: # Voids 0 1 Weight 86.183 kg 07/05/21 19:11 07/05/21 19:11
[2021-07-07 11:54] LABS: Glucose,Whole Blood 208 mg/dL (75-99)
--- NOTE | 2021-07-07 12:14 | P.PN ---
Subjective Progress Note Date: 07/07/21 The patient is seen at bedside and feels about the same. He denies of any headache, nausea or vomiting. Objective - Vital Signs Vital signs: Vital Signs Temp 97.8 F 07/07/21 08:00 Pulse 98 07/07/21 11:16 Resp 22 07/07/21 08:00 BP 147/87 07/07/21 08:00 Pulse Ox 94 L 07/07/21 08:00 Intake & Output 07/06/21 07/07/21 07/07/21 18:59 06:59 18:59 Intake Total 100 Output Total 250 Balance -150 Weight 86.183 kg Intake: Oral 100 Output: Urine 250 Other: # Voids 1 - Exam GENERAL: The patient is lying in bed and is not in acute distress. NEUROLOGICAL: Higher mental function: The patient is awake, alert, oriented to self, place and time. Patient is following commands. No aphasia and no neglect. Cranial nerves: The pupils are round, equal and reactive to light and accommodation. Visual garvin are full to confrontation throughout. Extraocular movement is intact no nystagmus is noted. Facial sensation is normal to touch throughout. The facial strength is normal throughout.No dysarthria is noted but has hoarse raspy voice. Shoulder shrug is limited on left because of old rotator cuff. . Motor: Gait is deferred. The strength is lifting all extremities above gravity but limited on left proximal extremity because of rotator cuff. Normal tone and bulk. Cerebellum: Normal finger to nose bilaterally. Sensation: Sensation is normal to touch throughout. Reflexes (right/left): 1+ throughout. Plantars are mute bilaterally. WORK-UP: Vitamin B12: >2000 Serum folate >20 TSH: 2.45 Troponin is 0.042 and it's minimally trending up at. Urinalysis negative for urinary tract infection Ravi virus PCR was not detected PT, PTT and INR is within normal limits Serum alcohol level <10 CT of the head is reported as left parietal chronic subdural hematoma which is increased in changing distribution compared to last exam. I personally reviewed the CT of the head and I do agree that the the subdural over the left but seems more on the left frontal more than parietal region is bigger than the 06/12/2021 but there is no acute bleeding appreciated. 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 * I'll get a repeat CT of the head today to assess if there is any worsening of subdural * CT of the head on 07/05/2021 is reported as left parietal chronic subdural hematoma which is increased in changing distribution compared to last exam. I personally reviewed the CT of the head and I do agree that the the subdural over the left but seems more on the left frontal more than parietal region is bigger than the 06/12/2021 but there is no acute bleeding appreciated. Also I did not appreciate midline shift or the significant midline shift that was concerning and I reviewed it the personally today. When I spoke with the the ED physician yesterday he also notified me there is no report of midline shift that I was able to appreciate an as a result was felt the patient does not need any neurosurgical intervention or transfer for escalation of care. * Every 4 hours neuro checks * Consulted the physical therapy and occupation therapy * Continue Thiamine 100mg daily. * On fall precaution * Pulmonary team is consulted * Counseled on alcohol cessation. * Will defer the rest of medical management to the primary team. Jeff Verma M.D. Neuro-Hospitalist. Time with Patient: Less than 30
[2021-07-07] MEDS: NYSTATIN 100,000 UNIT/ML SUSP 500,000 UNIT/5 ML CUP PO SCH ×3 (12:22→23:43)
--- NOTE | 2021-07-07 12:42 | P.PN ---
Subjective Progress Note Date: 07/07/21 The patient is an 89-year-old male with a PMH of coronary artery disease status post stents, systolic CHF, COPD, HTN, HLD, and EtOH abuse who presented to the ED after a fall. The history supplemented by the patient's daughter via phone. She noted that the patient's grandson lives with him and helps him with his ADLs. The patient reportedly had a fall earlier today at around 5:30 PM, where he fell in his kitchen. He subsequently activated his medical alert bracelet, following which the EMS found him on the floor in his kitchen. The patient's grandson did not witness the fall. The patient does not recall the events surrounding the fall, but states that he did not lose consciousness. Does repor t hitting his right hand on the way down, and suffering a laceration there. He further denied experiencing chest discomfort. He reports chronic exertional dyspnea with audible wheezing due to his extensive COPD, which is unchanged. He further denied any pain at the time of interview. He underwent an extensive evaluation in the emergency room with a CT brain showing a left parietal chronic subdural hematoma, increased from prior. The patient reported chronic right lower extremity weakness ongoing for the past several months, which is also unchanged. Denied any additional weakness, numbness, or tingling. EKG revealed sinus tachycardia at [address]/T-wave changes noted as reviewed by me. Chest x-ray revealed chronic fibrotic changes with calcified pleural plaque. Pelvis x-ray was unremarkable. Laboratory evaluation was remarkable for leukocytosis of 15.4, ABG showing hypercapnia at 58, sodium 133, and troponin is 0.042 with proBNP 1190. 07/06: Patient is seen today in the ER waiting for a bed on the Cardiac Stepdown Unit. He has a dressing in place to the left forearm. Patient has been seen by neurology and recommended holding antiplatelets due to falls, repeat CAT scan of the head tomorrow to evaluate for any worsening of the subdural hematoma. PT and OT consults were added as well as vitamin B12 and folate and alcohol levels. Patient was started on thiamine 100 mg daily. Patient to be seen by pulmonary medicine today. Pulmicort added. Discussed discharge planning with the patient and he has been at [facility] in the past and may consider going there again. He had a fall on Monday and states his legs just gave out on him. 07/07: Patient is seen today on the cardiac stepdown unit. Patient does have shortness of breath with minimal activity. He is complaining of a sore throat and we will add in nystatin although no oral thrush is noted. Patient has been seen by pulmonary medicine and maintained on nebulizer treatments and IV Solu- Medrol. Repeat CT of the brain revealed persistent left-sided extra-axial fluid collection slightly more hyperdense done CSF slightly more posterior in location measuring up to 10 mm in thickness similar to prior consistent with subacute hemorrhage. No new midline shift. No new hyperdensity or new acute i ntracranial hemorrhage. Neurology is recommended holding antiplatelets as patient would be at increased risk for bleed due to falls. He has been afebrile, heart rate 90s, blood pressure 147/87, pulse ox 94% on 3 L nasal cannula. Capillary blood glucose running between 167 and 208. Vitamin B12 greater than 2000. Discussed discharge planning with the patient today and he states he would rather go to [facility]. PT and OT consults are in place in child welfare caseworker was updated. Review Of Systems: Constitutional: No fever, no chills, no night sweats. No weight change. Reports weakness, reports fatigue or lethargy. No daytime sleepiness. EENT: No headache. No blurred vision or double vision, no loss of vision. No loss of Hearing, no ringing in the ears, no dizziness. No nasal drainage or con gestion. No epistaxis. No sore throat. Lungs: Reports shortness of breath, cough, no sputum production. Reported wheezing. Cardiovascular: No chest pain, no lower extremity edema. No palpitations. No paroxysmal nocturnal dyspnea. No orthopnea. No lightheadedness or dizziness. No syncopal episodes. Abdominal: No abdominal pain. No nausea, vomiting. No diarrhea. No constipation. No bloody or tarry stools.. No loss of appetite. Genitourinary: No dysuria, increased frequency, urgency. No urinary retention. Musculoskeletal: No myalgias. Reports muscle weakness, no gait dysfunction, no frequent falls. No back pain. No neck pain. Integumentary: No wounds, no lesions. No rash or pruritus. No unusual bruising. No change in hair or nails. Neurologic: No aphasia. No facial droop. No change in mentation. No head injury. No headache. No paralysis. No paresthesia. Psychiatric: No depression. No anxiety. No mood swings. Endocrine: No abnormal blood sugars. No weight change. No excessive sweating or thirst. No cold intolerance. Physical examination: General: This is an 89-year-old male, resting in bed and appears to be comfortable at rest. Derm: R hand wrist laceration noted, warm, dry Head: atraumatic, normocephalic, symmetric Eyes: EOMI, no lid lag, anicteric sclera, pupils equal round reactive to light ENT: Nose and ears atraumatic, no thrush, no pharyngeal erythema Neck: No thyromegaly, no cervical lymphadenopathy, trachea midline, supple Mouth: no lip lesion, mucus membranes moist Cardiovascular: S1S2 reg, no murmur, positive posterior tibial pulse bilateral, 1+ sanchez LE edema, capillary refill less than 2 seconds Lungs: Diffuse wheezing, with scattered ronchi, no rales, no accessory muscle use Abdominal: soft, nontender to palpation, no guarding, no appreciable organomegaly, normal bowel sounds Ext: no gross muscle atrophy, muscle strength 3 out of 5 in all 4 extremities grossly, no contractures, Neuro: CN II-XI grossly intact, light touch intact all 4 extremities, finger to nose within normal limits, Psych: Slow to respond but oriented x 3, appropriate affect Assessment/plan Shortness of breath, suspected acute COPD exacerbation with acute hypercapnic respiratory failure -C/w Solumedrol 60 mg q6h -Duonebs RTC and PRN -Supplemental oxygen -Pulmicort 1 mg twice daily -Consult with pulmonary medicine Subacute subdural hematoma -Neurology consult appreciated -Hold off on antiplatelets and anticoagulants for now -Repeat CAT scan of the brain tomorrow Troponin elevation, suspected secondary to ongoing acute COPD exacerbation -Cardiac monitoring -Cardiology consult added Leukocytosis, likely secondary to ongoing acute stressor -No signs of active infection at this time -Monitor for now Macrocytosis possibly due to alcohol abuse History of alcohol abuse Hypertension Hyperlipidemia History of coronary artery disease status post stent Chronic systolic heart failure Chronic low back pain DVT prophylaxis -SCDs CODE STATUS: Full Code DISCHARGE PLAN [facility] for subacute rehab. PT and OT consults added. Impression and plan of care have been directed as dictated by the signing physician. Patricia Padilla nurse practitioner acting as scribe for signing physician. Objective - Vital Signs Vital signs: Vital Signs Temp 97.8 F 07/07/21 08:00 Pulse 103 H 07/07/21 08:00 Resp 22 07/07/21 08:00 BP 147/87 07/07/21 08:00 Pulse Ox 94 L 07/07/21 08:00 Intake & Output 07/06/21 07/07/21 07/07/21 18:59 06:59 18:59 Intake Total 100 Output Total 250 Balance -150 Weight 86.183 kg Intake: Oral 100 Output: Urine 250 Other: # Voids 1 - Labs CBC & Chem 7: 07/05/21 19:11 07/05/21 19:11 Labs: Abnormal Lab Results - Last 24 Hours (Table) 07/06/21 07/06/21 07/06/21 Range/Units 09:04 12:06 17:15 POC Glucose (mg/dL) 158 H 184 H (75-99) mg/dL Vitamin B12 >2000.0 H (200.0-944.0) pg/mL 07/06/21 07/07/21 Range/Units 21:03 06:07 POC Glucose (mg/dL) 167 H 190 H (75-99) mg/dL Vitamin B12 (200.0-944.0) pg/mL
--- NOTE | 2021-07-07 14:01 | P.PN ---
Subjective Progress Note Date: 07/07/21 Principal diagnosis: Shortness of breath This is a 89-year-old the patient was brought in to the burst department because of ongoing difficulties with mobility, falls and shortness of breath. The patient is known to have COPD and asbestosis. The patient served in the [employer] for a total of 40 years and he has chronic pleural plaques suggestive of asbestosis addition to COPD. He is a chronic smoker with [id number] smoking history.. The patient has also multiple other medical problems and comorbidities. 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 The patient denies having any worsening shortness of breath. In fact he feels that his shortness of breath is chronic without any interval worsening. No pleurisy. No hemoptysis. No chest pain. The chest x-ray is consistent with asbestosis with bilateral pleural plaquing. The patient also had a CAT scan of the brain that showed a chronic left parietal subdural hematoma. No interval change on the CAT scan findings and there was no evidence of any midline shift or any progression of the subdural hematoma. COVID 19 testing was negative. UA was negative. Troponin was at 0.041, rest of the electrolytes are essentially within normal limits with a white second of 15.4 and a platelet count of 227 and hemoglobin of 12.5. The patient will be seen by neurology regarding his falls which is obviously a multifactorial issue, and I was asked to evaluate this patient regarding his chronic dyspnea and shortness of breath. On 07/07/2021 patient seen in follow-up on selective care unit, he is resting comfortably in bed, does not appear to be any acute distress, mildly congested, no complaints of chest discomfort, no fever or chills, lung sounds reveal some scattered rhonchi. Currently on 3 L of oxygen pulse ox of 94%, afebrile, hemodynamically has been stable. His chest x-ray showed chronic changes with calcified pleural plaques related to his history of asbestosis, no acute lung disease. Patient is being followed by neurology, and he had a CT of the brain without contrast that showed subacute hemorrhage, which was increased from previous. Neurologically patient is responding appropriately, denies any headaches, no visual changes. Vital signs have been stable. Neurology planning on doing a follow-up computed tomography scan to see if there is any worsening of the subdural hematoma. Objective - Vital Signs Vital signs: Vital Signs Temp 97.8 F 07/07/21 08:00 Pulse 98 07/07/21 11:16 Resp 22 07/07/21 08:00 BP 147/87 07/07/21 08:00 Pulse Ox 94 L 07/07/21 08:00 Intake & Output 07/06/21 07/07/21 07/07/21 18:59 06:59 18:59 Intake Total 100 Output Total 250 Balance -150 Weight 86.183 kg Intake: Oral 100 Output: Urine 250 Other: # Voids 1 - Exam GENERAL EXAM: Alert, very pleasant 89-year-old white male, on 2 L of oxygen, does not appear to be in any acute distress, slightly dysarthric speech, mentation is appropriate, patient is oriented 3 comfortable in no apparent distress. HEAD: Normocephalic/atraumatic. EYES: Normal reaction of pupils, equal size. Conjunctiva pink, sclera white. NOSE: Clear with pink turbinates. THROAT: No erythema or exudates. NECK: No masses, no JVD, no thyroid enlargement, no adenopathy. CHEST: No chest wall deformity. Symmetrical expansion. LUNGS: Equal air entry with rhonchi CVS: Regular rate and rhythm, normal S1 and S2, no gallops, no murmurs, no rubs ABDOMEN: Soft, nontender. No hepatosplenomegaly, normal bowel sounds, no guarding or rigidity. EXTREMITIES: No clubbing, no edema, no cyanosis, 2+ pulses and upper and lower extremities. MUSCULOSKELETAL: Muscle strength and tone normal. SPINE: No scoliosis or deformity SKIN: No rashes CENTRAL NERVOUS SYSTEM: Alert and oriented -3. No focal deficits, tone is normal in all 4 extremities. PSYCHIATRIC: Alert and oriented -3. Appropriate affect. Intact judgment and insight. - Labs CBC & Chem 7: 07/05/21 19:11 07/05/21 19:11 Labs: Abnormal Lab Results - Last 24 Hours (Table) 07/06/21 07/06/21 07/06/21 Range/Units 09:04 17:15 21:03 POC Glucose (mg/dL) 184 H 167 H (75-99) mg/dL Vitamin B12 >2000.0 H (200.0-944.0) pg/mL 07/07/21 07/07/21 Range/Units 06:07 11:51 POC Glucose (mg/dL) 190 H 208 H (75-99) mg/dL Vitamin B12 (200.0-944.0) pg/mL Assessment and Plan Plan: Chronic dyspnea/Shortness of breath, without evidence of any acute exacerbation. The patient shortness of breath is multifactorial and chronic. The patient is known to have COPD.. The patient has underlying asbestosis. The patient also has an underlying COPD. Nevertheless, no signs of any acute COPD exacerbation this point in time. Chest x-ray was reviewed.the findings are essentially sta ble and is consistent with asbestosis. A superinfection is doubtful at this point in time. Asbestosis with bilateral pleural plaquing History of COPD, not particularly active. The patient COPD is currently inactive in stable chronic subdural hematoma recurrent falls, multifactorial, related to osteoarthritis, poor balance, previous history of subdural hematoma, shortness of breath and poor vision Chronic and ongoing tobacco dependence. Obesity. CAD with previous stent placement. History of hypertension. History of hyperlipidemia. Gastroesophageal reflux disease. Generalized anxiety disorder/depression. history of smoking Mild chronic systolic heart failure. Most recent chronic stress test showed a fixed defect involving the inferior wall. The patient has an ejection fraction of around 40%. Plan: Patient is being comfortably Maintain aspiration precautions Continue nebulized bronchodilators Current back IV Solu-Medrol to 40 mg every 8 hours Follow-up CT of the brain per neurology Continue to follow I have personally seen and examined the patient, performed the documentation and the assessment and plan as written. Number of minutes spent on the visit: [10] I have personally seen and examined the patient and reviewed the documentation. I performed a joint evaluation with the nurse practitioner in this evaluation was done more than 20 minutes. I fully agree with the documentation above and the plan of care.. The patient's condition is stable. We'll continue the IV Solu Medrol. Continue bronchodilators. Neurologist on the case. No active pulmonary decompensation or difficulties at this point in time. Long-term prognosis poor baseline above-mentioned comorbidities. Time with Patient: Less than 30
[2021-07-07 16:56] LABS: Glucose,Whole Blood 92 mg/dL (75-99)
[2021-07-07] MEDS: methylPREDNISolone SOD SUCCI 40 MG/ML 1 ML VIAL IV SCH ×2 (17:34→23:44)
[2021-07-07 20:14] LABS: Glucose,Whole Blood 134 mg/dL (75-99)
[2021-07-07] MEDS: QUEtiapine 50 MG TAB PO SCH (20:23)
[2021-07-07] MEDS: ATORVASTATIN 40 MG TAB PO SCH (20:23)
[2021-07-08 06:13] LABS: Glucose,Whole Blood 142 mg/dL (75-99)
[2021-07-08] MEDS: INSULIN ASPART (NovoLOG) 100 UNIT/ML VIAL SQ SCH ×2 (06:42→12:26)
[2021-07-08] MEDS: IPRATROPIUM-ALBUTEROL 3 ML NEB INHALATION SCH ×2 (07:32→11:29)
[2021-07-08] MEDS: BUDESONIDE 1 MG/2 ML NEBU INHALATION SCH (07:34)
[2021-07-08 08:39] VITALS: TEMP 97.8
[2021-07-08] MEDS: methylPREDNISolone SOD SUCCI 40 MG/ML 1 ML VIAL IV SCH (09:22)
[2021-07-08] MEDS: HEPARIN SODIUM,PORCINE/PF 5,000 UNIT/0.5 ML SYRINGE SQ SCH (09:22)
[2021-07-08] MEDS: lisinopriL 20 MG TAB PO SCH (09:23)
[2021-07-08] MEDS: SUCRALFATE 1 GM TAB PO SCH (09:23)
[2021-07-08] MEDS: PANTOPRAZOLE 40 MG TABLET PO SCH (09:23)
[2021-07-08] MEDS: SPIRONOLACTONE 25 MG TAB PO SCH (09:23)
[2021-07-08] MEDS: NYSTATIN 100,000 UNIT/ML SUSP 500,000 UNIT/5 ML CUP PO SCH (09:23)
[2021-07-08] MEDS: THIAMINE 100 MG TAB PO SCH (09:23)
[2021-07-08] MEDS: DULoxetine HCL 60 MG CAPSULE.DR PO SCH (09:23)
[2021-07-08] MEDS: allopurinoL 100 MG TAB PO SCH (09:23)
--- NOTE | 2021-07-08 10:28 | P.DS ---
Providers Date of admission: 07/05/21 20:56 Expected date of discharge: 07/08/21 Attending physician: Cory Cheng Consults: 07/05/21 20:56 Consult Physician Urgent Consulting Provider: Jeff Verma Consult Reason/Comments: Chronic subdural Do you want consulting provider notified?: Already Contacted 07/06/21 02:39 Consult Physician Urgent Consulting Provider: Len Mancuso Consult Reason/Comments: COPD exacer Do you want consulting provider notified?: Yes Primary care physician: [facility] Course: The patient is an 89-year-old male with a PMH of coronary artery disease status post stents, systolic CHF, COPD, HTN, HLD, and EtOH abuse who presented to the ED after a fall. The history supplemented by the patient's daughter via phone. She noted that the patient's grandson lives with him and helps him with his ADLs. The patient reportedly had a fall earlier today at around 5:30 PM, where he fell in his kitchen. He subsequently activated his medical alert bracelet, following which the EMS found him on the floor in his kitchen. The patient's grandson did not witness the fall. The patient does not recall the events surrounding the fall, but states that he did not lose consciousness. Does report hitting his right hand on the way down, and suffering a laceration there. He further denied experiencing chest discomfort. He reports chronic exertional dyspnea with audible wheezing due to his extensive COPD, which is unchanged. He further denied any pain at the time of interview. He underwent an extensive evaluation in the emergency room with a CT brain showing a left parietal chronic subdural hematoma, increased from prior. The patient reported chronic right lower extremity weakness ongoing for the past several months, which is also u nchanged. Denied any additional weakness, numbness, or tingling. EKG revealed sinus tachycardia at [address]/T-wave changes noted as reviewed by me. Chest x-ray revealed chronic fibrotic changes with calcified pleural plaque. Pelvis x-ray was unremarkable. Laboratory evaluation was remarkable for leukocytosis of 15.4, ABG showing hypercapnia at 58, sodium 133, and troponin is 0.042 with proBNP 1190. 07/06: Patient is seen today in the ER waiting for a bed on the Cardiac Stepdown Unit. He has a dressing in place to the left forearm. Patient has been seen by neurology and recommended holding antiplatelets due to falls, repeat CAT scan of the head tomorrow to evaluate for any worsening of the subdural hematoma. PT and OT consults were added as well as vitamin B12 and folate and alcohol levels. Patient was started on thiamine 100 mg daily. Patient to be seen by pulmonary medicine today. Pulmicort added. Discussed discharge planning with the patient and he has been at [facility] in the past and may consider going there again. He had a fall on Monday and states his legs just gave out on him. 07/07: Patient is seen today on the cardiac stepdown unit. Patient does have shortness of breath with minimal activity. He is complaining of a sore throat and we will add in nystatin although no oral thrush is noted. Patient has been seen by pulmonary medicine and maintained on nebulizer treatments and IV Solu- Medrol. Repeat CT of the brain revealed persistent left-sided extra-axial fluid collection slightly more hyperdense done CSF slightly more posterior in location measuring up to 10 mm in thickness similar to prior consistent with subacute hemorrhage. No new midline shift. No new hyperdensity or new acute intracranial hemorrhage. Neurology is recommended holding antiplatelets as patient would be at increased risk for bleed due to falls. He has been afebrile, heart rate 90s, blood pressure 147/87, pulse ox 94% on 3 L nasal cannula. Capillary blood glucose running between 167 and 208. Vitamin B12 greater than 2000. Discussed discharge planning with the patient today and he states he would rather go to [facility]. PT and OT consults are in place in cyanide case hardener was updated. 07/08: Pulmonary medicine has decreased Solu-medrol to 40mg q8h. Patient is seen today sitting in recliner and not currently on oxygen with PO 93% on RA. His breathing status is stable. He has been seen by PT with recommendation for subacute rehab. Arrangements are being made for discharge to [facility]. Patient will be discharged today in stable condition. DISCHARGE DIAGNOSES Shortness of breath, suspected acute COPD exacerbation with acute hypercapnic respiratory failure Subacute subdural hematoma Troponin elevation, suspected secondary to ongoing acute COPD exacerbation Leukocytosis, likely secondary to ongoing acute stressor Macrocytosis possibly due to alcohol abuse History of alcohol abuse Hypertension Hyperlipidemia History of coronary artery disease status post stent Chronic systolic heart failure Chronic low back pain Hyperglycemia secondary to steroids DISCHARGE PLAN [facility] for subacute rehab. Greater than 35 minutes was utilized and coordinating patient's discharge. Impression and plan of care have been directed as dictated by the signing physician. Patricia Padilla nurse practitioner acting as scribe for signing physician. Plan - Discharge Summary Discharge Rx Participant: No New Discharge Prescriptions: New Ipratropium-Albuterol Nebulize [Duoneb 0.5 mg-3 mg/3 ml Soln] 3 ml INHALATION RT-QID ml Budesonide [Pulmicort] 1 mg INHALATION RT-BID ml Thiamine [Vitamin B-1] 100 mg PO DAILY tab predniSONE [Deltasone] 40 mg PO DAILY tab Nystatin 100,000 Unit/ml Susp [Mycostatin Oral Susp] 500,000 unit PO QID 6 Days ml INSULIN ASPART (NovoLOG) [NovoLOG (formulary)] 0 unit SQ ACHS ml predniSONE 0 mg PO DIRECTED #41 tab Continue DULoxetine HCL [Cymbalta] 60 mg PO BID Sucralfate [Carafate] 1 gm PO BID rOPINIRole HCL [Requip] 0.25 mg PO HS QUEtiapine [SEROquel] 50 mg PO HS Pantoprazole [Protonix] 40 mg PO DAILY Allopurinol [Zyloprim] 100 mg PO BID lisinopriL [Zestril] 20 mg PO DAILY Aspirin 162 mg PO DAILY Furosemide [Lasix] 20 mg PO DAILY #0 Spironolactone [Aldactone] 25 mg PO DAILY Atorvastatin [Lipitor] 40 mg PO HS #30 tab Metoprolol Tartrate [Lopressor] 25 mg PO BID 30 Days #60 tab ALPRAZolam [Xanax] 0.5 mg PO BID PRN #3 tab PRN Reason: Anxiety Discharge Medication List DULoxetine HCL [Cymbalta] 60 mg PO BID 05/16/14 [History] Sucralfate [Carafate] 1 gm PO BID 08/29/16 [History] rOPINIRole HCL [Requip] 0.25 mg PO HS 05/11/17 [History] QUEtiapine [SEROquel] 50 mg PO HS 07/04/18 [History] Pantoprazole [Protonix] 40 mg PO DAILY 12/15/18 [History] Allopurinol [Zyloprim] 100 mg PO BID 02/13/20 [History] lisinopriL [Zestril] 20 mg PO DAILY 02/13/20 [History] Spironolactone [Aldactone] 25 mg PO DAILY 06/12/21 [History] Aspirin 162 mg PO DAILY 06/14/21 [Rx] Atorvastatin [Lipitor] 40 mg PO HS #30 tab 06/14/21 [Rx] Furosemide [Lasix] 20 mg PO DAILY #0 06/15/21 [Rx] Metoprolol Tartrate [Lopressor] 25 mg PO BID 30 Days #60 tab 06/15/21 [Rx] ALPRAZolam [Xanax] 0.5 mg PO BID PRN #3 tab 07/08/21 [Rx] Budesonide [Pulmicort] 1 mg INHALATION RT-BID ml 07/08/21 [Rx] INSULIN ASPART (NovoLOG) [NovoLOG (formulary)] 0 unit SQ ACHS ml 07/08/21 [Rx] Ipratropium-Albuterol Nebulize [Duoneb 0.5 mg-3 mg/3 ml Soln] 3 ml INHALATION RT-QID ml 07/08/21 [Rx] Nystatin 100,000 Unit/ml Susp [Mycostatin Oral Susp] 500,000 unit PO QID 6 Days ml 07/08/21 [Rx] Thiamine [Vitamin B-1] 100 mg PO DAILY tab 07/08/21 [Rx] predniSONE 0 mg PO DIRECTED #41 tab 07/08/21 [Rx] predniSONE [Deltasone] 40 mg PO DAILY tab 07/08/21 [Rx] Follow up Appointment(s)/Referral(s): Yoav Castillo DO [Primary Care Provider] - 1 Week (After discharge from [facility]) Len Mancuso MD [STAFF PHYSICIAN] - 1 Week Discharge Disposition: TRANSFER TO SNF/ECF
[2021-07-08] MEDS ORDERED: METOPROLOL TARTRATE 25 MG TAB PO SCH (10:45)
[2021-07-08 12:05] VITALS: BP 146/75; PULSE 100; RESP 17
--- NOTE | 2021-07-08 12:50 | P.PN ---
Subjective Progress Note Date: 07/08/21 The patient is seen and was sitting in recliner chair and stated he is doing well. He denies of headache, nausea or vomiting. He feels he is at baseline. Objective - Vital Signs Vital signs: Vital Signs Temp 97.8 F 07/08/21 11:25 Pulse 97 07/08/21 11:38 Resp 17 07/08/21 11:25 BP 146/75 07/08/21 11:25 Pulse Ox 98 07/08/21 11:25 Intake & Output 07/07/21 07/08/21 07/08/21 18:59 06:59 18:59 Intake Total 540 Output Total 400 Balance -400 540 Intake: Oral 540 Output: Urine 400 Other: Voiding Method Urinal - Exam GENERAL: The patient is lying in bed and is not in acute distress. NEUROLOGICAL: Higher mental function: The patient is awake, alert, oriented to self, place and time. Patient is following commands. No aphasia and no neglect. Cranial nerves: The pupils are round, equal and reactive to light and accommodation. Visual garvin are full to confrontation throughout. Extraocular movement is intact no nystagmus is noted. Facial sensation is normal to touch throughout. The facial strength is normal throughout.No dysarthria is noted but has hoarse raspy voice. Shoulder shrug is limited on left because of old rotator cuff. . Motor: Gait is deferred. The strength is lifting all extremities above gravity but limited on left proximal extremity because of rotator cuff. Normal tone and bulk. Cerebellum: Normal finger to nose bilaterally. Sensation: Sensation is normal to touch throughout. Reflexes (right/left): 1+ throughout. Plantars are mute bilaterally. WORK-UP: Vitamin B12: >2000 Serum folate >20 TSH: 2.45 Troponin is 0.042 and it's minimally trending up at. Urinalysis negative for urinary tract infection Ravi virus PCR was not detected PT, PTT and INR is within normal limits Serum alcohol level <10 CT of the head is reported as left parietal chronic subdural hematoma which is increased in changing distribution compared to last exam. I personally reviewed the CT of the head and I do agree that the the subdural over the left but seems more on the left frontal more than parietal region is bigger than the 06/12/2021 but there is no acute bleeding appreciated. 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 * CT of the head on 07/05/2021 is reported as left parietal chronic subdural hematoma which is increased in changing distribution compared to last exam. I personally reviewed the CT of the head and I do agree that the the subdural over the left but seems more on the left frontal more than parietal region is bigger than the 06/12/2021 but there is no acute bleeding appreciated. I did not feel there is midline shift. * Repeat CT head on 07/07/2021: It seems about the same No new acute hemorrhage noted. * Every 4 hours neuro checks * Physical therapy and occupation therapy are consulted * Continue Thiamine 100mg daily. * On fall precaution * Pulmonary team is consulted * Counseled on alcohol cessation. * Counseled on tobacco cessation for 3 minutes. * Will defer the rest of medical management to the primary team. * Recommend the patient to follow-up with neurologist as outpatient within 1-2 weeks. The plan is discussed with patient and his nurse. Jeff Verma M.D. Neuro-Hospitalist. Time with Patient: Less than 30
--- NOTE | 2021-07-08 16:46 | P.PN ---
Subjective Progress Note Date: 07/08/21 This is a 89-year-old the patient was brought in to the burst department because of ongoing difficulties with mobility, falls and shortness of breath. The patient is known to have COPD and asbestosis. The patient served in the [employer] for a total of 40 years and he has chronic pleural plaques suggestive of asbestosis addition to COPD. He is a chronic smoker with [id number] smoking history.. The patient has also multiple other medical problems and comorbidities. 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 The patient denies having any worsening shortness of breath. In fact he feels that his shortness of breath is chronic without any interval worsening. No pleurisy. No hemoptysis. No chest pain. The chest x-ray is consistent with asbestosis with bilateral pleural plaquing. The patient also had a CAT scan of the brain that showed a chronic left parietal subdural hematoma. No interval change on the CAT scan findings and there was no evidence of any midline shift or any progression of the subdural hematoma. COVID 19 testing was negative. UA was negative. Troponin was at 0.041, rest of the electrolytes are essentially within normal limits with a white second of 15.4 and a platelet count of 227 and hemoglobin of 12.5. The patient will be seen by neurology regarding his falls which is obviously a multifactorial issue, and I was asked to evaluate this patient regarding his chronic dyspnea and shortness of breath. On 07/07/2021 patient seen in follow-up on selective care unit, he is resting comfortably in bed, does not appear to be any acute distress, mildly congested, no complaints of chest discomfort, no fever or chills, lung sounds reveal some scattered rhonchi. Currently on 3 L of oxygen pulse ox of 94%, afebrile, hemodynamically has been stable. His chest x-ray showed chronic changes with c alcified pleural plaques related to his history of asbestosis, no acute lung disease. Patient is being followed by neurology, and he had a CT of the brain without contrast that showed subacute hemorrhage, which was increased from previous. Neurologically patient is responding appropriately, denies any headaches, no visual changes. Vital signs have been stable. Neurology planning on doing a follow-up computed tomography scan to see if there is any worsening of the subdural hematoma. 06/30/2021, the patient is doing well. The patient's respiratory status is stable. The patient is still having some limited wheezing which is chronic. The patient will be taken off the IV Solu Medrol started on a prednisone burst taper. Continue bronchodilators. No new onset neurologic deficits. The patient's subdural hematomas chronic. The patient is going to subacute rehabilitation. Objective - Vital Signs Vital signs: Vital Signs Temp 97.8 F 07/08/21 11:25 Pulse 97 07/08/21 11:38 Resp 17 07/08/21 11:25 BP 146/75 07/08/21 11:25 Pulse Ox 98 07/08/21 11:25 Intake & Output 07/07/21 07/08/21 07/08/21 18:59 06:59 18:59 Intake Total 540 Output Total 400 Balance -400 540 Intake: Oral 540 Output: Urine 400 Other: Voiding Method Urinal - Exam GENERAL EXAM: Alert, very pleasant 89-year-old white male, on 2 L of oxygen, does not appear to be in any acute distress, slightly dysarthric speech, mentation is appropriate, patient is oriented 3 comfortable in no apparent distress. HEAD: Normocephalic/atraumatic. EYES: Normal reaction of pupils, equal size. Conjunctiva pink, sclera white. NOSE: Clear with pink turbinates. THROAT: No erythema or exudates. NECK: No masses, no JVD, no thyroid enlargement, no adenopathy. CHEST: No chest wall deformity. Symmetrical expansion. LUNGS: Equal air entry with rhonchi CVS: Regular rate and rhythm, normal S1 and S2, no gallops, no murmurs, no rubs ABDOMEN: Soft, nontender. No hepatosplenomegaly, normal bowel sounds, no guarding or rigidity. EXTREMITIES: No clubbing, no edema, no cyanosis, 2+ pulses and upper and lower extremities. MUSCULOSKELETAL: Muscle strength and tone normal. SPINE: No scoliosis or deformity SKIN: No rashes CENTRAL NERVOUS SYSTEM: Alert and oriented -3. No focal deficits, tone is normal in all 4 extremities. PSYCHIATRIC: Alert and oriented -3. Appropriate affect. Intact judgment and insight. - Labs CBC & Chem 7: 07/05/21 19:11 07/05/21 19:11 Labs: Abnormal Lab Results - Last 24 Hours (Table) 07/07/21 07/08/21 Range/Units 20:13 06:12 POC Glucose (mg/dL) 134 H 142 H (75-99) mg/dL Assessment and Plan Plan: Chronic dyspnea/Shortness of breath, without evidence of any acute exacerbation. The patient shortness of breath is multifactorial and chronic. The patient is known to have COPD.. The patient has underlying asbestosis. The patient also has an underlying COPD. Nevertheless, no signs of any acute COPD exacerbation this point in time. Chest x-ray was reviewed.the findings are essentially stable and is consistent with asbestosis. A superinfection is doubtful at this point in time. Asbestosis with bilateral pleural plaquing History of COPD, not particularly active. The patient COPD is currently inactive in stable chronic subdural hematoma recurrent falls, multifactorial, related to osteoarthritis, poor balance, previous history of subdural hematoma, shortness of breath and poor vision Chronic and ongoing tobacco dependence. Obesity. CAD with previous stent placement. History of hypertension. History of hyperlipidemia. Gastroesophageal reflux disease. Generalized anxiety disorder/depression. history of smoking Mild chronic systolic heart failure. Most recent chronic stress test showed a fixed defect involving the inferior wall. The patient has an ejection fraction of around 40%. Plan: Discontinue IV Solu Medrol and put the patient prednisone burst taper Continue bronchodilators Neurologic function are stable Discharge this patient to [facility] Cleared for discharge from the pulmonary standpoint
[2021-07-09] MEDS ORDERED: predniSONE 20 MG TAB PO SCH (09:00)
== END 2021-07-08 14:12 | DRG 190 ==
LOC: EC 18:41 → 3SCARD 20:56
PROVIDERS: ADMIT Internal Medicine Geriatric Medicine; ATTEND Internal Medicine Geriatric Medicine
DX: J44.1 Chronic obstructive pulmonary disease with (acute) exacerbation (principal); I62.02 Nontraumatic subacute subdural hemorrhage; I62.03 Nontraumatic chronic subdural hemorrhage; I50.22 Chronic systolic (congestive) heart failure; I73.9 Peripheral vascular disease, unspecified; J61 Pneumoconiosis due to asbestos and other mineral fibers; I11.0 Hypertensive heart disease with heart failure; I25.10 Atherosclerotic heart disease of native coronary artery without angina pectoris; T38.0X5A Adverse effect of glucocorticoids and synthetic analogues, initial encounter; Y92.000 Kitchen of unspecified non-institutional (private) residence as the place of occurrence of the external cause; H54.8 Legal blindness, as defined in USA; H35.30 Unspecified macular degeneration; F41.9 Anxiety disorder, unspecified; G89.29 Other chronic pain; Z20.822 Contact with and (suspected) exposure to COVID-19; D72.829 Elevated white blood cell count, unspecified; D75.89 Other specified diseases of blood and blood-forming organs; E78.5 Hyperlipidemia, unspecified; F10.10 Alcohol abuse, uncomplicated; F17.210 Nicotine dependence, cigarettes, uncomplicated; F32.A Depression, unspecified; Z79.51 Long term (current) use of inhaled steroids; Z79.82 Long term (current) use of aspirin; Z79.899 Other long term (current) drug therapy; Z80.0 Family history of malignant neoplasm of digestive organs; Z86.73 Personal history of transient ischemic attack (TIA), and cerebral infarction without residual deficits; Z95.5 Presence of coronary angioplasty implant and graft; Z98.890 Other specified postprocedural states; M54.2 Cervicalgia; R77.8 Other specified abnormalities of plasma proteins
CPT/HCPCS: 36415; 36600; 70450; 71046; 72170; 80053; 80320; 81003; 82550; 82607; 82746; 82805; 83605; 83735; 83880; 84439; 84443; 84481; 84484; 85025; 85610; 85730; 87635; 93005; 94640; 96374; 96376; 99285